=== PATIENT | male | born 1960 | race Caucasian/White ===

== ENCOUNTER 2022-08-31 06:42 | Day surgery (SDC) | payer BC, SELFPAY ==
[2022-08-31] VITALS (12 sets, daily range): BP systolic 123–163; BP diastolic 77–105; PULSE 75–108; RESP 16–18; TEMP 36.6–37.2; O2SAT 95–99; BMI 22.8
--- NOTE | ~2022-08-31 | CT_ITS ---
EXAMINATION: CT ABDOMEN AND PELVIS WITHOUT CONTRAST CLINICAL INFORMATION: Flank pain. COMPARISON: CT Stone 30 09/24/2019 TECHNIQUE: Multidetector volumetric imaging was performed from the superior aspect of the liver through the pubic symphysis. Sagittal and coronal reformatted images were obtained on the technologist's workstation. This CT examination was performed using dose optimization techniques as appropriate, variously including the following: *Automated exposure control *Adjustment of mA and/or kV according to patient size (this includes techniques or standardized protocols for targeted exams where dose is matched to indication/reason for exam; i.e. extremities or head) *Use of iterative reconstruction technique DLP: 432 mGy-cm FINDINGS: LUNG BASES: There is bibasilar dependent atelectasis. Minimal atelectasis or scarring is seen in the lingula. The heart size is normal. LIVER, GALLBLADDER, AND BILIARY TREE: The liver is normal in size, shape, and attenuation. No focal hepatic lesion or biliary ductal dilatation is present. The gallbladder is unremarkable with no evidence of radiopaque gallstones, gallbladder wall thickening, or obvious pericholecystic inflammatory changes. PANCREAS: Unremarkable. SPLEEN: Unremarkable. ADRENAL GLANDS: Unremarkable. KIDNEYS AND URETERS: The right kidney is small measuring 6.2 cm with extrarenal right kidney pelvis. The left kidney is slightly enlarged measuring 13 cm with moderate to significant left hydroureteronephrosis secondary to a large obstructive mid ureteral stone measuring 1.8 cm on coronal image 36/7 the distal left ureter is prominent but no stones seen. BLADDER: Unremarkable. GASTROINTESTINAL TRACT: There is scattered stool and gas seen throughout the colon without any significant distention. The small bowel loops are normal caliber. Appendix is normal caliber. ABDOMINAL WALL: There is a small umbilical hernia containing fat. LYMPH NODES: Normal. VASCULAR: Unremarkable. PELVIC VISCERA: There is moderate prostate enlargement. The periprostatic fat planes are preserved. OSSEOUS STRUCTURES: Degenerative disc changes with vacuum disc phenomena and spondylosis at L5-S1 disc level is noted. There is no aggressive lytic or sclerotic process seen. CT/CT abdomen pelvis wo IV con IMPRESSION: Large 1.8 cm obstructive radiopaque calculi left mid the ureter with moderate to significant hydroureteronephrosis and moderate perinephric stranding. Small right kidney likely chronic atrophy with extrarenal kidney pelvis. No radiopaque calculi seen in either kidneys. Mild constipation. Fleischner guidelines were followed.
--- NOTE | ~2022-08-31 | FL_ITS ---
EXAMINATION: XR FLUOROSCOPY WITH IMAGES CLINICAL INFORMATION: Cystoscopy, ureteroscopy, retro. COMPARISON: CT of the abdomen and pelvis from earlier the same day TECHNIQUE: Fluoroscopy Supervised By: Dr. Sung Ludwig. Fluoroscopy Time: 39.5 seconds. Cumulative Dose: 7.98 mGy. DAP: None available Images: 4. FINDINGS: Initial image demonstrates contrast opacification of the left distal ureter. Middle image demonstrate severe left hydronephrosis and proximal ureteral dilatation. Final images demonstrate a left internal ureteral stent. FL/FL guidance in OR IMPRESSION: Fluoroscopy guidance for urologic procedure.
--- NOTE | 2022-08-31 07:07 | ED.GENADULT ---
HPI - General Adult General Chief complaint: Abdominal Pain Stated complaint: Kidney Stones Time Seen by Provider: 08/31/22 07:04 Source: patient Mode of arrival: ambulatory Limitations: no limitations History of Present Illness HPI narrative: 62 year old male patient with long history of cystine kidney stones presents today with complaints of left flank pain since Tuesday. Per patient this pain presented first on Tuesday 08/29 and dissipated through Tuesday but early this morning around 2am the pain woke him up out of his sleep and was severe for 4 hours. He states he still has this left flank pain which radiates into his groin. Patient elicits some nausea during these episodes. He denies dysuria, difficulties with elimination, abdominal pain, chest pain, SOB, and fever. Patient states that he has had to have lithotripsy multiple times for kidney stones in [facility]. Onset (ago): day(s) Location: back and left Radiation: other (radiates to the groin) Severity: moderate Severity scale (1-10): 4 Quality: stabbing and aching Pain Consistency: constant Relieving factors: none Exacerbating factors: none Associated symptoms: denies other symptoms Treatments prior to arrival: none Related Data Allergies Allergy/AdvReac Type Severity Reaction Status Date / Time No Known Allergies Allergy Verified 08/31/22 07:07 Review of Systems Constitutional: Constitutional: Reports no additional constitutional complaints, Denies chills, Denies fever(s) and Denies night sweats Eyes: Eyes: Reports no additional eye complaints, Denies blurry vision, Denies change in vision, Denies diplopia, Denies eye discharge, Denies loss of vision and Denies eye pain ENT: Denies dizziness Cardiovascular: Cardiovascular: Reports no additional cardiovascular complaints, Denies chest pain, Denies lightheadedness, Denies Loss of Consciousness and Denies dyspnea Respiratory: Respiratory: Reports no additional respiratory complaints and Denies dyspnea Gastrointestinal: Gastrointestinal: Reports no additional gastrointestinal complaints, Denies abdominal pain, Denies melena, Denies hematochezia, Denies change in bowel habits and Denies change in stool character Genitourinary: Genitourinary: Reports no additional male genitourinary complaints, Denies hematuria, Denies oliguria, Denies difficulty urinating, Denies dysuria, Reports flank pain (left), Denies urinary frequency, Denies urinary hesitancy, Denies urinary incontinence and Denies urinary urgency Musculoskeletal: Musculoskeletal: Reports no additional musculoskeletal complaints, Denies numbness and Denies tingling Neurologic: Denies dizziness, Denies loss of vision, Denies numbness and Denies tingling Psychiatric: Psychiatric: Reports no additional psychiatric complaints Endocrine: Endocrine: Reports no additional endocrine complaints Hematologic/Lymphatic: Hematologic/Lymphatic: Reports no additional hematologic/lymphatic complaints Allergic/Immunologic: Allergic/Immunologic: Reports no additional allergic/immunologic complaints PMFSH Past Medical History Attestation statement: The following information was validated with the patient. Source: old records reviewed and nursing notes reviewed Social History Social History Alcohol intake: current Alcohol intake frequency: 0-2 drinks per day Smoked in Last 30 Days: No Use of substances other than those prescribed or required for medical reasons: Yes Substance Use Type: Marijuana Substance Use Frequency: Occasionally Advance Directives: No Physical Exam ED Vital Signs: Vital Signs - 24 hr 08/31/22 06:46 08/31/22 07:23 08/31/22 07:29 Temperature 97.8 F 98.0 F Pulse Rate 88 83 108 H Respiratory Rate 18 16 18 Blood Pressure 163/105 H 148/93 H 148/93 H Pulse Oximetry 97 95 97 Oxygen Delivery Method Room Air Room Air Room Air 08/31/22 09:33 08/31/22 10:45 Temperature Pulse Rate 76 75 Respiratory Rate 16 16 Blood Pressure 148/92 H 133/78 Pulse Oximetry 96 98 Oxygen Delivery Method Room Air Room Air BMI result Body Mass Index 22.8 Const General: cooperative, no acute distress, alert and awake Nutritional Appearance: well nourished Orientation/consciousness: patient oriented x3 Limitations: no limitations [facility] Head: Yes normal to inspection and Yes atraumatic Ears: hearing grossly normal bilaterally and external ears normal General nose exam: Normal external nose present, no nasal discharge noted and no epistaxis Face and sinus: Yes normal facial exam, No abrasion and No laceration Mouth: Normal oral and palatal mucosa present, no drooling and no muffled voice Eyes General: appearance normal, both eyes and all related structures Periorbital: periorbital findings normal Eyelids: Yes eyelids normal Conjunctivae: conjunctivae normal Pupils: Equal, round and reactive pupils present EOM: EOMs intact bilaterally Neck Neck: Yes normal visual inspection, Yes full ROM and Yes no lymphadenopathy Chest Chest palpation & inspection: normal inspection of the chest Resp Effort & Inspection: normal respiratory effort and able to speak in complete sentences GI Inspection: Yes normal to inspection Palpation (GI): Soft to palpation, not firm, nontender, no guarding and not rigid General: Yes CVA tenderness on the left Back/Spine/Pelvis Back: CVA tenderness Neuro General: patient oriented x3 and moves all extremities Cranial nerves: Yes Equal, round and reactive pupils present Cognition (Neuro): normal cognition Motor exam (neuro): 5/5 motor strength present throughout Sensory Exam: Normal double simultaneous stimulation for sensation Coordination: [id number] test normal Extrem General: Yes normal to inspection, Yes full ROM and Yes capillary refill normal Psych Appearance: grossly normal Mental Status: mental status grossly normal Affect: normal affect Attitude: cooperative Thought process: Normal thought process present Thought content: Normal thought content present Insight: Good insight present (Psych) Medications Administered Discontinued Medications Generic Name Dose Route Start Last Admin Trade Name Freq PRN Reason Stop Dose Admin Sodium Chloride 1,000 mls @ 999 mls/hr 08/31/22 07:15 08/31/22 10:44 Ns IV 08/31/22 08:15 Infused .Q1H1M FRANCISCA Infusion Ketorolac Tromethamine 15 mg 08/31/22 07:14 08/31/22 07:46 Ketorolac Tromethamine 15 Mg/Ml Vial IVPUSH 08/31/22 07:15 15 mg ONCE ONE Administration Ondansetron HCl 4 mg 08/31/22 07:14 08/31/22 07:46 Ondansetron Hcl 4 Mg/2 Ml Vial IVPUSH 08/31/22 07:15 4 mg ONCE ONE Administration Medical Decision Making Medical Decision Making [facility] Narrative: Patient is a 62 year old assigned male at with a history of cystine type kidney stones presenting to the emergency department today with left flank pain. Patient's physical exam showed left CVA tenderness. Patient's blood work showed an elevated CR of 1.61 and BUN of 25. The rest of the patient's labs were grossly normal. Patient's urine showed no acute process. Patient's abdominal/pelvis CT showed a large 1.8cm obstructive calculi in the left mid ureter with moderate to significant hydroureteronephrosis and moderate perinephric stranding. I spoke to the urologist gastroenterology nurse practitioner who recommended the patient stay NPO and he would place a stent. I explained my physical exam findings as well as all test results to the patient. I answered all questions asked by the patient. Patient received IV fluid and Toradol which he stated helped his symptoms significantly. Patient verbalized agreement and understanding with this treatment plan and transfer to the OR for stent placement. Differential Diagnosis Differential Diagnoses: The differential diagnosis associated with the presentation includes Kidney stone Renal obstruction Renail failure MARYA Admission/Observation Consideration of admission/observation: Escalation of care including admission/observation considered Consult Healthcare Provider Management of the patient was discussed with: [employer] (spoke with the urologist as noted in the MDM portion of this chart.) Lab Data [facility] Lab Attestation statement: I reviewed the patient's lab results. My interpretation of these results are in the MDM portion of this chart. 08/31/22 07:28 08/31/22 07:28 Labs: Lab Results 08/31/22 08/31/22 08/31/22 Range/Units 07:28 07:28 07:28 WBC 9.7 (4.8-10.8) X10*3/uL RBC 4.82 (4.60-5.80) X10*6/uL Hgb 14.1 (14.0-18.0) g/dl Hct 41.9 L (42.0-52.0) % MCV 86.9 (80.0-98.0) fL MCH 29.3 (27.0-33.0) pg MCHC 33.7 (31.0-36.0) g/dl RDW 14.6 (11.0-16.0) % Plt Count 233 (160-400) X10*3/uL MPV 12.1 (9.4-12.4) fL Immature Gran % (Auto) 0.3 (0.0-0.4) % Neut % (Auto) 75.5 H (45-73) % Lymph % (Auto) 10.3 L (20-40) % [place] % (Auto) 11.8 H (2-11) % Eos % (Auto) 1.3 (0-4) % Baso % (Auto) 0.8 (0-2) % Lymph # (Auto) 1.0 L (1.2-4.9) X10*3/uL [place] # (Auto) 1.1 (0.1-1.2) X10*3/uL Eos # (Auto) 0.1 (0.0-0.4) X10*3/uL Baso # (Auto) 0.1 (0.0-0.2) X10*3/uL Abs Immat Gran (auto) 0.03 (0.00-0.03) X10*3/uL Absolute Neuts (auto) 7.3 (2.0-8.3) x10*3/uL Absolute Nucleated RBC 0.000 (0.0-0.012) X10*3/uL Nucleated RBC % (auto) 0.0 (0.0-0.2) /100WBC Sodium 135 (135-145) mmol/L Potassium 4.2 (3.3-5.1) mmol/L Chloride 100 (96-108) mmol/L Carbon Dioxide 23 (22-29) mmol/L Anion Gap 16 (12-20) BUN 25 H (9-16) mg/dL Creatinine 1.61 H (0.5-1.4) mg/dL Estim Creat Clear Calc 44.6 Estimated GFR 43 Random Glucose 102 (60-115) mg/dL Calcium 10.4 H (8.4-10.2) mg/dL Magnesium 1.9 (1.6-2.6) mg/dL Total Bilirubin 1.1 H (0.0-1.0) mg/dL AST 23 (5-37) U/L ALT 20 (0-40) U/L Alkaline Phosphatase 48 (39-117) U/L Total Protein 6.2 L (6.5-8.0) g/dL Albumin 3.7 (3.5-5.0) g/dL Urine Color Yellow Urine Appearance Clear Urine pH 6.5 (5.0-9.0) Ur Specific [place] 1.010 (1.005-1.025) Urine Protein Negative (Neg-Trace) mg/dL Urine Glucose (UA) Negative (Negative) mg/dL Urine Ketones Trace (Negative) mg/dL Urine Blood Small (1+) H (Negative) Urine Nitrite Negative (Negative) Ur Leukocyte Esterase Negative (Negative) Urine RBC 0-2 (0-2) /HPF Urine WBC 0-5 (0-5) /HPF Ur Squamous Epith Cells 0-2 (0-2) /HPF Urine Bacteria None Seen (None Seen) Hyaline Casts 0-2 (0-2) /LPF Independent Interpretation I performed an independent interpretation of an: CT Scan Interpretation: My interpretation is in agreement with the radiologist's impression of this imaging study. EXAMINATION: CT ABDOMEN AND PELVIS WITHOUT CONTRAST? CLINICAL INFORMATION: Flank pain.? COMPARISON: CT Stone 30 09/24/2019 TECHNIQUE: Multidetector volumetric imaging was performed from the superior aspect of the liver through the pubic symphysis. Sagittal and coronal reformatted images were obtained on the technologist's workstation.? This CT examination was performed using dose optimization techniques as appropriate, variously including the following: *Automated exposure control *Adjustment of mA and/or kV according to patient size (this includes techniques or standardized protocols for targeted exams where dose is matched to indication/reason for exam; i.e. extremities or head) *Use of iterative reconstruction technique DLP: 432 mGy-cm FINDINGS: LUNG BASES: There is bibasilar dependent atelectasis. Minimal atelectasis or scarring is seen in the lingula. The heart size is normal.? LIVER, GALLBLADDER, AND BILIARY TREE: The liver is normal in size, shape, and attenuation. No focal hepatic lesion or biliary ductal dilatation is present. The gallbladder is unremarkable with no evidence of radiopaque gallstones, gallbladder wall thickening, or obvious pericholecystic inflammatory changes.? PANCREAS: Unremarkable.? SPLEEN: Unremarkable.? ADRENAL GLANDS: Unremarkable.? KIDNEYS AND URETERS: The right kidney is small measuring 6.2 cm with extrarenal right kidney pelvis. The left kidney is slightly enlarged measuring 13 cm with moderate to significant left hydroureteronephrosis secondary to a large obstructive mid ureteral stone measuring 1.8 cm on coronal image 36/7 the distal left ureter is prominent but no stones seen.? BLADDER: Unremarkable.? GASTROINTESTINAL TRACT: There is scattered stool and gas seen throughout the colon without any significant distention. The small bowel loops are normal caliber. Appendix is normal caliber.? ABDOMINAL WALL: There is a small umbilical hernia containing fat.? LYMPH NODES: Normal. VASCULAR: Unremarkable. PELVIC VISCERA: There is moderate prostate enlargement. The periprostatic fat planes are preserved.? OSSEOUS STRUCTURES: Degenerative disc changes with vacuum disc phenomena and spondylosis at L5-S1 disc level is noted. There is no aggressive lytic or sclerotic process seen.? CT/CT abdomen pelvis wo IV con IMPRESSION: Large 1.8 cm obstructive radiopaque calculi left mid the ureter with moderate to significant hydroureteronephrosis and moderate perinephric stranding. ? Small right kidney likely chronic atrophy with extrarenal kidney pelvis. No radiopaque calculi seen in either kidneys. ? Mild constipation. ? Fleischner guidelines were followed. Dictated By: Evangelist Alexis MD Signed By: Electronically signed by Evangelist Alexis MD 08/31/22 0909 Radiology Impression Discussion of test interpretation with radiology: I have reviewed the radiologist's reading. Critical Care Time Critical Care Time Critical Care Time: Yes Total Critical Care Time: 30 Attestation: I spent 30 minutes of Critical Care Time with this patient. This does not include time spent on separately reported billable procedures. Discharge Plan Discharge Clinical Impression: Kidney stone Hydronephrosis Qualifiers: Hydronephrosis type: with ureteral calculous obstruction Qualified Code(s): N13.2 - Hydronephrosis with renal and ureteral calculous obstruction Patient Disposition: Xfer Other Transfer Details: To OR for stent by Dr. Kruse
--- NOTE | 2022-08-31 07:32 | PC.NURSE ---
Alert and oriented. reports left sided kidney, flank, abdominal pain that started on tuesday but was worse when he woke up this morning. states history of kidney stones. no blood in urine, Denies constipation or diarrhea. States only his left kidney is functional.
--- NOTE | 2022-08-31 07:35 | PC.NURSE ---
patient stating he sees his urologist at [facility] Dr. Mccormack
--- NOTE | 2022-08-31 07:36 | PC.NURSE ---
Takes potassium citrate 1080mg BID, alpha lipoic acid 600mg BID, chanca sissy 1 drop TID. states last kidney stone was 1 year ago
[2022-08-31 07:39] LABS: MANUAL DIFF FLAG NO
[2022-08-31 07:41] LABS: Basophils Absolute Auto 0.1 X10*3/uL (0.0-0.2); Basophils Percent Auto 0.8 % (0-2); Eosinophils Absolute Auto 0.1 X10*3/uL (0.0-0.4); Eosinophils Percent Auto 1.3 % (0-4); Hematocrit 41.9 % (42.0-52.0); Hemoglobin 14.1 g/dl (14.0-18.0); Imm Gran Abs Auto 0.03 X10*3/uL (0.00-0.03); Imm Gran Pct Auto 0.3 % (0.0-0.4); Lymphocytes Percent Auto 10.3 % (20-40); Mean Corpuscular HGB Conc 33.7 g/dl (31.0-36.0); Mean Corpuscular Hemoglobin 29.3 pg (27.0-33.0); Mean Corpuscular Volume 86.9 fL (80.0-98.0); Mean Platelet Volume 12.1 fL (9.4-12.4); Monocytes Absolute Auto 1.1 X10*3/uL (0.1-1.2); Monocytes Percent Auto 11.8 % (2-11); Neutrophils Absolute Auto 7.3 x10*3/uL (2.0-8.3); Neutrophils Percent Auto 75.5 % (45-73); Platelet Count 233 X10*3/uL (160-400); Red Blood Count 4.82 X10*6/uL (4.60-5.80); Red Cell Distribution Width 14.6 % (11.0-16.0); White Blood Count 9.7 X10*3/uL (4.8-10.8)
[2022-08-31] MEDS: 0.9 % Sodium Chloride 1,000 ML 999 ML IV (07:42)
[2022-08-31 07:44] LABS: Appearance Urine Clear; Color Urine Yellow; Glucose Urine UA Negative (Negative); Leukocyte Esterase Urine Negative (Negative); Nitrite Urine Negative (Negative); PH 6.5 (5.0-9.0); UMIC TRIGGER UACC YES; Urine Blood Small (1+) (Negative); Urine Ketones Trace mg/dL (Negative); Urine Protein Negative (Neg-Trace)
[2022-08-31] MEDS: Ketorolac Tromethamine 15 MG/ML VIAL IVPUSH (07:46)
[2022-08-31] MEDS: ondansetron HCL 4 MG/2 ML VIAL IVPUSH (07:46)
[2022-08-31 08:01] LABS: Alanine Aminotransferase 20 U/L (0-40); Albumin Level 3.7 g/dL (3.5-5.0); Alkaline Phosphatase 48 U/L (39-117); Anion Gap 16 (12-20); Aspartate Amino Transferase 23 U/L (5-37); Bilirubin Total 1.1 mg/dL (0.0-1.0); Blood Urea Nitrogen 25 mg/dL (9-16); Calcium 10.4 mg/dL (8.4-10.2); Carbon Dioxide 23 mmol/L (22-29); Chloride 100 mmol/L (96-108); Creatinine Clr Calc Pharmacy 44.6; Estimated Glomerular Filt Rate 43; Glucose Random 102 mg/dL (60-115); Magnesium 1.9 mg/dL (1.6-2.6); Potassium 4.2 mmol/L (3.3-5.1); Sodium 135 mmol/L (135-145); Total Protein 6.2 g/dL (6.5-8.0)
[2022-08-31 08:07] LABS: Bacteria Urine None Seen (None Seen); Hyaline Casts Urine 0-2 /LPF (0-2); RBC Urine 0-2 /HPF (0-2); Squamous Epithelial Cell Urine 0-2 /HPF (0-2); WBC Urine 0-5 /HPF (0-5)
--- NOTE | 2022-08-31 09:35 | P.CNUR_ITS ---
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 Not on Thiola Progressive left flank pain Difficulty tolerating orals Creatinine shows elevation Imaging - ?The left kidney is slightly enlarged measuring 13 cm with moderate to significant left hydroureteronephrosis secondary to a large obstructive mid ureteral stone measuring 1.8 cm Recommend intervention with at minimum stent placement He is wondering if ureteroscopy would be out performed in same setting He was informed this will depend on findings at time of procedure Should remain NPO Review of Systems Constitutional: Constitutional: Reports as per HPI and Reports no additional constitutional complaints Cardiovascular: Cardiovascular: Reports as per HPI and Reports no additional cardiovascular complaints Respiratory: Respiratory: Reports as per HPI and Reports no additional respiratory complaints Gastrointestinal: Gastrointestinal: Reports as per HPI and Reports no additional gastrointestinal complaints Genitourinary: Genitourinary: Reports as per HPI Musculoskeletal: Musculoskeletal: Reports no additional musculoskeletal complaints and Reports as per HPI Neurologic: Reports system reviewed and no additional complaints, except as documented and Reports as per HPI PMF Social History Social History Alcohol intake: current Alcohol intake frequency: 0-2 drinks per day Smoked in Last 30 Days: No Use of substances other than those prescribed or required for medical reasons: Yes Substance Use Type: Marijuana Substance Use Frequency: Occasionally Advance Directives: No Meds Allergies Allergy/AdvReac Type Severity Reaction Status Date / Time No Known Allergies Allergy Verified 08/31/22 07:07 Active Medications: Current Medications Levofloxacin (Levaquin) 500 mg in 100 mls @ 100 mls/hr IV PREOP ONE Stop: 08/31/22 10:30 Physical Exam Vital Signs: Vital Signs: Last Vital Signs Temp 98.0 F 08/31/22 07:23 Pulse 76 08/31/22 09:33 Resp 16 08/31/22 09:33 BP 148/92 H 08/31/22 09:33 Pulse Ox 96 08/31/22 09:33 O2 Del Method Room Air 08/31/22 09:33 BMI result Body Mass Index 22.8 Const: General: cooperative, healthy appearing, comfortable and no acute distress Orientation/consciousness: patient oriented x3 HEENT: Face and sinus: Yes normal facial exam Mouth: moist mucous membranes Neck: Neck: Yes normal visual inspection, Yes full ROM and Yes trachea midline Chest: Chest palpation & inspection: normal inspection of the chest Resp: Effort & Inspection: normal respiratory effort, able to speak in complete sentences and no respiratory distress GI: Inspection: Yes normal to inspection Back/Spine/Pelvis: Cervical Spine: normal cervical lordosis Thoracic/Lumbar Spine: thoracic and lumbar spine normal to inspection Skin: General skin exam: no rashes or lesions noted Neuro: General: patient oriented x3, tone normal and moves all extremities Extrem: General: Yes normal to inspection and Yes capillary refill normal Results Labs 08/31/22 07:28 08/31/22 07:28 Labs: Abnormal lab results 08/31/22 08/31/22 08/31/22 Range/Units 07:28 07:28 07:28 Hct 41.9 L (42.0-52.0) % Neut % (Auto) 75.5 H (45-73) % Lymph % (Auto) 10.3 L (20-40) % [place] % (Auto) 11.8 H (2-11) % Lymph # (Auto) 1.0 L (1.2-4.9) X10*3/uL BUN 25 H (9-16) mg/dL Creatinine 1.61 H (0.5-1.4) mg/dL Calcium 10.4 H (8.4-10.2) mg/dL Total Bilirubin 1.1 H (0.0-1.0) mg/dL Total Protein 6.2 L (6.5-8.0) g/dL Urine Blood Small (1+) H (Negative) Short CBC 08/31/22 Range/Units 07:28 WBC 9.7 (4.8-10.8) X10*3/uL Hgb 14.1 (14.0-18.0) g/dl Hct 41.9 L (42.0-52.0) % Plt Count 233 (160-400) X10*3/uL BMP 08/31/22 07:28 Sodium 135 Potassium 4.2 Chloride 100 Carbon Dioxide 23 BUN 25 H Creatinine 1.61 H Calcium 10.4 H Liver Function 08/31/22 Range/Units 07:28 Total Bilirubin 1.1 H (0.0-1.0) mg/dL AST 23 (5-37) U/L ALT 20 (0-40) U/L Alkaline Phosphatase 48 (39-117) U/L Albumin 3.7 (3.5-5.0) g/dL Urine 08/31/22 Range/Units 07:28 Urine Color Yellow Urine Appearance Clear Urine pH 6.5 (5.0-9.0) Ur Specific [place] 1.010 (1.005-1.025) Urine Protein Negative (Neg-Trace) mg/dL Urine Glucose (UA) Negative (Negative) mg/dL All other labs normal. Assessment and Plan (1) Kidney stone: Status: Acute (2) Hydronephrosis: Qualifiers: Hydronephrosis type: with ureteral calculous obstruction Qualified Code(s): N13.2 - Hydronephrosis with renal and ureteral calculous obstruction Status: Acute (3) Elevated serum creatinine: Status: Acute Plan Ureteroscopy We discussed the nature of the decision and reasonable alternatives for performing ureteroscopy. Options such as medical therapy were discussed. Interventions include chemical dissolution, ESWL, ureteroscopy with laser lithotripsy and stent placement, PCNL. The relative uncertainties and benefits related to each alternate procedure were adequately discussed. General surgical risks including, but not limited to - pain, bleeding, infection, myocardial infarction, pulmonary embolus, deep vein thrombosis and cerebrovascular accident which may result in further hospitalization were discussed. Full disclosure of the procedure as well as all major risks, benefits and complications were discussed including but not limited to damage to the urethra, bladder and kidney infection, damage to the ureter, stent migration or malposition, scarring to the renal pelvis, remnant stone fragments, subsequent stone passage with need for secondary procedures. The overall secondary procedure rate is approximately 10-15%. The overall clearance rate is approximately 90-95%. Success of the procedure in the short-term does not necessarily guarantee that long-term success will be maintained. Suitable follow up will need to be maintained. The patient showed understanding of discussion and wishes to proceed with - cystoscopy, retrograde, ureteroscopy, possible lithotripsy/stone basketing and stent on the left side - at minimum procedure will be cystoscopy, left retrograde, left stent placement Time Spent With Patient Time: Total time managing care of this patient today ____ minutes. Procedures Date of Service Date of Service: 08/31/22
--- NOTE | 2022-08-31 09:42 | PC.NURSE ---
Patient going to OR for stent to be placed. NPO- patient aware.
--- NOTE | 2022-08-31 10:43 | PC.NURSE ---
Alert and oriented, remains npo, awaiting to go to OR
--- NOTE | 2022-08-31 11:04 | PC.NURSE ---
Report given to OR, patient did not eat breakfast , states only small sips of water this am
--- NOTE | 2022-08-31 12:54 | PC.NURSE ---
Transported to OR at this time
--- NOTE | 2022-08-31 13:47 | HO.ANESPROP2 ---
HPI - Anesthesia Eval Consult details Narrative: cysto,hydronephrosis PMFSH Active Problems Active Problems: All Active Problems (Updated 08/31/22 @ 13:03 by Amada Godfrey) Kidney stone (Acute) Hydronephrosis (Acute) Elevated serum creatinine (Acute) Past Medical History Medical History (Updated 08/31/22 @ 13:03 by Amada Godfrey) Cystinuria Small right kidney Family History Family history of problems with anesthesia: No Surgical History Surgical History (Updated 08/31/22 @ 13:03 by Amada Godfrey) H/O colonoscopy History of cystoscopy Hx of appendectomy Hx of tonsillectomy History of Problems with Anesthesia: No Social History Social History Alcohol intake: current Alcohol intake frequency: 0-2 drinks per day Patient Tobacco Use Status: Never used Tobacco Smoked in Last 30 Days: No Use of substances other than those prescribed or required for medical reasons: No Substance Use Type: Marijuana Substance Use Frequency: Occasionally Are you DNR?: No Advance Directives: No Meds Allergies Allergy/AdvReac Type Severity Reaction Status Date / Time No Known Allergies Allergy Verified 08/31/22 13:00 Home Medications Medication Instructions Recorded Confirmed Last Taken Type alpha lipoic acid 1 cap PO BID 08/31/22 08/31/22 Unknown History potassium citrate 1 tab PO BID 08/31/22 08/31/22 Unknown History Exam Exam Date and Time: August 31, 2022 1347 Height,Weight and Vital Signs: Height 5 ft 8 in Weight 68.039 kg Last Vital Signs Temp 99.0 F 08/31/22 13:10 Pulse 82 08/31/22 13:10 Resp 16 08/31/22 13:10 BP 138/85 08/31/22 13:10 Pulse Ox 97 08/31/22 13:10 O2 Del Method Room Air 08/31/22 13:10 Pertinent Lab Results Pertinent Lab Results: Laboratory Tests 08/31/22 08/31/22 08/31/22 07:28 07:28 07:28 WBC 9.7 RBC 4.82 Hgb 14.1 Hct 41.9 L MCV 86.9 MCH 29.3 MCHC 33.7 RDW 14.6 Plt Count 233 MPV 12.1 Immature Gran % (Auto) 0.3 Neut % (Auto) 75.5 H Lymph % (Auto) 10.3 L [place] % (Auto) 11.8 H Eos % (Auto) 1.3 Baso % (Auto) 0.8 Lymph # (Auto) 1.0 L [place] # (Auto) 1.1 Eos # (Auto) 0.1 Baso # (Auto) 0.1 Abs Immat Gran (auto) 0.03 Absolute Neuts (auto) 7.3 Absolute Nucleated RBC 0.000 Nucleated RBC % (auto) 0.0 Sodium 135 Potassium 4.2 Chloride 100 Carbon Dioxide 23 Anion Gap 16 BUN 25 H Creatinine 1.61 H Estim Creat Clear Calc 44.6 Estimated GFR 43 Random Glucose 102 Calcium 10.4 H Magnesium 1.9 Total Bilirubin 1.1 H AST 23 ALT 20 Alkaline Phosphatase 48 Total Protein 6.2 L Albumin 3.7 Urine Color Yellow Urine Appearance Clear Urine pH 6.5 Ur Specific [place] 1.010 Urine Protein Negative Urine Glucose (UA) Negative Urine Ketones Trace Urine Blood Small (1+) H Urine Nitrite Negative Ur Leukocyte Esterase Negative Urine RBC 0-2 Urine WBC 0-5 Ur Squamous Epith Cells 0-2 Urine Bacteria None Seen Hyaline Casts 0-2 Airway Mallampati Class: II TM Dist: >3cm Neck ROM: Limited Heart: rrr Lungs: cta Assessment and Plan Assessment Anesthesia Assessment: Anesthesia Plan Discussed and Chart Reviewed Final Anesthetic Review Family History of Problems with Anesthesia: No History of Problems with Anesthesia: No NPO: Yes ASA Class: II Final Preanesthetic Review: No Changes in Pt Med Stat, Meds/Allgs Chart Reviewed, Consent Obtained/Reviewed and Anes Risks/Benef Reviewed Patient Risk: Low Procedure Risk: Intermediate Anesthetic Plan Anesthetic Plan: GA and Agree w/ Assess. and Plan Disposition: Standard PACU
--- NOTE | 2022-08-31 13:58 | MHC.SHP ---
Pre-Procedural Eval Section A Date of Service: 08/31/22 The patient is an INPATIENT: No The History & Physical has been completed within 30 days and I have reviewed it.: Yes Section B Chief Complaint: Kidney Stones Allergies: Allergies Allergy/AdvReac Type Severity Reaction Status Date / Time No Known Allergies Allergy Verified 08/31/22 13:00 Plan Diagnosis/Plan: Unchanged I have reviewed the history and physical and performed a pertinent physical examination on my patient. No changes have occurred unless specified. Cystoscopy Left ureteral stent possible ureteroscopy, laser. Risks discussed included but not limited to, possible need to repeat procedure if stone is not completely fragmented, Irritative voiding symptoms, bladder spasms, urgency, blood in urine. Time Spent With Patient Time: Total time managing care of this patient today ____ minutes.
--- NOTE | 2022-08-31 14:56 | P.OP_ITS ---
Operative Note Operative Note Date of Service: 08/31/22 Narrative: PreOperative Diagnosis:?? left ureteral stone Post Operative Diagnosis:?? ?left ureteral stone Procedure: - cystoscopy, left retrograde - Left stent placement, 6 fr by multi-length Surgeon:?Dr Sabine Ruth Anesthesia:? General Indications for procedure: Procedure: After informed consent was verified the patient was brought to the operating placed on the OR table in supine position.? General Anesthesia was administered per protocol.? The patient was placed in lithotomy position, prepped and draped in the usual sterile fashion.? Safety pause time-out and side of surgery confirmed.? Antibiotics confirmed. A 22 Portuguese cystoscope was inserted transurethrally, the bulbous urethra was within normal limits. The prostatic urethra was nonobstructive. The bladder was visualized.? Both ureteric orifices were in normal position. The?left ureteric orifice was cannulated? and a retrograde examination was performed, A hydrophilic guidewire was placed up to the level of the renal pelvis under fluoroscopy. A? 6 Portuguese by multi- length stent was placed into the ureter and renal pelvis under a combination of fluoroscopy and direct visualization. The bladder was emptied.? The rigid cystoscope was removed. ? The patient tolerated the procedure well and was brought to the recovery room in stable condition. Complications: None Drains: Ureteral stent as dictated above
== END 2022-08-31 16:52 | disposition home or self-care (01) ==
LOC: HO.ED 09:26 → HO.SSS 09:29
PROVIDERS: Physician Assistant Medical; Emergency Provider Emergency Medicine Emergency Medical Services; Visit Provider Urology
PROC: (CPT 52332; principal; 2022-08-31 14:30)
DX: N13.2 Hydronephrosis with renal and ureteral calculous obstruction (principal)
CPT/HCPCS: 52332; 36415; 74176; 80053; 81001; 83735; 85025; 99284; C1769; C2617; J0131; J1100; J1885; J1956; J2405; Q9967

== ENCOUNTER → 2022-08-31 09:24 | Outpatient (BNV) | payer BC, SELFPAY | PROVIDERS: Emergency Provider Emergency Medicine Emergency Medical Services; Visit Provider Urology | DX: N13.2 Hydronephrosis with renal and ureteral calculous obstruction (principal); R79.89 Other specified abnormal findings of blood chemistry | CPT/HCPCS: 52282; 99284 ==

== ENCOUNTER 2022-09-03 08:29 | Outpatient (REF) | payer BC, SELFPAY ==
--- NOTE | ~2022-09-03 | XR_ITS ---
EXAMINATION: XR ABDOMEN KUB CLINICAL INDICATION: Left ureteral stent. COMPARISON: CT abdomen and pelvis 08/31/2022. TECHNIQUE: AP view of the abdomen. FINDINGS: Since the prior CT scan, a left internally dwelling ureteral stent has been placed. The large previously seen obstructing left proximal to mid ureteral calculus remains in place measuring 2.1 x 0.7 cm. No other calculi are seen. The bowel gas pattern is normal. XR/XR KUB IMPRESSION: Interval placement of left internally dwelling ureteral stent. The left proximal to mid ureteral calculus remains in place.
== END 2022-09-03 08:30 | disposition home or self-care (01) ==
LOC: HO.XRAY 08:29
PROVIDERS: Visit Provider Urology
DX: N20.0 Calculus of kidney (principal)
CPT/HCPCS: 74018

== ENCOUNTER 2022-09-10 08:28 | Outpatient (AMB) | payer BC, SELFPAY ==
--- NOTE | 2022-09-10 06:46 | A.OFFVIS_ITS ---
Intake Intake Visit Reasons: Follow up on stent placement Intake Note: Patient presents today for a follow-up concern with the Stent Placement: Meds- Pyridium, Oxybutynin & Tamsulosin Allergies to Antibiotic- No Known Allergies Blood Thinner- None Fuel Conversion Technician Required: No Accompanied by: Self / Same As Patient Allergies No Known Allergies Allergy (Verified 08/31/22 13:00) HPI HPI Comments History of Present Illness Details Mikey is a 62-year-old male who presents today to the office for a follow-up. 09/10/2022-- Mikey is a 62-year-old male who I initially evaluated as an inpatient consult for hydronephrosis and acute renal insufficiency secondary to an obstructing stone. He is status post left ureteral stent. He had a follow-up KUB done on 09/03/22 that I reviewed. He has a history of cystine kidney stones. He has been followed by Dr. Gardiner in [place] for many years and has had a multiple of surgical treatment options including ureteroscopy, shockwave lithitripsy to manage the cistine kidney stones. He has moved to [place] and is going to continue his follow-up care with [facility]. He is not on aspirin or any other blood thinners. He is on Pyridium and oxbutynin and they are helpful for him. He requests refill for the Pyridium. 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 Evaluation today-- UA 09/10/22-- Leukocytes: 1+. Blood:3+. Plan: His follow-up KUB films were reviewed with the patient today. Left ureteroscopy, laser lithotripsy and stent exchange discussed to be scheduled. Risks discussed included but not limited to, possible need to repeat procedure if stone is not completely fragmented, Irritative voiding symptoms, bladder spasms, urgency, blood in urine. Refilled Pyridium 200 mg every 8 hours per patient's request. [facility] Medical History Cystinuria Small right kidney Surgical History H/O colonoscopy History of cystoscopy Hx of appendectomy Hx of tonsillectomy Social History Alcohol intake: current Alcohol intake frequency: 0-2 drinks per day Patient Tobacco Use Status: Never used Tobacco Substance Use Type: Marijuana Review of Systems Const All systems reviewed & are unremarkable except as noted in HPI and below Reports no additional complaints Eyes Reports no additional complaints ENT Denies neck pain Card Denies leg edema Resp Denies cough GI Denies constipation Musc Reports no additional complaints and Denies neck pain Skin/Breast Denies rash and Denies unusual bruising Neuro Reports no additional complaints Psych Reports no additional complaints Endo Reports no additional complaints Uzair/Lymph Reports no additional complaints Aller/Immun Reports no additional complaints Physical Exam Const General: healthy appearing, no acute distress and well developed Orientation/consciousness: patient oriented x3 HEENT Head: Yes normocephalic and Yes atraumatic Eyes Conjunctivae: conjunctivae normal Neck Neck: Yes normal visual inspection Chest Chest palpation & inspection: normal inspection of the chest Resp Effort & Inspection: normal respiratory effort Cardio Rate: regular rate GI Inspection: Yes normal to inspection Skin General skin exam: no rashes or lesions noted Neuro General: patient oriented x3 Extrem General: No pedal edema Psych Appearance: grossly normal Affect: normal affect Results AMB Urinalysis, Automated UA Leukoctes 70 [place]obi/uL Last Edit by LICHA Bonilla on 09/10/22 08:55 1+ Jagdish Pritchard 09/10/22 08:55 UA Nitrite Negative Last Edit by LICHA Bonilla on 09/10/22 08:55 UA Urobilinogen 0.2 mg/dL Last Edit by LICHA Bonilla on 09/10/22 08:5 5 UA Protein 15 mg/dL Last Edit by LICHA Bonilla on 09/10/22 08:55 UA pH 7.0 Last Edit by LICHA Bonilla on 09/10/22 08:55 UA Blood 200 [place]/uL Last Edit by LICHA Bonilla on 09/10/22 08:55 3+ Jagdish Pritchard 09/10/22 08:55 UA Specific [place] 1.010 Last Edit by LICHA Bonilla on 09/10/22 08: 55 UA Ketone Negative Last Edit by LICHA Bonilla on 09/10/22 08:55 UA Bilirubin 0 mg/dL Last Edit by LICHA Bonilla on 09/10/22 08:55 UA Glucose 0 mg/dL Last Edit by LICHA Bonilla on 09/10/22 08:55 Results Reviewed Results Reviewed: Laboratory Last Values Urine pH (Auto) 7.0 09/10/22 08:51 Specific [place] (Auto) 1.010 09/10/22 08:51 Urine Protein (Auto) 15 mg/dL 09/10/22 08:51 Glucose (UA)(Auto) 0 mg/dL 09/10/22 08:51 Urine Ketones (Auto) Negative 09/10/22 08:51 Urine Blood (Auto) 200 [place]/uL 09/10/22 08:51 Urine Nitrite (Auto) Negative 09/10/22 08:51 Urine Bilirubin (Auto) 0 mg/dL 09/10/22 08:51 Urine Urobilinogen (Auto) 0.2 mg/dL 09/10/22 08:51 Leukocyte Esterase (Auto) 70 [place]/uL 09/10/22 08:51 Date of Service: 09/03/22 EXAMINATION: XR ABDOMEN KUB CLINICAL INDICATION: Left ureteral stent.? COMPARISON: CT abdomen and pelvis 08/31/2022.? TECHNIQUE: AP view of the abdomen. FINDINGS: Since the prior CT scan, a left internally dwelling ureteral stent has been placed. The large previously seen obstructing left proximal to mid ureteral calculus remains in place measuring 2.1 x 0.7 cm. No other calculi are seen. The bowel gas pattern is normal. IMPRESSION: Interval placement of left internally dwelling ureteral stent. The left proximal to mid ureteral calculus remains in place. Date of Service: 08/31/22 EXAMINATION: CT ABDOMEN AND PELVIS WITHOUT CONTRAST? CLINICAL INFORMATION: Flank pain.? COMPARISON: CT Stone 30 09/24/2019 FINDINGS: LUNG BASES: There is bibasilar dependent atelectasis. Minimal atelectasis or scarring is seen in the lingula. The heart size is normal.? LIVER, GALLBLADDER, AND BILIARY TREE: The liver is normal in size, shape, and attenuation. No focal hepatic lesion or biliary ductal dilatation is present. The gallbladder is unremarkable with no evidence of radiopaque gallstones, gallbladder wall thickening, or obvious pericholecystic inflammatory changes.? PANCREAS: Unremarkable.? SPLEEN: Unremarkable.? ADRENAL GLANDS: Unremarkable.? KIDNEYS AND URETERS: The right kidney is small measuring 6.2 cm with extrarenal right kidney pelvis. The left kidney is slightly enlarged measuring 13 cm with moderate to significant left hydroureteronephrosis secondary to a large obstructive mid ureteral stone measuring 1.8 cm on coronal image 36/7 the distal left ureter is prominent but no stones seen.? BLADDER: Unremarkable.? GASTROINTESTINAL TRACT: There is scattered stool and gas seen throughout the colon without any significant distention. The small bowel loops are normal caliber. Appendix is normal caliber.? ABDOMINAL WALL: There is a small umbilical hernia containing fat.? LYMPH NODES: Normal. VASCULAR: Unremarkable. PELVIC VISCERA: There is moderate prostate enlargement. The periprostatic fat planes are preserved.? OSSEOUS STRUCTURES: Degenerative disc changes with vacuum disc phenomena and spondylosis at L5-S1 disc level is noted. There is no aggressive lytic or sclerotic process seen.? IMPRESSION: Large 1.8 cm obstructive radiopaque calculi left mid the ureter with moderate to significant hydroureteronephrosis and moderate perinephric stranding. ? Small right kidney likely chronic atrophy with extrarenal kidney pelvis. No radiopaque calculi seen in either kidneys. ? Mild constipation.?? Assessment & Plan Assessment & Plan (1) Hydronephrosis with renal calculous obstruction: Code(s): N13.2 - Hydronephrosis with renal and ureteral calculous obstruction Plan His follow-up KUB films were reviewed with the patient today. Left ureteroscopy, laser lithotripsy and stent exchange discussed to be scheduled. Risks discussed included but not limited to, possible need to repeat procedure if stone is not completely fragmented, Irritative voiding symptoms, bladder spasms, urgency, blood in urine. Refilled Pyridium 200 mg every 8 hours per patient's request. Orders: Orders AMB Urinalysis Automated Today Z13.9 - Encounter for screening, unspecified Medications: Refilled phenazopyridine (Pyridium) 200 mg PO TID PRN 40 tabs 0RF pain Patient Instructions: The patient had an opportunity to ask questions regarding treatment plan. All questions were answered. Imaging, Laboratory studies and physical exam results were discussed and reviewed in detail. No major barriers to understanding were identified. The patient expressed understanding and agreement with the above treatment plan. The patient is aware they should contact our office by phone for worsening of their current condition or the appearance of new symptoms. Compliance is encouraged with any medications and followup testing that is ordered. It is a privilege to be allowed the opportunity to participate in the urologic care of your patient. If you have any questions or concerns regarding treatment for the above conditions please do not hesitate to contact me. The office telephone contact is [phone]. This note is constructed in part using voice recognition software. While every effort has been made to ensure accuracy labor law professor errors may have been included. Yours sincerely, Sabine Ruth MD Coding Level of Care Code Est Pt Level 4 (84659) Diagnoses Hydronephrosis with renal calculous obstruction N13.2
== END 2022-09-10 09:20 | disposition home or self-care (01) ==
PROVIDERS: Visit Provider Urology
DX: N13.2 Hydronephrosis with renal and ureteral calculous obstruction (principal)
CPT/HCPCS: 99214

== ENCOUNTER → 2022-09-10 08:28 | Outpatient (BNVA) | payer BC, SELFPAY | PROVIDERS: Visit Provider Urology ==

== ENCOUNTER 2022-09-14 10:02 | Day surgery (SDC) | payer BC, SELFPAY ==
[2022-09-14] VITALS (7 sets, daily range): BP systolic 120–159; BP diastolic 73–89; PULSE 73–99; RESP 16–18; TEMP 36.4–36.6; O2SAT 93–98; BMI 22.8
--- NOTE | ~2022-09-14 | FL_ITS ---
EXAMINATION: XR FLUOROSCOPY WITH IMAGES CLINICAL INFORMATION: Left-sided cystoscopy. COMPARISON: None available. TECHNIQUE: Fluoroscopy Supervised By: Dr. Sabine Ruth. Fluoroscopy Time: 39.6 seconds. Cumulative Dose: 6.81 mGy. DAP: None available. Images: 6. FINDINGS: There are 4 digital images obtained initially revealing an endoscope and the guidewire within the left renal pelvis. The subsequent images reveal a left ureteral stent in place with the proximal end in the kidney pelvis and the distal end in the bladder. FL/FL guidance in OR IMPRESSION: Fluoroscopy guidance was provided to referring physician during left ureteral stent placement.
[2022-09-14] MEDS: Lactated Ringers 1,000 ML 100 ML IVCONT (10:57)
--- NOTE | 2022-09-14 13:50 | P.CONAN_ITS ---
Documented by User: Rosa Guthrie NP 09/13/22 14:24 HPI - Anesthesia Eval Consult details Narrative: 62yo M for Left?Cystoscopy, Ureteroroscopy, Retro, Laser with stent exchange s/p cysto, etc 08/31/22 with GA-LMA 5 PMFSH Active Problems Active Problems: All Active Problems (Updated 09/10/22 @ 09:22 by Antonio Harmon) Hydronephrosis with renal calculous obstruction (Acute) Kidney stone (Acute) Hydronephrosis (Acute) Elevated serum creatinine (Acute) Past Medical History Medical History Cystinuria Small right kidney Family History Family history of problems with anesthesia: No Surgical History Surgical History H/O colonoscopy History of cystoscopy Hx of appendectomy Hx of tonsillectomy History of Problems with Anesthesia: No Social History Social History Alcohol intake: current Alcohol intake frequency: 0-2 drinks per day Patient Tobacco Use Status: Never used Tobacco Second Hand Smoke Exposure: No Use of substances other than those prescribed or required for medical reasons: Yes Substance Use Type: Marijuana Are you DNR?: No Advance Directives: No Advance Directives Information Provided: Yes Advance Directives on File: No Meds Allergies Allergy/AdvReac Type Severity Reaction Status Date / Time No Known Allergies Allergy Verified 08/31/22 13:00 Home Medications Medication Instructions Recorded Confirmed Last Taken Type alpha lipoic acid 1 cap PO BID 08/31/22 08/31/22 Unknown History potassium citrate 1 tab PO BID 08/31/22 08/31/22 Unknown History Exam Exam Date and Time: September 13, 2022 1423 Pertinent Lab Results Pertinent Lab Results: Laboratory Tests 08/31/22 08/31/22 07:28 07:28 WBC 9.7 Hgb 14.1 Hct 41.9 L Plt Count 233 Sodium 135 Potassium 4.2 Chloride 100 Carbon Dioxide 23 BUN 25 H Creatinine 1.61 H Assessment and Plan Assessment Anesthesia Assessment: Chart Reviewed Final Anesthetic Review Family History of Problems with Anesthesia: No History of Problems with Anesthesia: No Documented by User: Nataliia Steen DO 09/14/22 13:57 [facility] Past Medical History Medical History Cystinuria Small right kidney Family History Family history of problems with anesthesia: No Surgical History Surgical History H/O colonoscopy History of cystoscopy Hx of appendectomy Hx of tonsillectomy History of Problems with Anesthesia: No Social History Social History Alcohol intake: current Alcohol intake frequency: 0-2 drinks per day Patient Tobacco Use Status: Never used Tobacco Second Hand Smoke Exposure: No Use of substances other than those prescribed or required for medical reasons: Yes Substance Use Type: Marijuana Are you DNR?: No Advance Directives: No Advance Directives Information Provided: Yes Advance Directives on File: No Meds Allergies Allergy/AdvReac Type Severity Reaction Status Date / Time No Known Allergies Allergy Verified 08/31/22 13:00 Home Medications Medication Instructions Recorded Confirmed Last Taken Type alpha lipoic acid 1 cap PO BID 08/31/22 08/31/22 Unknown History potassium citrate 1 tab PO BID 08/31/22 08/31/22 Unknown History Exam Exam Date and Time: September 14, 2022 1350 Height,Weight and Vital Signs: Height 5 ft 8 in Weight 68.039 kg Vital Signs Temperature 97.6 F 09/14/22 10:56 Pulse Rate 74 09/14/22 10:56 Respiratory Rate 16 09/14/22 10:56 Blood Pressure 142/89 H 09/14/22 10:56 Pulse Oximetry 96 09/14/22 10:56 Oxygen Delivery Method Room Air 09/14/22 10:56 Temperature 97.6 F 09/14/22 10:56 Pulse Rate 74 09/14/22 10:56 Respiratory Rate 16 09/14/22 10:56 Blood Pressure 142/89 H 09/14/22 10:56 Pulse Oximetry 96 09/14/22 10:56 Oxygen Delivery Method Room Air 09/14/22 10:56 Airway Mallampati Class: II TM Dist: >3cm Neck ROM: Full Loose/Missing/Broken Teeth: No Heart: S1S2 Lungs: CTAB Assessment and Plan Assessment Anesthesia Assessment: Anesthesia Plan Discussed and Chart Reviewed Final Anesthetic Review Family History of Problems with Anesthesia: No History of Problems with Anesthesia: No NPO: Yes ASA Class: II Final Preanesthetic Review: No Changes in Pt Med Stat, Meds/Allgs Chart Reviewed, Consent Obtained/Reviewed and Anes Risks/Benef Reviewed Patient Risk: Low Procedure Risk: Low Anesthetic Plan Anesthetic Plan: GA and Agree w/ Assess. and Plan Disposition: Standard PACU
--- NOTE | 2022-09-14 14:21 | MHC.SHP ---
Pre-Procedural Eval Section A Date of Service: 09/14/22 The patient is an INPATIENT: No The History & Physical has been completed within 30 days and I have reviewed it.: Yes Section B Chief Complaint: Calculus of ureter Allergies: Allergies Allergy/AdvReac Type Severity Reaction Status Date / Time No Known Allergies Allergy Verified 08/31/22 13:00 Plan Diagnosis/Plan: Unchanged I have reviewed the history and physical and performed a pertinent physical examination on my patient. No changes have occurred unless specified. Plan for Cystoscopy, Left ureteroscopy, possible laser lithotripsy, possible ureteral stent. Risks discussed included but not limited to, possible need to repeat procedure if stone is not completely fragmented, Irritative voiding symptoms, bladder spasms, urgency, blood in urine. Time Spent With Patient Time: Total time managing care of this patient today ____ minutes.
--- NOTE | 2022-09-14 16:39 | P.OP_ITS ---
Operative Note Operative Note Date of Service: 09/14/22 Narrative: PreOperative Diagnosis:?? Left ureteral stone Post Operative Diagnosis:?? Left renal stone Procedure: Cystoscopy, Left ureteroscopy laser lithotripsy stent exchange, size 6 Welsh by Multi-length cm Surgeon:?Dr Sabine Ruth Anesthesia:? General Indications for procedure: Here for stone fragmentation. Procedure: After informed consent was verified the patient was brought to the operating placed on the OR table in supine position.? General Anesthesia was administered per protocol.? The patient was placed in lithotomy position, prepped and draped in the usual sterile fashion.? Safety pause time-out and side of surgery confirmed.? Antibiotics confirmed. A 22 Welsh cystoscope was inserted transurethrally, t he bulbous urethra was within normal limits. The prostatic urethra was nonobstructive. The bladder was visualized.? Both ureteric orifices were in normal position. The ureteral stent was curled in the bladder. The? distal end of the ureteral stent was grasped with the flexible grasping forceps. The stent was pulled retrograde through the urethra. A guidewire was passed through the stent. The cystoscope was removed, leaving the guidewire in place. The guidewire was used as the safety and was attached to the draping. The semi-rigid ureteroscope was passed transurethrally to the UPJ, the stone was note visualized and had migrated to the kidney. The rigid ureteroscope was removed the disposable flexible ureteroscope was passed over the guide wire into the kidney the stone was visualized in the mid to lower pole. Laser lithotripsy of the stone was done using the laser fiber with a combination of dusting settings 0.5 J by 20 hertz and 1.0 joules by 12 hertz There was partial fragmentation of the stone, due to some oozing of blood which limited adequate visualization, the procedure was terminated and the ureteroscope was removed. The cystoscope was passed over the safety guidewire. A? 6 Welsh by multilength cm stent was placed into the ureter and renal pelvis under a combination of fluoroscopy and direct visualization. The bladder was emptied.? The rigid cystoscope was removed. ? The patient tolerated the procedure well and was brought to the recovery room in stable condition. Complications: None Drains: Ureteral stent as dictated above
== END 2022-09-14 17:06 | disposition home or self-care (01) ==
PROVIDERS: Visit Provider Urology
PROC: (CPT 52356; principal; 2022-09-14 11:50)
DX: N13.2 Hydronephrosis with renal and ureteral calculous obstruction (principal); E72.01 Cystinuria; N27.0 Small kidney, unilateral; Z79.899 Other long term (current) drug therapy; F12.90 Cannabis use, unspecified, uncomplicated
CPT/HCPCS: 52356; C1769; C2617; J0131; J0690; J1100; J2250; J2405; Q9967

== ENCOUNTER → 2022-09-14 10:02 | Outpatient (BNV) | payer BC, SELFPAY | PROVIDERS: Visit Provider Urology | DX: N20.0 Calculus of kidney (principal) | CPT/HCPCS: 52356 ==

== ENCOUNTER 2022-09-29 07:42 | Outpatient (REF) | payer BC, SELFPAY ==
--- NOTE | ~2022-09-29 | XR_ITS ---
EXAMINATION: XR ABDOMEN KUB CLINICAL INDICATION: Calculus of kidney COMPARISON: None available. TECHNIQUE: AP view of the abdomen. FINDINGS: There is scattered stool and gas seen in colon without significant distention. The small bowel loops are normal caliber. There is a left ureteral stent in place. There are multiple radiopaque calculi along the left proximal ureter adjacent stent with the largest stone measuring [address] there is a 1 solitary radiopaque calculi in the left proximal ureter. No gross bony abnormality seen. XR/XR KUB IMPRESSION: 1. Mild constipation. 2. Left ureteral stent in place. There are multiple stone fragments in the left proximal ureter
== END 2022-09-29 07:43 | disposition home or self-care (01) ==
LOC: HO.XRAY 07:42
PROVIDERS: Visit Provider Urology
DX: N20.0 Calculus of kidney (principal); N20.2 Calculus of kidney with calculus of ureter; Z87.442 Personal history of urinary calculi
CPT/HCPCS: 74018

== ENCOUNTER 2022-09-30 09:26 | Outpatient (AMB) | payer BC, SELFPAY ==
--- NOTE | 2022-09-30 07:23 | A.OFFVIS_ITS ---
Intake Intake Visit Reasons: KUB/surgery consult Intake Note: Patient presents today for a KUB/ Surgery Consult: Meds- Oxybutin, Pyridium & Tamsulosin Allergies to Antibiotic- No Known Allergies Blood Thinner- None Transmission Supervisor Required: No Accompanied by: Self / Same As Patient Allergies No Known Allergies Allergy (Verified 09/30/22 10:14) HPI HPI Comments History of Present Illness Details Mikey is a 62-year-old male who presents today to the office for a follow-up. 09/30/2022--? 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 presents today via televisit for KUB/surgery consult. He was last seen by me on 09/14/2022. He is status post cystoscopy, left ureteroscopy, laser lithotripsy and stent exchange done on 09/14/22. He did have a KUB done on 09/29/2022. Radiologist has not transcribed the results. I have reviewed the films. There is a residual stone fragment noted on the proximal portion of the ureteral stent. Review of chart: 09/10/2022-- Mikey is a 62-year-old male who I initially evaluated as an inpatient consult for hydronephrosis and acute renal insufficiency secondary to an obstructing stone. He is status post left ureteral stent. He had a follow-up KUB done on 09/03/22 that I reviewed. He has a history of cystine kidney stones. He has been followed by Dr. Gardiner in [place] for many years and has had a multiple of surgical treatment options including ureteroscopy, shockwave lithitripsy to manage the cistine kidney stones. He has moved to [place] and is going to continue his follow-up care with [facility]. He is not on aspirin or any other blood thinners. He is on Pyridium and oxbutynin and they are helpful for him. He requests refill for the Pyridium. Evaluation today-- UA 09/10/22-- Leukocytes: 1+. Blood:3+. Plan: His follow-up KUB films were reviewed with the patient today. Left ureteroscopy, laser lithotripsy and stent exchange discussed to be scheduled. Risks discussed included but not limited to, possible need to repeat procedure if stone is not completely fragmented, Irritative voiding symptoms, bladder spasms, urgency, blood in urine. Refilled Pyridium 200 mg every 8 hours per patient's request.? 09/30/22 Plan: Sched repeat left ureteroscopy laser lithotripsy stent exchange. [facility] Medical History Cystinuria Small right kidney Surgical History H/O colonoscopy History of cystoscopy Hx of appendectomy Hx of tonsillectomy Family History Father No problems noted. Mother No problems noted. Social History Alcohol intake: current Alcohol intake frequency: 0-2 drinks per day Patient Tobacco Use Status: Never used Tobacco Second Hand Smoke Exposure: No Substance Use Type: Marijuana Review of Systems Const All systems reviewed & are unremarkable except as noted in HPI and below Reports no additional complaints Eyes Reports no additional complaints ENT Denies neck pain Card Denies leg edema Resp Denies cough GI Denies constipation Musc Reports no additional complaints and Denies neck pain Skin/Breast Denies rash and Denies unusual bruising Neuro Reports no additional complaints Psych Reports no additional complaints Endo Reports no additional complaints Uzair/Lymph Reports no additional complaints Aller/Immun Reports no additional complaints Assessment & Plan Assessment & Plan (1) Hydronephrosis with renal calculous obstruction: Code(s): N13.2 - Hydronephrosis with renal and ureteral calculous obstruction Plan Sched repeat left ureteroscopy laser lithotripsy stent exchange. Patient Instructions: The patient had an opportunity to ask questions regarding treatment plan. All questions were answered. Imaging, Laboratory studies and physical exam results were discussed and reviewed in detail. No major barriers to understanding were identified. The patient expressed understanding and agreement with the above treatment plan.? ? ? The patient is aware they should contact our office by phone for worsening of their current condition or the appearance of new symptoms. Compliance is encouraged with any medications and followup testing that is ordered.? ? ? It is a privilege to be allowed the opportunity to participate in the urologic care of your patient. If you have any questions or concerns regarding treatment for the above conditions please do not hesitate to contact me. The office telephone contact is [phone].? ? ? This note is constructed in part using voice recognition software. While every effort has been made to ensure accuracy risk professional errors may have been included.? ? ? Yours sincerely,? ? ? Sabine Ruth MD? ? Telehealth Telehealth Location of provider rendering services: practice address Location of patient: address on file Patient Identification confirmed using: Name, : Yes Telehealth method: video Patient verbally consented to treatment: Yes Patient verbally consented to billing insurance company: Yes Patient informed of any privacy concerns related to visit: Yes Minutes spent on Phone/Video with Pt.: 15 Coding Level of Care Code Tele New Pt Level 3 (59898) Diagnoses Hydronephrosis with renal calculous obstruction N13.2
== END 2022-09-30 11:19 | disposition home or self-care (01) ==
LOC: HO.HUSH 09:26
PROVIDERS: Visit Provider Urology
DX: N13.2 Hydronephrosis with renal and ureteral calculous obstruction (principal)
CPT/HCPCS: 99213

== ENCOUNTER → 2022-09-30 09:26 | Outpatient (BNVA) | payer BC, SELFPAY | PROVIDERS: Visit Provider Urology ==

== ENCOUNTER 2022-10-05 06:53 | Day surgery (SDC) | payer BC, SELFPAY ==
--- NOTE | 2022-10-04 09:02 | HO.ANESPROP2 ---
Documented by User: Rosa Guthrie NP 10/04/22 09:04 HPI - Anesthesia Eval Consult details Narrative: 62yo M for Left Cystoscopy, Ureteroroscopy, Retro, Laser, w/ stent exchange s/p latosha with GA-LMA 4 PMFSH Active Problems Active Problems: All Active Problems (Updated 09/10/22 @ 09:22 by Antonio Harmon) Hydronephrosis with renal calculous obstruction (Acute) Kidney stone (Acute) Hydronephrosis (Acute) Elevated serum creatinine (Acute) Past Medical History Medical History Cystinuria Small right kidney Family History Family History Father No problems noted. Mother No problems noted. Family history of problems with anesthesia: No Surgical History Surgical History H/O colonoscopy History of cystoscopy Hx of appendectomy Hx of tonsillectomy History of Problems with Anesthesia: No Social History Social History Alcohol intake: current Alcohol intake frequency: 0-2 drinks per day Patient Tobacco Use Status: Never used Tobacco Second Hand Smoke Exposure: No Use of substances other than those prescribed or required for medical reasons: No Substance Use Type: Marijuana Are you DNR?: No Advance Directives: No Advance Directives Information Provided: Yes Meds Allergies Allergy/AdvReac Type Severity Reaction Status Date / Time No Known Allergies Allergy Verified 09/30/22 10:14 Home Medications Medication Instructions Recorded Confirmed Last Taken Type alpha lipoic acid 1 cap PO BID 08/31/22 10/05/22 Unknown History potassium citrate 1 tab PO BID 08/31/22 10/05/22 Unknown History Exam Exam Date and Time: October 04, 2022 09 Pertinent Lab Results Pertinent Lab Results: Laboratory Tests 08/31/22 08/31/22 07:28 07:28 WBC 9.7 Hgb 14.1 Hct 41.9 L Plt Count 233 Sodium 135 Potassium 4.2 Chloride 100 Carbon Dioxide 23 BUN 25 H Creatinine 1.61 H Assessment and Plan Assessment Anesthesia Assessment: Chart Reviewed Final Anesthetic Review Family History of Problems with Anesthesia: No History of Problems with Anesthesia: No Documented by User: Ernesto Wilkinson MD 10/05/22 07:51 PMFSH Past Medical History Medical History Cystinuria Small right kidney Family History Family History Father No problems noted. Mother No problems noted. Surgical History Surgical History H/O colonoscopy History of cystoscopy Hx of appendectomy Hx of tonsillectomy Social History Social History Alcohol intake: current Alcohol intake frequency: 0-2 drinks per day Patient Tobacco Use Status: Never used Tobacco Second Hand Smoke Exposure: No Use of substances other than those prescribed or required for medical reasons: No Substance Use Type: Marijuana Are you DNR?: No Advance Directives: No Advance Directives Information Provided: Yes Meds Allergies Allergy/AdvReac Type Severity Reaction Status Date / Time No Known Allergies Allergy Verified 09/30/22 10:14 Home Medications Medication Instructions Recorded Confirmed Last Taken Type alpha lipoic acid 1 cap PO BID 08/31/22 10/05/22 Unknown History potassium citrate 1 tab PO BID 08/31/22 10/05/22 Unknown History Exam Airway Mallampati Class: II TM Dist: >3cm Neck ROM: Full Loose/Missing/Broken Teeth: No Heart: ok Lungs: ok Assessment and Plan Assessment Anesthesia Assessment: Anesthesia Plan Discussed Final Anesthetic Review NPO: Yes ASA Class: III Final Preanesthetic Review: No Changes in Pt Med Stat, Meds/Allgs Chart Reviewed, Consent Obtained/Reviewed and Anes Risks/Benef Reviewed Patient Risk: Intermediate Procedure Risk: Low Anesthetic Plan Anesthetic Plan: GA and Agree w/ Assess. and Plan Disposition: Standard PACU
[2022-10-05] VITALS (8 sets, daily range): BP systolic 133–153; BP diastolic 81–97; PULSE 81–98; RESP 12–16; TEMP 36.2–37.1; O2SAT 95–98; BMI 22.8
--- NOTE | ~2022-10-05 | FL_ITS ---
EXAMINATION: XR FLUOROSCOPY WITH IMAGES CLINICAL INFORMATION: Left cystoscopy. COMPARISON: Fluoroscopy dated 09/14/2022. TECHNIQUE: Fluoroscopy Supervised By: Dr. Ruth. Fluoroscopy Time: 68.9 seconds. Cumulative Dose: 14.34 mGy. DAP: 0 Gycm2. Images: 2. FINDINGS: Images demonstrate a left internal ureteral stent in satisfactory position. FL/FL guidance in OR IMPRESSION: Fluoroscopy guidance for urology procedure.
[2022-10-05] MEDS: Lactated Ringers 1,000 ML 100 ML IVCONT (07:34)
--- NOTE | 2022-10-05 08:24 | MHC.SHP ---
Pre-Procedural Eval Section A Date of Service: 10/05/22 The patient is an INPATIENT: No The History & Physical has been completed within 30 days and I have reviewed it.: Yes Section B Chief Complaint: Calculus of ureter, Left Allergies: Allergies Allergy/AdvReac Type Severity Reaction Status Date / Time No Known Allergies Allergy Verified 09/30/22 10:14 Plan I have reviewed the history and physical and performed a pertinent physical examination on my patient. No changes have occurred unless specified. Plan for Cystoscopy, Left ureteroscopy, laser lithotripsy,ureteral stent exchange. Risks discussed included but not limited to, possible need to repeat procedure if stone is not completely fragmented, Irritative voiding symptoms, bladder spasms, urgency, blood in urine. Time Spent With Patient Time: Total time managing care of this patient today ____ minutes.
--- NOTE | 2022-10-05 10:26 | W.PM.OPN ---
Operative Note Operative Note Date of Service: 10/05/22 Narrative: PreOperative Diagnosis:?? Left ureteral stone Post Operative Diagnosis:?? Left renal stone Procedure: ??Cystoscopy,? Left ureteroscopy Disposable flexible ureteroscope ? laser lithotripsy ? stent exchange, ? size 6 Bolivian by Multi-length cm Surgeon:?Natali Ruth Anesthesia:? General Indications for procedure:???Here for stone fragmentation. Procedure: After informed consent was verified the patient was brought to the operating placed on the OR table in supine position.? General Anesthesia was administered per protocol.? The patient was placed in? lithotomy position, prepped and draped in the usual sterile fashion.? Safety pause time-out and side of surgery confirmed.? Antibiotics confirmed.? A 22 Bolivian cystoscope was inserted transurethrally,? the bulbous urethra was within normal limits.? The prostatic urethra was? nonobstructive. ? The bladder was visualized.? Both ureteric orifices were in normal position. ? The left ureteral stent was curled in the bladder.? The? distal end of the ureteral stent ? was grasped with the flexible grasping forceps. ? The stent was pulled retrograde through the urethra. ? A guidewire was passed through the stent. The cystoscope was removed,? leaving the? guidewire in place. ? The guidewire was used as the safety and was attached to the draping.? The semi-rigid ureteroscope was passed transurethrally there were small stone fragments seen in the mid to proximal ureter, the ureteroscope was passed to the UPJ, the stone was visualized at the UPJ and with miminal fluid irrigation moved further into the kidney. The rigid ureteroscope was removed the disposable flexible ureteroscope was passed over the guide wire into the kidney the stone was visualized in the mid to lower pole.? Laser lithotripsy of the stone was done? using the laser fiber with a combination of dusting? settings 0.5 J by? 20 hertz and? 0.8 joules by 15 hertz. The stone was fragmented into several fragments, with time hematuria limited adequate visualization, the procedure was terminated and the ureteroscope was removed.? The cystoscope was passed over the safety guidewire.? A? 6 Bolivian by? multilength cm stent was placed into the ureter and renal pelvis? under a combination of fluoroscopy and direct visualization. The bladder was emptied.? The rigid cystoscope was removed. ? The patient tolerated the procedure well and was? brought to? the recovery room in stable condition. Complications:?None Drains:? Ureteral stent as dictated above
[2022-10-05] MEDS: Acetaminophen 325 MG TABLET 650 MG PO (10:52)
[2022-10-05] MEDS: Phenazopyridine HCL 100 MG TABLET 200 MG PO (10:52)
== END 2022-10-05 12:25 | disposition home or self-care (01) ==
PROVIDERS: Visit Provider Urology
PROC: (CPT 52356; principal; 2022-10-05 08:20)
DX: N20.1 Calculus of ureter (principal); E72.01 Cystinuria; N27.0 Small kidney, unilateral; Z79.899 Other long term (current) drug therapy; F12.90 Cannabis use, unspecified, uncomplicated
CPT/HCPCS: 52356; 88302; C1758; C1769; C2617; J0690; J1100; J2405; J3010; Q9967

== ENCOUNTER → 2022-10-05 06:53 | Outpatient (BNV) | payer BC, SELFPAY | PROVIDERS: Visit Provider Urology | DX: N20.0 Calculus of kidney (principal) | CPT/HCPCS: 52356; 74420 ==

== ENCOUNTER 2022-10-15 08:14 | Outpatient (REF) | payer BC, SELFPAY ==
--- NOTE | ~2022-10-15 | XR_ITS ---
EXAMINATION: XR ABDOMEN KUB CLINICAL INDICATION: Status post-post laser lithotripsy. COMPARISON: KUB dated 09/29/2022; CT abdomen and pelvis dated 08/31/2022. TECHNIQUE: AP view of the abdomen. FINDINGS: The bowel gas pattern is normal, with no evidence of ileus or obstruction. In a left renal lower pole calyx, there are 5 calculi noted, ranging in diameters between 4 mm and 6 mm. A double pigtail left ureteric stent is seen. There are multiple calculi seen along the course of the proximal left ureter (Steinstrasse appearance), the largest measuring approximately 7 mm. No right urinary calculus is seen. There is no bladder calculus appreciated, with imaging limited by overlapping rectal feces. There is a mild lumbar rotatory levoscoliosis. No acute osseous abnormality is seen. XR/XR KUB IMPRESSION: An intact double pigtail left ureteric stent is seen. There are multiple left renal lower pole and proximal ureteric calculi noted. Assessment for bladder calculi is limited due to overlapping rectal fecal matter.
== END 2022-10-15 08:15 | disposition home or self-care (01) ==
LOC: HO.XRAY 08:14
PROVIDERS: Visit Provider Urology
DX: N20.0 Calculus of kidney (principal)
CPT/HCPCS: 74018

== ENCOUNTER 2022-10-18 10:25 | Outpatient (AMB) | payer BC, SELFPAY ==
--- NOTE | 2022-10-18 04:53 | MHC.OFFVIS ---
Intake Intake Visit Reasons: possible Stent Removal Intake Note: Patient is present for Follow Up Stent Placement/Pre Op Surgery Urology Med: Oxybutynin, Tamsulosin Antibiotic Allergy:None Blood Thinner: None Pharmacy: [facility] Allergies No Known Allergies Allergy (Verified 10/18/22 10:39) HPI HPI Comments History of Present Illness Details Mikey is a 62-year-old male who presents today to the office for a follow-up. 10/18/2022? Mikey is followed today post op surgery. He was last seen in the office by me on 09/30/2022 for hydronephrosis with renal calculous obstruction.? He is status post cystoscopy, left ureteroscopy, laser lithotripsy and stent exchange done on 09/14/22. and repeat cystoscopy, left ureteroscopy, laser lithotripsy and stent exchange done on 10/05/22. I have reviewed the X- ray of the KUB results revealed 3 fragments in the lower pole of the left kidney, and a few fragments along the mid to proximal stent. Review of chart: 09/30/2022--? 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 presents today via televisit for KUB/surgery consult. He was last seen by me on 09/14/2022. He is status post cystoscopy, left ureteroscopy, laser lithotripsy and stent exchange done on 09/14/22.? He did have a KUB done on 09/29/2022. Radiologist has not transcribed the results. I have reviewed the films. There is a residual stone fragment noted on the proximal portion of the ureteral stent. Plan: Sched repeat left ureteroscopy laser lithotripsy stent exchange. 09/10/2022-- Mikey is a 62-year-old male who I initially evaluated as an inpatient consult for hydronephrosis and acute renal insufficiency secondary to an obstructing stone. He is status post left ureteral stent. He had a follow-up KUB done on 09/03/22 that I reviewed. He has a history of cystine kidney stones. He has been followed by Dr. Gardiner in [place] for many years and has had a multiple of surgical treatment options including ureteroscopy, shockwave lithitripsy to manage the cistine kidney stones. He has moved to [place] and is going to continue his follow-up care with [facility]. He is not on aspirin or any other blood thinners. He is on Pyridium and oxbutynin and they are helpful for him. He requests refill for the Pyridium. Evaluation today-- UA 09/10/22-- Leukocytes: 1+. Blood:3+. Plan:? His follow-up KUB films were reviewed with the patient today. Left ureteroscopy, laser lithotripsy and stent exchange discussed to be scheduled. 10/18/2022: Plan: Discussed left ureteroscopy, removing stone fragments in the ureter with stent removal. Consent was obtained for removing the stent. [facility] Medical History Cystinuria Small right kidney Surgical History H/O colonoscopy History of cystoscopy Hx of appendectomy Hx of tonsillectomy Family History Father No problems noted. Mother No problems noted. Social History Alcohol intake: current Alcohol intake frequency: 0-2 drinks per day Patient Tobacco Use Status: Never used Tobacco Second Hand Smoke Exposure: No Substance Use Type: Marijuana Review of Systems Const All systems reviewed & are unremarkable except as noted in HPI and below Reports no additional complaints Eyes Reports no additional complaints ENT Denies neck pain Card Denies leg edema Resp Denies cough GI Denies constipation Musc Reports no additional complaints and Denies neck pain Skin/Breast Denies rash and Denies unusual bruising Neuro Reports no additional complaints Psych Reports no additional complaints Endo Reports no additional complaints Uzair/Lymph Reports no additional complaints Aller/Immun Reports no additional complaints Physical Exam Const General: healthy appearing, no acute distress and well developed Orientation/consciousness: patient oriented x3 HEENT Head: Yes normocephalic and Yes atraumatic Eyes Conjunctivae: conjunctivae normal Neck Neck: Yes normal visual inspection Chest Chest palpation & inspection: normal inspection of the chest Resp Effort & Inspection: normal respiratory effort Cardio Rate: regular rate GI Inspection: Yes normal to inspection Skin General skin exam: no rashes or lesions noted Neuro General: patient oriented x3 Extrem General: No pedal edema Psych Appearance: grossly normal Affect: normal affect Results AMB Urinalysis, Automated UA Leukoctes 500 Tobi/uL Last Edit by Rahel Wilhelm A on 10/18/22 10:44 UA Nitrite Positive Last Edit by Rahel Wilhelm A on 10/18/22 10:44 UA Urobilinogen 4 mg/dL Last Edit by Rahel Wilhelm A on 10/18/22 10:44 UA Protein 15 mg/dL Last Edit by Rahel Wilhelm A on 10/18/22 10:44 UA pH 7.5 Last Edit by Rahel Wilhelm A on 10/18/22 10:44 UA Blood 200 Wesley/uL Last Edit by Rahel Wilhelm A on 10/18/22 10:44 UA Specific Felton 1.010 Last Edit by Rahel Wilhelm [facility] on 10/18/22 10:44 UA Ketone Negative Last Edit by Rahel Wilhelm A on 10/18/22 10:44 UA Bilirubin 2 mg/dL Last Edit by Rahel Wilhelm A on 10/18/22 10:44 UA Glucose 100 mg/dL Last Edit by Rahel Wilhelm [facility] on 10/18/22 10:44 Results Reviewed Results Reviewed: Laboratory Last Values Urine pH (Auto) 7.5 10/18/22 10:39 Specific Felton (Auto) 1.010 10/18/22 10:39 Urine Protein (Auto) 15 mg/dL 10/18/22 10:39 Glucose (UA)(Auto) 100 mg/dL 10/18/22 10:39 Urine Ketones (Auto) Negative 10/18/22 10:39 Urine Blood (Auto) 200 Wesley/uL 10/18/22 10:39 Urine Nitrite (Auto) Positive 10/18/22 10:39 Urine Bilirubin (Auto) 2 mg/dL 10/18/22 10:39 Urine Urobilinogen (Auto) 4 mg/dL 10/18/22 10:39 Leukocyte Esterase (Auto) 500 Tobi/uL 10/18/22 10:39 Assessment & Plan Assessment & Plan (1) Hydronephrosis with renal calculous obstruction: Code(s): N13.2 - Hydronephrosis with renal and ureteral calculous obstruction (2) Kidney stone: Code(s): N20.0 - Calculus of kidney Plan Discussed removing the stone tomorrow in OR with left ureteroscopy, and and removing stone fragments in the ureter. Consent was obtained for removing the stent. Orders: Orders AMB Urinalysis Automated Today Z13.9 - Encounter for screening, unspecified Patient Instructions: The patient had an opportunity to ask questions regarding treatment plan. All questions were answered. Imaging, Laboratory studies and physical exam results were discussed and reviewed in detail. No major barriers to understanding were identified. The patient expressed understanding and agreement with the above treatment plan.? ? ? The patient is aware they should contact our office by phone for worsening of their current condition or the appearance of new symptoms. Compliance is encouraged with any medications and followup testing that is ordered.? ? ? It is a privilege to be allowed the opportunity to participate in the urologic care of your patient. If you have any questions or concerns regarding treatment for the above conditions please do not hesitate to contact me. The office telephone contact is [phone].? ? ? This note is constructed in part using voice recognition software. While every effort has been made to ensure accuracy sole painter errors may have been included.? ? ? Yours sincerely,? ? ? Sabine Ruth MD? Coding Level of Care Code Est Pt Level 3 (65036) Diagnoses Hydronephrosis with renal calculous obstruction N13.2 Kidney stone N20.0
== END 2022-10-18 11:20 | disposition home or self-care (01) ==
PROVIDERS: Visit Provider Urology
DX: N13.2 Hydronephrosis with renal and ureteral calculous obstruction (principal)
CPT/HCPCS: 99213

== ENCOUNTER 2022-10-18 10:25 | Outpatient (REF) | payer BC, SELFPAY | END 2022-10-18 10:26 | disposition home or self-care (01) | LOC: HO.LAB 10:25 | PROVIDERS: Visit Provider Urology | DX: N39.0 Urinary tract infection, site not specified (principal); N13.2 Hydronephrosis with renal and ureteral calculous obstruction | CPT/HCPCS: 81003; 87086 ==

== ENCOUNTER 2022-10-19 08:02 | Day surgery (SDC) | payer BC, SELFPAY ==
--- NOTE | 2022-10-18 12:02 | P.CONAN_ITS ---
Documented by User: Rosa Guthrie NP 10/18/22 12:04 HPI - Anesthesia Eval Consult details Narrative: 62yo M for Left Cystoscopy, Ureteroroscopy, Retro, Laser, possible stent exchange s/p same 10/05/22 with GA-LMA 4 PMFSH Active Problems Active Problems: All Active Problems (Updated 09/10/22 @ 09:22 by Antonio Harmon) Hydronephrosis with renal calculous obstruction (Acute) Kidney stone (Acute) Hydronephrosis (Acute) Elevated serum creatinine (Acute) Past Medical History Medical History Cystinuria Small right kidney Family History Family History Father No problems noted. Mother No problems noted. Family history of problems with anesthesia: No Surgical History Surgical History H/O colonoscopy History of cystoscopy Hx of appendectomy Hx of tonsillectomy History of Problems with Anesthesia: No Social History Social History Alcohol intake: current Alcohol intake frequency: 0-2 drinks per day Patient Tobacco Use Status: Never used Tobacco Second Hand Smoke Exposure: No Substance Use Type: Marijuana Substance Use Frequency: Occasionally Are you DNR?: No Advance Directives: No Advance Directives Information Provided: Yes Nutrition Risks: No Nutritional Risk Meds Allergies Allergy/AdvReac Type Severity Reaction Status Date / Time No Known Allergies Allergy Verified 10/19/22 08:37 Home Medications Medication Instructions Recorded Confirmed Last Taken Type alpha lipoic acid 1 cap PO BID 08/31/22 10/05/22 Unknown History potassium citrate 1 tab PO BID 08/31/22 10/05/22 Unknown History potassium citrate 10 mEq (1,080 10 meq PO BID 10/18/22 Unknown History mg) tablet,extended release Exam Exam Date and Time: October 18, 2022 1202 Pertinent Lab Results Pertinent Lab Results: Laboratory Tests 08/31/22 08/31/22 07:28 07:28 WBC 9.7 Hgb 14.1 Hct 41.9 L Plt Count 233 Sodium 135 Potassium 4.2 Chloride 100 Carbon Dioxide 23 BUN 25 H Creatinine 1.61 H Assessment and Plan Assessment Anesthesia Assessment: Chart Reviewed Final Anesthetic Review Family History of Problems with Anesthesia: No History of Problems with Anesthesia: No Documented by User: Tiara Louis MD 10/19/22 09:08 [facility] Active Problems Active Problems: All Active Problems (Updated 10/19/22 @ 08:18 by Tiara Louis MD) Hydronephrosis with renal calculous obstruction (Acute) Kidney stone (Acute) Hydronephrosis (Acute) Elevated serum creatinine (Acute) GFR 43 08/2022 Past Medical History Medical History Cystinuria Small right kidney Family History Family History Father No problems noted. Mother No problems noted. Surgical History Surgical History H/O colonoscopy History of cystoscopy Hx of appendectomy Hx of tonsillectomy Social History Social History Alcohol intake: current Alcohol intake frequency: 0-2 drinks per day Patient Tobacco Use Status: Never used Tobacco Second Hand Smoke Exposure: No Substance Use Type: Marijuana Substance Use Frequency: Occasionally Are you DNR?: No Advance Directives: No Advance Directives Information Provided: Yes Nutrition Risks: No Nutritional Risk Meds Allergies Allergy/AdvReac Type Severity Reaction Status Date / Time No Known Allergies Allergy Verified 10/19/22 08:37 Home Medications Medication Instructions Recorded Confirmed Last Taken Type alpha lipoic acid 1 cap PO BID 08/31/22 10/05/22 Unknown History potassium citrate 1 tab PO BID 08/31/22 10/05/22 Unknown History potassium citrate 10 mEq (1,080 10 meq PO BID 10/18/22 Unknown History mg) tablet,extended release Exam Height,Weight and Vital Signs: Height 5 ft 8 in Weight 68.039 kg Vital Signs Temp Pulse Resp BP Pulse Ox O2 Del Method 10/19/22 08:31 98.1 F 81 18 141/89 H 96 Room Air Airway Mallampati Class: II TM Dist: >3cm Neck ROM: Full Loose/Missing/Broken Teeth: No (Denies broken, loose, missing teeth) Heart: RRR Lungs: CTAB Assessment and Plan Assessment Anesthesia Assessment: Anesthesia Plan Discussed Final Anesthetic Review NPO: Yes ASA Class: III Final Preanesthetic Review: No Changes in Pt Med Stat, Meds/Allgs Chart Reviewed, Consent Obtained/Reviewed and Anes Risks/Benef Reviewed Patient Risk: Intermediate Procedure Risk: Low Assessment/Block/Sedation in SS: Assess/Block/Sedation-SS Anesthetic Plan Anesthetic Plan: GA Disposition: Standard PACU
--- NOTE | ~2022-10-19 | FL_ITS ---
EXAMINATION: XR FLUOROSCOPY WITH IMAGES CLINICAL INFORMATION: Cystoscopy special. COMPARISON: None available. TECHNIQUE: Fluoroscopy Supervised By: Dr. Ruth. Fluoroscopy Time: 28.3 seconds. Cumulative Dose: 5.63 mGy. DAP: None available. Images: 3. FINDINGS: Images demonstrate a left internal ureteral stent in satisfactory position. Stones along the left proximal ureteral stent seen on recent KUB not appreciated. FL/FL guidance in OR IMPRESSION: Fluoroscopy guidance for urology procedure.
[2022-10-19] MEDS: Lactated Ringers 1,000 ML 100 ML IVCONT (08:22)
[2022-10-19 08:23] VITALS: BMI 22.8
[2022-10-19 08:31] VITALS: BP 141/89; PULSE 81; RESP 18; TEMP 36.7; O2SAT 96
[2022-10-19 11:00] VITALS: BP 134/84; PULSE 76; RESP 18; TEMP 36.1; O2SAT 97
[2022-10-19 11:15] VITALS: BP 140/85; PULSE 82; RESP 18; O2SAT 95
--- NOTE | 2022-10-19 11:22 | W.PM.OPN ---
Operative Note Operative Note Date of Service: 10/19/22 Narrative: PreOperative Diagnosis:?? Left renal and ureteral stones Post Operative Diagnosis:?? Left renal and ureteral stones Procedure: Cystoscopy, Left ureteroscopy laser lithotripsy stone extraction stent exchange, size 6 [place]ander by multi-length cm Surgeon:?Dr Sabine Ruth Anesthesia:? General Indications for procedure: Here for stone managment, the patient has a h/o cysteine stones and has had prior lithotripsy, fu KUB notes stones fragments along the proximal ureter and lower pole of the left kidney, the plan is to remove the stone fragments along the stent in the left ureter. Procedure: After informed consent was verified the patient was brought to the operating placed on the OR table in supine position.? General Anesthesia was administered per protocol.? The patient was placed in lithotomy position, prepped and draped in the usual sterile fashion.? Safety pause time-out and side of surgery confirmed.? Antibiotics confirmed. A 22 New Zealander cystoscope was inserted transurethrally, the bulbous urethra was within normal limits. The prostatic urethra was nonobstructive. The bladder was visualized.? Both ureteric orifices were in normal position. The left ureteral stent was curled in the bladder. The? distal end of the ureteral stent was grasped with the flexible grasping forceps. The stent was pulled retrograde through the urethra. A guidewire was passed through the stent. A second guidewire was placed. The cystoscope was removed, leaving the guidewires in place. One guidewire was used as the safety and was attached to the draping. The semi rigid ureteroscope was passed transurethrally over the second guidewire, there were several stones fragments seen in the proximal ureter. The 0 degree basket was used to remove the smaller stone fragments, which were sent for analysis. The Laser lithotripsy using the 365 fiber with a combination of dusting settings 0.5 J by 20 hertz and 0.8 joules by 6 hertz was used to laser the larger stone fragments and the basket was again used to remove all visible stone fragments from the ureter. The ureteroscope was removed. The cystoscope was passed over the safety guidewire. A? 6 [place] by multi-length cm stent was placed into the ureter and renal pelvis under a combination of fluoroscopy and direct visualization. The bladder was emptied.? The rigid cystoscope was removed. ?2 % lidocaine jelly was passed transurethrally. The patient tolerated the procedure well and was brought to the recovery room in stable condition. Complications: None Drains: Ureteral stent as dictated above
[2022-10-19 11:30] VITALS: BP 141/97; PULSE 76; RESP 18; O2SAT 98
--- NOTE | 2022-10-19 11:38 | MHC.SHP ---
Pre-Procedural Eval Section A Date of Service: 10/19/22 The patient is an INPATIENT: No The History & Physical has been completed within 30 days and I have reviewed it.: Yes Section B Chief Complaint: Calculus of kidney Allergies: Allergies Allergy/AdvReac Type Severity Reaction Status Date / Time No Known Allergies Allergy Verified 10/19/22 08:37 Plan Diagnosis/Plan: Unchanged I have reviewed the history and physical and performed a pertinent physical examination on my patient. No changes have occurred unless specified. Plan for Cystoscopy, ureteroscopy, stent removal possible laser lithotripsy, possible ureteral stent exchange. Risks discussed included but not limited to, possible need to repeat procedure if stone is not completely fragmented, Irritative voiding symptoms, bladder spasms, urgency, blood in urine. Time Spent With Patient Time: Total time managing care of this patient today ____ minutes.
[2022-10-19 11:45] VITALS: BP 140/97; PULSE 75; RESP 18; O2SAT 98
[2022-10-19 12:00] VITALS: BP 134/87; PULSE 68; RESP 18; TEMP 36.4; O2SAT 98
[2022-10-25 17:09] LABS: Stone Source KIDNEY STONE
== END 2022-10-19 13:04 | disposition home or self-care (01) ==
PROVIDERS: Visit Provider Urology
PROC: (CPT 52356; principal; 2022-10-19 09:30)
DX: N20.0 Calculus of kidney (principal); N20.1 Calculus of ureter; Z87.442 Personal history of urinary calculi; E72.01 Cystinuria; N27.0 Small kidney, unilateral; F12.90 Cannabis use, unspecified, uncomplicated
CPT/HCPCS: 52356; 82365; 88300; C1769; C2617; J0690; J1580; J1885; J2405; J3010; Q9967

== ENCOUNTER → 2022-10-19 08:02 | Outpatient (BNV) | payer BC, SELFPAY | PROVIDERS: Visit Provider Urology | DX: N20.0 Calculus of kidney (principal) | CPT/HCPCS: 52356 ==

== ENCOUNTER 2022-10-28 10:34 | Outpatient (AMB) | payer BC, SELFPAY ==
--- NOTE | 2022-10-28 10:40 | MHC.OFFVIS ---
Intake Intake Visit Reasons: Cysto stent removal Intake Note: Patient presents today for a CYSTOSCOPY/STENT REMOVAL Procedure: Meds: None Allergies to Antibiotic: No Known Allergies Blood Thinner: None Disposable Uro-G Cystoscope Cannula: Lot: [id number] Exp: 07/04/2024 Cad Designer Drafter Required: No Bull Driver: Bull Driver Present (Student) Accompanied by: Self / Same As Patient Allergies No Known Allergies Allergy (Verified 10/19/22 08:37) Medication List - Last Reconciled 10/28/22 by Sabine Ruth MD [alpha lipoic acid 1 cap PO BID] hydromorphone (Dilaudid) 2 mg PO Q6H PRN oxybutynin chloride 5 mg PO BID PRN phenazopyridine (Pyridium) 200 mg PO TID PRN [potassium citrate 1 tab PO BID] potassium citrate ER 10 mEq PO BID tamsulosin 0.4 mg PO DAILY HPI HPI Comments History of Present Illness Details Mikey is a 62-year-old male who presents today to the office for a follow-up. 10/28/2022? He is followed today for cysto stent removal. He was last seen by me on 10/18/2022 for hydronephrosis with renal calculous obstruction. Discussed left ureteroscopy, removing stone fragments in the ureter with stent removal. He is s/p left ureteroscopy laser lithotripsy of larger stone fragments with stent exchange on 10/19/22 He presents for stent removal today. I reviewed the urine culture results from 10/18/2022 which came back negative for bacterial growth. Stone analysis from 10/19/2022 revealed 100 % cystine. Review of charts:? Last visit: 10/18/2022? 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 presents today via televisit for KUB/surgery consult. He was last seen by me on 09/14/2022. He is status post cystoscopy, left ureteroscopy, laser lithotripsy and stent exchange done on 09/14/22.? He did have a KUB done on 09/29/2022. Radiologist has not transcribed the results. I have reviewed the films. There is a residual stone fragment noted on the proximal portion of the ureteral stent. Plan: Sched repeat left ureteroscopy laser lithotripsy stent exchange. OV-09/10/2022-- Mikey is a 62-year-old male who I initially evaluated as an inpatient consult for hydronephrosis and acute renal insufficiency secondary to an obstructing stone. He is status post left ureteral stent. He had a follow-up KUB done on 09/03/22 that I reviewed. He has a history of cystine kidney stones. He has been followed by Dr. Gardiner in [place] for many years and has had a multiple of surgical treatment options including ureteroscopy, shockwave lithitripsy to manage the cistine kidney stones. He has moved to [place] and is going to continue his follow-up care with [facility]. He is not on aspirin or any other blood thinners. He is on Pyridium and oxbutynin and they are helpful for him. He requests refill for the Pyridium. Evaluation today-- UA 09/10/22-- Leukocytes: 1+. Blood:3+. Plan:? His follow-up KUB films were reviewed with the patient today. Left ureteroscopy, laser lithotripsy and stent exchange discussed to be scheduled. 10/28/2022: Plan: Stent was removed today in the office. Ordered 24-hour urine collection. Ordered PSA screening. Follow up in 6 months, renal US prior. [facility] Medical History Small right kidney Cystinuria Surgical History Hx of appendectomy Hx of tonsillectomy H/O colonoscopy History of cystoscopy Family History Father No problems noted. Mother No problems noted. Social History Alcohol intake: current Alcohol intake frequency: 0-2 drinks per day Patient Tobacco Use Status: Never used Tobacco Second Hand Smoke Exposure: No Substance Use Type: Marijuana Review of Systems Const All systems reviewed & are unremarkable except as noted in HPI and below Reports no additional complaints Eyes Reports no additional complaints ENT Denies neck pain Card Denies leg edema Resp Denies cough GI Denies constipation Musc Reports no additional complaints and Denies neck pain Skin/Breast Denies rash and Denies unusual bruising Neuro Reports no additional complaints Psych Reports no additional complaints Endo Reports no additional complaints Uzair/Lymph Reports no additional complaints Aller/Immun Reports no additional complaints Office Procedures Cystoscopy Consent Discussed risk and benefit or proposed procedure with the patient. Information consent for procedure given to the patient. Discussed technical aspects, risks, benefits and alternatives in full. Addressed all of the patient's questions and concerns regarding the procedure. The patient demonstrated knowledge and understanding. They wish to proceed with this procedure. Preparation The patient was prepped in the usual manner. A school bus aide was present and in the room. Genitalia was prepped with betadine solution in a sterile manner. Lidocaine Jelly 2% was placed into the urethra and 16Fr flexible Olympus cystoscope was inserted into the meatus after adequate lubrication. Procedure Time out per protocol performed. Bladder Inspection Cystoscopy findings: mild edema right ureteral orifice which is expected, distal end of ureteral stent visualized. The grasping forceps were used and the stent was removed without difficulty. [id number] with stent removal DISPOSABLE SCOPE URO-G FLEXIBLE SCOPE Procedure code (CPT) selection complete Office Meds lidocaine HCl 2 % mucosal jelly in applicator Performing Provider: Sabine Ruth MD Performing Location: [facility] Administered by: Kathryn Self RN on 10/28/22 10:44 Dose Route Admin Location Dispensed Lot Number Expiration Date [facility] Fur Floor Worker 10 mL intra-urethral 20 mL naproxen 500 mg tablet Performing Provider: Sabine Ruth MD Performing Location: [facility] Administered by: Kathryn Self RN on 10/28/22 10:44 Dose Route Admin Location Dispensed Lot Number Expiration Date [facility] [place] Fur Floor Worker 500 mg PO 1 tab ciprofloxacin HCl 500 mg tablet Performing Provider: Sabine Ruth MD Performing Location: [facility] Administered by: Kathryn Self RN on 10/28/22 10:44 Dose Route Admin Location Dispensed Lot Number Expiration Date [facility] Fur Floor Worker 500 mg PO 1 tab Results AMB Urinalysis, Automated UA Leukoctes 125 Tobi/uL Last Edit by LICHA Bonilla on 10/28/22 10:47 2+ Jagdish Pritchard 10/28/22 10:47 UA Nitrite Positive Last Edit by LICHA Bonilla on 10/28/22 10:47 UA Urobilinogen 1 mg/dL Last Edit by LICHA Bonilla on 10/28/22 10:47 UA Protein 15 mg/dL Last Edit by Jagdish Pritchard [facility] on 10/28/22 10:47 UA pH 7.5 Last Edit by Jagdish Pritchard [place] on 10/28/22 10:47 UA Blood 80 Wesley/uL Last Edit by Jagdish Pritchard [place] on 10/28/22 10:47 2+ Jagdish Pritchard 10/28/22 10:47 UA Specific [place] 1.010 Last Edit by LICHA Bonilla on 10/28/22 10:47 UA Ketone Negative Last Edit by Jagdish Pritchard [facility] on 10/28/22 10:47 UA Bilirubin 0 mg/dL Last Edit by LICHA Bonilla on 10/28/22 10:47 UA Glucose 0 mg/dL Last Edit by Jagdish Pritchard [facility] on 10/28/22 10:47 Results Reviewed Results Reviewed: Laboratory Last Values Urine pH (Auto) 7.5 10/28/22 10:39 Specific [place] (Auto) 1.010 10/28/22 10:39 Urine Protein (Auto) 15 mg/dL 10/28/22 10:39 Glucose (UA)(Auto) 0 mg/dL 10/28/22 10:39 Urine Ketones (Auto) Negative 10/28/22 10:39 Urine Blood (Auto) 80 Wesley/uL 10/28/22 10:39 Urine Nitrite (Auto) Positive 10/28/22 10:39 Urine Bilirubin (Auto) 0 mg/dL 10/28/22 10:39 Urine Urobilinogen (Auto) 1 mg/dL 10/28/22 10:39 Leukocyte Esterase (Auto) 125 Tobi/uL 10/28/22 10:39 Ordered:? Urine Culture? Procedure?Result?Verified?Site ? Urine Culture? Final?10/20/22-0900 ? No growth. Assessment & Plan Assessment & Plan (1) Hydronephrosis with renal calculous obstruction: Code(s): N13.2 - Hydronephrosis with renal and ureteral calculous obstruction (2) Kidney stone on left side: Code(s): N20.0 - Calculus of kidney Plan Stent was removed today in the office. Ordered 24-hour urine collection. Ordered PSA screening. Follow up in 6 months, renal US prior. Orders: Orders AMB Urinalysis Automated Today Z13.9 - Encounter for screening, unspecified AMB Cystoscopy Today N13.2 - Hydronephrosis with renal and ureteral calculous obstruction XR KUB 4 Months N20.0 - Calculus of kidney PSA,Total (Free>4and<10) 4 Months Z12.5 - Encounter for screening for malignant neoplasm of prostate US renal BI 4 Months N13.2 - Hydronephrosis with renal and ureteral calculous obstruction Medications: Refilled tamsulosin 0.4 mg PO DAILY 30 caps 1RF Discontinued hydromorphone (Dilaudid) Partial Fill upon patient request. Discontinued Reason: Patient Completed Course 2 mg PO Q6H PRN 8 tabs 0RF pain phenazopyridine (Pyridium) Discontinued Reason: Doctor's Order 200 mg PO TID PRN 40 tabs 1RF pain oxybutynin chloride Discontinued Reason: Doctor's Order 5 mg PO BID PRN 60 tabs 0RF bladder spasms Patient Instructions: The patient had an opportunity to ask questions regarding treatment plan. All questions were answered. Imaging, Laboratory studies and physical exam results were discussed and reviewed in detail. No major barriers to understanding were identified. The patient expressed understanding and agreement with the above treatment plan.? ? ? The patient is aware they should contact our office by phone for worsening of their current condition or the appearance of new symptoms. Compliance is encouraged with any medications and followup testing that is ordered.? ? ? It is a privilege to be allowed the opportunity to participate in the urologic care of your patient. If you have any questions or concerns regarding treatment for the above conditions please do not hesitate to contact me. The office telephone contact is [phone].? ? ? This note is constructed in part using voice recognition software. While every effort has been made to ensure accuracy painter and decorator apprentice errors may have been included.? ? ? Yours sincerely,? ? ? Sabine Ruth MD? ? Coding Level of Care Code Procedure Only Diagnoses Hydronephrosis with renal calculous obstruction N13.2 Kidney stone on left side N20.0 CPT Codes Cystoscopy - CPT: 22123-[id number] with stent removal ([id number])
== END 2022-10-28 11:23 | disposition home or self-care (01) ==
PROVIDERS: Visit Provider Urology
DX: N13.2 Hydronephrosis with renal and ureteral calculous obstruction (principal); Z96.0 Presence of urogenital implants
CPT/HCPCS: 52310

== ENCOUNTER → 2022-10-28 10:34 | Outpatient (BNVA) | payer BC, SELFPAY | PROVIDERS: Visit Provider Urology | DX: Z48.816 Encounter for surgical aftercare following surgery on the genitourinary system (principal) | CPT/HCPCS: 52310; 81003 ==

== ENCOUNTER 2022-11-09 15:01 | Outpatient (REF) | payer BC, SELFPAY ==
--- NOTE | ~2022-11-09 | XR_ITS ---
EXAMINATION: XR ABDOMEN KUB CLINICAL INDICATION: Calculus of kidney COMPARISON: 10/15/2022 TECHNIQUE: AP view of the abdomen. FINDINGS: Left ureteral stent has been removed. 2 closely adjacent 7 mm calculi are identified in the right ureteral course just above the left L3 transverse process level Solid visceral outlines within normal limits. Nonobstructive bowel pattern. Mild left base atelectasis. XR/XR KUB IMPRESSION: Status post left ureteral stent removal. Left ureteral calculi as described.
== END 2022-11-09 15:02 | disposition home or self-care (01) ==
LOC: HO.XRAY 15:01
PROVIDERS: Visit Provider Urology
DX: N20.0 Calculus of kidney (principal)
CPT/HCPCS: 74018

== ENCOUNTER 2022-11-09 22:41 | Day surgery (SDC) | payer BC, SELFPAY ==
--- NOTE | ~2022-11-09 | FL_ITS ---
EXAMINATION: XR FLUOROSCOPY WITH IMAGES CLINICAL INFORMATION: Bilateral retro. COMPARISON: Previous exam most recent September 2022 TECHNIQUE: Fluoroscopy Supervised By: Dr. Delta Kruse. Fluoroscopy Time: 35.3 seconds. Cumulative Dose: 8.27 mGy. DAP: Gycm2. Images: 6. FINDINGS: Fluoroscopy guidance for bilateral retrograde exam. Contrast opacification of the right renal pelvis and ureter and left distal ureter. FL/FL guidance in OR IMPRESSION: Fluoroscopy guidance for bilateral retrograde exam
--- NOTE | ~2022-11-09 | CT_ITS ---
EXAMINATION: CT ABDOMEN AND PELVIS WITHOUT CONTRAST CLINICAL INFORMATION: Flank pain COMPARISON: 08/31/2022 TECHNIQUE: Multidetector volumetric imaging was performed from the superior aspect of the liver through the pubic symphysis. Sagittal and coronal reformatted images were obtained on the technologist's workstation. This CT examination was performed using dose optimization techniques as appropriate, variously including the following: *Automated exposure control *Adjustment of mA and/or kV according to patient size (this includes techniques or standardized protocols for targeted exams where dose is matched to indication/reason for exam; i.e. extremities or head) *Use of iterative reconstruction technique DLP: 383 mGy-cm FINDINGS: LUNG BASES: Mild bibasilar atelectasis. LIVER, GALLBLADDER, AND BILIARY TREE: The liver is normal in size, shape, and attenuation. No focal hepatic lesion or biliary ductal dilatation is identified on this noncontrast exam. The gallbladder is unremarkable. PANCREAS: Unremarkable. SPLEEN: Unremarkable. ADRENAL GLANDS: Unremarkable. KIDNEYS AND URETERS: Prominent right extrarenal pelvis without obstructing calculus, similar to prior. Right kidney appears atrophic. There is severe left hydronephrosis with associated perinephric stranding extending along the left retroperitoneum. There are 2 adjacent calculi in the proximal to mid right ureter measuring up to approximately 7 mm. There is an additional 7 mm calculus in the distal left ureter. BLADDER: Unremarkable. GASTROINTESTINAL TRACT: No evidence of bowel obstruction or significant wall thickening. No free air is seen. ABDOMINAL WALL: No significant hernia is appreciated. LYMPH NODES: Normal. VASCULAR: Scattered atherosclerotic calcification. PELVIC VISCERA: The prostate gland is enlarged, measuring 5.4 cm in transverse diameter. OSSEOUS STRUCTURES: Degenerative changes in the spine at L5-S1. CT/CT abdomen pelvis wo IV con IMPRESSION: Severe left hydronephrosis with 2 adjacent calculi in the proximal to mid ureter measuring up to 7 mm. Additional 7 mm calculus in the distal left ureter.
[2022-11-09 22:59] VITALS: BP 158/92; PULSE 82; RESP 18; TEMP 37.1; O2SAT 98; BMI 22.8
[2022-11-10] VITALS (11 sets, daily range): BP systolic 87–170; BP diastolic 54–89; PULSE 61–88; RESP 12–18; TEMP 36.1–37.1; O2SAT 93–100
[2022-11-10 02:27] LABS: MANUAL DIFF FLAG NO
[2022-11-10 02:29] LABS: Basophils Absolute Auto 0.1 X10*3/uL (0.0-0.2); Basophils Percent Auto 0.7 % (0-2); Eosinophils Absolute Auto 0.3 X10*3/uL (0.0-0.4); Eosinophils Percent Auto 3.3 % (0-4); Hematocrit 39.7 % (42.0-52.0); Hemoglobin 13.3 g/dl (14.0-18.0); Imm Gran Abs Auto 0.04 X10*3/uL (0.00-0.03); Imm Gran Pct Auto 0.4 % (0.0-0.4); Lymphocytes Absolute Auto 1.8 X10*3/uL (1.2-4.9); Lymphocytes Percent Auto 17.7 % (20-40); Mean Corpuscular HGB Conc 33.5 g/dl (31.0-36.0); Mean Corpuscular Hemoglobin 31.1 pg (27.0-33.0); Mean Platelet Volume 11.3 fL (9.4-12.4); Monocytes Absolute Auto 1.1 X10*3/uL (0.1-1.2); Neutrophils Absolute Auto 6.9 x10*3/uL (2.0-8.3); Neutrophils Percent Auto 66.9 % (45-73); Platelet Count 294 X10*3/uL (160-400); Red Blood Count 4.27 X10*6/uL (4.60-5.80); Red Cell Distribution Width 13.9 % (11.0-16.0); White Blood Count 10.3 X10*3/uL (4.8-10.8)
[2022-11-10 02:30] LABS: Appearance Urine Clear; Color Urine Yellow; Glucose Urine UA Negative (Negative); Leukocyte Esterase Urine Negative (Negative); Nitrite Urine Negative (Negative); PH 6.5 (5.0-9.0); Specific Gravity - Urine <= 1.005 (1.005-1.025); Urine Blood Negative (Negative); Urine Ketones Negative (Negative); Urine Protein Negative (Neg-Trace)
[2022-11-10 02:45] LABS: Alanine Aminotransferase 17 U/L (0-40); Albumin Level 4.1 g/dL (3.5-5.0); Alkaline Phosphatase 47 U/L (39-117); Anion Gap 15 (12-20); Aspartate Amino Transferase 23 U/L (5-37); Bilirubin Total 0.9 mg/dL (0.0-1.0); Blood Urea Nitrogen 37 mg/dL (9-16); Calcium 10.2 mg/dL (8.4-10.2); Carbon Dioxide 23 mmol/L (22-29); Chloride 103 mmol/L (96-108); Creatinine Clr Calc Pharmacy 20.1; Estimated Glomerular Filt Rate 17; Glucose Random 93 mg/dL (60-115); Potassium 4.6 mmol/L (3.3-5.1); Sodium 136 mmol/L (135-145); Total Protein 6.8 g/dL (6.5-8.0)
--- NOTE | 2022-11-10 03:01 | ED_ITS ---
HPI - Abdominal Pain General Chief Complaint: Abdominal Pain Stated Complaint: Abdominal pain, kidney stones Time Seen by Provider: 11/10/22 02:48 Source: patient Mode of arrival: ambulatory History of Present Illness HPI narrative: 62-year-old male has a longstanding history of renal colic with multiple interventions presents with recurrent pain that started yesterday, was not improving so obtained a referral for x-ray which demonstrated a 7 mm stone at the approximate L3 location. Patient states that his nausea and vomiting has been off and on and currently he is having some nausea and mild pain. Related Data Home Medications Medication Instructions Recorded Confirmed alpha lipoic acid 1 cap PO BID 08/31/22 10/28/22 potassium citrate 1 tab PO BID 08/31/22 10/28/22 potassium citrate 10 mEq (1,080 10 meq PO BID 10/18/22 10/28/22 mg) tablet,extended release Previous Rx's Medication Instructions Recorded tamsulosin 0.4 mg capsule 0.4 mg PO DAILY #30 caps 10/28/22 Allergies Allergy/AdvReac Type Severity Reaction Status Date / Time No Known Allergies Allergy Verified 10/19/22 08:37 Review of Systems Review of Systems Pertinent positives and negatives as stated in HPI PMFSH Past Medical History Source: nursing notes reviewed Medical History Small right kidney Cystinuria Surgical History Hx of appendectomy Hx of tonsillectomy H/O colonoscopy History of cystoscopy Family History Family History Father No problems noted. Mother No problems noted. Social History Social History Alcohol intake: current Alcohol intake frequency: 0-2 drinks per day Patient Tobacco Use Status: Never used Tobacco Second Hand Smoke Exposure: No Substance Use Type: Marijuana Advance Directives: No Advance Directives Information Provided: No Physical Exam ED Vital Signs: Vital Signs - 24 hr 11/09/22 22:59 11/09/22 22:59 11/10/22 02:15 Temperature 98.8 F 98.8 F 97.7 F Pulse Rate 82 82 87 Respiratory Rate 18 18 16 Blood Pressure 158/92 H 158/92 H 170/89 H Pulse Oximetry 98 98 97 Oxygen Delivery Method Room Air Room Air Room Air BMI result Body Mass Index 22.8 VITAL SIGNS: Reviewed. GENERAL: Well developed, well nourished, in no acute distress. HEAD: Normocephalic/atraumatic EYES: PERRLA, EOMI EARS: Ext canals without abnormality NOSE: Nares patent bilateral OROPHARYNX: no oral lesions noted, posterior pharynx clear NECK: Supple, no adenopathy LUNGS: Normal breath sounds. No adventitious sounds or accessory muscle use. SpO2<97> CARDIOVASCULAR: Regular rate and rhythm without noted murmurs ABDOMEN: Soft, mild left flank pain without rebound, non-distended with bowel sounds. MUSCULOSKELETAL: No tenderness, deformities, or effusions noted on gross inspection. EXTREMITIES: No cyanosis, clubbing or edema. SKIN: Inspection of the skin reveals no rashes NEUROLOGIC: Alert and oriented x 4. Strength and sensation to light touch were grossly intact x 4. Medical Decision Making Medical Decision Making [facility] Narrative: 62-year-old male with history and clinical presentation most consistent with obstructive uropathy, and on review of all investigations there is a normocytic anemia without leukocytosis or left shift, no thrombocytopenia. Chemistry indices demonstrate a significant worsening in renal function without electrolyte or liver enzyme abnormalities. Urinalysis negative for UTI or hematuria. 0255: I discussed case with Dr. Ruth IV was placed, IV fluids started as well as Zofran and Toradol. CT scan was reviewed and demonstrates severe left hydronephrosis with 2 adjacent calculi in the proximal to mid ureter measuring 7 mm and an additional 7 mm calculus in the distal left ureter. I contacted Dr. Ruth who accepts admission under her in agrees with NPO. Differential Diagnosis Differential Diagnoses: The differential diagnosis associated with the presentation includes Please see the discussion above Admission/Observation Consideration of admission/observation: Escalation of care including admission/observation considered Please see the discussion above Consult Healthcare Provider Management of the patient was discussed with: Cycle Director Please see the discussion above Lab Data [facility] Lab Attestation statement: I reviewed the patient's lab results. Please see the discussion above 11/10/22 02:23 11/10/22 02:23 Labs: Lab Results 11/10/22 Range/Units 02:23 WBC 10.3 (4.8-10.8) X10*3/uL RBC 4.27 L (4.60-5.80) X10*6/uL Hgb 13.3 L (14.0-18.0) g/dl Hct 39.7 L (42.0-52.0) % MCV 93.0 (80.0-98.0) fL MCH 31.1 (27.0-33.0) pg MCHC 33.5 (31.0-36.0) g/dl RDW 13.9 (11.0-16.0) % Plt Count 294 D (160-400) X10*3/uL MPV 11.3 (9.4-12.4) fL Immature Gran % (Auto) 0.4 (0.0-0.4) % Neut % (Auto) 66.9 (45-73) % Lymph % (Auto) 17.7 L (20-40) % [place] % (Auto) 11.0 (2-11) % Eos % (Auto) 3.3 (0-4) % Baso % (Auto) 0.7 (0-2) % Lymph # (Auto) 1.8 (1.2-4.9) X10*3/uL [place] # (Auto) 1.1 (0.1-1.2) X10*3/uL Eos # (Auto) 0.3 (0.0-0.4) X10*3/uL Baso # (Auto) 0.1 (0.0-0.2) X10*3/uL Abs Immat Gran (auto) 0.04 H (0.00-0.03) X10*3/uL Absolute Neuts (auto) 6.9 (2.0-8.3) x10*3/uL Absolute Nucleated RBC 0.000 (0.0-0.012) X10*3/uL Nucleated RBC % (auto) 0.0 (0.0-0.2) /100WBC Sodium 136 (135-145) mmol/L Potassium 4.6 (3.3-5.1) mmol/L Chloride 103 (96-108) mmol/L Carbon Dioxide 23 (22-29) mmol/L Anion Gap 15 (12-20) BUN 37 H (9-16) mg/dL Creatinine 3.57 H (0.5-1.4) mg/dL Estim Creat Clear Calc 20.1 Estimated GFR 17 Random Glucose 93 (60-115) mg/dL Calcium 10.2 (8.4-10.2) mg/dL Total Bilirubin 0.9 (0.0-1.0) mg/dL AST 23 (5-37) U/L ALT 17 (0-40) U/L Alkaline Phosphatase 47 (39-117) U/L Total Protein 6.8 (6.5-8.0) g/dL Albumin 4.1 (3.5-5.0) g/dL Urine Color Yellow Urine Appearance Clear Urine pH 6.5 (5.0-9.0) Ur Specific [place] <= 1.005 (1.005-1.025) Urine Protein Negative (Neg-Trace) mg/dL Urine Glucose (UA) Negative (Negative) mg/dL Urine Ketones Negative (Negative) mg/dL Urine Blood Negative (Negative) Urine Nitrite Negative (Negative) Ur Leukocyte Esterase Negative (Negative) Radiology Impression Discussion of test interpretation with radiology: I have reviewed the radiologist's reading. Radiologist Impression: Please see the discussion above Medications Administered Generic Name Dose Route Start Last Admin Trade Name Freq PRN Reason Stop Dose Admin Sodium Chloride 1,000 mls @ 999 mls/hr 11/10/22 03:15 11/10/22 03:13 Ns IV 11/10/22 04:15 999 mls/hr .Q1H1M FRANCISCA Administration Discontinued Medications Generic Name Dose Route Start Last Admin Trade Name Freq PRN Reason Stop Dose Admin Ketorolac Tromethamine 15 mg 11/10/22 03:09 11/10/22 03:14 Ketorolac Tromethamine 30 Mg/Ml Vial IVPUSH 11/10/22 03:10 15 mg ONCE ONE Administration Ondansetron HCl 4 mg 11/10/22 03:09 11/10/22 03:14 Ondansetron Hcl 4 Mg/2 Ml Vial IVPUSH 11/10/22 03:10 4 mg ONCE ONE Administration Critical Care Time Critical Care Time Critical Care Time: Yes Total Critical Care Time: 30 Attestation: I personally attest to this time spent taking care of the patient. Discharge Plan Discharge Clinical Impression: Obstruction, uropathy, MARYA (acute kidney injury), Hydronephrosis Patient Disposition: Admitted As Inpatient
[2022-11-10] MEDS: 0.9 % Sodium Chloride 1,000 ML 999 ML IV (03:13)
[2022-11-10] MEDS: Ketorolac Tromethamine 30 MG/ML VIAL 15 MG IVPUSH (03:14)
[2022-11-10] MEDS: ondansetron HCL 4 MG/2 ML VIAL IVPUSH (03:14)
[2022-11-10] MEDS: 0.9 % Sodium Chloride 1,000 ML 125 ML IVCONT (06:10)
--- NOTE | 2022-11-10 08:55 | PHA.MEDREC ---
Pharmacy Consult ? Medication Reconciliation Pharmacy has completed the medication reconciliation. Spoke to patient at bedside, able to name medications. Stated that he no longer takes the oxybutynin 5mg tablets, however he did take one tablet yesterday 11/09/22 hoping that it would help with his stones.
--- NOTE | 2022-11-10 09:17 | PC.NURSE ---
rn mary lou gave report as was pt rn- this rn took vs and assisted procedure area staff w get pt out of room - aox4. vss. no distress noted. pt PIV c/d/i.
--- NOTE | 2022-11-10 09:21 | P.HPGS_ITS ---
History of Present Illness History of Present Illness Date of Service: 11/10/22 Chief complaint: Abdominal pain, kidney stones Narrative: Mikey Goldstein is a 62 year old male with history of cysteine kidney stones, He is s/p left ureteroscopy laser lithotripsy of larger stone fragments with stent exchange on 10/19/22 He was seen one week ago for stent removal. I reviewed the urine culture results from 10/18/2022 which came back negative for bacterial growth. Stone analysis from 10/19/2022 revealed 100 % cystine. Review of Systems Review of Systems: 10 point ROS negative other than stated in HPI [facility] Past Medical History Medical History Small right kidney Cystinuria Family History Family History Father No problems noted. Mother No problems noted. Surgical History Surgical History Hx of appendectomy Hx of tonsillectomy H/O colonoscopy History of cystoscopy Social History Social History Alcohol intake: current Alcohol intake frequency: 0-2 drinks per day Patient Tobacco Use Status: Never used Tobacco Second Hand Smoke Exposure: No Substance Use Type: Marijuana Advance Directives: No Advance Directives Information Provided: No Meds Allergies Allergy/AdvReac Type Severity Reaction Status Date / Time No Known Allergies Allergy Verified 10/19/22 08:37 Active Medications: Current Medications Sodium Chloride (Ns) 1,000 mls @ 125 mls/hr IVCONT .Q8H FRANCISCA Last Admin: 11/10/22 06:10 Dose: 125 mls/hr Home Medications Medication Instructions Recorded Confirmed Last Taken Type alpha lipoic acid 200 mg tablet 400 mg PO BID 11/10/22 11/10/22 11/10/22 History potassium citrate 10 mEq (1,080 10 meq PO BID 11/10/22 11/10/22 11/10/22 History mg) tablet,extended release tamsulosin 0.4 mg capsule 0.4 mg PO DAILY 11/10/22 11/10/22 11/10/22 History Physical Exam 2 Vital Signs: Vital Signs: Last Vital Signs Temp 97.9 F 11/10/22 06:06 Pulse 88 11/10/22 09:19 Resp 18 11/10/22 09:19 BP 134/81 11/10/22 09:19 Pulse Ox 100 11/10/22 09:19 O2 Del Method Room Air 11/10/22 09:19 BMI result Body Mass Index 22.8 Const: General: healthy appearing, no acute distress and well developed Orientation/consciousness: patient oriented x3 HEENT: Head: Yes normocephalic and Yes atraumatic Eyes: Conjunctivae: conjunctivae normal Neck: Neck: Yes normal visual inspection Chest: Chest palpation & inspection: normal inspection of the chest Resp: Effort & Inspection: normal respiratory effort Cardio: Rate: regular rate GI: Inspection: Yes normal to inspection Skin: General skin exam: no rashes or lesions noted Neuro: General: patient oriented x3 Extrem: General: No pedal edema Psych: Appearance: grossly normal Affect: normal affect Results Results Labs: Short CBC 11/10/22 Range/Units 02:23 WBC 10.3 (4.8-10.8) X10*3/uL Hgb 13.3 L (14.0-18.0) g/dl Hct 39.7 L (42.0-52.0) % Plt Count 294 D (160-400) X10*3/uL BMP 11/10/22 02:23 Sodium 136 Potassium 4.6 Chloride 103 Carbon Dioxide 23 BUN 37 H Creatinine 3.57 H Calcium 10.2 Liver Function 11/10/22 Range/Units 02:23 Total Bilirubin 0.9 (0.0-1.0) mg/dL AST 23 (5-37) U/L ALT 17 (0-40) U/L Alkaline Phosphatase 47 (39-117) U/L Albumin 4.1 (3.5-5.0) g/dL Urine 11/10/22 Range/Units 02:23 Urine Color Yellow Urine Appearance Clear Urine pH 6.5 (5.0-9.0) Ur Specific [place] <= 1.005 (1.005-1.025) Urine Protein Negative (Neg-Trace) mg/dL Urine Glucose (UA) Negative (Negative) mg/dL Assessment and Plan (1) Kidney stone: Status: Acute (2) Hydronephrosis: Qualifiers: Hydronephrosis type: with ureteral calculous obstruction Qualified Code(s): N13.2 - Hydronephrosis with renal and ureteral calculous obstruction Status: Acute Plan Cystoscopy Left ureteral stent, retrograde Time Spent With Patient Time: Total time managing care of this patient today ____ minutes. Quality Stroke Does the patient have a stroke diagnosis?: No VTE Prior VTE?: No VTE Risk Level:: Surgical - low VTE Device Contraindication: N/A - Device Ordered VTE Drug Contraindication: N/A - Med Ordered Procedures Date of Service Date of Service: 11/10/22
--- NOTE | 2022-11-10 09:53 | MHC.SHP ---
Pre-Procedural Eval Section A Date of Service: 11/10/22 The patient is an INPATIENT: No Changes since office visit: No Cold of Flu in the past 2 weeks, No New Medical Problems, No Changes in Medication and No Patient answered all questions The History & Physical has been completed within 30 days and I have reviewed it.: No Section B Chief Complaint: Abdominal pain, kidney stones Details of Present Illness: left distal ureteric stones Relevant Family History (Specify if Yes): No Relevant Social History: None Present Medications: see Short Stay Collaborative assessment Medical History: Significant History History of Previous Operations: Relevant previous surgery/procedure and date(s) Allergies: Allergies Allergy/AdvReac Type Severity Reaction Status Date / Time No Known Allergies Allergy Verified 10/19/22 08:37 Review of Systems Sugical H&P ROS: Negative: Constitution, Cardiovascular, Respiratory, Neurological, Psychiatric, Hem-Onc, Allergic/Immunologic, Gastrointestinal, Genitourinary, Musculoskeletal, Integumentary, Endocrine and Eyes/Ears/Nose/Throat Exam Surgical H&P Exam: Normal: HEENT, Normal: Heart, Normal: Lungs, Normal: Extremities, Normal: Abdomen, Normal: Skin and Normal: Neurological Plan Diagnosis/Plan: Unchanged (cysto, bilateral retrogrades, left ureteroscopy, laser, basket, stent) I have reviewed the history and physical and performed a pertinent physical examination on my patient. No changes have occurred unless specified. Time Spent With Patient Time: Total time managing care of this patient today ____ minutes.
--- NOTE | 2022-11-10 10:12 | P.CONAN_ITS ---
HPI - Anesthesia Eval Consult details Narrative: for cysto, laser PMFSH Active Problems Active Problems: All Active Problems (Updated 11/10/22 @ 04:02 by Hannah Floyd MD) Hydronephrosis (Acute) MARYA (acute kidney injury) (Acute) Obstruction, uropathy (Acute) Kidney stone on left side (Acute) Screening PSA (prostate specific antigen) (Acute) Hydronephrosis with renal calculous obstruction (Acute) Kidney stone (Acute) Hydronephrosis (Acute) Elevated serum creatinine (Acute) Past Medical History Medical History Small right kidney Cystinuria Family History Family History Father No problems noted. Mother No problems noted. Family history of problems with anesthesia: No Surgical History Surgical History Hx of appendectomy Hx of tonsillectomy H/O colonoscopy History of cystoscopy History of Problems with Anesthesia: No Social History Social History Alcohol intake: current Alcohol intake frequency: 0-2 drinks per day Patient Tobacco Use Status: Never used Tobacco Second Hand Smoke Exposure: No Substance Use Type: Marijuana Meds Allergies Allergy/AdvReac Type Severity Reaction Status Date / Time No Known Allergies Allergy Verified 10/19/22 08:37 Active Medications: Current Medications Sodium Chloride (Ns) 1,000 mls @ 125 mls/hr IVCONT .Q8H FRANCISCA Last Admin: 11/10/22 06:10 Dose: 125 mls/hr Levofloxacin (Levaquin) 500 mg in 100 mls @ 100 mls/hr IV PREOP ONE Stop: 11/10/22 10:22 Home Medications Medication Instructions Recorded Confirmed Last Taken Type alpha lipoic acid 200 mg tablet 400 mg PO BID 11/10/22 11/10/22 11/10/22 History potassium citrate 10 mEq (1,080 10 meq PO BID 11/10/22 11/10/22 11/10/22 History mg) tablet,extended release tamsulosin 0.4 mg capsule 0.4 mg PO DAILY 09/11/10/22 11/10/22 History Exam Exam Date and Time: November 10, 2022 1012 Height,Weight and Vital Signs: Height 5 ft 8 in Weight 68.039 kg Last Vital Signs Temp 97.0 F 11/10/22 09:32 Pulse 82 11/10/22 09:32 Resp 16 11/10/22 09:32 BP 142/79 H 11/10/22 09:32 Pulse Ox 95 11/10/22 09:32 O2 Del Method Room Air 11/10/22 09:32 Pertinent Lab Results Pertinent Lab Results: Laboratory Tests 11/10/22 02:23 WBC 10.3 RBC 4.27 L Hgb 13.3 L Hct 39.7 L MCV 93.0 MCH 31.1 MCHC 33.5 RDW 13.9 Plt Count 294 D MPV 11.3 Immature Gran % (Auto) 0.4 Neut % (Auto) 66.9 Lymph % (Auto) 17.7 L [place] % (Auto) 11.0 Eos % (Auto) 3.3 Baso % (Auto) 0.7 Lymph # (Auto) 1.8 [place] # (Auto) 1.1 Eos # (Auto) 0.3 Baso # (Auto) 0.1 Abs Immat Gran (auto) 0.04 H Absolute Neuts (auto) 6.9 Absolute Nucleated RBC 0.000 Nucleated RBC % (auto) 0.0 Sodium 136 Potassium 4.6 Chloride 103 Carbon Dioxide 23 Anion Gap 15 BUN 37 H Creatinine 3.57 H Estim Creat Clear Calc 20.1 Estimated GFR 17 Random Glucose 93 Calcium 10.2 Total Bilirubin 0.9 AST 23 ALT 17 Alkaline Phosphatase 47 Total Protein 6.8 Albumin 4.1 Urine Color Yellow Urine Appearance Clear Urine pH 6.5 Ur Specific [place] <= 1.005 Urine Protein Negative Urine Glucose (UA) Negative Urine Ketones Negative Urine Blood Negative Urine Nitrite Negative Ur Leukocyte Esterase Negative Airway Mallampati Class: II TM Dist: >3cm Neck ROM: Full Heart: ok Lungs: ok Assessment and Plan Assessment Anesthesia Assessment: Anesthesia Plan Discussed and Chart Reviewed Final Anesthetic Review Family History of Problems with Anesthesia: No History of Problems with Anesthesia: No NPO: Yes ASA Class: III and Emergency Final Preanesthetic Review: No Changes in Pt Med Stat, Meds/Allgs Chart Reviewed, Consent Obtained/Reviewed and Anes Risks/Benef Reviewed Patient Risk: Intermediate Procedure Risk: Low Anesthetic Plan Anesthetic Plan: GA and Agree w/ Assess. and Plan Disposition: Standard PACU
--- NOTE | 2022-11-10 11:29 | P.OP_ITS ---
Operative Note Operative Note Date of Service: 11/10/22 Narrative: PreOperative Diagnosis: Left distal ureter stone, left proximal ureteric stone, hydronephrosis, acute renal insult Post Operative Diagnosis: above Procedure: - cystoscopy, bilateral retrograde retrograde - left ureteroscopy, laser lithotripsy, stone basketing - left ureteric sheath placement - Left renal ureteroscopy with laser lithotripsy and stone basketing - modify 22 100% longer than typical Surgeon: Dr Delta Kruse Anesthesia: General Indications for procedure: 2 stones with blockage at distal left ureter at and proximal left ureter with hydronephrosis, creatinine 3.6, solitary left kidney Procedure: After informed consent was verified the patient was brought to the operating room and placed in a supine position. Anesthesia was administered per protocol. The patient was placed in a modified dorsal lithotomy position and prepped and draped in a sterile fashion. Safety pause time-out and side of surgery were confirmed. Images were available for review. Antibiotic administration confirmed. A 22 [place]ic cystoscope was inserted per urethra. The urethra was without abnormality. The bladder was normal in its entirety. Both ureteric orifices were seen in normal position right ureteric orifice was cannulated retrograde examination performed. No filling defects seen. Left ureteric orifice was cannulated and retrograde performed. Distal filling defects seen. Proximal hydronephrosis.. A Sensor guidewire was placed up to the level of the renal pelvis under fluoroscopy on the left side. The rigid cystoscope was removed. The semi rigid ureteral scope was placed alongside the Sensor guidewire. The stone was encountered in the distal portion of the ureter.. Using a 365 micro holmium laser fiber the stone was broken into small pieces using a combination of hammer and dusting techiques - cystine stone so prolonged technique taking 50% longer than typical. Stone fragments were removed from the ureter using a 2.4 [place]ic basket. a switch was made to use the flexible ureteral scope. This was placed over the Sensor wire to level the renal pelvis. Two stones were encountered. Each approximately 8 mm in size. These likely had been pushed back into the renal pelvis by the Sensor guidewire. Lasering was performed on the stones. As this was prolonged secondary to cystine stone decision was made to place a ureteral access sheath. The sheath was placed to allow assistance with flow and visualization. The stones continued to be broken into small pieces. Using the basket fragments were removed. procedure approximately 100% longer than typical - 30 minutes of lasering with basket Patient asked not to have a stent due to prior difficulty. The ureter was relatively atraumatic. Decision made not to leave a stent. The bladder was emptied. The patient tolerated the procedure well and was extubated in the operating room. They were transferred in stable condition to the recovery area. Pathology: Cystine stones Drains: No stent
== END 2022-11-10 13:33 | disposition home or self-care (01) ==
LOC: HO.ED 11-10 08:49 → HO.SSS 11-10 09:27
PROVIDERS: Urology; Emergency Provider Student in an Organized Health Care Education/Training Program; Visit Provider Urology
PROC: (CPT 52353; principal; 2022-11-10 09:00)
DX: N13.2 Hydronephrosis with renal and ureteral calculous obstruction (principal); N17.9 Acute kidney failure, unspecified; E72.01 Cystinuria; R94.4 Abnormal results of kidney function studies; Q60.0 Renal agenesis, unilateral; F12.90 Cannabis use, unspecified, uncomplicated
CPT/HCPCS: 52353; 36415; 74176; 80053; 81003; 82365; 85025; 88300; 96361; 96374; 96375; 99285; C1758; C1769; J1885; J1956; J2405; J3010; Q9967

== ENCOUNTER → 2022-11-10 09:26 | Outpatient (BNV) | payer BC, SELFPAY | PROVIDERS: Emergency Provider Student in an Organized Health Care Education/Training Program; Visit Provider Urology | DX: N20.0 Calculus of kidney (principal); N13.1 Hydronephrosis with ureteral stricture, not elsewhere classified | CPT/HCPCS: 52353; 74420; 99284 ==

== ENCOUNTER 2023-02-23 | Outpatient (REF) | payer OTHER, SELFPAY | END 2023-02-23 00:01 | LOC: HO.US | PROVIDERS: PCP Internal Medicine Geriatric Medicine; Visit Provider Urology | DX: N13.2 Hydronephrosis with renal and ureteral calculous obstruction (principal) | CPT/HCPCS: 74018; 76775 ==

== ENCOUNTER 2023-06-10 13:17 | Outpatient (AMB) | payer OTHER, SELFPAY ==
--- NOTE | 2023-06-10 13:27 | A.OFFVIS_ITS ---
Intake Visit Reasons: 6m/US/PSA/litholink Intake Note: Patient is present for Follow Up US/ PSA & LITHOLINK: Urology Med: Tamsulosin Antibiotic Allergy:None Blood Thinner: None Pharmacy: [facility] [employer] Required: No Accompanied by: Self / Same As Patient Allergies No Known Allergies Allergy (Verified 10/19/22 08:37) HPI Comments Details: 06/10/2023-- Mikey is a 62-year-old male who presents today to the office for a follow-up. He has history of cystine stones. I reviewed 24 hour urine that was done in February. He states he had a PSA done but I do not have those results available for me to review. He was also evaluated by urologist in [place] regarding these results. He is currently asymptomatic. Discussed plan to continue to monitor kidneys. Follow-up in [address] imaging and PSA. Review of charts:? 10/28/2022? He is followed today for cysto stent removal. He was last seen by me on 10/18/2022 for hydronephrosis with renal calculous obstruction. Discussed left ureteroscopy, removing stone fragments in the ureter with stent removal. He is s/p left ureteroscopy laser lithotripsy of larger stone fragments with stent exchange on 10/19/22. He presents for stent removal today. I reviewed the urine culture results from 10/18/2022 which came back negative for bacterial growth. Stone analysis from 10/19/2022 revealed 100 % cystine. 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 presents today via televisit for KUB/surgery consult. He was last seen by me on 09/14/2022. He is status post cystoscopy, left ureteroscopy, laser lithotripsy and stent exchange done on 09/14/22.? He did have a KUB done on 09/29/2022. Radiologist has not transcribed the re sults. I have reviewed the films. There is a residual stone fragment noted on the proximal portion of the ureteral stent. Plan: Sched repeat left ureteroscopy laser lithotripsy stent exchange. OV-09/10/2022-- Mikey is a 62-year-old male who I initially evaluated as an inpatient consult for hydronephrosis and acute renal insufficiency secondary to an obstructing stone. He is status post left ureteral stent. He had a follow-up KUB done on 09/03/22 that I reviewed. He has a history of cystine kidney stones. He has been followed by Dr. Gardiner in [place] for many years and has had a multiple of surgical treatment options including ureteroscopy, shockwave lithitripsy to manage the cistine kidney stones. He has moved to [place] and is going to continue his follow-up care with [facility]. He is not on aspirin or any other blood thinners. He is on Pyridium and oxbutynin and they are helpful for him. He requests refill for the Pyridium. Evaluation today-- UA 09/10/22-- Leukocytes: 1+. Blood:3+. Plan:? His follow-up KUB films were reviewed with the patient today. Left ureteroscopy, laser lithotripsy and stent exchange discussed to be scheduled. [facility] Medical History Small right kidney Cystinuria Surgical History Hx of appendectomy Hx of tonsillectomy H/O colonoscopy History of cystoscopy Family History Father No problems noted. Mother No problems noted. Social History Alcohol intake: current Alcohol intake frequency: 0-2 drinks per day Patient Tobacco Use Status: Never used Tobacco Second Hand Smoke Exposure: No Substance Use Type: Marijuana Results AMB Urinalysis, Automated UA Leukoctes 0 Tobi/uL Last Edit by Jagdish Pritchard George on 06/10/23 13:37 UA Nitrite Negative Last Edit by Jagdish Pritchard ON LICENSE OF [facility] on 06/10/23 13:37 UA Urobilinogen 0.2 mg/dL Last Edit by Jagdish Pritchard A on 06/10/23 13:3 7 UA Protein 0 mg/dL Last Edit by Jagdish Pritchard ON LICENSE OF [facility] on 06/10/23 13:37 UA pH 7.5 Last Edit by Jagdish Pritchard A on 06/10/23 13:37 UA Blood 0 [place]/uL Last Edit by Jagdish Pritchard ON LICENSE OF [facility] on 06/10/23 13:37 UA Specific [place] 1.010 Last Edit by Jagdish Pritchard ON LICENSE OF [facility] on 06/10/23 13: 37 UA Ketone Negative Last Edit by Jagdish Pritchard ON LICENSE OF [facility] on 06/10/23 13:37 UA Bilirubin 0 mg/dL Last Edit by Jagdish Pritchard ON LICENSE OF [facility] on 06/10/23 13:37 UA Glucose 0 mg/dL Last Edit by Jagdish Pritchard ON LICENSE OF [facility] on 06/10/23 13:37 Results Reviewed Results Reviewed: Laboratory Last Values Urine pH (Auto) 7.5 06/10/23 13:28 Specific [place] (Auto) 1.010 06/10/23 13:28 Urine Protein (Auto) 0 mg/dL 06/10/23 13:28 Glucose (UA)(Auto) 0 mg/dL 06/10/23 13:28 Urine Ketones (Auto) Negative 06/10/23 13:28 Urine Blood (Auto) 0 [place]/uL 06/10/23 13:28 Urine Nitrite (Auto) Negative 06/10/23 13:28 Urine Bilirubin (Auto) 0 mg/dL 06/10/23 13:28 Urine Urobilinogen (Auto) 0.2 mg/dL 06/10/23 13:28 Leukocyte Esterase (Auto) 0 [place]/uL 06/10/23 13:28 Assessment & Plan Assessment & Plan (1) Cystine calculus of kidney: Code(s): N20.0 - Calculus of kidney Category: Medical (2) Screening PSA (prostate specific antigen): Code(s): Z12.5 - Encounter for screening for malignant neoplasm of prostate Category: Medical Plan Follow-up in [address] stone protocol and PSA prior Orders: Orders PSA,Total (Free>4and<10) 11 Months Z12.5 - Encounter for screening for malignant neoplasm of prostate AMB Urinalysis Automated 06/10/23 Z13.9 - Encounter for screening, unspecified AMB Post Void Residual by ultrasound 06/10/23 N39.8 - Other specified disorders of urinary system CT abdomen pelvis wo IV con 11 Months N20.0 - Calculus of kidney Coding Level of Care Code Est Pt Level 3 (74704) Diagnoses Cystine calculus of kidney N20.0 Screening PSA (prostate specific antigen) Z12.5
== END 2023-06-10 14:07 | disposition home or self-care (01) ==
PROVIDERS: Visit Provider Urology
DX: N20.0 Calculus of kidney (principal); Z12.5 Encounter for screening for malignant neoplasm of prostate
CPT/HCPCS: 99213

== ENCOUNTER → 2023-06-10 13:17 | Outpatient (BNVA) | payer OTHER, SELFPAY | PROVIDERS: Visit Provider Urology | DX: N20.0 Calculus of kidney (principal) | CPT/HCPCS: 81003 ==

== ENCOUNTER 2024-06-01 07:55 | Outpatient (REF) | payer OTHER, SELFPAY ==
--- NOTE | ~2024-06-01 | US_ITS ---
EXAMINATION: US KIDNEY BILATERAL HISTORY: N20.0 - Calculus of kidney TECHNIQUE: Real-time grayscale ultrasound imaging of the kidneys was performed and images were reviewed. COMPARISON: Comparison is made with the prior examination dated 02/23/2023. FINDINGS: Right kidney: The right kidney measures 7.1 x 2.9 x 3.4 cm. Renal parenchymal echotexture and thickness are normal. There are no masses. There is a 4 mm nonobstructing calculus at the lower pole. There is no hydronephrosis. Left Kidney: The left kidney measures 10.6 x 6.3 x 5.3 cm. Renal parenchymal echotexture and thickness are normal. There are no masses. There are upper pole nonobstructing calculi measuring 4 x 3 x 4 mm and 6 x 4 x 5 mm. There is a staghorn calculus in the mid to lower pole region, portions of which measure up to 1.5 x 1.0 x 1.4 cm. There is mild caliectasis. US/US renal BI IMPRESSION: 1. 4 mm nonobstructing calculus at the lower pole of the right kidney. 2. Multiple left renal calculi including a staghorn calculus in the mid to lower pole region. Mild left caliectasis. This could be further evaluated with CT if desired. Electronically signed by: Ken North MD 06/01/2024 08:50 AM EDT
--- OUTSIDE RECORDS SUMMARY | 2024-06-01 07:58 | XMS_ITS | Encounter Summary ---
Author Organization [facility] Address [address] [place] [phone] Care Team Providers Care Capsule Filler Name Role Phone Angelica Beasley MD Primary Care Provider [phone] Encounter Details Date Type Department Care Team (Latest Contact Info) Description 11/23/2012 Transcribed Orders [facility] [address] [place] [address] Darrius Steinberg MD [address] [place] [address] Unspecified essential hypertension (Primary Dx); Irritable bowel syndrome; Depressive disorder, not elsewhere classified Social History Tobacco Use Types Packs/Day Years Used Date Smoking Tobacco: Never Alcohol Use Standard Drinks/Week Comments Not Asked 0 (1 standard drink = 0.6 oz pur e alcohol) Sex and Gender Information Value Date Recorded Sex Assigned at Not on file Legal Sex Male 9:34 AM EST Gender Identity Not on file Sexual Orientation Not on file documented as of this encounter Plan of Treatment Not on file documented as of this encounter Results * ASHWINI (BH GH L YH) (11/23/2012 4:24 PM EDT) ASHWINI <1:40 <1:40 [facility] Blood specimen (specimen) 11/23/2012 4:24 PM EDT us Darrius Steinberg MD LAB BLOOD ORDERABLES Final R esult [facility] [address] [place] [phone] * Protein electrophoresis, serum ( GH L Y) (11/23/2012 4:24 PM EDT) Total Protein 6.6 6.0 - 8.3 g/dL [facility] Albumin 4.3 3.5 - 5.0 g/dL [facility] Albumin Electrophoresis 3.62 3.50 - 4.70 g/dL [facility] Ouguz-8-Gbnmuvgy 0.21 0.10 - 0.30 g/dL [facility] Comment: Effective May 11, 2012, the reference range for this protein fraction has changed due to implementation of a new electrophoresis system. Mljah-6-Snuudypk 0.84 0.60 - 1.00 g/dL [facility] Comment: Effective May 11, 2012, the reference range for this protein fraction has changed due to implementation of a new electrophoresis system. Beta Globulin 1.00 0.70 - 1.20 g/dL [facility] Comment: Effective May 11, 2012, the reference range for this protein fraction has changed due to implementation of a new electrophoresis system. Gamma Globulin 0.92 0.70 - 1.50 g/dL [facility] SPEP Interpretation See below See Interp. [facility] Comment: INTERPRETATION: No discrete abnormal bands. If monoclonal gammopathy remains a clinical consideration, recommend serum immunofixation electrophoresis (RUFUS). SIGNED BY:NIKITA RUDOLPH ON 11/27/2012 15:30:32 INTERPRETATION REVIEW : I have reviewed these results and agree with this interpretation. Blood specimen (specimen) 11/23/2012 4:24 PM EDT us Darrius Steinberg MD LAB BLOOD ORDERABLES Final R esult Performing Organization Address [facility]/ZIP Co de Phone Number [facility] [address] [place] [phone] * Lyme Abs C6 WESLEY w/ reflex to WB (Y) (11/23/2012 4:24 PM EDT) Pathologist [facility] B. burgdorferi Abs w/ Confirmation by WB 0.15 <=0.9 LI [facility] Comment: This sample tested negative for IgM and IgG antibodies to Borrelia burgdorferi, the causative agent of Lyme disease. Since an immune response to Lyme may not appear for several weeks following initial infection, a second sample collected 2-4 weeks after the first sample should be tested if clinically indicated. ??Serological confirmation of typical erythema chronicum migrans lesions is not necessary. An immune response may not be detected in some patients treated with antibiotics very early in infection. Note: ??A C6 peptide B. burgdorferi EIA was used, which is more specific than EIA tests that utilize whole organism lysates. Reference Range for Borrelia burgdorferi Antibodies: <= 0.9 LI - Negative 0.91-1.09 LI - Equivocal => 1.1 LI - Positive 11/23/2012 4:24 PM EDT Darrius Steinberg MD LAB BLOOD ORDERABLES Final R esult Performing Organization Address [facility] Co de Phone Number [facility] [address] [place] [phone] * Rheumatoid factor (BH L Q YH) (11/23/2012 4:24 PM EDT) [facility] Rheumatoid Factor <15.9 IU/mL [facility] Blood specimen (specimen) 11/23/2012 4:24 PM EDT Darrius Steinberg MD LAB BLOOD ORDERABLES Final R esult Performing Organization Address [facility] Co de Phone Number [facility] [address] [place] [phone] * VDRL, w/ reflex titer & TP-PA confirm. (Y) (11/23/2012 4:22 PM EDT) Pathologist [facility] VDRL Non-reacti ve Non-reacti ve [facility] Blood specimen (specimen) 11/23/2012 4:22 PM EDT Darrius Steinberg MD LAB BLOOD ORDERABLES Final R esult Performing Organization Address [facility] Co de Phone Number [facility] [address] [place] [phone] * Sedimentation rate (ESR) ( GH YH) (11/23/2012 4:22 PM EDT) Sed Rate 10 0 - 20 mm/hr [facility] Blood specimen (specimen) 11/23/2012 4:22 PM EDT Darrius Steinberg MD LAB BLOOD ORDERABLES Final R esult Performing Organization Address [facility] de Phone Number [facility] [address] [place] [phone] * Vitamin D, 1,25-dihydroxy (mineral metabolism) (YH) (11/23/2012 4:22 PM EDT) Vit D, 1,25-Dihydroxy 62 25 - 66 pg/mL [facility] Comment: 1,25 Dihydroxy vitamin D increases active calcium transport in the duodenum. Parathyroid hormone stimulates renal production of 1,25 Dihydroxy vitamin D and levels are often elevated in patients with primary hyperparathyroidism. 1,25 Dihydroxy vitamin D can be made ectopically by inflammatory or infectious granulomas. Levels of 1,25 Dihydroxy vitamin D are low in renal failure. Blood specimen (specimen) 11/23/2012 4:22 PM EDT Darrius Steinberg MD LAB BLOOD ORDERABLES Final R esult Performing Organization Address [facility] Co de Phone Number [facility] [address] [place] [phone] * Vitamin D 25 hydroxy (BH L YH) (11/23/2012 4:22 PM EDT) Vit D, 25-Hydroxy 42 20 - 50 ng/mL [facility] Comment: A serum 25(OH) vitamin D concentration of at least 20 ng/mL is necessary to prevent secondary hyperparathyroidism. For reducing fracture risk or optimizing skeletal muscle function, higher serum 25(OH) vitamin D values, in the range of 30 ng/mL, are thought to be optimal. Blood specimen (specimen) 11/23/2012 4:22 PM EDT us Darrius Steinberg MD LAB BLOOD ORDERABLES Final R esult Performing Organization Address [facility] Co de Phone Number [facility] [address] [place] [phone] * (ABNORMAL) Pyridoxine (YH) (11/23/2012 4:22 PM EDT) Pyridoxine 35.1(H) 2.1 - 21.7 ng/mL [facility] Comment: Conversion Factor: ??Nanograms/mL x 4.046 = nanomoles/L Blood specimen (specimen) 11/23/2012 4:22 PM EDT Darrius Steinberg MD LAB BLOOD ORDERABLES Final R esult Performing Organization Address [facility] de Phone Number [facility] [address] [place] [phone] documented in this encounter Visit Diagnoses Diagnosis Unspecified essential hypertension- Primary Irritable bowel syndrome Depressive disorder, not elsewhere classified documented in this encounter Care Teams Capsule Filler Relationship Specialty Start Date End Date Angelica Beasley MD [address] [place] [phone] PCP - General Internal Medicine 05/12/12 documented as of this encounter
--- OUTSIDE RECORDS SUMMARY | 2024-06-01 07:58 | XMS_ITS | Clinical Summary ---
Author Organization [facility] Address [address] [place] [address] Care Team Providers Care Hvac Engineering Technician Name Role Phone Betzaida Ramos MD Primary Care Provider [phone] Allergies No known active allergies Medications Medication Sig Dispensed Refills Start Date End Date Status Alpha-Lipoic Acid 600 MG Cap Take 2 tablets by mouth 2 (two) times a day. 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 Swallow tablet whole with full glass of water 360 tablet 3 12/05/2023 Active bisacodyl 5 MG EC tablet 4 TABLETS ORALLY PATIENT HAS INSTRUCTIONS 1 DAYS 04/24/2024 Active lactulose (ENULOSE) 10 gm/15 mL solution 15 ML NEEDED ORALLY ONCE A DAY 04/30/2024 Active GaviLyte-G 236 g solution 4000ML ORALLY PATIENT HAS INSTRUCTIONS 2 DAYS 04/24/2024 Active captopril (CAPOTEN) 25 MG tabletIndicatio ns:Cystinuria Take 1 tablet (25 mg total) by mouth 2 (two) times a day before meals. 180 tablet 3 05/22/2024 Active captopril (CAPOTEN) 12.5 MG tabletIndicatio ns:Cystinuria TAKE 1 TABLET BY MOUTH TWICE DAILY BEFORE MEALS 180 tablet 3 03/20/2024 5 Discontinued Active Problems Problem Noted Date Diagnosed Date Ureterolithiasis 03/09/2020 Depression 12/24/2019 HTN (hypertension) 12/24/2019 IBS (irritable bowel syndrome) 12/24/2019 Generalized body aches 12/11/2019 Overview (12/24/2019): Last Assessment & Plan: There are no red flags in Mr. Goldstein's presentation today. There is no evidence of acute inflammation or significant lymphadenopathy on exam. Of note, we did review his visit from 12/19/2018 and the HPI was almost identical. At that time, we did tickborne illness panel that was all negative and basic blood work which was also baseline. Last year, the symptoms resolved spontaneously. There are not many things that would occur on the same month other than seasonal allergies. It is unlikely this is related to the recent flu vaccine but not impossible. Today we agreed to have him continue conservative treatment with Tylenol as needed. He can also try antihistamine again to see if this helps. He will call right away if his symptoms worsen and will call in 1 week with an update. COVID test is not indicated at this point. COVID-19 virus infection 05/25/2019 Overview (12/24/2019): Last Assessment & Plan: Results discussed with the patient. He was not surprised to hear that he tested positive since he recognize that he had all the classic symptoms. Fortunately, his symptoms were mild and he is recovering well. I do not think any further intervention is necessary at this point and he knows to call if his symptoms worsen. We discussed immunity and how soon he can leave the house and I emphasized the importance of following all current precautions and that masks are likely to be recommended in the next several days. We discussed that despite having had COVID, he should continue to follow all guidelines of washing hands thoroughly at least 5 times a day, staying 6 feet away from other people and staying home other than for essential activities. He expressed understanding of these guidelines. Hydronephrosis of left kidney 04/08/2018 Kidney stone on left side 04/08/2018 Hydronephrosis of left kidney 04/08/2018 Overview (12/24/2019): Last Assessment & Plan: Stable by report. Followed by Dr. Abdifatah Mccormack. He may be passing small stones. Advised him to discuss recent symptoms with Dr. Mccormack promptly. Borderline high blood pressure 03/24/2018 Overview (12/24/2019): Monitored at home with most readings 110s-120s/70s Last Assessment & Plan: Home BP is lower than office at prior visits. 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 Simon Butler. Healthcare maintenance 03/24/2018 Overview (12/24/2019): Last Assessment & Plan: Visible through Care Everywhere, he has numerous chemistry measurements with elevated blood glucose. I ordered a hbxys-bd-ibsi hemoglobin A1c that was 5.7%. 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 Orders Only [facility] [address] [address] Simon Butler MD 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 Refill [facility] [address] [address] Simon Butler MD Cystinuria from Last 3 Months Immunizations Name Administration Dates Next Due Covid-19 MRNA Vaccine - Pfiz er 12+ (Purple Cap) 05/24/2020,05/03/2020 H1N1 Inj 02/11/2009 Influenza Inactivated/Split Preservative Free IM 02/20/2013,01/31/2012,01/28/2011,2009,02/11/2009,12/25/2007 PPD Test 08/12/2007 Tdap 11/30/2007 Family History Medical History Relation Name Comments Hypertension Father Kidney Stones Father Nephrolithiasis Father Kidney Stones Mother Nephrolithiasis Mother Relation Name Status Comments Father Alive Mother Alive Social History Tobacco Use Types Packs/Day Years Used Date Smoking Tobacco: Never Smokeless Tobacco: Never Tobacco Cessation:Counseling Given: Not Answered Alcohol Use Standard Drinks/Week Comments Not Currently 0 (1 standard drink = 0.6 oz pur e alcohol) minimal use Sex and Gender Information Value Date Recorded Sex Assigned at Male 04/15/2022 8:23 AM EST Gender Identity Male 03/20/2020 9:47 AM EST Sexual Orientation Heterosexual (straight) 04/16 9:42 AM EST Last Filed Vital Signs Vital Sign Reading Time Taken Comments Blood Pressure 136/70 04/19/2023 10:18 AM EST Pulse 94 04/14/2023 8:31 AM EST Temperature 36.7 ??C (98.1 ??F) 04/30/2022 8:48 AM ES T Respiratory Rate 16 03/18/2020 4:45 PM EST Oxygen Saturation 98% 10/05/2020 9:51 AM EDT Inhaled Oxygen Concentration - - Weight 71.7 kg (158 lb) 05/22/2024 10:17 AM EDT Height 170.2 cm (5' 7 ) 04/14/2023 8:31 AM EST Body Mass Index 24.75 04/14/2023 8:31 AM EST Plan of Treatment Upcoming Encounters Date Type Department Care Team (Late st Contact Info) Description 05/28/2025 11:20 AM EDT Office Visit [facility] of Internal Medicine & Nephrology [place] [address] [place] [address] Simon Butler MD [address] [facility] [address] [place] [address] Health Maintenance Due Date Last Done Comments Hepatitis C Virus Screening 1960 Colonoscopy 2003 Pneumococcal Vaccines 50+ (1 of 1 - PCV) 01/11/2008 Zoster (Shingles) Vaccine (1 of 2) 01/11/2008 DTaP/Tdap/Td Vaccines (2 - Td or Tdap) 11/29/2017 11/30/2007 Influenza Vaccine 09/22/2023 01/22/2022, , 12/29/2020, Additional history exists COVID-19 Vaccine ( season) 2023 02/03/2021, 05/24/2020, 05/03/2020 RSV Vaccine 60 years and older and Patients (1 - 1-dose 75+ series) 2033 Hepatitis B Vaccines Aged Out No long er eligible based on patient's age to complete this topic Medical Devices Explanted Type Area Electrical Plumbing Supervisor Device Identifier Shelf Expiration Date Model / Serial / Lot Stent Ureteral 6fr 26cm Pgtl Crv Taper Tip Bldr Des Lopro - [id number] Implanted:Qty: 1 on 08/08/2017 by Abdifatah Mccormack MD at [facility] Stent [employer] 04/04/2020 [id number] 0 / / [id number] Stent Ureteral 6fr 26cm Pgtl Crv Taper Tip Bldr Des Lopro - [id number] Implanted:Qty: 1 on 08/29/2017 by Abdifatah Mccormack MD at [facility] Stent Left: Ureter [employer] 03/21/2020 [id number] 0 / / [id number] Stent Ureteral 6fr 26cm Pgtl Crv Taper Tip Bldr Des Lopro - [id number] Implanted:Qty: 1 on 04/08/2018 by Sabine Ruth MD at [facility] Stent [employer] 12/07/2020 [id number] 0 / / [id number] Stent Ureteral 6fr 28cm Pgtl Crv Taper Tip Bldr Des Lopro - [id number] Implanted:Qty: 1 on 04/25/2018 by Abdifatah Mccormack MD at [facility] Stent [employer] [id number] 0 / / [id number] Stent Ureteral 6fr 26cm Pgtl Crv Taper Tip Bldr Des Lopro - [id number] Implanted:Qty: 1 on 10/19/2019 by Abdifatah Mccormack MD at [facility] Explanted:Qty: 1 on 10/31/2019 at [facility] Stent Left: Ureter [employer] 07/18/2022 [id number] 0 / / [id number] Stent Ureteral 6fr 26cm Taper Tip Bldr Des Lopro Cntr Hdr+ - [id number] Implanted:Qty: 1 on 03/09/2020 by Roman García MD at [facility] Stent Left: Ureter [employer] 11/05/2022 [id number] 0 / / [id number] Stent Ureteral 6fr 26cm Pgtl Crv Taper Tip Bldr Des Lopro - [id number] Implanted:Qty: 1 on 10/31/2019 at [facility] Explanted:Qty: 1 on 03/18/2020 by Abdifatah Mccormack MD at [facility] Stent Left: Ureter [employer] 05/20/2022 [id number] 0 / / [id number] Description:1 6x26 LEFT uret eral stent removed intact with string on by Dr. Abdifatah Mccormack [id number] Stent Ureteral 6fr 26cm Taper Tip Bldr Des Lopro Cntr Hdr+ - [id number] Implanted:Qty: 1 on 03/18/2020 by Abdifatah Mccormack MD at [facility] Explanted:03/28 by Abdifatah Mccormack MD (Quantity not on file) Stent Left: Ureter [employer] 11/27/2022 [id number] 0 / / [id number] Left Ureteral Stent Explanted:Qty: 1 on 08/29/2017 by Abdifatah Mccormack MD at [facility] Left: Ureter [employer] [id number] / / Advance Directives * Full Code (Latest Code Status on File) Date Activated Date Inactivated Comments 03/09/2020 11:09 PM 03/18/2020 1:00 PM * Full Code Date Activated Date Inactivated Comments 03/09/2020 11:09 PM 03/09/2020 11:09 PM * Full Code Date Activated Date Inactivated Comments 08/08/2017 11:06 PM 08/29/2017 5:57 AM * Full Code Date Activated Date Inactivated Comments 07/31/2017 12:54 AM 08/08/2017 12:58 PM Care Teams Hvac Engineering Technician Relationship Specialty Start Date End Date Betzaida Ramos MD PCP - General 03/18/20
--- OUTSIDE RECORDS SUMMARY | 2024-06-01 07:58 | XMS_ITS | Encounter Summary ---
Author Organization [facility] Address [address] [place] [address] Care Team Providers Care Actuarial Trainee Name Role Phone Betzaida Ramos MD Primary Care Provider Encounter Details Date Type Department Care Team (Late st Contact Info) Description 03/25/2020 Lab Requisition [place] COVID-19 Testing [address] [place] [address] Triston Salazar MD [address] [place] [address] Encounter for laboratory testing for COVID-19 virus Social History Tobacco Use Types Packs/Day Years Used Date Smoking Tobacco: Never Smokeless Tobacco: Never Alcohol Use Standard Drinks/Week Comments Not Currently 0 (1 standard drink = 0.6 oz pur e alcohol) minimal use Sex and Gender Information Value Date Recorded Sex Assigned at Male 04/15/2022 8:23 AM EST Gender Identity Male 03/20/2020 9:47 AM EST Sexual Orientation Heterosexual (straight) 04/16 9:42 AM EST COVID-19 Exposure Response Date Recorded In the last month, have you been in contact with someone who was confirmed or suspected to have Coronavirus / COVID-19? No / Unsure 03/28/2020 11:02 AM EST documented as of this encounter Plan of Treatment Upcoming Encounters Date Type Department Care Team (Late st Contact Info) Description 05/28/2025 11:20 AM EDT Office Visit [facility] Department of Internal Medicine & Nephrology [place] [address] [place] [phone] Simon Butler MD [address] [facility] [address] [place] [address] documented as of this encounter Procedures Procedure Name Priority Date/Time Associated Diagnosis Comments COVID-19 (SARS-COV-2) - [facility] Routine 03/25/2020 11:05 AM EST Encounter for laboratory testing for COVID-19 virus [ICD-10-CM] documented in this encounter Results * COVID-19 (SARS-COV-2) ([facility]) (03/25/2020 11:05 AM EST) COVID-19 RT-PCR NOT-DETEC CHACHO Not-Detec chacho 03/26/2020 8:53 AM EST [facility] Comment:Interpretation: The viral RNA was not detected, making the COVID-19 diagnosis less likely. Clinical correlation is highly recommended.Final report signed by Rubio Neves, Ph.D., Laboratory DirectorTests performed at [facility] Nasopharyngeal swab / Unknown 03/25/2020 11:05 AM EST 03/25/2020 11:05 AM EST Narrative [facility] - 03/26/2020 8:53 AM EST Performed by [facility] [address] [place] [address], CLIA# [id number] and [place] License# [id number] Triston Salazar MD MICROBIOLOGY - GENER AL ORDERABLES SABRINA GIDEON [facility]to [facility] documented in this encounter Visit Diagnoses Diagnosis Encounter for laboratory testing for COVID-19 virus documented in this encounter Care Teams Actuarial Trainee Relationship Specialty Start Date End Date Betzaida Ramos MD PCP - General 03/18/20 documented as of this encounter
--- OUTSIDE RECORDS SUMMARY | 2024-06-01 07:58 | XMS_ITS | Encounter Summary ---
Author Organization [facility] Address [address] [place] [address] Care Team Providers Care Billing Collections Specialist Name Role Phone Betzaida Ramos MD Primary Care Provider [phone] Encounter Details Date Type Department Care Team (Late st Contact Info) Description 04/11/2020 Scanned Document [facility] Urologic Surgery [place] [address] [facility] [address] [place] [phone] Simon Butler MD [address] [place] [address] [address] [place] [address] Social History Tobacco Use Types Packs/Day Years [...] or suspected to have Coronavirus / COVID-19? Unable to assess 04/02/2020 3:34 PM EST documented as of this encounter Plan of Treatment Upcoming Encounters Date Type Department Care Team (Late st Contact Info) Description 05/28/2025 11:20 AM EDT Office Visit [facility] Department of Internal Medicine & Nephrology [place] [address] [place] [address] Simon Butler MD [address] [facility] [address] [place] [address] documented as of this encounter Visit Diagnoses Not on filedocumented in this encounter Care Teams Billing Collections Specialist Relationship Specialty Start Date End Date Betzaida Ramos MD PCP - General 03/18/20 documented as of this encounter
--- OUTSIDE RECORDS SUMMARY | 2024-06-01 07:58 | XMS_ITS | Encounter Summary ---
Author Organization [facility] Address [address] [place] [address] Care Team Providers Care Construction Administrator Name Role Phone Betzaida Ramos MD Primary Care Provider Encounter Details Date Type Department Care Team (Late st Contact Info) Description 08/07/2017 [facility] Urologic Surgery [address] [place] [address] Abdifatah Mccormack MD [address] [place] [address] Social History Tobacco Use Types Packs/Day Years Used Date Smoking Tobacco: Never Smokeless Tobacco: Never Alcohol Use Standard Drinks/Week Comments No 0 (1 standard drink = 0.6 oz pur e alcohol) Sex and Gender Information Value Date Recorded Sex Assigned at Male 04/15/2022 8:23 AM EST Gender Identity Male 03/20/2020 9:47 AM EST Sexual Orientation Heterosexual (straight) 04/16 9:42 AM EST documented as of this encounter Plan of Treatment Upcoming Encounters Date Type Department Care Team (Late st Contact Info) Description 05/28/2025 11:20 AM EDT Office Visit [facility] Department of Internal Medicine & Nephrology [place] [address] [place] [address] Simon Butler MD [address] [facility] [address] [place] [address] documented as of this encounter Visit Diagnoses Not on filedocumented in this encounter Care Teams Construction Administrator Relationship Specialty Start Date End Date Betzaida Ramos MD PCP - General 03/18/20 documented as of this encounter
--- OUTSIDE RECORDS SUMMARY | 2024-06-01 07:58 | XMS_ITS | Clinical Summary ---
Author Organization [facility] Address [address] [place] [address] Care Team Providers Care Burlapper Name Role Phone Betzaida Ramos MD Primary Care Provider [phone] Simon Butler MD Unavailable Abdifatah Mccormack MD Unavailable Unavailable Allergies No known active allergies Medications * This document contains information received from the source organization and may not represent a complete record from that organization. alpha lipoic acid 600 mg capsule Take 600 mg by mouth 2 (two) times a day. Active potassium citrate (UROCIT-K) 10 mEq (1,080 mg) CR tablet 0 Active hydrocortisone (WESTCORT) 0.2 % cream Apply topically 2 (two) times a day. Apply small amount as needed to affected areas. 45 g 4 08/31/19 25 Active Active Problems Problem Noted Date Diagnosed Date Panic attack as reaction to stress 07/16/2022 Assessment & Plan (07/16/2022 6:16 PM EDT): His symptoms are most consistent with panic. He has a history of mood disorder and several times during today's visit he mentioned how stressful his work is and that he has a difficult time relaxing. We discussed a stress reduction plan including taking on fewer accounts at work and not letting work creep into leisure time. We also talked about being deliberate about his leisure time and not doing things that increase his stress level. Suggested to focus on spending time with people that help him relax. He appreciates the benefits of taking a walk in the [place] and has a good awareness. Discussed mindfulness and continuing these cognitive behavioral techniques. I do not think he needs pharmacologic treatment at this point but he will contact me if the problem persists. Vasovagal syncope 02/09/2021 Assessment & Plan (02/09/2021 4:40 PM EST): Has had multiple episodes of vasovagal syncope in the past. Likely vasovagal episode in light of him being anxious about his work. -counseled regarding being aware of episodes coming on to avoid falls. Also asked to watch out for any chest pain, dizziness, palpitations that would warrant a full cardiac work-up Hydronephrosis of left kidney 04/08/2018 Assessment & Plan (12/21/2018 9:02 AM EDT): Stable by report. Followed by Dr. Abdifatah Mccormack. He may be passing small stones. Advised him to discuss recent symptoms with Dr. Mccormack promptly. 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 Simon Butler. Assessment & Plan (03/24/2018 9:39 AM EST): He will continue his meds,continue hydrating and not eat as a much meat. Fund Accounting Manager is encouraging him to become a vegetarian which he doesn't feel that he can do right now. White coat syndrome with hig h blood pressure but without hypertension 03/24/2018 Overview (12/19/2018): Monitored at home with most readings 110s-120s/70s Assessment & Plan (02/09/2021 4:44 PM EST): Would like to down titrate his medication. Has adopted new diet and exercise regimen and would like to see how he does off anti-hypertensives Advised cutting down Captopril to 50 and 25 in a day and maintaining blood pressure logs Assessment & Plan (12/21/2018 8:56 AM EDT): Home BP is lower than office at prior visits. 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 Assessment & Plan (03/24/2018 9:57 AM EST): Discussed salt intake and it does not sound excessive. He will check his BP TIW and fax me results in 3 weeks. Will FU in 6 mos to discuss. Healthcare maintenance 03/24/2018 Assessment & Plan (12/11/2019 5:21 PM EDT): Visible through Care Everywhere, he has numerous chemistry measurements with elevated blood glucose. I ordered a [id number] hemoglobin A1c that was 5.7%. Assessment & Plan (03/24/2018 9:58 AM EST): He will schedule colonoscopy. Discussed zoster vaccine and there is no khalil especially since there is a shortage at this point. Resolved Problems Problem Noted Date Diagnosed Date Resolved Date Generalized body aches 12/11/201902/15 Assessment & Plan (12/11/2019 5:19 PM EDT): There are no red flags in Mr. [...] at this point. COVID-19 virus infection 05/25/2019 Assessment & Plan (05/25/2019 9:56 AM EDT): Results discussed with the patient. He was [...] activities. He expressed understanding of these guidelines. Aches 12/19/2018 05/25/2019 Other fatigue 12/19/2018 05/25/2019 Assessment & Plan (12/21/2018 8:55 AM EDT): Nothing to suggest household stress as a cause of this constellation of Sx. Arthralgia of multiple sites 12/19/2018 05/25/2019 Assessment & Plan (12/21/2018 9:03 AM EDT): No focal signs on exam. Question of fullness of right neck but no distinct node. I asked him to monitor this area by feel and in the mirror. Could be viral syndrome but has been consistent for 3 weeks which is somewhat atypical for viral infection. Will start with basic labs and check for tick borne illnesses. Supportive care for now. Advised he switch to Tylenol for symptomatic relief. Kidney stone on left side 04/08/2018 Depressive disorder 11/13/2013 03/24/19 19 Immunizations Immunization Administration Dates Next Due COVID-19 MRNA (MODERNA) 02/03/2021 COVID-19 mRNA (PFIZER) 05/24/2020,05/03/2020 H1N1 Inj 02/11/2009 Influenza (IM) Preservative Free 02/01/2014 Influenza TIV (IM) 02/03/2015, 3,01/31/2012,01/28/2011 ,12/19/2009,02/11/2009,12/25/2007 Influenza, Quadrivalent 01/22/2022,12/29/2020,,02/03/2017 Influenza, Unspecified 11/26/2019 PPD Test 08/12/2007 TD Preservative Free 02/01/2014 Tdap 11/30/2007 Social History Tobacco Use Types Packs/Day Years Used Date Smoking Tobacco: Never Smokeless Tobacco: Never Alcohol Use Standard Drinks/Week Comments Yes 0 (1 standard drink = 0.6 oz pur e alcohol) AUDIT-C Answer Date Recorded Frequency of Alcohol Consumption Not on file 09/28/2019 Q2: How many drinks containi ng alcohol do you have on a typical day when you are drinking? 1 or 2 09/28/2019 Frequency of Binge Drinking Not on file 08/2019 PHQ-2 Answer Date Recorded PHQ-2 Score 2 09/28/2019 Hunger Vital Sign Answer Date Recorded Within the past 12 months, y ou worried that your food would run out before you got the money to buy more. Never true 02/10/20 21 Ran Out of Food in the Last Year Not on file 02/09/2021 PRAPARE - Transportation Answer Date Re corded In the past 12 months, has l ack of transportation kept you from medical appointments or from getting medications? No 02/09/2021 Lack of Transportation (Non-Medical) Not on file 02/09/2021 Sex and Gender Information Value Date Recorded Sex Assigned at Male 02/09/2021 11:12 AM EST Legal Sex Male 12:27 AM EST Gender Identity Male 02/09/2021 11:12 AM EST Sexual Orientation Straight 02/09/2021 11 :12 AM EST Last Filed Vital Signs Vital Sign Reading Time Taken Comments Blood Pressure 160/90 07/16/2022 11:59 AM EDT Pulse 95 07/16/2022 11:13 AM EDT Temperature 36.4 ??C (97.5 ??F) 09/28/2019 11:14 AM E DT Respiratory Rate - - Oxygen Saturation 100% 07/16/2022 11:13 AM EDT Inhaled Oxygen Concentration - - Weight 66.7 kg (147 lb) 07/16/2022 11:13 AM EDT Height 172.7 cm (5' 8 ) 09/28/2019 11:14 AM EDT Body Mass Index 22.35 09/28/2019 11:14 AM EDT Plan of Treatment Health Maintenance Due Date Last Done Comments CT Colonography 1958 Colonoscopy 1958 Colorectal Cancer Screening 1960 FIT-DNA (Cologuard) 1958 FIT 1958 FOBT 1958 Flex Sigmoidoscopy - 5y 1958 HIV Screening 1960 Hepatitis C Screening 01/11/1976 Pneumococcal Vaccine, 50+ Years (1 of 1 - PCV) 01/11/2008 Zoster Vaccines (1 of 2) 01/11/2008 COVID-19 Vaccine (4 - season) 2023 02/03/2021, 05/24/2020, 05/03/2020 DTaP,Tdap,and Td Vaccines (3 - Td or Tdap) 02/02/2024 02/01/2014, 11/30/2007 Influenza Vaccine (Season Ended) 2024 01/22/2022, 12/29/2020, 11/26/2019, Additional history exists HPV Vaccines Aged Out No longer eligi ble based on patient's age to complete this topic Hepatitis A Vaccines Aged Out No long er eligible based on patient's age to complete this topic MMR Vaccines Aged Out No longer eligi ble based on patient's age to complete this topic Meningococcal Vaccine Aged Out No augustine cassie eligible based on patient's age to complete this topic Insurance [facility] hopTo RISA Care Teams Burlapper Relationship Specialty Start Date End Date Betzaida Ramos MD [address] [place], [place] [id number] PCP - General 04/20/17 Simon Butler MD [address] [place] [phone] Internal Medicine 03/24/18 Abdifatah Mccormack MD [address] [place] [phone] Urology 03/24/18
--- OUTSIDE RECORDS SUMMARY | 2024-06-01 07:58 | XMS_ITS | Encounter Summary ---
Author Organization [facility] Address [address] [place] [address] Care Team Providers Care Cyber Security Name Role Phone Betzaida aRmos MD Primary Care Provider [phone] Encounter Details Date Type Department Care Team (Late st Contact Info) Description 10/27/2019 Lab Requisition [place] COVID-19 Testing [place] [address] [place] [address] Boy Langford PA-C [address] [place] [address] Encounter for laboratory testing for COVID-19 virus [...] have Coronavirus / COVID-19? No / Unsure 10/19/2019 2:36 PM EDT documented as of this encounter Plan of Treatment Upcoming Encounters Date Type Department Care Team (Late st Contact Info) Description 05/28/2025 11:20 AM EDT Office Visit [facility] Department of Internal Medicine & Nephrology [place] [address] [place] [address] Simon Butler MD [address] [facility] [address] [place] [address] documented as of this encounter Procedures Procedure Name Priority Date/Time Associated Diagnosis Comments COVID-19 RT-PCR ([facility]) Routine 10/27/2019 10:17 AM EDT Encounter for laboratory testing for COVID-19 virus [ICD-10-CM] documented in this encounter Results * COVID-19 RT-PCR ([facility]) (10/27/2019 10:17 AM EDT) COVID-19 RT-PCR SARS-COV-2 NOT DETECTED Not Detected 10/29/2019 8:[address] [facility] Comment: ADDITIONAL INFORMATION The [facility] COVID-19 RT-PCR Assay is Real-Time Reverse Granite Setter Polymerase Chain Reaction (ground water pump installer-PCR) for the in vitro qualitative detection of three SARS-Cov-2 target sequences unique to the coronavirus disease 2019 (COVID-19). This is an Emergency Use Authorization (EUA) in vitro diagnostic (IVD) test that has been modified to include the Pango automated liquid handler. Its analytical performance characteristics have been determined by the primary products inspectors and verified by [facility] in a manner consistent with CLIA requirements. This test may be used for clinical purposes and should not be regarded as purely investigational or for research use only. This laboratory is certified under the Clinical Laboratory Improvement Amendments of 1988 (CLIA) as qualified to perform high complexity clinical testing. Reference interval for this testing is SARS-CoV-2 Not Detected. Fact sheets for this Emergency Use Authorization assay can be found at the following links: For Healthcare Providers: https://www.fda.gov/media/578591/download For Patients: https://www.fda.gov/media/796095/download TEST LIMITATIONS Positive results are indicative of the presence of SARS-CoV-2 RNA; clinical correlation with patient history and other diagnostic information is necessary to determine patient infection status. Positive results do not rule out bacterial infection or co-infection with other viruses. The agent detected may not be the definite cause of disease. Negative results do not exclude SARS-CoV-2 infection and should not be used as the sole basis for patient management decisions. Negative results must be combined with clinical observations, patient history, and epidemiological information. Improper sample collection, transport or storage may impede the ability of the assay to detect target sequences. Inconclusive specimens are not repeated, and recollection and submission of a new sample is recommended. The performance of the TaqPath COVID-19 Combo Kit was established using nasopharyngeal swab, nasopharyngeal aspirate, and bronchoalveolar lavage (BAL) specimens. The limit of detection for the assay was determined to be 0.75copies/uL in the specimens of nasopharyngeal swab. Other specimen types may be need for further validation before testing on this system. For further details refer to the [employer] TaqPath COVID-19 Combo Kit EUA submission (https://www.fda.gov/media/662026/download). Microbiology Nasopharyngeal swab / Unknown 10/27/2019 10:17 AM EDT 10/27/2019 10:17 AM EDT Sangeeta TOLBERT - 10/29/2019 8:04 PM EDT Performed at [facility], [address] [place] [address], [place] [id number] Boy Langford PA-C MICROBIOLOGY - NERAL ORDERABLES DURAN TOLBERT [address] [facility] [place] [address] documented in this encounter Visit Diagnoses Diagnosis Encounter for laboratory testing for COVID-19 virus documented in this encounter Care Teams Cyber Security Relationship Specialty Start Date End Date Betzaida Ramos MD PCP - General 03/18/20 documented as of this encounter
--- OUTSIDE RECORDS SUMMARY | 2024-06-01 07:58 | XMS_ITS | Encounter Summary ---
Author Organization [facility] Address [address] [place] [address] Care Team Providers Care Belt Fixer Name Role Phone Betzaida Ramos MD Primary Care Provider [phone] Encounter Details Date Type Department Care Team (Late st Contact Info) Description 01/26/2021 Scanned Document [facility] Urologic Surgery [place] [address] [facility] [address] [place] [phone] Simon Butler MD [address] [place] [address] [address] [place] [address] Social History Tobacco Use Types Packs/Day Years [...] Physicians Department of Internal Medicine & Nephrology [place] [address] [place] [phone] Simon Butler MD [address] [facility] [address] [place] [address] documented as of this encounter Visit Diagnoses Not on filedocumented in this encounter Care Teams Belt Fixer Relationship Specialty Start Date End Date Betzaida Ramos MD PCP - General 03/18/20 documented as of this encounter
--- OUTSIDE RECORDS SUMMARY | 2024-06-01 07:58 | XMS_ITS ---
Author Name [facility] Organization Unknown History of Medication Use Medication Directions Dispensed Refills Start Date End Date Stat us ciprofloxacin (CIPRO) 500 MG tablet Take 1 tablet (500 mg total) by mouth 2 (two) times a day. 04/30/2022 04/14/2023 active alpha lipoic acid 600 mg capsule Take 600 mg by mouth 2 (two) times a day. active captopril (CAPOTEN) 12.5 MG tablet Take 1 tablet (12.5 mg total) by mouth 2 (two) times a day before meals. 04/19/2023 active captopril (tablet) 100 mg compl eted PreserVision AREDS-2 (capsule) 250-90-40-1 mg completed Problems Problem Status Onset Date Problem Type Date of Resolution Source Allergic rhinitis active 2013-08-03 ProblemAct [facility] Cystinuria active 2018-03-24 ProblemAct [facility] Unspecified persistent mental disorders due to conditions classified elsewhere active 2013-08-03 ProblemAct [facility] Depression active 2019-12-24 ProblemAct [facility] COVID-19 virus infection active 2019-05-25 ProblemAct [facility] Kidney stone on left side active 2018-04-08 ProblemAct [facility] Pure hypercholesterolemia active 2013-08-03 ProblemAct [facility] Ureterolithiasis active 2020-03-09 ProblemAct [facility] Generalized body aches active 2019-12-11 ProblemAct [facility] Hydronephrosis of left kidney active 2018-04-08 ProblemAct [facility] Memory loss active 2013-08-03 ProblemAct [facility] Acute left flank pain active 2017-07-31 ProblemAct [facility] HTN (hypertension) active 2019-12-24 ProblemAct [facility] Borderline high blood pressure active 2018-03-24 ProblemAct [facility] Loose stools active EncounterDiagnosisAct [facility] Panic attack as reaction to stress active 2022-07-16 ProblemAct [facility] IBS (irritable bowel syndrome) active 2019-12-24 ProblemAct [facility] Vasovagal syncope active 2021-02-09 ProblemAct [facility] Immunizations Vaccine Date Source Lot Number Status Influenza Inactivated/Split Preservative Free IM 02/11/2009 [facility] completed Influenza Inactivated/Split Preservative Free IM 01/28/2011 [facility] [id number] completed Influenza Inactivated/Split Preservative Free IM 12/19/2009 [facility] [id number] completed Influenza Inactivated/Split Preservative Free IM 12/25/2007 [facility] [id number] completed Influenza Inactivated/Split Preservative Free IM 12/25/2007 [facility] [id number] completed Influenza Inactivated/Split Preservative Free IM 01/31/2012 [facility] [id number] completed Covid-19 MRNA Vaccine - Pfiz er 12+ (Purple Cap) 05/24/2020 [facility] [id number] completed Influenza, Quadrivalent 11/24/2019 [facility] [id number] c ompleted Influenza Inactivated/Split Preservative Free IM 01/28/2011 [facility] [id number] completed Influenza Inactivated/Split Preservative Free IM 02/20/2013 [facility] [id number] completed Influenza Inactivated/Split Preservative Free IM 12/19/2009 [facility] [id number] completed Covid-19 MRNA Vaccine - Pfiz er 12+ (Purple Cap) 05/03/2020 [facility] [id number] completed H1N1 Inj 02/11/2009 [facility] [id number] completed Tdap 11/30/2007 [facility] [id number] completed PPD Test 08/12/2007 [facility] completed Influenza TIV (IM) 12/25/2007 [facility] [id number] comple adilia Influenza TIV (IM) 02/11/2009 [facility] comple adilia TD Preservative Free 02/01/2014 [facility] [id number] comp leted Influenza, Quadrivalent 02/03/2017 [facility] [id number] c ompleted Influenza TIV (IM) 02/03/2015 [facility] [id number] comple adilia COVID-19 MRNA (MODERNA) 02/03/2021 [facility] [id number] c ompleted Influenza, Unspecified 11/26/2019 [facility] co mpleted Influenza, Quadrivalent 01/22/2022 [facility] [id number] c ompleted Influenza (IM) Preservative Free 02/01/2014 [facility] [id number] completed Influenza TIV (IM) 01/31/2012 [facility] [id number] comple adilia Influenza TIV (IM) 01/28/2011 [facility] [id number] comple adilia Influenza TIV (IM) 12/19/2009 [facility] [id number] comple adilia Influenza, Quadrivalent 12/29/2020 [facility] [id number] c ompleted Influenza TIV (IM) 02/20/2013 [facility] [id number] comple adilia Influenza Inactivated/Split Preservative Free IM 02/20/2013 [facility] [id number] completed Encounters Encounter Type Encounter Reason Primary Diagnosis Location Date Ambulatory [facility] 08[facility]2024 Ambulatory [facility] 05/22/2024 Ambulatory [facility] 11/21 Ambulatory [facility] 10/2023 Ambulatory Cystinuria Cystinuria [facility] 04/19/2023 Ambulatory Calculus of kidney Calculus of kidney [facility] 04/14/2023 Ambulatory [facility] 03/29/2023 Ambulatory [facility] 03/29/2023 Ambulatory Calculus of kidney Calculus of kidney [facility] 03/21/2023 Ambulatory Follow-up [facility] 07/16/2022 Ambulatory Acute prostatitis [facility] 04/30/2022 Ambulatory Elevated prostate specific antigen (PSA) Elevated prostate specific antigen (PSA) [facility] 04/15/2022 Ambulatory Calculus of kidney [facility] 04/15/2022 Ambulatory [facility] 05/27/2021 Ambulatory [facility] 05/27/2021 Ambulatory Calculus of kidney [facility] 04/16/2021 Ambulatory Calculus of kidney [facility] 04/14/2021 Ambulatory [facility] 04/14/2021 Ambulatory Needs Same Day Appt [facility] Care Team Organization Name Specialty Phone Email Start Date End Da [facility] 05/22/2024 [facility] 10/18/2023 [facility] 10/18/2023 [facility] Pedro Rubi [facility] 07/16/2022 [facility] PEDRO RUBI Primary [facility] 10/14/2021 [facility]RO RUBI Primary [facility] 02/09/2021 [facility]09[facility]20[facility]20[facility] LYNNE SMITH Primary Care 11/13/2020 10/10/2023 [facility] Primary Care 03/09/2020 04/16/2021
--- OUTSIDE RECORDS SUMMARY | 2024-06-01 07:58 | XMS_ITS | Encounter Summary ---
Author Organization [facility] Address [address] [place] [address] Care Team Providers Care Acting Professor Name Role Phone Betzaida Ramos MD Primary Care Provider [phone] Reason for Visit * Reason Comments Appointment Encounter Details Date Type Department Care Team ([facility] st Contact Info) Description 03/19/2020 Telephone [facility] Urologic Surgery [address] [place] [phone] [place] [address] [place] [address] Appointment Social History Tobacco Use Types Packs/Day Years [...] have Coronavirus / COVID-19? No / Unsure 03/18/2020 1:25 PM EST documented as of this encounter Plan of Treatment Upcoming Encounters Date Type Department Care Team (Late st Contact Info) Description 05/28/2025 11:20 AM EDT Office Visit [facility] Department of Internal Medicine & Nephrology [place] [address] [place] [address] Simon Butler MD [address] [facility] [address] [place] [address] documented as of this encounter Visit Diagnoses Not on filedocumented in this encounter Care Teams Acting Professor Relationship Specialty Start Date End Date Betzaida Ramos MD PCP - General 03/18/20 documented as of this encounter
--- OUTSIDE RECORDS SUMMARY | 2024-06-01 07:58 | XMS_ITS | Encounter Summary ---
Author Organization Pending sale to [facility] Address [address] [place] [address] Care Team Providers Care Railway Signalling Engineer Name Role Phone Betzaida Ramos MD Primary Care Provider [phone] Simon Butler MD Unavailable Abdifatah Mccormack MD Unavailable Unavailable Encounter Details Date Type Department Care Team (Late st Contact Info) Description 05/22/2019 E-Visit Pending sale to [facility] Department of Geriatrics [address] [place], [place] [id number] Betzaida Ramos MD [address] [place], [place] [address] E-Visit Submission: Symptoms consistent with coronavirus Social History Tobacco Use Types Packs/Day Years [...] Orientation Straight 02/09/2021 11 :12 AM EST documented as of this encounter Plan of Treatment Scheduled Orders Name Type Priority Associated Diagnoses Orde r Schedule SARS-CoV-2 RNA, PCR (External Print Only) Lab Routine Fever, unspecified fever cause Cough 1 Occurrences starting 05/22/2019 until 05/21/2020 documented as of this encounter Visit Diagnoses Diagnosis Fever, unspecified fever cause- Primary Cough documented in this encounter Additional Health Concerns Infection Onset Date Last Indicated Resolved Time COVID-19 (confirmed) 05/23/2019 05/23/2019 020 10:08 PM EDT (Rule out) COVID-19 05/23/2019 05/23/2019 05/25/19 20 1:10 AM EDT documented as of this encounter Care Teams Railway Signalling Engineer Relationship Specialty Start Date End Date Betzaida Ramos MD [address] [place] [address] PCP - General 04/20/17 Simon Butler MD [address] [phone] Internal Medicine 03/24/18 Abdifatah Mccormack MD [address] [place] [phone] Urology 03/24/18 documented as of this encounter
--- OUTSIDE RECORDS SUMMARY | 2024-06-01 07:58 | XMS_ITS | Encounter Summary ---
Author Organization [facility] Address [address] [place] [address] Care Team Providers Care Coating Mixer Tender Name Role Phone Betzaida Ramos MD Primary Care Provider [phone] Encounter Details Date Type Department Care Team (Late st Contact Info) Description 08/28/[address] [facility] Urologic Surgery [place] [address] [facility] [address] [place] [address] Brent Peres, WANDA [address] [facility] [address] [place] [address] Ureteral obstruction (Primary Dx) Social History Tobacco Use Types Packs/Day Years [...] Physicians Department of Internal Medicine & Nephrology [place] [address] [place] [phone] Simon Butler MD [address] [facility] [address] [place] [address] documented as of this encounter Visit Diagnoses Diagnosis Ureteral obstruction- Primary Other ureteric obstruction documented in this encounter Care Teams Coating Mixer Tender Relationship Specialty Start Date End Date Betzaida Ramos MD PCP - General 03/18/20 documented as of this encounter
--- OUTSIDE RECORDS SUMMARY | 2024-06-01 07:58 | XMS_ITS | Encounter Summary ---
Author Organization [facility] Address [address] [place] [address] Care Team Providers Care Flight Test Shop Mechanic Name Role Phone Betzaida Ramos MD Primary Care Provider [phone] Reason for Visit * Reason Comments Appointment Covid-19 Pre-screening Encounter Details Date Type Department Care Team (Late st Contact Info) Description 03/27/2020 Telephone [facility] Urologic Surgery [address] [place] [phone] Abdifatah Mccormack MD [address] [place] [address] Appointment; Covid-19 Pre-screening Social History Tobacco Use Types Packs/Day Years [...] AM EST documented as of this encounter Miscellaneous Notes * Telephone Encounter - Sarakatalina RomanMacho - 03/27/2020 11:48 AM EST 1. Do you currently have a fever that is greater than 100 ? =NO 2. Do you currently have either of the following symptoms: =NO - New Cough - Shortness of breath 3. Do you currently have two or more of the following symptoms: =NO - Chills - Repeated shaking with chills - Muscle pain -Sore throat -New loss of taste or smell -Generalized abdominal pain, nausea or diarrhea 4. Have you been diagnosed with COVID-19 within the last 7 days? =NO 5. Have you been tested for COVID-19 within the last 14 days? =YES 6. Are you currently in quarantine yourself because of COVID-19 illness or exposure? =NO 7. Have you traveled outside of [place] in the past 14 days? =NO If yes: Where did you travel? [place] based practices: Travel to one of the [facility] below offer virtual visit or conversation with clinical staff member. [facility] based practices Please refer to the [place] travel advisory list. Travel to one of the [facility] listed offer virtual visit or conversation with clinical staff member. [email or web address]/spreadsheets/d/[email or web address]/pubhtml?[email or web address]&single=true documented in this encounter Plan of Treatment Upcoming Encounters Date Type Department Care Team (Late st Contact Info) Description 05/28/2025 11:20 AM EDT Office Visit [facility] Department of Internal Medicine & Nephrology [place] [address] [place] [phone] Simon Butler MD [address] [facility] [address] [place] [address] documented as of this encounter Visit Diagnoses Not on filedocumented in this encounter Care Teams Flight Test Shop Mechanic Relationship Specialty Start Date End Date Betzaida Ramos MD PCP - General 03/18/20 documented as of this encounter
--- OUTSIDE RECORDS SUMMARY | 2024-06-01 07:58 | XMS_ITS | Encounter Summary ---
Author Organization [facility] Address [address] [place] [address] Care Team Providers Care Ornamental Ironworker Helper Name Role Phone Betzaida Ramos MD Primary Care Provider [phone] Encounter Details Date Type Department Care Team (Late st Contact Info) Description 04/14/2022 Scanned Document [facility] Urologic Surgery [place] [address] [facility] [address] [place] [phone] Simon Butler MD [address] [place] [address] [address] [place] [address] Social History Tobacco Use Types Packs/Day Years [...] Exposure Response Date Recorded In the last 10 days, have yo u been in contact with someone who was confirmed or suspected to have Coronavirus/COVID-19? No / Unsure 04/15/2022 8:19 AM EST documented as of this encounter Plan of Treatment Upcoming Encounters Date Type Department Care Team (Late st Contact Info) Description 05/28/2025 11:20 AM EDT Office Visit [facility] Department of Internal Medicine & Nephrology [place] [address] [place] [address] Simon Butler MD [address] [facility] [address] [place] [address] documented as of this encounter Visit Diagnoses Not on filedocumented in this encounter Care Teams Ornamental Ironworker Helper Relationship Specialty Start Date End Date Betzaida Ramos MD PCP - General 03/18/20 documented as of this encounter
--- OUTSIDE RECORDS SUMMARY | 2024-06-01 07:58 | XMS_ITS | Encounter Summary ---
Author Organization [facility] Address [address] [place] [address] Care Team Providers Care Entry Level Marketing Representative Name Role Phone Betzaida Ramos MD Primary Care Provider [phone] Encounter Details Date Type Department Care Team (Late st Contact Info) Description 04/10/2019 Scanned Document [facility] Urologic Surgery [place] [address] [facility] [address] [place] [phone] Simon Butler MD [address] [place] [address] [address] [place] [address] Social History Tobacco Use Types Packs/Day Years [...] Physicians Department of Internal Medicine & Nephrology [place] [address] [place] [phone] Simon Butler MD [address] [facility] [address] [place] [address] documented as of this encounter Visit Diagnoses Not on filedocumented in this encounter Care Teams Entry Level Marketing Representative Relationship Specialty Start Date End Date Betzaida Ramos MD PCP - General 03/18/20 documented as of this encounter
--- OUTSIDE RECORDS SUMMARY | 2024-06-01 07:58 | XMS_ITS | Clinical Summary ---
Author Organization [address] Address [address] [place] [phone] Phone Care Team Providers Care Solution Manager Name Role Phone Angelica Beasley MD Primary Care Provider [phone] Allergies No known active allergies Medications sertraline (ZOLOFT) 100 MG tablet Take 150 mg by mouth daily. Active captopril (CAPOTEN) 50 MG tablet Take 50 mg by mouth 3 (three) times daily. Active citric acid-potassium citrate (POLYCITRA) 1,100-334 mg/5 mL solution Take 15 mLs by mouth 2 (two) times daily. Active ARIPiprazole (ABILIFY) 5 MG tablet Take 5 mg by mouth daily. Active buPROPion (WELLBUTRIN XL) 300 MG 24 hr tablet Take 300 mg by mouth Every morning @0700. Active Active Problems Problem Noted Date Diagnosed Date HTN (hypertension) IBS (irritable bowel syndrome) Depression Social History Tobacco Use Types Packs/Day Years Used Date Smoking Tobacco: Never Alcohol Use Standard Drinks/Week Comments Not Asked 0 (1 standard drink = 0.6 oz pur e alcohol) Sex and Gender Information Value Date Recorded Sex Assigned at Not on file Legal Sex Male 9:34 AM EST Gender Identity Not on file Sexual Orientation Not on file Last Filed Vital Signs Vital Sign Reading Time Taken Comments Blood Pressure 137/89 11/23/2012 3:07 PM EDT Pulse 99 11/23/2012 3:07 PM EDT Temperature 36.5 ??C (97.7 ??F) 11/23/2012 3:07 PM ED T Respiratory Rate - - Oxygen Saturation 97% 11/23/2012 3:07 PM EDT Inhaled Oxygen Concentration - - Weight 78 kg (172 lb) 11/23/2012 3:07 PM EDT Height 175.3 cm (5' 9 ) 11/23/2012 3:07 PM EDT Body Mass Index 25.4 11/23/2012 3:07 PM EDT Plan of Treatment Health Maintenance Due Date Last Done Comments HIV screening 1971 Hepatitis C screening 01/11/1976 Tetanus adult (Td q 10,TDAP once) 1978 Lipid disorder screening 1998 Colon cancer screening, Colonoscopy 2003 Pneumococcal Vaccine (50+ ye ars) (1 of 1 - PCV) 01/11/2008 Shingles vaccine (Shingrix) (1 of 2 - Shingrix (RZV) 2 Dose Standard Series) 01/11/2008 Diabetes screening 11/22/2014 11/23/2011 Covid-19 vaccine series ( - 2023-25 season) 2023 Influenza vaccine 10/22/2024 RSV Immunization (1 - 1-dose 75+ series) 2033 Meningococcal Vaccine Aged Out No augustine cassie eligible based on patient's age to complete this topic Procedures Procedure Name Priority Date/Time Associated Diagnosis Comments BASIC METABOLIC PANEL Routine 11/23/2011 4:56 PM EDT Memory difficulty from Last 3 Months or Most Recently Relevant to Health Maintenance Results * (ABNORMAL) Basic metabolic panel (11/23/2011 4:56 PM EDT) Glucose 99 70 - 100 mg/dL [facility] BUN 25(H) 7 - 20 mg/dL [facility] Creatinine 1.4(H) 0.5 - 1.2 mg/dL [facility] BUN/Creatinine Ratio 17.9 10.0 - 20.0 [facility] Anion Gap 12 7 - 16 [facility] CO2 27.0 22.0 - 30.0 mmol/L [facility] Chloride 103 96 - 106 mmol/L [facility] Sodium 142 135 - 145 mmol/L [facility] Potassium 4.1 3.5 - 5.0 mmol/L [facility] Calcium 9.9 8.8 - 10.2 mg/dL [facility] Blood specimen (specimen) 11/23/2011 4:56 PM EDT Darrius Steinberg MD LAB BLOOD ORDERABLES Final R esult [facility] [address] [place] [address] from Last 3 Months or Most Recently Relevant to Health Maintenance Insurance AET AET AETNA AETNA Care Teams Solution Manager Relationship Specialty Start Date End Date Angelica Beasley MD [address] [place] [phone] PCP - General Internal Medicine 05/12/12
--- OUTSIDE RECORDS SUMMARY | 2024-06-01 07:58 | XMS_ITS | Encounter Summary ---
Author Organization [facility] Address [address] [place] [address] Care Team Providers Care Robotype Operator Name Role Phone Betzaida Ramos MD Primary Care Provider [phone] Encounter Details Date Type Department Care Team (Late st Contact Info) Description 03/21/2020 Telephone [facility] Urologic Surgery [place] [address] [facility] [address] [place] [phone] Abdifatah Mccormack MD [address] [place] [address] Social History Tobacco Use Types Packs/Day Years [...] Physicians Department of Internal Medicine & Nephrology [place] [address] [place] [address] Simon Butler MD [address] [facility] [address] [place] [address] documented as of this encounter Visit Diagnoses Not on filedocumented in this encounter Care Teams Robotype Operator Relationship Specialty Start Date End Date Betzaida Ramos MD PCP - General 03/18/20 documented as of this encounter
--- OUTSIDE RECORDS SUMMARY | 2024-06-01 07:58 | XMS_ITS | Encounter Summary ---
Author Organization [facility] Address [address] [place] [phone] Care Team Providers Care Car Wash Attendant Name Role Phone Angelica Beasley MD Primary Care Provider [phone] Encounter Details Date Type Department Care Team ([facility] st Contact Info) Description 01/19/2011 Scanned Document Neurology at [address] [address] External, Provider Social History Tobacco Use Types Packs/Day Years Used Date Smoking Tobacco: Never Assessed Sex and Gender Information Value Date Recorded Sex Assigned at Not on file Legal Sex Male 9:34 AM EST Gender Identity Not on file Sexual Orientation Not on file documented as of this encounter Plan of Treatment Not on file documented as of this encounter Visit Diagnoses Not on filedocumented in this encounter Care Teams Car Wash Attendant Relationship Specialty Start Date End Date Angelica Beasley MD [address] [place] [phone] PCP - General Internal Medicine 05/12/12 documented as of this encounter
== END 2024-06-01 07:56 | disposition home or self-care (01) ==
LOC: HO.US 07:55
PROVIDERS: PCP Internal Medicine Geriatric Medicine; Visit Provider Urology
DX: N20.0 Calculus of kidney (principal)
CPT/HCPCS: 76775

== ENCOUNTER → 2024-06-01 08:00 | Outpatient (BNV) | payer OTHER, SELFPAY | PROVIDERS: PCP Internal Medicine Geriatric Medicine; Visit Provider Radiology Diagnostic Radiology | DX: N20.0 Calculus of kidney (principal) | CPT/HCPCS: 76775 ==

== ENCOUNTER 2024-06-08 14:03 | Outpatient (AMB) | payer OTHER, SELFPAY ==
--- NOTE | 2024-06-08 14:19 | A.OFFVIS_ITS ---
Intake Visit Reasons: 1y/CT/PSA Intake Note: Patient is present for a follow up/US/PSA (PSA still not done, pt is aware) Renal US: 06/01 Urology Med: Potassium Antibiotic Allergy:None Blood Thinner: None Cheese Packer Required: No Accompanied by: Self / Same As Patient Allergies No Known Allergies Allergy (Verified 06/08/24 14:25) HPI Comments Details: 06/08/24 History of Present Illness The patient is a 64-year-old male presenting with management needs for kidney stones. He has a notable history of recurrent cystine renal stones, which have necessitated previous interventions such as lithotripsy and ureteroscopy. A recent renal ultrasound on June 01, 2024, revealed a 4 mm right kidney stone in the lower pole and multiple left renal stones, including a significant staghorn calculus. The diagnostic imaging was conducted following a colonoscopy performed 48 hours prior, raising queries about potential interference from contrast materials used in the colonoscopy procedure. Despite his known history of renal stones and recent ultrasound findings, there were challenges in obtaining insurance approval for a CT scan, to further assess the stone burden. There is a significant concern about the potential progression of renal stones and the risk of obstruction, especially due to the patient's dependence on one functional kidney and the history of large stone formations. Urinary Symptoms Review - Presence of cystine kidney stones - History of undergoing lithotripsy and ureteroscopy for renal stone management Results - Renal Ultrasound (06/01/2024): Notable for a 4 mm stone in the right kidney lower pole and multiple stones in the left kidney, including a staghorn calculus mid to lower kidney. Discussion Notes During the visit, we discussed the patient's ongoing management of cystine kidney stones, including the ultrasound results showing multiple stones and a significant staghorn calculus. We reviewed the method of shockwave lithotripsy as a potential intervention, discussing its aim to fragment the large stones to passable sizes. I noted the potential for obstruction due to the stone burden, particularly given the patient's reliance on one kidney. We discussed the risks associated with shockwave lithotripsy, primarily focusing the treatment on the most sizable calculi given the energy delivery constraints. The patient was informed about these details and appeared to understand the necessity of managing this condition to prevent complications like obstruction. He was advised of the strategy if the ultrasound indicates progression or obstruction risks with continuous evaluation through CT scanning upon insurance approval. Plan The management plan for the patient's cystine kidney stones includes proceeding with shockwave lithotripsy to address the significant stone burden, focusing on the largest stones first due to delivery limitations of shockwave energy. Discussions included the risks associated with renal obstruction and limited intervention areas due to energy constraints. Evaluation through a CT scan remains under consideration pending insurance approval. Adjustments in potassium citrate intake were advised to manage this renal condition effectively. The patient agreed and is informed about the risks and structured plan moving forward. Patient Instructions Patient was informed and verbally consented to the use of an ambient scribe for clinic note documentation during this visit. 06/10/2023-- Mikey is a 62-year-old male who presents today to the office for a follow-up. He has history of cystine stones. I reviewed 24 hour urine that was done in February. He states he had a PSA done but I do not have those results available for me to review. He was also evaluated by urologist in [place] regarding these results. He is currently asymptomatic. Discussed plan to continue to monitor kidneys. Follow-up in [address] imaging and PSA. 10/28/2022? He is followed today for cysto stent removal. He was last seen by me on 10/18/2022 for hydronephrosis with renal calculous obstruction. Discussed left ureteroscopy, removing stone fragments in the ureter with stent removal. He is s/p left ureteroscopy laser lithotripsy of larger stone fragments with stent exchange on 10/19/22. He presents for stent removal today. I reviewed the urine culture results from 10/18/2022 which came back negative for bacterial growth. Stone analysis from 10/19/2022 revealed 100 % cystine. 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 presents today via televisit for KUB/surgery consult. He was last seen by me on 09/14/2022. He is status post cystoscopy, left ureteroscopy, laser lithotripsy and stent exchange done on 09/14/22.? He did have a KUB done on 09/29/2022. Radiologist has not transcribed the results. I have reviewed the films. There is a residual stone fragment noted on the proximal portion of the ureteral stent. Plan: Sched repeat left ureteroscopy laser lithotripsy stent exchange. OV-09/10/2022-- Mikey is a 62-year-old male who I initially evaluated as an inpatient consult for hydronephrosis and acute renal insufficiency secondary to an obstructing stone. He is status post left ureteral stent. He had a follow-up KUB done on 09/03/22 that I reviewed. He has a history of cystine kidney stones. He has been followed by Dr. Gardiner in [place] for many years and has had a multiple of surgical treatment options including ureteroscopy, shockwave lithitripsy to manage the cistine kidney stones. He has moved to [place] and is going to continue his follow-up care with [facility]. He is not on aspirin or any other blood thinners. He is on Pyridium and oxbutynin and they are helpful for him. He requests refill for the Pyridium. Evaluation today-- UA 09/10/22-- Leukocytes: 1+. Blood:3+. Plan:? His follow-up KUB films were reviewed with the patient today. Left ureteroscopy, laser lithotripsy and stent exchange discussed to be scheduled. [facility] Medical History Small right kidney Cystinuria Surgical History Hx of appendectomy Hx of tonsillectomy H/O colonoscopy History of cystoscopy Family History Father No problems noted. Mother No problems noted. Social History Alcohol intake: current Alcohol intake frequency: 0-2 drinks per day Patient Tobacco Use Status: Never used Tobacco Second Hand Smoke Exposure: No Substance Use Type: Marijuana Results AMB Urinalysis, Automated UA Leukoctes 0 Tobi/uL Last Edit by Paige Granda on 06/08/24 16:41 UA Nitrite Negative Last Edit by Paige Granda on 06/08/24 16:41 UA Urobilinogen 0.2 mg/dL Last Edit by Paige Granda on 06/08/24 16:41 UA Protein 15 mg/dL Last Edit by Paige Sheatiz on 06/08/24 16:41 UA pH 7.0 Last Edit by Paige Sheatiz on 06/08/24 16:41 UA Blood 25 Wesley/uL Last Edit by Paige Sheatiz on 06/08/24 16:41 UA Specific [place] 1.010 Last Edit by Paige Sheatiz on 06/08/24 16:41 UA Ketone Negative Last Edit by Paige Sheatiz on 06/08/24 16:41 UA Bilirubin 0 mg/dL Last Edit by Paige Sheatiz on 06/08/24 16:41 UA Glucose 0 mg/dL Last Edit by Paige Sheatiz on 06/08/24 16:41 Results Reviewed Results Reviewed: Date of Service: 06/01/24 Procedure(s): US renal BI Accession Number(s): [id number] cc: Sabine Ruth MD; Betzaida Ramos MD~ EXAMINATION: US KIDNEY BILATERAL HISTORY: N20.0 - Calculus of kidney TECHNIQUE: Real-time grayscale ultrasound imaging of the kidneys was performed and images were reviewed. COMPARISON: Comparison is made with the prior examination dated 02/23/2023. FINDINGS: Right kidney: The right kidney measures 7.1 x 2.9 x 3.4 cm. Renal parenchymal echotexture and thickness are normal. There are no masses. There is a 4 mm nonobstructing calculus at the lower pole. There is no hydronephrosis. Left Kidney: The left kidney measures 10.6 x 6.3 x 5.3 cm. Renal parenchymal echotexture and thickness are normal. There are no masses. There are upper pole nonobstructing calculi measuring 4 x 3 x 4 mm and 6 x 4 x 5 mm. There is a staghorn calculus in the mid to lower pole region, portions of which measure up to 1.5 x 1.0 x 1.4 cm. There is mild caliectasis. IMPRESSION: 1. 4 mm nonobstructing calculus at the lower pole of the right kidney. 2. Multiple left renal calculi including a staghorn calculus in the mid to lower pole region. Mild left caliectasis. This could be further evaluated with CT if desired. Date of Service: 09/03/22 EXAMINATION: XR ABDOMEN KUB CLINICAL INDICATION: Left ureteral stent.? COMPARISON: CT abdomen and pelvis 08/31/2022.? TECHNIQUE: AP view of the abdomen. FINDINGS: Since the prior CT scan, a left internally dwelling ureteral stent has been placed. The large previously seen obstructing left proximal to mid ureteral calculus remains in place measuring 2.1 x 0.7 cm. No other calculi are seen. The bowel gas pattern is normal. IMPRESSION: Interval placement of left internally dwelling ureteral stent. The left proximal to mid ureteral calculus remains in place. Date of Service: 08/31/22 EXAMINATION: CT ABDOMEN AND PELVIS WITHOUT CONTRAST? CLINICAL INFORMATION: Flank pain.? COMPARISON: CT Stone 30 09/24/2019 FINDINGS: LUNG BASES: There is bibasilar dependent atelectasis. Minimal atelectasis or scarring is seen in the lingula. The heart size is normal.? LIVER, GALLBLADDER, AND BILIARY TREE: The liver is normal in size, shape, and attenuation. No focal hepatic lesion or biliary ductal dilatation is present. The gallbladder is unremarkable with no evidence of radiopaque gallstones, gallbladder wall thickening, or obvious pericholecystic inflammatory changes.? PANCREAS: Unremarkable.? SPLEEN: Unremarkable.? ADRENAL GLANDS: Unremarkable.? KIDNEYS AND URETERS: The right kidney is small measuring 6.2 cm with extrarenal right kidney pelvis. The left kidney is slightly enlarged measuring 13 cm with moderate to significant left hydroureteronephrosis secondary to a large obstructive mid ureteral stone measuring 1.8 cm on coronal image 36/7 the distal left ureter is prominent but no stones seen.? BLADDER: Unremarkable.? GASTROINTESTINAL TRACT: There is scattered stool and gas seen throughout the colon without any significant distention. The small bowel loops are normal caliber. Appendix is normal caliber.? ABDOMINAL WALL: There is a small umbilical hernia containing fat.? LYMPH NODES: Normal. VASCULAR: Unremarkable. PELVIC VISCERA: There is moderate prostate enlargement. The periprostatic fat planes are preserved.? OSSEOUS STRUCTURES: Degenerative disc changes with vacuum disc phenomena and spondylosis at L5-S1 disc level is noted. There is no aggressive lytic or sclerotic process seen.? IMPRESSION: Large 1.8 cm obstructive radiopaque calculi left mid the ureter with moderate to significant hydroureteronephrosis and moderate perinephric stranding. ? Small right kidney likely chronic atrophy with extrarenal kidney pelvis. No radiopaque calculi seen in either kidneys. ? Mild constipation.?? Assessment & Plan Assessment & Plan (1) CKD (chronic kidney disease): Code(s): N18.9 - Chronic kidney disease, unspecified Category: Medical (2) Staghorn calculus: Code(s): N20.0 - Calculus of kidney Category: Medical Orders: Orders CT kidney stone Today N18.9 - Chronic kidney disease, unspecified, N20.0 - Calculus of kidney AMB Urinalysis Automated Today Z13.9 - Encounter for screening, unspecified Coding Diagnoses CKD (chronic kidney disease) N18.9 Staghorn calculus N20.0
--- OUTSIDE RECORDS SUMMARY | 2024-06-08 14:27 | XMS_ITS | Encounter Summary ---
Author Organization [facility] Address [address] [place] [address] Care Team Providers Care Underwriting Support Specialist Name Role Phone Betzaida Ramos MD Primary Care Provider [phone] Reason for Visit * Reason Comments Appointment Encounter Details Date Type Department Care Team ([facility] st Contact Info) Description 03/19/2020 Telephone [facility] [address] [place] [phone] Abdifatah Mccormack MD [address] [place] [phone] Appointment Social History Tobacco Use Types Packs/Day Years Used Date Smoking Tobacco: Never Smokeless Tobacco: Never Alcohol Use Standard Drinks/Week Comments Not Currently 0 (1 standard drink = 0.6 oz pur e alcohol) minimal use Sex and Gender Information Value Date Recorded Sex Assigned at Male 04/15/2022 8:23 AM EST Legal Sex Male 4:43 PM EDT Gender Identity Male 03/20/2020 9:47 AM EST Sexual Orientation Heterosexual (straight) 04/16 9:42 AM EST Occupation Industry Job Start Date Job End Date Not on file Not on file Not on file Not on file COVID-19 Exposure Response Date Recorded In the [...] Physicians Department of Internal Medicine & Nephrology [place] [address] [place] [address] Simon Butler MD [address] [facility] [address] [place] [address] documented as of this encounter Visit Diagnoses Not on filedocumented in this encounter Care Teams Underwriting Support Specialist Relationship Specialty Start Date End Date Betzaida Ramos MD PCP - General 03/18/20 documented as of this encounter
--- OUTSIDE RECORDS SUMMARY | 2024-06-08 14:27 | XMS_ITS | Clinical Summary ---
Author Organization [facility] Address [address] [place] [address] Care Team Providers Care Alkylation Operator Name Role Phone Betzaida Ramos MD Primary Care Provider [phone] Simon Butler MD Unavailable Abdifatah Mccormack MD Unavailable Allergies No known active allergies Medications [...] and not eat as a much meat. Molasses Feed Mixer is encouraging him to become a vegetarian [...] with elevated blood glucose. I ordered a dxpna-gc-dnbe hemoglobin A1c that was 5.7%. Assessment & [...] patient's age to complete this topic Insurance [facility] [employer] RISA Care Teams Alkylation Operator Relationship Specialty Start Date End Date Betzaida Ramos MD [address] [place] [id number] PCP - General 04/20/17 Simon Butler MD [address] [place] [phone] Internal Medicine 03/24/18 Abdifatah Mccormack MD [address] [place] [phone] Urology 03/24/18
--- OUTSIDE RECORDS SUMMARY | 2024-06-08 14:27 | XMS_ITS | Clinical Summary ---
Author Organization [address] Address [address] [place] [phone] Phone Care Team Providers Care Rn Hemo Dialysis Name Role Phone Angelica Beasley MD Primary Care Provider [phone] Allergies No known active allergies Medications sertraline [...] EDT) Glucose 99 70 - 100 mg/dL [facility] BUN 25(H) 7 - 20 mg/dL [facility] Creatinine 1.4(H) 0.5 - 1.2 mg/dL [facility] BUN/Creatinine Ratio 17.9 10.0 - 20.0 [facility] Anion Gap 12 7 - 16 [facility] CO2 27.0 22.0 - 30.0 mmol/L [facility] Chloride 103 96 - 106 mmol/L [facility] Sodium 142 135 - 145 mmol/L [facility] Potassium 4.1 3.5 - 5.0 mmol/L [facility] Calcium 9.9 8.8 - 10.2 mg/dL [facility] Blood specimen (specimen) 11/23/2011 4:56 PM EDT Darrius Steinberg MD LAB BLOOD ORDERABLES Final R esult [facility] [address] [place] [address] from Last 3 Months or Most Recently Relevant to Health Maintenance Insurance AET AET AETNA AETNA Care Teams Rn Hemo Dialysis Relationship Specialty Start Date End Date Angelica Beasley MD [address] [place] [phone] PCP - General Internal Medicine 05/12/12
--- OUTSIDE RECORDS SUMMARY | 2024-06-08 14:27 | XMS_ITS | Encounter Summary ---
Author Organization [facility] Address [address] [place] [address] Care Team Providers Care Operating Room Scheduler Name Role Phone Betzaida Ramos MD Primary Care Provider [phone] Simon Butler MD Unavailable Abdifatah Mccormack MD Unavailable Encounter Details Date Type Department Care Team (Late st Contact Info) Description 05/22/2019 E-Visit [facility] Department of Geriatrics [address] [place], [place] [address] Betzaida Ramos MD [address] [place] [address] E-Visit Submission: Symptoms consistent with coronavirus Social [...] documented as of this encounter Care Teams Operating Room Scheduler Relationship Specialty Start Date End Date Betzaida Ramos MD [address] [place] [id number] PCP - General 04/20/17 Simon Butler MD [address] [phone] Internal Medicine 03/24/18 Abdifatah Mccormack MD [address] [place] [phone] Urology 03/24/18 documented as of this encounter
--- OUTSIDE RECORDS SUMMARY | 2024-06-08 14:27 | XMS_ITS | Encounter Summary ---
Author Organization [facility] Address [address] [place] [address] Care Team Providers Care Community Cultural Development Officer Name Role Phone Betzaida Ramos MD Primary Care Provider [phone] Encounter Details Date Type Department Care Team (Late st Contact Info) Description 04/10/2019 Scanned Document [facility] Urologic Surgery [place] [address] [facility] [address] [place] [phone] Simon Butler MD [address] [place] [address] [address] [place] [address] Social History Tobacco Use Types Packs/Day Years [...] file Not on file Not on file documented as of this encounter Plan of Treatment Upcoming Encounters Date Type Department Care Team (Late st Contact Info) Description 05/28/2025 11:20 AM EDT Office Visit [facility] Department of Internal Medicine & Nephrology [place] [address] [place] [address] Simon Butler MD [address] [facility] [address] [place] [address] documented as of this encounter Visit Diagnoses Not on filedocumented in this encounter Care Teams Community Cultural Development Officer Relationship Specialty Start Date End Date Betzaida Ramos MD PCP - General 03/18/20 documented as of this encounter
--- OUTSIDE RECORDS SUMMARY | 2024-06-08 14:27 | XMS_ITS | Encounter Summary ---
Author Organization [facility] Address [address] [place] [address] Care Team Providers Care Hand Washer Name Role Phone Betzaida Ramos MD Primary Care Provider Encounter Details Date Type Department Care Team (Late st Contact Info) Description 03/21/2020 Telephone [facility] Urologic Surgery [place] [address] [facility] [address] [place] [phone] Abdifatah Mccormack MD [address] [place] [phone] Social History Tobacco Use Types Packs/Day Years [...] Physicians Department of Internal Medicine & Nephrology [place] [address] [place] [address] Simon Butler MD [address] [facility] [address] [place] [address] documented as of this encounter Visit Diagnoses Not on filedocumented in this encounter Care Teams Hand Washer Relationship Specialty Start Date End Date Betzaida Ramos MD PCP - General 03/18/20 documented as of this encounter
--- OUTSIDE RECORDS SUMMARY | 2024-06-08 14:27 | XMS_ITS | Encounter Summary ---
Author Organization [facility] and [facility] Address [address] [place] [address] Care Team Providers Care Resource Economist Name Role Phone Angelica Beasley MD Primary Care Provider [phone] Encounter Details Date Type Department Care Team (Latest Contact Info) Description 11/23/2012 Transcribed Orders [facility] [address] [place] [address] Darrius Steinberg MD [address] [place] [address] Unspecified essential hypertension (Primary Dx); [...] (11/23/2012 4:24 PM EDT) ASHWINI <1:40 <1:40 [facility] Blood specimen (specimen) 11/23/2012 4:24 PM EDT us Darrius Steinberg MD LAB BLOOD ORDERABLES Final R esult [facility] [address] [place] [address] * Protein electrophoresis, serum ( GH L Y) (11/23/2012 4:24 PM EDT) Total Protein 6.6 6.0 - 8.3 g/dL [facility] Albumin 4.3 3.5 - 5.0 g/dL [facility] Albumin Electrophoresis 3.62 3.50 - 4.70 g/dL [facility] Wuznb-0-Ujgbhhuo 0.21 0.10 - 0.30 g/dL [facility] Comment: Effective May 11, 2012, the reference range for this protein fraction has changed due to implementation of a new electrophoresis system. Ngcrg-2-Igzkghdq 0.84 0.60 - 1.00 g/dL [facility] Comment: Effective May 11, 2012, the reference range for this protein fraction has changed due to implementation of a new electrophoresis system. Beta Globulin 1.00 0.70 - 1.20 g/dL [facility] Comment: Effective May 11, 2012, the reference range for this protein fraction has changed due to implementation of a new electrophoresis system. Gamma Globulin 0.92 0.70 - 1.50 g/dL [facility] SPEP Interpretation See below See Interp. [facility] Comment: INTERPRETATION: No discrete abnormal bands. If monoclonal gammopathy remains a clinical consideration, recommend serum immunofixation electrophoresis (RUFUS). SIGNED BY:NIKITA RUDOLPH ON 11/27/2012 15:30:32 INTERPRETATION REVIEW : I have reviewed these results and agree with this interpretation. Blood specimen (specimen) 11/23/2012 4:24 PM EDT us Darrius Steinberg MD LAB BLOOD ORDERABLES Final R esult Performing Organization Address [facility]/ZIP Co de Phone Number [facility] [address] [place] [address] * Lyme Abs C6 WESLEY w/ reflex to WB (Y) (11/23/2012 4:24 PM EDT) Pathologist [facility] B. burgdorferi Abs w/ Confirmation by WB 0.15 <=0.9 LI [facility] Comment: This sample tested negative [...] ORDERABLES Final R esult Performing Organization Address [facility] Co de Phone Number [facility] [address] [place] [address] * Rheumatoid factor (BH L Q YH) (11/23/2012 4:24 PM EDT) [facility] Rheumatoid Factor <15.9 IU/mL [facility] Blood specimen (specimen) 11/23/2012 4:24 PM EDT Darrius Steinberg MD LAB BLOOD ORDERABLES Final R esult Performing Organization Address [facility] Co de Phone Number [facility] [address] [place] [address] * VDRL, w/ reflex titer & TP-PA confirm. (Y) (11/23/2012 4:22 PM EDT) Pathologist [facility] VDRL Non-reacti ve Non-reacti ve [facility] Blood specimen (specimen) 11/23/2012 4:22 PM EDT Darrius Steinberg MD LAB BLOOD ORDERABLES Final R esult Performing Organization Address [facility] Co de Phone Number [facility] [address] [place] [address] * Sedimentation rate (ESR) ( GH YH) (11/23/2012 4:22 PM EDT) Sed Rate 10 0 - 20 mm/hr [facility] Blood specimen (specimen) 11/23/2012 4:22 PM EDT Darrius Steinberg MD LAB BLOOD ORDERABLES Final R esult Performing Organization Address [facility] de Phone Number [facility] [address] [place] [address] * Vitamin D, 1,25-dihydroxy (mineral metabolism) (YH) (11/23/2012 4:22 PM EDT) Vit D, 1,25-Dihydroxy 62 25 - 66 pg/mL [facility] Comment: 1,25 Dihydroxy vitamin D [...] ORDERABLES Final R esult Performing Organization Address [facility] Co de Phone Number [facility] [address] [place] [address] * Vitamin D 25 hydroxy (BH L YH) (11/23/2012 4:22 PM EDT) Vit D, 25-Hydroxy 42 20 - 50 ng/mL [facility] Comment: A serum 25(OH) vitamin [...] ORDERABLES Final R esult Performing Organization Address [facility] Co de Phone Number [facility] [address] [place] [address] * (ABNORMAL) Pyridoxine (YH) (11/23/2012 4:22 PM EDT) Pyridoxine 35.1(H) 2.1 - 21.7 ng/mL [facility] Comment: Conversion Factor: ??Nanograms/mL x 4.046 = nanomoles/L Blood specimen (specimen) 11/23/2012 4:22 PM EDT Darrius Steinberg MD LAB BLOOD ORDERABLES Final R esult Performing Organization Address [facility] de Phone Number [facility] [address] [place] [address] documented in this encounter Visit Diagnoses Diagnosis Unspecified essential hypertension- Primary Irritable bowel syndrome Depressive disorder, not elsewhere classified documented in this encounter Care Teams Resource Economist Relationship Specialty Start Date End Date Angelica Beasley MD [address] [place] [phone] PCP - General Internal Medicine 05/12/12 documented as of this encounter
--- OUTSIDE RECORDS SUMMARY | 2024-06-08 14:27 | XMS_ITS | Encounter Summary ---
Author Organization [facility] Address [address] [place] [address] Care Team Providers Care Laminating Machine Tender Name Role Phone Betzaida Ramos MD Primary Care Provider [phone] Encounter Details Date Type Department Care Team (Late st Contact Info) Description 08/28/2017 Prep for Surgery [facility] Urologic Surgery [place] [address] [facility] [address] [place] [address] Brent Peres, WANDA [address] [facility] [address] [place] [address] Ureteral obstruction (Primary Dx) Social History Tobacco [...] Physicians Department of Internal Medicine & Nephrology [place] [address] [place] [address] Simon Butler MD [address] [facility] [address] [place] [address] documented as of this encounter Visit Diagnoses Diagnosis Ureteral obstruction- Primary Other ureteric obstruction documented in this encounter Care Teams Laminating Machine Tender Relationship Specialty Start Date End Date Betzaida Ramos MD PCP - General 03/18/20 documented as of this encounter
--- OUTSIDE RECORDS SUMMARY | 2024-06-08 14:27 | XMS_ITS | Encounter Summary ---
Author Organization [facility] Address [address] [place] [address] Care Team Providers Care Loading Machine Operator Name Role Phone Betzaida Ramos MD Primary Care Provider [phone] Encounter Details Date Type Department Care Team (Late st Contact Info) Description 04/11/2020 Scanned Document [facility] Urologic Surgery [place] [address] [facility] [address] [place] [phone] Simon Butler MD [address] [place] [address] [address] [place] [address] Social History Tobacco Use Types Packs/Day Years [...] Physicians Department of Internal Medicine & Nephrology [place] [address] [place] [address] Simon Butler MD [address] [facility] [address] [place] [address] documented as of this encounter Visit Diagnoses Not on filedocumented in this encounter Care Teams Loading Machine Operator Relationship Specialty Start Date End Date Betzaida Ramos MD PCP - General 03/18/20 documented as of this encounter
--- OUTSIDE RECORDS SUMMARY | 2024-06-08 14:27 | XMS_ITS | Encounter Summary ---
Author Organization [facility] Address [address] [place] [address] Care Team Providers Care Golf Course Ranger Name Role Phone Betzaida Ramos MD Primary Care Provider [phone] Encounter Details Date Type Department Care Team (Late st Contact Info) Description 08/07/2017 [facility] Urologic Surgery [address] [place] [address] Abdifatah cMcormack MD [address] [place] [address] Social History Tobacco Use Types Packs/Day Years [...] Physicians Department of Internal Medicine & Nephrology [place] [address] [place] [address] Simon Butler MD [address] [facility] [address] [place] [address] documented as of this encounter Visit Diagnoses Not on filedocumented in this encounter Care Teams Golf Course Ranger Relationship Specialty Start Date End Date Betzaida Ramos MD PCP - General 03/18/20 documented as of this encounter
--- OUTSIDE RECORDS SUMMARY | 2024-06-08 14:27 | XMS_ITS | Encounter Summary ---
Author Organization [facility] Address [address] [place] [address] Care Team Providers Care Audit Associate Name Role Phone Betzaida Ramos MD Primary Care Provider [phone] Reason for Visit * Reason Comments Appointment Covid-19 Pre-screening Encounter Details Date Type Department Care Team (Late st Contact Info) Description 03/27/2020 Telephone [facility] Urologic Surgery [address] [place] [phone] Abdifatah Mccormack MD [address] [place] [address] Appointment; Covid-19 Pre-screening Social History Tobacco Use [...] encounter Miscellaneous Notes * Telephone Encounter - Jennifer Pritchard - 03/27/2020 11:48 AM EST 1. Do [...] =NO 7. Have you traveled outside of [place] in the past 14 days? =NO If yes: Where did you travel? [place] based practices: Travel to one of the [facility] below offer virtual visit or conversation with clinical staff member. [facility] based practices Please refer to the [place] travel advisory list. Travel to one of the [facility] listed offer virtual visit or conversation with clinical staff member. [email or web address]?[email or web address]&single=true documented in this encounter Plan of Treatment Upcoming Encounters Date Type Department Care Team (Late st Contact Info) Description 05/28/2025 11:20 AM EDT Office Visit [facility] Department of Internal Medicine & Nephrology [place] [address] [place] [address] Simon Butler MD [address] [facility] [address] [place] [address] documented as of this encounter Visit Diagnoses Not on filedocumented in this encounter Care Teams Audit Associate Relationship Specialty Start Date End Date Betzaida Ramos MD PCP - General 03/18/20 documented as of this encounter
--- OUTSIDE RECORDS SUMMARY | 2024-06-08 14:27 | XMS_ITS | Encounter Summary ---
Author Organization [facility] Address [address] [place] [address] Care Team Providers Care Senior Net Developer Name Role Phone Betzaida Ramos MD Primary Care Provider [phone] Encounter Details Date Type Department Care Team (Late st Contact Info) Description 06/01/2024 Orders Only [facility] Department of Internal Medicine & Nephrology [place] [address] [facility] [address] [place] [phone] Simon Butler MD [address] [place] [address] [address] [place] [address] Social History Tobacco Use Types Packs/Day Years [...] Physicians Department of Internal Medicine & Nephrology [place] [address] [place] [address] Simon Butler MD [address] [facility] [address] [place] [address] documented as of this encounter Procedures Procedure Name Priority Date/Time Associated Diagnosis Comments LAB RESULT Routine 05/04/2024 12:20 PM EDT documented in this encounter Results * LAB RESULT (05/04/2024 12:20 PM EDT) us Simon Butler MD HX AMB PROCEDURES Final Result documented in this encounter Visit Diagnoses Not on filedocumented in this encounter Care Teams Senior Net Developer Relationship Specialty Start Date End Date Betzaida Ramos MD PCP - General 03/18/20 documented as of this encounter
--- OUTSIDE RECORDS SUMMARY | 2024-06-08 14:27 | XMS_ITS | Clinical Summary ---
Author Organization [facility] Address [address] [place] [address] Care Team Providers Care Commercial Light Fixture Assembler Name Role Phone Betzaida Ramos MD Primary Care Provider [phone] Allergies No known active allergies Medications Alpha-Lipoic Acid 600 MG Cap Take 2 tablets by mouth 2 (two) times a day. Active potassium citrate (UROCIT-K) 10 MEQ (1080 MG) ER tabletIndicati ons:Cystinuria ,Kidney stone on left side Take 2 tablets (20 mEq total) by mouth 2 (two) times a day. Swallow tablet whole with full glass of water 360 tablet 3 12/05/19 24 Active bisacodyl 5 MG EC tablet 4 TABLETS ORALLY PATIENT HAS INSTRUCTIONS 1 DAYS 04/25/19 25 Active lactulose (ENULOSE) 10 gm/15 mL solution 15 ML NEEDED ORALLY ONCE A DAY 05/01/19 25 Active GaviLyte-G 236 g solution 4000ML ORALLY PATIENT HAS INSTRUCTIONS 2 DAYS 04/25/19 25 Active captopril (CAPOTEN) 25 MG tabletIndicati ons:Cystinuria Take 1 tablet (25 mg total) by mouth 2 (two) times a day before meals. 180 tablet 3 05/23/19 25 Active captopril (CAPOTEN) 12.5 MG tabletIndicati ons:Cystinuria TAKE 1 TABLET BY MOUTH TWICE DAILY BEFORE MEALS 180 tablet 3 03/20/19 25 025 Discontinued Active Problems Problem Noted Date Diagnosed [...] with elevated blood glucose. I ordered a hcakv-kb-ynoc hemoglobin A1c that was 5.7%. 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 08/03/2013 Calculus of kidney 08/03/2013 Encounters Date Type Department Care Team Description 06/01/2024 Orders Only [facility] Department of Internal Medicine & Nephrology [place] [address] [facility] [address] [place] [address] Simon Butler MD 05/22/2024 10:20 AM EDT Office Visit [facility] Department of Internal Medicine & Nephrology [address] [address] Simon Butler MD Hypertension, unspecified type (Primary Dx); 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 Orders Only [facility] Department of Internal Medicine & Nephrology [address] [address] Simon Butler MD 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 Refill [facility] Physicians Department of Internal Medicine & Nephrology [address] [address] Simon Butler MD Cystinuria from Last 3 Months Immunizations Immunization Administration Dates Next Due Covid-19 MRNA Vaccine [...] file Not on file Not on file Last Filed Vital Signs [...] Physicians Department of Internal Medicine & Nephrology [place] [address] [place] [address] Simon Butler MD [address] [facility] [address] [place] [address] Health Maintenance Due Date Last Done Comments [...] this topic Medical Devices Explanted Type Area Purler Device Identifier Shelf Expiration Date Model / Serial / Lot Stent Ureteral 6fr 26cm Pgtl Crv Taper Tip Bldr Des Lopro - [id number] Implanted:Qty: 1 on 08/08/2017 by Abdifatah Mccormack MD at [facility] Stent [employer] 04/04/2020 [id number] 0 / / [id number] Stent Ureteral 6fr 26cm Pgtl Crv Taper Tip Bldr Des Lopro - [id number] Implanted:Qty: 1 on 08/29/2017 by Abdifatah Mccormack MD at [facility] Stent Left: Ureter [employer] 03/21/2020 [id number] 0 / / [id number] Stent Ureteral 6fr 26cm Pgtl Crv Taper Tip Bldr Des Lopro - [id number] Implanted:Qty: 1 on 04/08/2018 by Sabine Ruth MD at [facility] Stent [employer] 12/07/2020 [id number] 0 / / [id number] Stent Ureteral 6fr 28cm Pgtl Crv Taper Tip Bldr Des Lopro - [id number] Implanted:Qty: 1 on 04/25/2018 by Abdifatah Mccormack MD at [facility] Stent [employer] [id number] 0 / / [id number] Stent Ureteral 6fr 26cm Pgtl Crv Taper Tip Bldr Des Lopro - [id number] Implanted:Qty: 1 on 10/19/2019 by Abdifatah Mccormack MD at [facility] Explanted:Qty: 1 on 10/31/2019 at [facility] Stent Left: Ureter [employer] 07/18/2022 [id number] 0 / / [id number] Stent Ureteral 6fr 26cm Taper Tip Bldr Des Lopro Cntr Hdr+ - [id number] Implanted:Qty: 1 on 03/09/2020 by Roman García MD at [facility] Stent Left: Ureter [employer] 11/05/2022 [id number] 0 / / [id number] Stent Ureteral 6fr 26cm Pgtl Crv Taper Tip Bldr Des Lopro - [id number] Implanted:Qty: 1 on 10/31/2019 at [facility] Explanted:Qty: 1 on 03/18/2020 by Abdiftaah Mccormack MD at [facility] Stent Left: Ureter [employer] 05/20/2022 [id number] 0 / / [id number] Description:1 6x26 LEFT uret eral stent removed intact with string on by Dr. Abdifatah Mccormack [id number] Stent Ureteral 6fr 26cm Taper Tip Bldr Des Lopro Cntr Hdr+ - [id number] Implanted:Qty: 1 on 03/18/2020 by Abdifatah Mccormack MD at [facility] Explanted:03/28 by Abdifatah Mccormack MD (Quantity not on file) Stent Left: Ureter [employer] 11/27/2022 [id number] 0 / / [id number] Left Ureteral Stent Explanted:Qty: 1 on 08/29/2017 by Abdifatah Mccormack MD at [facility] Left: Ureter [employer] [id number] / / Procedures Procedure Name Priority Date/Time Associated Diagnosis Comments LAB RESULT Routine 05/04/2024 12:20 PM EDT from Last 3 Months Results * LAB RESULT (05/04/2024 12:20 PM EDT) Simon Butler MD HX AMB PROCEDURES Final Result from Last 3 Months Insurance [employer] INDIVIDUAL EXCHANGE PPO [facility] [place] [address] [employer] P[employer] Advance Directives * Full Code (Latest Code [...] 12:54 AM 08/08/2017 12:58 PM Care Teams Commercial Light Fixture Assembler Relationship Specialty Start Date End Date Betzaida Ramos MD PCP - General 03/18/20
--- OUTSIDE RECORDS SUMMARY | 2024-06-08 14:27 | XMS_ITS | Encounter Summary ---
Author Organization [facility] Address [address] [place] [address] Care Team Providers Care Dock Manager Name Role Phone Betzaida Ramos MD Primary Care Provider [phone] Encounter Details Date Type Department Care Team (Late st Contact Info) Description 01/26/2021 Scanned Document [facility] [place] Urologic Surgery [place] [address] [facility] [address] [place] [phone] Simon Butler MD [address] [place] [address] [address] [place] [address] Social History Tobacco Use Types Packs/Day Years [...] Physicians Department of Internal Medicine & Nephrology [place] [address] [place] [address] Simon Butler MD [address] [facility] [address] [place] [address] documented as of this encounter Visit Diagnoses Not on filedocumented in this encounter Care Teams Dock Manager Relationship Specialty Start Date End Date Betzaida Ramos MD PCP - General 03/18/20 documented as of this encounter
--- OUTSIDE RECORDS SUMMARY | 2024-06-08 14:27 | XMS_ITS | Encounter Summary ---
Author Organization [facility] Address [address] [place] [address] Care Team Providers Care Glass Cleaner Name Role Phone Angelica Beasley MD Primary Care Provider [phone] Encounter Details Date Type Department Care Team ([facility] st Contact Info) Description 01/19/2011 Scanned Document Neurology at [address] [address] External, Provider Social History Tobacco Use Types [...] on filedocumented in this encounter Care Teams Glass Cleaner Relationship Specialty Start Date End Date Angelica Beasley MD [address] [place] [phone] PCP - General Internal Medicine 05/12/12 documented as of this encounter
--- OUTSIDE RECORDS SUMMARY | 2024-06-08 14:27 | XMS_ITS | Encounter Summary ---
Author Organization [facility] Address [address] [place] [address] Care Team Providers Care Mica Patcher Name Role Phone Betzaida Ramos MD Primary Care Provider [phone] Encounter Details Date Type Department Care Team (Late st Contact Info) Description 10/27/2019 Lab Requisition [place] COVID-19 Testing [address] [address] [place] [address] Boy Langford PA-C [address] [place] [address] Encounter for laboratory testing for COVID-19 virus [...] Physicians Department of Internal Medicine & Nephrology [place] [address] [place] [address] Simon Butler MD [address] [facility] [address] [place] [address] documented as of this encounter Procedures Procedure Name Priority Date/Time Associated Diagnosis Comments COVID-19 RT-PCR ([facility]) Routine 10/27/2019 10:17 AM EDT Encounter for laboratory testing for COVID-19 virus [ICD-10-CM] documented in this encounter Results * COVID-19 RT-PCR ([facility]) (10/27/2019 10:17 AM EDT) COVID-19 RT-PCR SARS-COV-2 NOT DETECTED Not Detected 10/29/2019 8:04 PM EDT [facility] Comment: ADDITIONAL INFORMATION [facility] COVID-19 RT-PCR Assay is Real-Time Reverse Cyanide Pot Tender Polymerase Chain Reaction (tail dogger-PCR) for the in vitro qualitative detection of three SARS-Cov-2 target sequences unique to the coronavirus disease 2019 (COVID-19). This is an Emergency Use Authorization (EUA) in vitro diagnostic (IVD) test that has been modified to include the [employer] automated liquid handler. Its analytical performance characteristics have been determined by the sys dir and verified by [facility] in a manner consistent with CLIA [...] at the following links: For Healthcare Providers: https://www.fda.gov/media/417414/download For Patients: https://www.fda.gov/media/422668/download TEST LIMITATIONS Positive results are indicative of [...] system. For further details refer to the [employer] TaqPath COVID-19 Combo Kit EUA submission (https://www.[employer].gov/media/979467/download). Microbiology Nasopharyngeal swab / Unknown 10/27/2019 10:17 AM EDT 10/27/2019 10:17 AM EDT Narrative [facility] - 10/29/2019 8:04 PM EDT Performed at [facility], [address] [place] [address], [facility] 0[facility], CLIA [id number] Boy Langford PA-C MICROBIOLOGY - GENERAL OR DERABLES Final Result [facility] TOMAS[facility] [address] [place] [address] documented in this encounter Visit Diagnoses Diagnosis Encounter for laboratory testing for COVID-19 virus documented in this encounter Care Teams Mica Patcher Relationship Specialty Start Date End Date Betzaida Ramos MD PCP - General 03/18/20 documented as of this encounter
--- OUTSIDE RECORDS SUMMARY | 2024-06-08 14:27 | XMS_ITS | Encounter Summary ---
Author Organization [facility] Address [address] [place] [address] Care Team Providers Care Product Handler Name Role Phone Betzaida Ramos MD Primary Care Provider Encounter Details Date Type Department Care Team (Late st Contact Info) Description 04/14/[address] [facility] Urologic Surgery [place] [address] [facility] [address] [place] [address] Simon Butler MD [address] [place] [address] [address] [place] [address] Social History Tobacco Use Types Packs/Day Years [...] Physicians Department of Internal Medicine & Nephrology [place] [address] [place] [address] Simon Butler MD 533 [facility] [address] [place] [address] documented as of this encounter Visit Diagnoses Not on filedocumented in this encounter Care Teams Product Handler Relationship Specialty Start Date End Date Betzaida Ramos MD PCP - General 03/18/20 documented as of this encounter
--- OUTSIDE RECORDS SUMMARY | 2024-06-08 14:27 | XMS_ITS | Encounter Summary ---
Author Organization [facility] Address [address] [place] [address] Care Team Providers Care Proposal Rep Name Role Phone Betzaida Ramos MD Primary Care Provider [phone] Encounter Details Date Type Department Care Team (Late st Contact Info) Description 03/25/2020 Lab Requisition [place] COVID-19 Testing [place] [address] [place] [address] Triston Salazar MD [address] [place] [address] Encounter for laboratory testing for COVID-19 virus [...] Physicians Department of Internal Medicine & Nephrology [place] [address] [place] [address] Simon Butler MD 533 [facility] [address] [place] [address] documented as of this encounter Procedures Procedure Name Priority Date/Time Associated Diagnosis Comments COVID-19 (SARS-COV-2) - [facility] Routine 03/25/2020 11:05 AM EST Encounter for laboratory testing for COVID-19 virus [ICD-10-CM] documented in this encounter Results * COVID-19 (SARS-COV-2) ([facility]) (03/25/2020 11:05 AM EST) COVID-19 RT-PCR NOT-DETEC CHACHO Not-Detec chacho 03/26/2020 8:53 AM EST [facility] [place] Layne MADDISONSAVANNAH Comment:Interpretation: The viral RNA was not detected, making the COVID-19 diagnosis less likely. Clinical correlation is highly recommended.Final report signed by Rubio Neves, Ph.D., Laboratory DirectorTests performed at [facility] Nasopharyngeal swab / Unknown 03/25/2020 11:05 AM EST 03/25/2020 11:05 AM EST Narrative [facility] - [place] - 03/26/2020 8:53 AM EST Performed by [facility] [address] [place] [address], CLIA# [id number] and [place] License# [id number] us Triston Salazar MD MICROBIOLOGY - GENERAL ORDER ORALIA Final Result SEMA4 [facility] THOMAS documented in this encounter Visit Diagnoses Diagnosis Encounter for laboratory testing for COVID-19 virus documented in this encounter Care Teams Proposal Rep Relationship Specialty Start Date End Date Betzaida Ramos MD PCP - General 03/18/20 documented as of this encounter
== END 2024-06-08 15:08 | disposition home or self-care (01) ==
LOC: HO.HUSH 14:04
PROVIDERS: Visit Provider Urology
DX: Z13.9 Encounter for screening, unspecified (principal)

== ENCOUNTER 2024-06-08 14:03 | Outpatient (REF) | payer OTHER, SELFPAY ==
--- OUTSIDE RECORDS SUMMARY | 2024-06-08 15:12 | XMS_ITS | Encounter Summary ---
Author Organization [facility] Address [address] [place] [address] Care Team Providers Care Publications Production Supervisor Name Role Phone Betzaida Ramos MD Primary Care Provider [phone] Encounter Details Date Type Department Care Team (Late st Contact Info) Description 03/21/2020 Telephone [facility] Urologic Surgery [place] 85 [facility] [address] [place] [phone] Abdifatah Mccormack MD [address] [place] [address] Social History Tobacco Use Types Packs/Day Years [...] Physicians Department of Internal Medicine & Nephrology [place] [address] [place] [address] Simon Butler MD 533 [facility] [address] [place] [address] documented as of this encounter Visit Diagnoses Not on filedocumented in this encounter Care Teams Publications Production Supervisor Relationship Specialty Start Date End Date Betzaida Ramos MD PCP - General 03/18/20 documented as of this encounter
--- OUTSIDE RECORDS SUMMARY | 2024-06-08 15:12 | XMS_ITS | Encounter Summary ---
Author Organization [facility] Address [address] [place] [address] Care Team Providers Care Filling Separator Name Role Phone Betzaida Ramos MD Primary Care Provider [phone] Encounter Details Date Type Department Care Team (Late st Contact Info) Description 03/25/2020 Lab Requisition [place] COVID-19 Testing [place]iler [address] [place] [address] Triston Salazar MD [address] [place] [address] Encounter for laboratory testing for COVID-19 virus [...] Physicians Department of Internal Medicine & Nephrology [place] [address] [place] [address] Simon Butler MD 533 [facility] [address] [place] [address] documented as of this encounter Procedures Procedure Name Priority Date/Time Associated Diagnosis Comments COVID-19 (SARS-COV-2) - [facility] Routine 03/25/2020 11:05 AM EST Encounter for laboratory testing for COVID-19 virus [ICD-10-CM] documented in this encounter Results * COVID-19 (SARS-COV-2) ([facility]) (03/25/2020 11:05 AM EST) COVID-19 RT-PCR NOT-DETEC CHACHO Not-Detec chacho 03/26/2020 8:53 AM EST [facility] [place] Layne MADDISONSAVANNAH Comment:Interpretation: The viral RNA was not detected, making the COVID-19 diagnosis less likely. Clinical correlation is highly recommended.Final report signed by Rubio Neves, Ph.D., Laboratory DirectorTests performed at [facility] Nasopharyngeal swab / Unknown 03/25/2020 11:05 AM EST 03/25/2020 11:05 AM EST Narrative [facility] [place] - 03/26/2020 8:53 AM EST Performed by [facility] [address] [place] [address], CLIA# [id number] and [place] License# [id number] us Triston Salazar MD MICROBIOLOGY - GENERAL ORDER ORALIA Final Result SEMA4 [place] THOMAS documented in this encounter Visit Diagnoses Diagnosis Encounter for laboratory testing for COVID-19 virus documented in this encounter Care Teams Filling Separator Relationship Specialty Start Date End Date Betzaida Ramos MD PCP - General 03/18/20 documented as of this encounter
--- OUTSIDE RECORDS SUMMARY | 2024-06-08 15:12 | XMS_ITS | Clinical Summary ---
Author Organization [facility] Address [address] [place] [address] Care Team Providers Care Enlisted Advisor Name Role Phone Betzaida Ramos MD Primary Care Provider [phone] Simon Butler MD Unavailable Abdifatah Mccormack MD [...] and not eat as a much meat. Gas Reverser is encouraging him to become a vegetarian [...] with elevated blood glucose. I ordered a zzook-jw-clwt hemoglobin A1c that was 5.7%. Assessment & [...] patient's age to complete this topic Insurance [facility] Errund RISA Care Teams Enlisted Advisor Relationship Specialty Start Date End Date Betzaida Ramos MD [address] [place] [address] PCP - General 04/20/17 Simon Butler MD [address] [place] [address] Internal Medicine 03/24/18 Abdifatah Mccormack MD [address] [place] [address] Urology 03/24/18
--- OUTSIDE RECORDS SUMMARY | 2024-06-08 15:12 | XMS_ITS | Encounter Summary ---
Author Organization [facility] Address [address] [place] [address] Care Team Providers Care Blend Technician Name Role Phone Betzaida Ramos MD Primary Care Provider [phone] Encounter Details Date Type Department Care Team (Late st Contact Info) Description 08/07/2017 [facility] Urologic Surgery [address] [place] [address] Abdifatah Mccormack MD [address] [place] [address] Social History Tobacco Use Types Packs/Day Years [...] Physicians Department of Internal Medicine & Nephrology [place] [address] [place] [address] Simon Butler MD 533 [facility] [address] [place] [address] documented as of this encounter Visit Diagnoses Not on filedocumented in this encounter Care Teams Blend Technician Relationship Specialty Start Date End Date Betzaida Ramos MD PCP - General 03/18/20 documented as of this encounter
--- OUTSIDE RECORDS SUMMARY | 2024-06-08 15:12 | XMS_ITS | Encounter Summary ---
Author Organization [facility] Address [address] [place] [address] Care Team Providers Care Bottle Packing Machine Cleaner Name Role Phone Betzaida Ramos MD Primary Care Provider [phone] Encounter Details Date Type Department Care Team (Late st Contact Info) Description 10/27/2019 Lab Requisition [place] COVID-19 Testing [address]iler [address] [place] [address] Boy Langford PA-C [address] [place] [address] Encounter for laboratory testing for COVID-19 virus [...] Physicians Department of Internal Medicine & Nephrology [place] [address] [place] [address] Simon Butler MD [address] [facility] [address] [place] [address] documented as of this encounter Procedures Procedure Name Priority Date/Time Associated Diagnosis Comments COVID-19 RT-PCR ([facility]) Routine 10/27/2019 10:17 AM EDT Encounter for laboratory testing for COVID-19 virus [ICD-10-CM] documented in this encounter Results * COVID-19 RT-PCR ([facility]) (10/27/2019 10:17 AM EDT) COVID-19 RT-PCR SARS-COV-2 NOT DETECTED Not Detected 10/29/2019 8:04 PM EDT [facility] Comment: ADDITIONAL INFORMATION The [facility] COVID-19 RT-PCR Assay is Real-Time Reverse Business Instructor Polymerase Chain Reaction (conveyor monitor-PCR) for the in vitro qualitative detection of three SARS-Cov-2 target sequences unique to the coronavirus disease 2019 (COVID-19). This is an Emergency Use Authorization (EUA) in vitro diagnostic (IVD) test that has been modified to include the TAPP automated liquid handler. Its analytical performance characteristics have been determined by the outreach coordinator and verified by [facility] in a manner consistent with CLIA [...] at the following links: For Healthcare Providers: https://www.fda.gov/media/018158/download For Patients: https://www.fda.gov/media/082147/download TEST LIMITATIONS Positive results are indicative of [...] system. For further details refer to the [employer] TaqPath COVID-19 Combo Kit EUA submission (https://www.Humacyte.gov/media/797599/download). Microbiology Nasopharyngeal swab / Unknown 10/27/2019 10:17 AM EDT 10/27/2019 10:17 AM EDT Narrative [facility] - 10/29/2019 8:04 PM EDT Performed at [facility], [address] [place] [address], [facility] [address], CLIA [id number] Boy Langford PA-C MICROBIOLOGY - GENERAL OR DERABLES Final Result DURAN TOMASZ [address] [place] [address] documented in this encounter Visit Diagnoses Diagnosis Encounter for laboratory testing for COVID-19 virus documented in this encounter Care Teams Bottle Packing Machine Cleaner Relationship Specialty Start Date End Date Betzaida Ramos MD PCP - General 03/18/20 documented as of this encounter
--- OUTSIDE RECORDS SUMMARY | 2024-06-08 15:12 | XMS_ITS | Clinical Summary ---
Author Organization [address] Address [address] [place] [phone] Phone Care Team Providers Care Pyrometer Temperature Regulator Name Role Phone Angelica Beasley MD Primary Care Provider [phone] Allergies No known active allergies Medications sertraline [...] LABORATORY Anion Gap 12 7 - 16 [facility] CO2 27.0 22.0 - 30.0 [...] ORDERABLES Final R esult [facility] [address] [place] [address] from Last 3 Months or Most Recently Relevant to Health Maintenance Insurance AET AET AETNA AETNA Care Teams Pyrometer Temperature Regulator Relationship Specialty Start Date End Date Angelica Beasley MD [address] [place] [place] [phone] PCP - General Internal Medicine 05/12/12
--- OUTSIDE RECORDS SUMMARY | 2024-06-08 15:12 | XMS_ITS | Encounter Summary ---
Author Organization [facility] Address [address] [place] [address] Care Team Providers Care Brake Assembler Name Role Phone Betzaida Ramos MD Primary Care Provider [phone] Reason for Visit * Reason Comments Appointment Covid-19 Pre-screening Encounter Details Date Type Department Care Team (Late st Contact Info) Description 03/27/2020 Telephone [facility] Urologic Surgery [address] [place] [phone] Abdifatah Mccormack MD [address] [place] [address] Appointment; Covid-19 Pre-screening Social History Tobacco Use [...] =NO 7. Have you traveled outside of [place] in the past 14 days? =NO If yes: Where did you travel? [place] based practices: Travel to one of the [place] below offer virtual visit or conversation with clinical staff member. [facility] based practices Please refer to the [place] travel advisory list. Travel to one of the [place] [facility] [place] listed offer virtual visit or conversation with clinical staff member. https://docs.[employer]yChic.com/spreadsheets/d/e/[email or web address]/pubhtml?gid=0&single=true documented in this encounter Plan of Treatment Upcoming Encounters Date Type Department Care Team (Late st Contact Info) Description 05/28/2025 11:20 AM EDT Office Visit [facility] Department of Internal Medicine & Nephrology [place] [address] [place] [address] Simon Butler MD [address] [facility] [address] [place] [address] documented as of this encounter Visit Diagnoses Not on filedocumented in this encounter Care Teams Brake Assembler Relationship Specialty Start Date End Date Betzaida Ramos MD PCP - General 03/18/20 documented as of this encounter
--- OUTSIDE RECORDS SUMMARY | 2024-06-08 15:12 | XMS_ITS | Encounter Summary ---
Author Organization [facility] Address [address] [place] [address] Care Team Providers Care Home Health Manager Name Role Phone Betzaida Ramos MD Primary Care Provider [phone] Encounter Details Date Type Department Care Team (Late st Contact Info) Description 04/10/2019 Scanned Document [facility] Urologic Surgery [place] 85 [facility] [address] [place] [address] Simon Butler MD [address] [place] [address] [address] [place] [address] Social History Tobacco Use Types Packs/Day Years [...] Physicians Department of Internal Medicine & Nephrology [place] [address] [place] [address] Simon Butler MD 533 [facility] [address] [place] [address] documented as of this encounter Visit Diagnoses Not on filedocumented in this encounter Care Teams Home Health Manager Relationship Specialty Start Date End Date Betzaida Ramos MD PCP - General 03/18/20 documented as of this encounter
--- OUTSIDE RECORDS SUMMARY | 2024-06-08 15:12 | XMS_ITS | Clinical Summary ---
Author Organization [facility] Address [address] [place] [address] Care Team Providers Care Mandrel Press Hand Name Role Phone Betzaida Ramos MD Primary Care Provider [phone] Allergies No known active allergies Medications Alpha-Lipoic [...] with elevated blood glucose. I ordered a mfjdi-bt-niuq hemoglobin A1c that was 5.7%. 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 08/03/2013 Calculus of kidney 08/03/2013 Encounters Date Type Department Care Team Description 06/01/2024 Orders Only [facility] Department of Internal Medicine & Nephrology [place] 85 [facility] [address] [place] [address] Simon Butler MD 05/22/2024 10:20 AM EDT Office Visit [facility] Department of Internal Medicine & Nephrology [address] [address] Simon Butler MD Hypertension, unspecified type (Primary Dx); 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 Orders Only [facility] Department of Internal Medicine & Nephrology [address] [address] Simon Butler MD 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 Refill [facility] Physicians Department of Internal Medicine & Nephrology [address] [address] Simon Butler MD Cystinuria from [...] Physicians Department of Internal Medicine & Nephrology [place] [address] [place] [address] Simon Butler MD [address] [facility] [address] [place] [address] Health Maintenance Due Date Last Done Comments [...] this topic Medical Devices Explanted Type Area Hydraulic Modeling Engineer Device Identifier Shelf Expiration Date Model / Serial / Lot Stent Ureteral 6fr 26cm Pgtl Crv Taper Tip Bldr Des Lopro - [id number] Implanted:Qty: 1 on 08/08/2017 by Abdifatah Mccormack MD at [facility] Stent [employer] 04/04/2020 [id number] 0 / / [id number] Stent Ureteral 6fr 26cm Pgtl Crv Taper Tip Bldr Des Lopro - [id number] Implanted:Qty: 1 on 08/29/2017 by Abdifatah Mccormack MD at [facility] Stent Left: Ureter [employer] 03/21/2020 [id number] 0 / / [id number] Stent Ureteral 6fr 26cm Pgtl Crv Taper Tip Bldr Des Lopro - [id number] Implanted:Qty: 1 on 04/08/2018 by Sabine Ruth MD at [facility] Stent [employer] 12/07/2020 [id number] 0 / / [id number] Stent Ureteral 6fr 28cm Pgtl Crv Taper Tip Bldr Des Lopro - [id number] Implanted:Qty: 1 on 04/25/2018 by Abdifatah Mccormack MD at [facility] Stent [employer] [id number] 0 / / [id number] Stent Ureteral 6fr 26cm Pgtl Crv Taper Tip Bldr Des Lopro - [id number] Implanted:Qty: 1 on 10/19/2019 by Abdifatah Mccormack MD at [facility] Explanted:Qty: 1 on 10/31/2019 at [facility] Stent Left: Ureter [employer] 07/18/2022 [id number] 0 / / [id number] Stent Ureteral 6fr 26cm Taper Tip Bldr Des Lopro Cntr Hdr+ - [id number] Implanted:Qty: 1 on 03/09/2020 by Roman García MD at [facility] Stent Left: Ureter [employer] 11/05/2022 [id number] 0 / / [id number] Stent Ureteral 6fr 26cm Pgtl Crv Taper Tip Bldr Des Lopro - [id number] Implanted:Qty: 1 on 10/31/2019 at [facility] Explanted:Qty: 1 on 03/18/2020 by Abdifatah Mccormack MD at [facility] Stent Left: Ureter [employer] 05/20/2022 [id number] 0 / / [id number] Description:1 6x26 LEFT uret eral stent removed intact with string on by Dr. Abdifatah Mccormack [id number] Stent Ureteral 6fr 26cm Taper Tip Bldr Des Lopro Cntr Hdr+ - [id number] Implanted:Qty: 1 on 03/18/2020 by Abdifatah Mccormack MD at [facility] Explanted:03/28 by Abdifatah Mccormack MD (Quantity not on file) Stent Left: Ureter [employer] 11/27/2022 [id number] 0 / / [id number] Left Ureteral Stent Explanted:Qty: 1 on 08/29/2017 by Abdifatah Mccormack MD at [facility] Left: Ureter [employer] XXXX / / Procedures Procedure Name Priority Date/Time Associated Diagnosis Comments LAB RESULT Routine 05/04/2024 12:20 PM EDT from Last 3 Months Results * LAB RESULT (05/04/2024 12:20 PM EDT) Simon Butler MD HX AMB PROCEDURES Final Result from Last 3 Months Insurance [employer] INDIVIDUAL EXCHANGE PPO [facility] P[facility]GR Advance Directives * Full Code (Latest [...] 12:54 AM 08/08/2017 12:58 PM Care Teams Mandrel Press Hand Relationship Specialty Start Date End Date Betzaida Ramos MD PCP - General 03/18/20
--- OUTSIDE RECORDS SUMMARY | 2024-06-08 15:12 | XMS_ITS | Encounter Summary ---
Author Organization [facility] Address [address] [place] [address] Care Team Providers Care Supervisor Photocomposition Name Role Phone Angelica Beasley MD Primary Care Provider [phone] Encounter Details Date Type Department Care Team ([facility] st Contact Info) Description 01/19/2011 Scanned Document Neurology at [address] [address] External, Provider Social History Tobacco Use Types [...] on filedocumented in this encounter Care Teams Supervisor Photocomposition Relationship Specialty Start Date End Date Angelica Beasley MD [address] [place] [address] PCP - General Internal Medicine 05/12/12 documented as of this encounter
--- OUTSIDE RECORDS SUMMARY | 2024-06-08 15:12 | XMS_ITS | Encounter Summary ---
Author Organization [facility] Address [address] [place] [address] Care Team Providers Care [place] Department Supervisor Name Role Phone Betzaida Ramos MD Primary Care Provider [phone] Encounter Details Date Type Department Care Team (Late st Contact Info) Description 01/26/2021 Scanned Document [facility] Urologic Surgery [place] 85 [facility] [address] [place] [address] Simon Butler MD [address] [place] [address] [address] [place] [address] Social History Tobacco Use Types Packs/Day Years [...] Physicians Department of Internal Medicine & Nephrology [place] [address] [place] [address] Simon Butler MD 533 [facility] [address] [place] [address] documented as of this encounter Visit Diagnoses Not on filedocumented in this encounter Care Teams [place] Department Supervisor Relationship Specialty Start Date End Date Betzaida Ramos MD PCP - General 03/18/20 documented as of this encounter
--- OUTSIDE RECORDS SUMMARY | 2024-06-08 15:12 | XMS_ITS | Encounter Summary ---
Author Organization [facility] Address [address] [place] [address] Care Team Providers Care Materials Planner/Production Planner Name Role Phone Betzaida Ramos MD Primary Care Provider [phone] Encounter Details Date Type Department Care Team (Late st Contact Info) Description 06/01/2024 Orders Only [facility] Department of Internal Medicine & Nephrology [place] 85 [facility] [address] [place] [phone] Simon Butler MD [address] [place] [address] [address] [place] [address] Social History Tobacco Use Types Packs/Day Years [...] Physicians Department of Internal Medicine & Nephrology [place] [address] [place] [address] Simon Butler MD 533 [facility] [address] [place] [address] documented as of this encounter Procedures Procedure Name Priority Date/Time Associated Diagnosis Comments LAB RESULT Routine 05/04/2024 12:20 PM EDT documented in this encounter Results * LAB RESULT (05/04/2024 12:20 PM EDT) us Simon Butler MD HX AMB PROCEDURES Final Result documented in this encounter Visit Diagnoses Not on filedocumented in this encounter Care Teams Materials Planner/Production Planner Relationship Specialty Start Date End Date Betzaida Ramos MD PCP - General 03/18/20 documented as of this encounter
--- OUTSIDE RECORDS SUMMARY | 2024-06-08 15:12 | XMS_ITS | Encounter Summary ---
[facility] Organization [facility] Address [address] [place] [address] Care Team Providers Care Planer Tailer Name Role Phone Betzaida Ramos MD Primary Care Provider [phone] Simon Butler MD Unavailable Abdifatah Mccormack MD Unavailable Encounter Details Date Type Department Care Team (Late st Contact Info) Description 05/22/2019 [facility]Visit [facility] Department of Geriatrics [address] [place], [place] [address] Betzaida Ramos MD [address] [place] [address] E-Visit Submission: Symptoms consistent with coronavirus Social [...] documented as of this encounter Care Teams Planer Tailer Relationship Specialty Start Date End Date Betzaida Ramos MD [address] [place] [address] PCP - General 04/20/17 Simon Butler MD [address] [phone] Internal Medicine 03/24/18 Abdifatah Mccormack MD [address] [place] [phone] Urology 03/24/18 documented as of this encounter
--- OUTSIDE RECORDS SUMMARY | 2024-06-08 15:12 | XMS_ITS | Encounter Summary ---
Author Organization [facility] Address [address] [place] [address] Care Team Providers Care Thickener Operator Name Role Phone Betzaida Ramos MD Primary Care Provider [phone] Encounter Details Date Type Department Care Team (Late st Contact Info) Description 04/11/2020 Scanned Document [facility] Urologic Surgery [place] [address] [facility] [address] [place] [phone] Simon Butler MD [address] [place] [address] [address] [place] [address] Social History Tobacco Use Types Packs/Day Years [...] Department of Internal Medicine & Nephrology [place] [address] [place] [address] Simon Butler MD [address] [facility] [address] [place] [address] documented as of this encounter Visit Diagnoses Not on filedocumented in this encounter Care Teams Thickener Operator Relationship Specialty Start Date End Date Betzaida Ramos MD PCP - General 03/18/20 documented as of this encounter
--- OUTSIDE RECORDS SUMMARY | 2024-06-08 15:12 | XMS_ITS | Encounter Summary ---
Author Organization [facility] Address [address] [place] [address] Care Team Providers Care Chestnut Tanner Name Role Phone Betzaida Ramos MD Primary Care Provider [phone] Encounter Details Date Type Department Care Team (Late st Contact Info) Description 08/28/2017 Prep for Surgery [facility] Urologic Surgery [place] [address] [facility] [address] [place] [address] Brent Peres, WANDA [address] [facility] [address] [place] [address] Ureteral obstruction (Primary Dx) Social History Tobacco [...] Physicians Department of Internal Medicine & Nephrology [place] [address] [place] [address] Simon Butler MD [address] [facility] [address] [place] [address] documented as of this encounter Visit Diagnoses Diagnosis Ureteral obstruction- Primary Other ureteric obstruction documented in this encounter Care Teams Chestnut Tanner Relationship Specialty Start Date End Date Betzaida Ramos MD PCP - General 03/18/20 documented as of this encounter
--- OUTSIDE RECORDS SUMMARY | 2024-06-08 15:12 | XMS_ITS | Encounter Summary ---
Author Organization [facility] Address [address] [place] [phone] Care Team Providers Care Condominium Association Manager Name Role Phone Angelica Beasley MD Primary Care Provider [phone] Encounter Details Date Type Department Care Team (Latest Contact Info) Description 11/23/2012 Transcribed Orders [place] [facility] [address] [place] [address] Darrius Steinberg MD [address] [place] [address] Unspecified essential hypertension (Primary Dx); [...] (11/23/2012 4:24 PM EDT) ASHWINI <1:40 <1:40 [facility] Blood specimen (specimen) 11/23/2012 4:24 PM EDT us Darrius Steinberg MD LAB BLOOD ORDERABLES Final R esult [facility] [address] [place] [phone] * Protein electrophoresis, serum ( GH L Y) (11/23/2012 4:24 PM EDT) Total Protein 6.6 6.0 - 8.3 g/dL [facility] Albumin 4.3 3.5 - 5.0 g/dL [facility] Albumin Electrophoresis 3.62 3.50 - 4.70 g/dL [facility] Idquv-8-Yssnqlnq 0.21 0.10 - 0.30 g/dL [facility] Comment: Effective May 11, 2012, the reference range for this protein fraction has changed due to implementation of a new electrophoresis system. Kqvjw-0-Fnxzypki 0.84 0.60 - 1.00 g/dL [facility] Comment: Effective May 11, 2012, the reference range for this protein fraction has changed due to implementation of a new electrophoresis system. Beta Globulin 1.00 0.70 - 1.20 g/dL [facility] Comment: Effective May 11, 2012, the reference range for this protein fraction has changed due to implementation of a new electrophoresis system. Gamma Globulin 0.92 0.70 - 1.50 g/dL [facility] SPEP Interpretation See below See Interp. [facility] Comment: INTERPRETATION: No discrete abnormal bands. If monoclonal gammopathy remains a clinical consideration, recommend serum immunofixation electrophoresis (RUFUS). SIGNED BY:NIKITA RUDOLPH ON 11/27/2012 15:30:32 INTERPRETATION REVIEW : I have reviewed these results and agree with this interpretation. Blood specimen (specimen) 11/23/2012 4:24 PM EDT us Darrius Steinberg MD LAB BLOOD ORDERABLES Final R esult Performing Organization Address [facility]/ZIP Co de Phone Number [facility] [address] [place] [phone] * Lyme Abs C6 WESLEY w/ reflex to WB (Y) (11/23/2012 4:24 PM EDT) Pathologist [facility] B. burgdorferi Abs w/ Confirmation by WB 0.15 <=0.9 LI [facility] Comment: This sample tested negative [...] ORDERABLES Final R esult Performing Organization Address [facility] Co de Phone Number [facility] [address] [place] [phone] * Rheumatoid factor (BH L Q YH) (11/23/2012 4:24 PM EDT) [facility] [address] Rheumatoid Factor <15.9 IU/mL [facility] Blood specimen (specimen) 11/23/2012 4:24 PM EDT Darrius Steinberg MD LAB BLOOD ORDERABLES Final R esult Performing Organization Address [facility] Co de Phone Number [facility] [address] [place] [phone] * VDRL, w/ reflex titer & TP-PA confirm. (Y) (11/23/2012 4:22 PM EDT) Pathologist [facility] VDRL Non-reacti ve Non-reacti ve [facility] Blood specimen (specimen) 11/23/2012 4:22 PM EDT Darrius Steinberg MD LAB BLOOD ORDERABLES Final R esult Performing Organization Address [facility] Co de Phone Number [facility] [address] [place] [phone] * Sedimentation rate (ESR) ( GH YH) (11/23/2012 4:22 PM EDT) Sed Rate 10 0 - 20 mm/hr [facility] Blood specimen (specimen) 11/23/2012 4:22 PM EDT Darrius Steinberg MD LAB BLOOD ORDERABLES Final R esult Performing Organization Address [facility] de Phone Number [facility] [address] [place] [phone] * Vitamin D, 1,25-dihydroxy (mineral metabolism) (YH) (11/23/2012 4:22 PM EDT) Vit D, 1,25-Dihydroxy 62 25 - 66 pg/mL [facility] Comment: 1,25 Dihydroxy vitamin D [...] ORDERABLES Final R esult Performing Organization Address [facility] Co de Phone Number [facility] [address] [place] [phone] * Vitamin D 25 hydroxy (BH L YH) (11/23/2012 4:22 PM EDT) Vit D, 25-Hydroxy 42 20 - 50 ng/mL [facility] Comment: A serum 25(OH) vitamin [...] ORDERABLES Final R esult Performing Organization Address [facility] Co de Phone Number [facility] [address] [place] [phone] * (ABNORMAL) Pyridoxine (YH) (11/23/2012 4:22 PM EDT) Pyridoxine 35.1(H) 2.1 - 21.7 ng/mL [facility] Comment: Conversion Factor: ??Nanograms/mL x 4.046 = nanomoles/L Blood specimen (specimen) 11/23/2012 4:22 PM EDT Darrius Steinberg MD LAB BLOOD ORDERABLES Final R esult Performing Organization Address [facility] de Phone Number [facility] [address] [place] [phone] documented in this encounter Visit Diagnoses Diagnosis Unspecified essential hypertension- Primary Irritable bowel syndrome Depressive disorder, not elsewhere classified documented in this encounter Care Teams Condominium Association Manager Relationship Specialty Start Date End Date Angelica Beasley MD [address] [place] [phone] PCP - General Internal Medicine 05/12/12 documented as of this encounter
--- OUTSIDE RECORDS SUMMARY | 2024-06-08 15:12 | XMS_ITS | Encounter Summary ---
Author Organization [facility] Address [address] [place] [address] Care Team Providers Care Clinical Rehab Specialist Name Role Phone Betzaida Ramos MD Primary Care Provider [phone] Reason for Visit * Reason Comments Appointment Encounter Details Date Type Department Care Team ([facility] st Contact Info) Description 03/19/2020 Telephone [facility] Urologic Surgery [address] [place] [phone] [place] [address] [place] [address] Appointment Social History Tobacco Use Types Packs/Day [...] Physicians Department of Internal Medicine & Nephrology [place] [address] [place] [address] Simon Butler MD [address] [facility] [address] [place] [address] documented as of this encounter Visit Diagnoses Not on filedocumented in this encounter Care Teams Clinical Rehab Specialist Relationship Specialty Start Date End Date Betzaida Ramos MD PCP - General 03/18/20 documented as of this encounter
--- OUTSIDE RECORDS SUMMARY | 2024-06-08 15:12 | XMS_ITS | Encounter Summary ---
Author Organization [facility] Address [address] [place] [address] Care Team Providers Care Leather Parts Matcher Name Role Phone Betzaida Ramos MD Primary Care Provider [phone] Encounter Details Date Type Department Care Team (Late st Contact Info) Description 04/14/2022 Scanned Document [facility] Urologic Surgery [place] [address] [facility] [address] [place] [phone] Simon Butler MD [address] [place] [address] [address] [place] [address] Social History Tobacco Use Types Packs/Day Years [...] Physicians Department of Internal Medicine & Nephrology [place] [address] [place] [address] Simon Butler MD [address] [facility] [address] [place] [address] documented as of this encounter Visit Diagnoses Not on filedocumented in this encounter Care Teams Leather Parts Matcher Relationship Specialty Start Date End Date Betzaida Ramos MD PCP - General 03/18/20 documented as of this encounter
[2024-06-08 17:54] LABS: PSA,Total (Free>4and<10) 3.17 ng/mL (0.00-4.00)
== END 2024-06-08 14:04 | disposition home or self-care (01) ==
LOC: HO.LAB 14:03
PROVIDERS: Visit Provider Urology
DX: Z12.5 Encounter for screening for malignant neoplasm of prostate (principal)
CPT/HCPCS: 36415; 81003; 84153

== ENCOUNTER 2024-07-20 13:10 | Outpatient (REF) | payer OTHER, SELFPAY ==
--- NOTE | ~2024-07-20 | CT_ITS ---
EXAMINATION: CT ABDOMEN PELVIS WITHOUT IV CONTRAST HISTORY: N18.9 - Chronic kidney disease, unspecified COMPARISON: Comparison is made with the prior examination dated 11/10/2022. Correlation is also made with a renal ultrasound dated 06/01/2024. TECHNIQUE: CT scan of the abdomen and pelvis was performed without contrast using standard departmental protocol. Coronal and sagittal reformatted images were generated and reviewed. Oral contrast material was not administered per department protocol. This CT exam was performed with one or more of the following dose reduction techniques: automated exposure control, adjustment of the mA and/or kV according to patient size, use of iterative reconstruction technique. DLP: 362 mGy-cm FINDINGS: LOWER CHEST: The visualized lung bases are clear. There is no pleural effusion. CARDIOVASCULATURE: The heart is normal in size. There is no pericardial effusion. LIVER: The liver is normal in size and contour. The liver has an unremarkable unenhanced appearance. GALLBLADDER / BILE DUCTS: The gallbladder is unremarkable. There is no intra or extrahepatic biliary ductal dilatation. SPLEEN: The spleen is normal in size and has an unremarkable unenhanced appearance. PANCREAS: The pancreas has an unremarkable unenhanced appearance. ADRENAL GLANDS: Unremarkable. KIDNEYS/RETROPERITONEUM: The right kidney is atrophic, measuring 6.0 cm in length. There is a 2.2 x 0.9 cm calculus in a mid to lower pole calyx as noted on ultrasound. An adjacent smaller 3 mm calculus is also noted. There is mild dilatation of the renal pelvis. No ureteral calculi are identified. LYMPH NODES: No retroperitoneal lymphadenopathy is identified in the abdomen or pelvis. VASCULATURE: The abdominal aorta is normal in caliber. MESENTERY/PERITONEUM: No free fluid. No masses. There is no free intraperitoneal gas. STOMACH: The stomach is partially collapsed, limiting evaluation. SMALL BOWEL: The small bowel is normal in caliber. COLON: There is a moderate amount of stool throughout the colon. APPENDIX: The appendix is not seen, however no inflammatory changes are seen adjacent to the cecum. URINARY BLADDER/PELVIC ORGANS: The urinary bladder is unremarkable. The prostate is enlarged. BONES / SOFT TISSUES: There is degenerative disc disease at the L5-S1 level. CT/CT kidney stone IMPRESSION: Atrophic right kidney. Left nephrolithiasis as described. No ureteral calculi are identified. Electronically signed by: Ken North MD 07/20/2024 02:09 PM EDT RP
--- OUTSIDE RECORDS SUMMARY | 2024-07-20 13:20 | XMS_ITS | Encounter Summary ---
Author Organization [facility] Address [address] [place] [address] Care Team Providers Care Manager Fleet Name Role Phone Betzaida Ramos MD Primary Care Provider [phone] Encounter Details Date Type Department Care Team (Late st Contact Info) Description 04/11/2020 Scanned Document [facility] Urologic Surgery [place] [address] [facility] [address] [place] [phone] Simon Butler MD [address] [place] [address] [address] [place] [address] Social History Tobacco Use Types Packs/Day Years [...] Physicians Department of Internal Medicine & Nephrology [place] [address] [place] [address] Simon Butler MD [address] [facility] [address] [place] [address] documented as of this encounter Visit Diagnoses Not on filedocumented in this encounter Care Teams Manager Fleet Relationship Specialty Start Date End Date Betzaida Ramos MD PCP - General 03/18/20 documented as of this encounter
== END 2024-07-20 13:11 | disposition home or self-care (01) ==
LOC: HO.CT 13:10
PROVIDERS: Visit Provider Urology
DX: N18.9 Chronic kidney disease, unspecified (principal); N20.0 Calculus of kidney
CPT/HCPCS: 74176

== ENCOUNTER → 2024-07-20 13:12 | Outpatient (BNV) | payer OTHER, SELFPAY | PROVIDERS: Visit Provider Radiology Diagnostic Radiology | DX: N20.0 Calculus of kidney (principal) | CPT/HCPCS: 74176 ==

== ENCOUNTER 2024-08-02 07:43 | Outpatient (AMB) | payer OTHER, SELFPAY ==
--- NOTE | 2024-08-02 07:43 | A.OFFVIS_ITS ---
Intake Visit Reasons: follow up/CT Intake Note: Patient presents today for follow up on: CT Scan results Imaging Completed: 07/20/24 Urology Med: Potassium Antibiotic Allergy:None Blood Thinner: None Slag Wheeler Required: No Accompanied by: Self / Same As Patient Allergies No Known Allergies Allergy (Verified 08/02/24 07:49) HPI Comments Details: 08/02/24-- - The patient is a 64-year-old male presenting for management of nephrolithiasis. - The patient has a history of nephrolithiasis with a recent CT scan showing a 2.2 x 0.9 cm staghorn calculus in the left kidney lower pole calyx. An adjacent smaller 3 mm calculus is also noted. - The right kidney is atrophic, measuring 6 cm, with no stones present. - The patient has undergone shockwave lithotripsy and percutaneous nephrolithotomy procedures in the past. - The patient reports no significant urinary symptoms or pain associated with the current stone. Results - CT scan on 07/20/24: Right kidney atrophic, measuring 6 cm; left kidney with 2.2 x 0.9 cm staghorn calculus in lower pole calyx. An adjacent 3 mm calculus is also noted. - No stones in the ureter or pelvis causing obstruction. Discussion Notes I discussed with the patient the findings from the CT scan, which showed a staghorn calculus in the left kidney and an atrophic right kidney. We reviewed treatment options, including starting with shockwave lithotripsy to fragment the stone. If the lithotripsy is not effective, we may consider a more invasive percutaneous nephrolithotomy vs ureteroscopy laser lithotripsy. 06/08/24- 64-year-old male presenting with management needs for kidney stones. LV -06/10/23. He has a notable history of recurrent cystine renal stones, which have necessitated previous interventions such as lithotripsy and ureteroscopy. A recent renal ultrasound on June 01, 2024, revealed a 4 mm right kidney stone in the lower pole and multiple left renal stones, including a staghorn calculus. There is a significant concern about the potential progression of renal stones and the risk of obstruction, and the history of large stone formations. Pt complains of intermittent left flank pain. Urinary Symptoms Review - Presence of cystine kidney stones - History of undergoing lithotripsy and ureteroscopy for renal stone management Results - Renal Ultrasound (06/01/2024): Notable for a 4 mm stone in the right kidney lower pole and multiple stones in the left kidney, including a staghorn calculus mid to lower kidney. 10/28/2022?presents for stent removal today. I reviewed the urine culture results from 10/18/2022 which came back negative for bacterial growth. Stone analysis from 10/19/2022 revealed 100 % cystine. 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 presents today via televisit for KUB/surgery consult. He was last seen by me on 09/14/2022. He is status post cystoscopy, left ureteroscopy, laser lithotripsy and stent exchange done on 09/14/22.? He did have a KUB done on 09/29/2022. Radiologist has not transcribed the results. I have reviewed the films. There is a residual stone fragment noted on the proximal portion of the ureteral stent. Plan: Sched repeat left ureteroscopy laser lithotripsy stent exchange. OV-09/10/2022--Mikey is a 62-year-old male who I initially evaluated as an inpatient consult for hydronephrosis and acute renal insufficiency secondary to an obstructing stone. He is status post left ureteral stent. He had a follow-up KUB done on 09/03/22 that I reviewed. He has a history of cystine kidney stones. He has been followed by Dr. Gardiner in [place] for many years and has had a multiple of surgical treatment options including ureteroscopy, shockwave lithitripsy to manage the cistine kidney stones. He has moved to [place] and is going to continue his follow-up care with [facility]. He is not on aspirin or any other blood thinners. He is on Pyridium and oxbutynin and they are helpful for him. He requests refill for the Pyridium. Evaluation today-- UA 09/10/22-- Leukocytes: 1+. Blood:3+. Plan:? His follow-up KUB films were reviewed with the patient today. Left ureteroscopy, laser lithotripsy and stent exchange discussed to be scheduled. [facility] Medical History Small right kidney Cystinuria Surgical History Hx of appendectomy Hx of tonsillectomy H/O colonoscopy History of cystoscopy Family History Father No problems noted. Mother No problems noted. Social History Alcohol intake: current Alcohol intake frequency: 0-2 drinks per day Patient Tobacco Use Status: Never used Tobacco Second Hand Smoke Exposure: No Substance Use Type: Marijuana Review of Systems Const All systems reviewed & are unremarkable except as noted in HPI and below Reports no additional complaints Eyes Reports no additional complaints ENT Reports no additional complaints Card Reports no additional complaints Resp Reports no additional complaints GI Reports no additional complaints Reports as per HPI Musc Reports no additional complaints Skin/Breast Reports system reviewed and no additional complaints, except as documented Neuro Reports no additional complaints Psych Reports no additional complaints Endo Reports no additional complaints Uzair/Lymph Reports no additional complaints Aller/Immun Reports no additional complaints Telehealth Telehealth Telehealth Platform: [facility] Location of provider rendering services: practice address Location of patient: address on file Patient Identification confirmed using: Name, : Yes Telehealth method: voice only Patient verbally consented to treatment: Yes Patient verbally consented to billing insurance company: Yes Patient informed of any privacy concerns related to visit: Yes Minutes spent on Phone/Video with Pt.: 15 Results Reviewed Results Reviewed: Date of Service: 07/20/24 EXAMINATION: CT ABDOMEN PELVIS WITHOUT IV CONTRAST HISTORY: N18.9 - Chronic kidney disease, unspecified COMPARISON: Comparison is made with the prior examination dated 11/10/2022. Correlation is also made with a renal ultrasound dated 06/01/2024. TECHNIQUE: CT scan of the abdomen and pelvis was performed without contrast using standard departmental protocol. Coronal and sagittal reformatted images were generated and reviewed. Oral contrast material was not administered per department protocol. This CT exam was performed with one or more of the following dose reduction techniques: automated exposure control, adjustment of the mA and/or kV according to patient size, use of iterative reconstruction technique. DLP: 362 mGy-cm FINDINGS: LOWER CHEST: The visualized lung bases are clear. There is no pleural effusion. CARDIOVASCULATURE: The heart is normal in size. There is no pericardial effusion. LIVER: The liver is normal in size and contour. The liver has an unremarkable unenhanced appearance. GALLBLADDER / BILE DUCTS: The gallbladder is unremarkable. There is no intra or extrahepatic biliary ductal dilatation. SPLEEN: The spleen is normal in size and has an unremarkable unenhanced appearance. PANCREAS: The pancreas has an unremarkable unenhanced appearance. ADRENAL GLANDS: Unremarkable. KIDNEYS/RETROPERITONEUM: The right kidney is atrophic, measuring 6.0 cm in length. There is a 2.2 x 0.9 cm calculus in a mid to lower pole calyx as noted on ultrasound. An adjacent smaller 3 mm calculus is also noted. There is mild dilatation of the renal pelvis. No ureteral calculi are identified. LYMPH NODES: No retroperitoneal lymphadenopathy is identified in the abdomen or pelvis. VASCULATURE: The abdominal aorta is normal in caliber. MESENTERY/PERITONEUM: No free fluid. No masses. There is no free intraperitoneal gas. STOMACH: The stomach is partially collapsed, limiting evaluation. SMALL BOWEL: The small bowel is normal in caliber. COLON: There is a moderate amount of stool throughout the colon. APPENDIX: The appendix is not seen, however no inflammatory changes are seen adjacent to the cecum. URINARY BLADDER/PELVIC ORGANS: The urinary bladder is unremarkable. The prostate is enlarged. BONES / SOFT TISSUES: There is degenerative disc disease at the L5-S1 level. IMPRESSION: Atrophic right kidney. Left nephrolithiasis as described. No ureteral calculi are identified. Date of Service: 06/01/24 EXAMINATION: US KIDNEY BILATERAL HISTORY: N20.0 - Calculus of kidney TECHNIQUE: Real-time grayscale ultrasound imaging of the kidneys was performed and images were reviewed. COMPARISON: Comparison is made with the prior examination dated 02/23/2023. FINDINGS: Right kidney: The right kidney measures 7.1 x 2.9 x 3.4 cm. Renal parenchymal echotexture and thickness are normal. There are no masses. There is a 4 mm nonobstructing calculus at the lower pole. There is no hydronephrosis. Left Kidney: The left kidney measures 10.6 x 6.3 x 5.3 cm. Renal parenchymal echotexture and thickness are normal. There are no masses. There are upper pole nonobstructing calculi measuring 4 x 3 x 4 mm and 6 x 4 x 5 mm. There is a staghorn calculus in the mid to lower pole region, portions of which measure up to 1.5 x 1.0 x 1.4 cm. There is mild caliectasis. IMPRESSION: 1. 4 mm nonobstructing calculus at the lower pole of the right kidney. 2. Multiple left renal calculi including a staghorn calculus in the mid to lower pole region. Mild left caliectasis. This could be further evaluated with CT if desired. TAB: 10/19/22 STATUS: COMP REQ : [id number] RECD: 10/19/22-[address]: Sabine Ruth MD COMP: 10/25/22-1709 ENTERED: 10/19/22-[address] [facility] [address]: ORDERED: Kidney Stone QUERIES: Kidney Stone Source: lt kid Test Result Flag Reference Component 1 SEE NOTE Cystine 100% See Note 1 Stone Weight 0.213 g Note 1 This test was developed and its analytical performance characteristics have been determined by [employer]. It has not been cleared or approved by the FDA. This assay has been validated pursuant to the CLIA regulations and is used for clinical purposes. THIS TEST WAS PERFORMED AT: [facility] [address] [place] [address] MACEY BELCHER MD Stone Source KIDNEY STONE Date of Service: 09/03/22 EXAMINATION: XR ABDOMEN KUB CLINICAL INDICATION: Left ureteral stent.? COMPARISON: CT abdomen and pelvis 08/31/2022.? TECHNIQUE: AP view of the abdomen. FINDINGS: Since the prior CT scan, a left internally dwelling ureteral stent has been placed. The large previously seen obstructing left proximal to mid ureteral calculus remains in place measuring 2.1 x 0.7 cm. No other calculi are seen. The bowel gas pattern is normal. IMPRESSION: Interval placement of left internally dwelling ureteral stent. The left proximal to mid ureteral calculus remains in place. Date of Service: 08/31/22 EXAMINATION: CT ABDOMEN AND PELVIS WITHOUT CONTRAST? CLINICAL INFORMATION: Flank pain.? COMPARISON: CT Stone 30 09/24/2019 FINDINGS: LUNG BASES: There is bibasilar dependent atelectasis. Minimal atelectasis or scarring is seen in the lingula. The heart size is normal.? LIVER, GALLBLADDER, AND BILIARY TREE: The liver is normal in size, shape, and attenuation. No focal hepatic lesion or biliary ductal dilatation is present. The gallbladder is unremarkable with no evidence of radiopaque gallstones, gallbladder wall thickening, or obvious pericholecystic inflammatory changes.? PANCREAS: Unremarkable.? SPLEEN: Unremarkable.? ADRENAL GLANDS: Unremarkable.? KIDNEYS AND URETERS: The right kidney is small measuring 6.2 cm with extrarenal right kidney pelvis. The left kidney is slightly enlarged measuring 13 cm with moderate to significant left hydroureteronephrosis secondary to a large obstructive mid ureteral stone measuring 1.8 cm on coronal image 36/7 the distal left ureter is prominent but no stones seen.? BLADDER: Unremarkable.? GASTROINTESTINAL TRACT: There is scattered stool and gas seen throughout the colon without any significant distention. The small bowel loops are normal caliber. Appendix is normal caliber.? ABDOMINAL WALL: There is a small umbilical hernia containing fat.? LYMPH NODES: Normal. VASCULAR: Unremarkable. PELVIC VISCERA: There is moderate prostate enlargement. The periprostatic fat planes are preserved.? OSSEOUS STRUCTURES: Degenerative disc changes with vacuum disc phenomena and spondylosis at L5-S1 disc level is noted. There is no aggressive lytic or sclerotic process seen.? IMPRESSION: Large 1.8 cm obstructive radiopaque calculi left mid the ureter with moderate to significant hydroureteronephrosis and moderate perinephric stranding. ? Small right kidney likely chronic atrophy with extrarenal kidney pelvis. No radiopaque calculi seen in either kidneys. ? Mild constipation.?? Assessment & Plan Assessment & Plan (1) CKD (chronic kidney disease): Code(s): N18.9 - Chronic kidney disease, unspecified Category: Medical (2) Staghorn calculus: Code(s): N20.0 - Calculus of kidney Category: Medical (3) Left flank pain: Code(s): R10.9 - Unspecified abdominal pain Category: Medical Plan Plan - Initiate shockwave lithotripsy for the left kidney staghorn calculus and evaluate the effectiveness of stone fragmentation. - Consider PCPNL vs Ureteroscopy/laser if ESWL does not achieve desired results. - Continue finasteride for prostate management. Scribe Plan - Not visible on output: Patient was informed and verbally consented to the use of an ambient scribe for clinic note documentation during this visit. Coding Level of Care Code Tele Est Pt Level 4 (67875) Complex EM visit Add On G2211 Diagnoses CKD (chronic kidney disease) N18.9 Staghorn calculus N20.0 Left flank pain R10.9
--- OUTSIDE RECORDS SUMMARY | 2024-08-02 07:46 | XMS_ITS | Encounter Summary ---
Author Organization [facility] Address [address] [place] [address] Care Team Providers Care Piece Goods Packer Name Role Phone Betzaida Ramos MD Primary Care Provider [phone] Encounter Details Date Type Department Care Team (Late st Contact Info) Description 04/11/2020 Scanned Document [facility] Urologic Surgery [place] [address] [place] [id number] Simon Butler MD [address] [place] [address] [address] [place] [address] Social History Tobacco Use Types Packs/Day Years [...] Physicians Department of Internal Medicine & Nephrology [address] [place] [address] Simon Butler MD [address] [facility] [address] [place] [address] documented as of this encounter Visit Diagnoses Not on filedocumented in this encounter Care Teams Piece Goods Packer Relationship Specialty Start Date End Date Betzaida Ramos MD PCP - General 03/18/20 documented as of this encounter
== END 2024-08-02 08:07 | disposition home or self-care (01) ==
LOC: HO.HUSH 07:43
PROVIDERS: PCP Internal Medicine Geriatric Medicine; Visit Provider Urology
DX: N18.9 Chronic kidney disease, unspecified (principal); N20.0 Calculus of kidney; R10.9 Unspecified abdominal pain
CPT/HCPCS: 98014

== ENCOUNTER → 2024-08-02 07:43 | Outpatient (BNVA) | payer OTHER, SELFPAY | PROVIDERS: PCP Internal Medicine Geriatric Medicine; Visit Provider Urology ==

== ENCOUNTER 2024-08-16 01:23 | Inpatient (IN) | payer OTHER, SELFPAY ==
[2024-08-16] VITALS (16 sets, daily range): BP systolic 109–153; BP diastolic 66–87; PULSE 73–97; RESP 12–18; TEMP 36.1–37; O2SAT 89–100; BMI 24.0
--- NOTE | ~2024-08-16 | FL_ITS ---
EXAMINATION: FL GUIDANCE ONLY HISTORY: Left ureteral stone COMPARISON: Correlation is made with an unenhanced CT of the abdomen and pelvis dated 08/16/2024. TECHNIQUE: Fluoroscopy time: 69.2 seconds. Cumulative Dose: 17.49 mGy. Images: 2. FINDINGS: The initial fluoroscopic spot film of the left upper quadrant demonstrates opacification of a normal caliber distal ureter with a filling defect noted compatible with the calculus seen on CT. The final image demonstrates the proximal portion of a nephroureteral stent in place. FL/FL guidance in OR IMPRESSION: Fluoroscopy during procedure. Please see procedure report for additional information. Electronically signed by: Ken North MD 08/16/2024 02:52 PM EDT
--- NOTE | ~2024-08-16 | CT_ITS ---
CLINICAL HISTORY: L flank pain, reocurrent stones CT abdomen and pelvis without contrast Comparison: CT/SR - CT ABDOMEN PELVIS WO IV CON - 11/10/22 02:50 EDT Findings: Mild linear atelectasis is seen in bilateral lower lobes. 1.2 cm left proximal ureteral stone is present with severe left hydronephrosis and asymmetric left perinephric edema. The right kidney is small in size, measuring 6.7 cm in length. The noncontrast appearance of the liver, gallbladder, pancreas, spleen, and bilateral adrenal glands is within normal limits. There is no evidence of bowel obstruction. The appendix is not well-visualized. There is no pneumoperitoneum. Small fat containing umbilical hernia is present. The urinary bladder is partially distended. The prostate gland is mildly enlarged in size with a transverse diameter of 5.1 cm. There is no adenopathy. Multilevel degenerative changes are seen in the spine, severe at L5/S1. No acute osseous abnormality is identified. IMPRESSION: 1. 1.2 cm left proximal ureteral stone with severe left hydronephrosis and asymmetric left perinephric edema. 2. Small-sized right kidney. 3. Mildly enlarged prostate gland. This document has been electronically signed by: Lavonne Love on 08/16/2024 06:33:55
--- NOTE | ~2024-08-16 | XR_ITS ---
EXAMINATION: XR ABDOMEN KUB CLINICAL INDICATION: s/p lithotripsy, stent COMPARISON: None available. Correlation made with CT abdomen and pelvis 08/16/2024, demonstrating severe left hydronephrosis due to a ureteral calculus. TECHNIQUE: AP view of the abdomen. FINDINGS: Left-sided ureteral stent noted in place. No definite calculi identified within along the course of the stent or overlying the renal shadows within the confines of overlying bowel causing mild obscuration. Bowel gas pattern is normal/nonspecific. There is no focally dilated loop. Lung bases are clear. There is no organomegaly. There is no large abdominal mass. No suspicious osseous abnormalities. Mild degenerative changes and levoconvex scoliosis of the spine. Minimal degenerative changes in the bilateral hip joints. XR/XR KUB IMPRESSION: 1. Left ureteral stent in place. 2. No definite radiopaque calculi identified. 3. Normal bowel gas pattern. Electronically signed by: Abdifatah Reeder MD 08/17/2024 09:01 AM EDT
[2024-08-16 02:08] LABS: Hematocrit 42.7 % (42.0-52.0); Hemoglobin 14.6 g/dl (14.0-18.0); Mean Corpuscular HGB Conc 34.2 g/dl (31.0-36.0); Mean Corpuscular Volume 87.7 fL (80.0-98.0); Mean Platelet Volume 11.8 fL (9.4-12.4); Platelet Count 253 X10*3/uL (160-400); Red Blood Count 4.87 X10*6/uL (4.60-5.80); Red Cell Distribution Width 14.7 % (11.0-16.0); White Blood Count 12.6 X10*3/uL (4.8-10.8)
[2024-08-16 02:09] LABS: Appearance Urine Clear; Color Urine Yellow; Glucose Urine UA Negative (Negative); Leukocyte Esterase Urine Trace (Negative); Nitrite Urine Negative (Negative); PH 8.5 (5.0-9.0); Specific Gravity - Urine 1.015 (1.005-1.025); UMIC TRIGGER UACC YES; Urine Blood Trace (Negative); Urine Ketones 15 mg/dL (Negative); Urine Protein 30 (1+) mg/dL (Neg-Trace)
[2024-08-16 02:12] LABS: Bacteria Urine None Seen (None Seen); Hyaline Casts Urine 0-2 /LPF (0-2); Squamous Epithelial Cell Urine 0-2 /HPF (0-2); WBC Urine 0-5 /HPF (0-5)
--- NOTE | 2024-08-16 02:15 | ED_ITS ---
HPI - General Adult General Chief complaint: Urogenital-Male Stated complaint: Kidney Stones Time Seen by Provider: 08/16/24 01:59 Source: patient Mode of arrival: ambulatory Limitations: no limitations History of Present Illness ED Provider: Dr. Stephanie Carreon HPI narrative: Comes to the emergency room complaining of left-sided flank pain. Patient states that he is aware that he has staghorn calculi. Patient has passed multiple kidney stones in the past. Patient has a lithotripsy scheduled in a week. Patient states that he was doing well until last night, 5 hours ago. Patient feeling very nauseous, patient feels that he is passing another kidney stone. Denies hematuria said the pain is very significant, took 1 dose of tamsulosin which he had left over from a previous prescription. Patient states that the pain is radiating towards the left groin area. Patient states that he is aware that his right kidney is atrophic Related Data Home Medications ?Medication ?Instructions ?Recorded ?Confirmed alpha lipoic acid 200 mg tablet 400 mg PO BID 11/10/22 11/10/22 potassium citrate 10 mEq (1,080 10 meq PO BID 11/10/22 11/10/22 mg) tablet,extended release vit A 300 mcg-C 200 mg-E 27 tab PO 06/10/23 qf-pwfsvtly-ezpwlj-lutein tablet vit C 226 mg-vit E 90 mg-copper cap PO 06/10/23 0.8 mg-zinc oxide-lutein 5 mg capsule (PreserVision Lutein) captopril 25 mg tablet 25 mg PO BID 08/02/24 Allergies Allergy/AdvReac Type Severity Reaction Status Date / Time No Known Allergies Allergy Verified 08/16/24 01:44 Review of Systems 2 Review of Systems: Constitutional : No Weight loss, No Fever, No Chills, No Night Sweats, No Fatigue, No Malaise ENT/Mouth : No Hearing loss, No Ear Pain, No Nasal Congestion, No Sinus Pain, No Hoarseness, No sore throat, No Rhinorrhea, No Swallowing Difficulty Eyes: No Eye Pain, No Swelling, No Redness, No Foreign Body, No Discharge, No Vision Changes Cardiovascular : No Chest Pain, No SOB, No Dyspnea on Exertion, No Orthopnea, No Edema, No Palpitations Respiratory : No Cough, No Sputum, No Wheezing, No Smoke Exposure, No Dyspnea Gastrointestinal : Complaining of Nausea, No Vomiting, No Diarrhea, No Constipation, No abdominal Pain, No Hematochezia, No Melena Genitourinary : Denies dysuria, No Urinary Frequency, No Hematuria, No Urinary Incontinence, No Urgency, complaining of left-sided Flank Pain, No Urinary Flow Changes, No Hesitancy Back: Complaining of left-sided flank pain radiating towards the right groin Musculoskeletal : No joint pain, No Myalgias, No Joint Swelling Skin : No Skin Lesions, No rash Neuro : No Weakness, No Numbness, No Paresthesias, No Loss of Consciousness, No Dizziness, No Headache Psych : No Anxiety/Panic, No Depression, No SI/HI/AH/VH, No Social Issues, Heme/Lymph: No Bruising, No Bleeding,No Lymphadenopathy Endocrine : No Polyuria, No Polydipsia, No Temperature Intolerance PMFSH Past Medical History Medical History Small right kidney Cystinuria Surgical History Hx of appendectomy Hx of tonsillectomy H/O colonoscopy History of cystoscopy Family History Family History Father No problems noted. Mother No problems noted. Social History Social History Alcohol intake: current Alcohol intake frequency: 0-2 drinks per day Patient Tobacco Use Status: Never used Tobacco Second Hand Smoke Exposure: No Substance Use Type: Marijuana Advance Directives: No Advance Directives Information Provided: Yes Physical Exam ED Vital Signs: Vital Signs - 24 hr 08/16/24 01:42 08/16/24 02:26 08/16/24 03:54 Temperature 97.7 F Pulse Rate 93 Respiratory Rate 18 16 16 Blood Pressure 130/87 Pulse Oximetry 100 Oxygen Delivery Method Room Air Oxygen Flow Rate 08/16/24 03:55 08/16/24 05:52 08/16/24 06:39 Temperature 98.3 F 98.1 F 98.1 F Pulse Rate 87 74 87 Respiratory Rate 16 16 18 Blood Pressure 126/77 114/70 109/69 Pulse Oximetry 94 89 L 90 L Oxygen Delivery Method Room Air Room Air Room Air Oxygen Flow Rate 08/16/24 07:20 Temperature Pulse Rate 73 Respiratory Rate 12 Blood Pressure 109/72 Pulse Oximetry 97 Oxygen Delivery Method Nasal Cannula Oxygen Flow Rate 3 BMI result Body Mass Index 24.0 Const Other: Appearance: Alert. Oriented X3. Patient looks very uncomfortable Eyes: Pupils equal, round and reactive to light. ENT: Pharynx normal. Neck: Normal inspection. Neck supple. No lymph nodes noted. No crepitus CVS: Normal heart rate and rhythm. Pulses normal. Normal S1 and S2 Respiratory: No respiratory distress. Breath sounds normal. No Wheezing. No rales Abdomen: Soft and nontender. No rigidity. No distention. Back: Patient has left-sided CVA tenderness. Skin: Skin warm and dry. Normal skin color. Normal skin turgor. Extremities: No lower extremity edema. No Lacerations. No Rash Neuro: Oriented X 3. No motor deficit. No sensory deficit. Moving all extremities. No slurred speech. CN 2 through 12 grossly intact Psych: calm, cooperative, normal affect Course Course Course Narrative: Patient with long history of kidney stones, sustained no area, comes in complaining of left-sided flank pain. Patient states that he has a lithotripsy plant in a week from today. However, the pain is much worse today, started 5 hours ago and intense nausea no vomiting. Patient receiving IV fluids, morphine, Zofran Patient states that he has been drinking plenty of fluids but he is not urinating much out. Patient states that he does not feel that he has enough fluid in his bladder. CT scan to rule out obstruction is pending. Medications Administered Discontinued Medications Generic Name Dose Route Start Last Admin Trade Name John PRN Reason Stop Dose Admin Hydromorphone HCl 1 mg 08/16/24 03:49 08/16/24 03:54 Hydromorphone Hcl 1 Mg/Ml Syringe IVPUSH 08/16/24 03:50 1 mg ONCE ONE Administration Protocol Hydromorphone HCl 1 mg 08/16/24 06:59 08/16/24 07:04 Hydromorphone Hcl 1 Mg/Ml Syringe IVPUSH 08/16/24 07:00 1 mg ONCE ONE Administration Protocol Sodium Chloride 1,000 mls @ 999 mls/hr 08/16/24 02:13 08/16/24 04:25 Ns IVCONT 08/16/24 03:13 Infused .Q1H1M ONE Infusion Morphine Sulfate 4 mg 08/16/24 02:13 08/16/24 02:26 Morphine Sulfate 4 Mg/Ml Cartridge IVPUSH 08/16/24 02:14 4 mg ONCE ONE Administration Protocol Ondansetron HCl 4 mg 08/16/24 02:13 08/16/24 02:26 Ondansetron Hcl 4 Mg/2 Ml Vial IVPUSH 08/16/24 02:14 4 mg ONCE ONE Administration Prochlorperazine Edisylate 10 mg 08/16/24 06:59 08/16/24 07:04 Prochlorperazine Edisylate 10 Mg/2 Ml Vial IVPUSH 08/16/24 07:00 10 mg ONCE ONE Administration Medical Decision Making Medical Decision Making [facility] [place] Narrative: My interpretation of labs: Patient's white blood cell count 12.6, chemistry shows baseline creatinine of 1.82, normal LFTs, urinalysis negative for UTI CT scan shows a 1.2 left proximal ureteral stone with severe left hydronephrosis and asymmetric left perinephric edema Patient has required 1 dose of morphine and 2 of Dilaudid. Patient is still very uncomfortable and nauseous. I discussed the above-mentioned with Dr. Sung chambers from Urology, patient to be admitted. Patient to remain NPO Differential Diagnosis Differential Diagnoses: The differential diagnosis associated with the presentation includes (Ureterolithiasis, hydronephrosis, pyelonephritis) Admission/Observation Consideration of admission/observation: Escalation of care including admission/observation considered Consult Healthcare Provider Management of the patient was discussed with: Manager Servicing Lab Data [facility] [place] Lab Attestation statement: I reviewed the patient's lab results. 08/16/24 01:55 08/16/24 01:55 Labs: Lab Results 08/16/24 Range/Units 01:55 WBC 12.6 H (4.8-10.8) X10*3/uL RBC 4.87 (4.60-5.80) X10*6/uL Hgb 14.6 (14.0-18.0) g/dl Hct 42.7 (42.0-52.0) % MCV 87.7 (80.0-98.0) fL MCH 30.0 (27.0-33.0) pg MCHC 34.2 (31.0-36.0) g/dl RDW 14.7 (11.0-16.0) % Plt Count 253 (160-400) X10*3/uL MPV 11.8 (9.4-12.4) fL Absolute Nucleated RBC 0.000 (0.0-0.012) X10*3/uL Nucleated RBC % (auto) 0.0 (0.0-0.2) /100WBC Sodium 137 (135-145) mmol/L Potassium 4.4 (3.3-5.1) mmol/L Chloride 100 (96-108) mmol/L Carbon Dioxide 23 (22-29) mmol/L Anion Gap 18 (12-20) BUN 29 H (9-16) mg/dL Creatinine 1.82 H (0.5-1.4) mg/dL Estim Creat Clear Calc 38.6 Estimated GFR 37 Random Glucose 121 H (60-115) mg/dL Calcium 9.6 (8.4-10.2) mg/dL Total Bilirubin 0.4 (0.0-1.0) mg/dL AST 34 (5-37) U/L ALT 24 (0-40) U/L Alkaline Phosphatase 42 (39-117) U/L Total Protein 6.8 (6.5-8.0) g/dL Albumin 4.0 (3.5-5.0) g/dL Urine Color Yellow Urine Appearance Clear Urine pH 8.5 (5.0-9.0) Ur Specific [place] 1.015 (1.005-1.025) Urine Protein 30 (1+) H (Neg-Trace) mg/dL Urine Glucose (UA) Negative (Negative) mg/dL Urine Ketones 15 (Negative) mg/dL Urine Blood Trace H (Negative) Urine Nitrite Negative (Negative) Ur Leukocyte Esterase Trace H (Negative) Urine RBC 11-20 H (0-2) /HPF Urine WBC 0-5 (0-5) /HPF Ur Squamous Epith Cells 0-2 (0-2) /HPF Urine Bacteria None Seen (None Seen) Hyaline Casts 0-2 (0-2) /LPF Independent Interpretation I performed an independent interpretation of an: CT Scan Radiology Impression Discussion of test interpretation with radiology: I have reviewed the radiologist's reading. Radiologist Impression: Mild linear atelectasis is seen in bilateral lower lobes. 1.2 cm left proximal ureteral stone is present with severe left hydronephrosis and asymmetric left perinephric edema. The right kidney is small in size, measuring 6.7 cm in length. The noncontrast appearance of the liver, gallbladder, pancreas, spleen, and bilateral adrenal glands is within normal limits. There is no evidence of bowel obstruction. The appendix is not well-visualized. There is no pneumoperitoneum. Small fat containing umbilical hernia is present. The urinary bladder is partially distended. The prostate gland is mildly enlarged in size with a transverse diameter of 5.1 cm. There is no adenopathy. Multilevel degenerative changes are seen in the spine, severe at L5/S1. No acute osseous abnormality is identified. IMPRESSION: 1. 1.2 cm left proximal ureteral stone with severe left hydronephrosis and asymmetric left perinephric edema. 2. Small-sized right kidney. 3. Mildly enlarged prostate gland. Critical Care Time Critical Care Time Critical Care Time: Yes Total Critical Care Time: 60 Attestation: I have personally provided critical care time. Time includes review of lab data, radiology results, discussion with consultants, and monitoring for potential decompensation. Intervention performed as documented. Discharge Plan Discharge Clinical Impression: Hydronephrosis with renal calculous obstruction Patient Disposition: Admitted As Inpatient Print Language: Albanian
[2024-08-16 02:16] LABS: Alanine Aminotransferase 24 U/L (0-40); Alkaline Phosphatase 42 U/L (39-117); Anion Gap 18 (12-20); Aspartate Amino Transferase 34 U/L (5-37); Bilirubin Total 0.4 mg/dL (0.0-1.0); Blood Urea Nitrogen 29 mg/dL (9-16); Calcium 9.6 mg/dL (8.4-10.2); Carbon Dioxide 23 mmol/L (22-29); Chloride 100 mmol/L (96-108); Creatinine Clr Calc Pharmacy 38.6; Estimated Glomerular Filt Rate 37; Glucose Random 121 mg/dL (60-115); Potassium 4.4 mmol/L (3.3-5.1); Sodium 137 mmol/L (135-145); Total Protein 6.8 g/dL (6.5-8.0)
[2024-08-16] MEDS: ondansetron HCL 4 MG/2 ML VIAL IVPUSH (02:26)
[2024-08-16] MEDS: Morphine Sulfate 4 MG/ML CARTRIDGE IVPUSH (02:26)
[2024-08-16] MEDS: 0.9 % Sodium Chloride 1,000 ML 999 ML IVCONT (02:26)
[2024-08-16] MEDS: HYDROmorphone HCl 1 MG/ML SYRINGE IVPUSH ×2 (03:54→07:04)
--- NOTE | 2024-08-16 04:27 | PC.NURSE ---
Patient is alert and oriented x4, VSS. Patient medicated per MAR, current level of pain 5/10 in left flank. Patient currently resting in stretcher bed, stating pain level is at tolerable level, call bennett in patient's reach, plan of care ongoing.
[2024-08-16] MEDS: Prochlorperazine Edisylate 10 MG/2 ML VIAL IVPUSH (07:04)
--- NOTE | 2024-08-16 07:18 | PC.NURSE ---
patient medicated per APR with 1mg Dilaudid IVP, patient noted to desat down to 76% on room air. patient repositioned to sitting up, educate to take deep breaths, patient recovered quickly to 96% on RA. ED provider notified, patient placed on 3l NC.
--- NOTE | 2024-08-16 07:39 | PM.HPGS ---
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 Presented to the ED due to left flank pain. CTAP notes the staghorn calculus has migrated into the proximal ureter. Severe left hydronephrosis. BUN and creatinine elevated 29 and 1.82. Review of Systems Review of Systems: Yes all other systems are reviewed and are negative Constitutional: Constitutional: Reports no additional constitutional complaints Eyes: Eyes: Reports no additional eye complaints ENT: Reports system reviewed and no additional complaints, except as documented Cardiovascular: Cardiovascular: Reports no additional cardiovascular complaints Respiratory: Respiratory: Reports no additional respiratory complaints Gastrointestinal: Gastrointestinal: Reports no additional gastrointestinal complaints Genitourinary: Genitourinary: Reports as per HPI Musculoskeletal: Musculoskeletal: Reports no additional musculoskeletal complaints Integumentary/Breasts: Skin/Breast: Reports system reviewed and no additional complaints, except as docu Neurologic: Reports system reviewed and no additional complaints, except as documented Psychiatric: Psychiatric: Reports no additional psychiatric complaints Endocrine: Endocrine: Reports no additional endocrine complaints Hematologic/Lymphatic: Hematologic/Lymphatic: Reports no additional hematologic/lymphatic complaints Allergic/Immunologic: Allergic/Immunologic: Reports no additional allergic/immunologic complaints PMFSH Past Medical History Medical History Small right kidney Cystinuria Family History Family History Father No problems noted. Mother No problems noted. Surgical History Surgical History Hx of appendectomy Hx of tonsillectomy H/O colonoscopy History of cystoscopy Social History Social History Alcohol intake: current Alcohol intake frequency: 0-2 drinks per day Patient Tobacco Use Status: Never used Tobacco Second Hand Smoke Exposure: No Substance Use Type: Marijuana Advance Directives: No Advance Directives Information Provided: Yes Meds Allergies Allergy/AdvReac Type Severity Reaction Status Date / Time No Known Allergies Allergy Verified 08/16/24 01:44 Home Medications ?Medication ?Instructions ?Recorded ?Confirmed ?Last Taken ?Type potassium citrate 10 mEq (1,080 20 meq PO BID 11/10/22 08/16/24 08/15/24 History mg) tablet,extended release captopril 25 mg tablet 25 mg PO BID 08/02/24 08/16/24 08/15/24 History selenium 100 mcg tablet 100 mcg PO BID 08/16/24 08/16/24 08/15/24 History vit C 250 mg-E 90 mg-zinc 40 1 tab PO BID 08/16/24 08/16/24 08/15/24 History mg-copper 1 go-oztxqc-nhhxnc chew tablet (PreserVision AREDS-2) Physical Exam Vital Signs: Vital Signs: Last Vital Signs Temp 98.1 F 08/16/24 06:39 Pulse 73 08/16/24 07:20 Resp 12 08/16/24 07:20 BP 109/72 08/16/24 07:20 Pulse Ox 97 08/16/24 07:20 O2 Del Method Nasal Cannula 08/16/24 07:20 O2 Flow Rate 3 08/16/24 07:20 BMI result Body Mass Index 24.0 Results Results Labs: Short CBC 08/16/24 Range/Units 01:55 WBC 12.6 H (4.8-10.8) X10*3/uL Hgb 14.6 (14.0-18.0) g/dl Hct 42.7 (42.0-52.0) % Plt Count 253 (160-400) X10*3/uL BMP 08/16/24 01:55 Sodium 137 Potassium 4.4 Chloride 100 Carbon Dioxide 23 BUN 29 H Creatinine 1.82 H Calcium 9.6 Liver Function 08/16/24 Range/Units 01:55 Total Bilirubin 0.4 (0.0-1.0) mg/dL AST 34 (5-37) U/L ALT 24 (0-40) U/L Alkaline Phosphatase 42 (39-117) U/L Albumin 4.0 (3.5-5.0) g/dL Urine 08/16/24 Range/Units 01:55 Urine Color Yellow Urine Appearance Clear Urine pH 8.5 (5.0-9.0) Ur Specific [place] 1.015 (1.005-1.025) Urine Protein 30 (1+) H (Neg-Trace) mg/dL Urine Glucose (UA) Negative (Negative) mg/dL Assessment and Plan (1) Elevated serum creatinine: Status: Acute (2) Hydronephrosis with renal calculous obstruction: Status: Acute (3) Kidney stone on left side: Status: Acute (4) MARYA (acute kidney injury): Status: Acute Plan Keep NPO, IVF hydration, Cysto Left ureteroscopy, ureteral stent, possible lithotripsy Quality Stroke Does the patient have a stroke diagnosis?: No VTE Prior VTE?: No VTE Risk Level:: Surgical - low VTE Device Contraindication: N/A - Device Ordered VTE Drug Contraindication: Treatment Not Indicated Procedures Date of Service Date of Service: 08/16/24
--- NOTE | 2024-08-16 09:24 | PHA.MEDREC ---
Pharmacy Consult ? Medication Reconciliation Pharmacy has completed the medication reconciliation. Spoke with pt to confirm meds.
[2024-08-16] MEDS: Lactated Ringers 1,000 ML 75 ML IVCONT (10:24)
--- NOTE | 2024-08-16 13:01 | MHC.SHP ---
Pre-Procedural Eval Section A - 24 Hr Update-Section A only Date of Service: 08/16/24 The patient is an INPATIENT: Yes Changes since office visit: No Cold of Flu in the past 2 weeks, No New Medical Problems, No Changes in Medication and No Patient answered all questions The patient has been examined within 24 hours of the surgical procedure. The History & Physical has been completed within 30 days and I have reviewed it.: Yes Section B - Complete if H&P > 30 days Chief Complaint: Obstructed Uropathy Allergies: Allergies Allergy/AdvReac Type Severity Reaction Status Date / Time No Known Allergies Allergy Verified 08/16/24 01:44 Plan Diagnosis/Plan: Unchanged (Cystoscopy, left retrograde, left ureteroscopy with laser lithotripsy stent placement) I have reviewed the history and physical and performed a pertinent physical examination on my patient. No changes have occurred unless specified. Time Spent With Patient Time: Total time managing care of this patient today ____ minutes.
--- NOTE | 2024-08-16 13:02 | HO.ANESPROP2 ---
HPI - Anesthesia Eval Consult details Narrative: cysto/stent PMFSH Active Problems Active Problems: All Active Problems Left flank pain (Acute) Staghorn calculus (Acute) CKD (chronic kidney disease) (Acute) Cystine calculus of kidney (Acute) Hydronephrosis (Acute) MARYA (acute kidney injury) (Acute) Kidney stone on left side (Acute) Screening PSA (prostate specific antigen) (Acute) Hydronephrosis with renal calculous obstruction (Acute) Elevated serum creatinine (Acute) Past Medical History Medical History Small right kidney Cystinuria Family History Family History Father No problems noted. Mother No problems noted. Family history of problems with anesthesia: No Surgical History Surgical History Hx of appendectomy Hx of tonsillectomy H/O colonoscopy History of cystoscopy History of Problems with Anesthesia: No Social History Social History Alcohol intake: current Alcohol intake frequency: 0-2 drinks per day Patient Tobacco Use Status: Never used Tobacco Second Hand Smoke Exposure: No Substance Use Type: Marijuana Meds Allergies Allergy/AdvReac Type Severity Reaction Status Date / Time No Known Allergies Allergy Verified 08/16/24 01:44 Active Medications: Current Medications Acetaminophen (Acetaminophen 325 Mg Tablet) 650 mg PO Q6H PRN PRN Reason: Pain, Mild 1-3,fever,headache Al Hydroxide/Mg Hydroxide (Magnesium Hydrox/Alum Hydrox 30 Ml Oral.Susp) 30 ml PO Q4H PRN PRN Reason: Heartburn Calcium Carbonate (Calcium Carbonate 750 Mg Tab.Chew) 750 mg PO Q4H PRN PRN Reason: Heartburn Hydromorphone HCl (Hydromorphone Hcl 1 Mg/Ml Syringe) 0.5 mg IVPUSH Q3H PRN; Protocol PRN Reason: Pain, Severe (Pain Scale 7-10) Lactated Ringer's (Lr) 1,000 mls @ 75 mls/hr IVCONT .[id number] FRANCISCA Last Admin: 08/16/24 10:24 Dose: 75 mls/hr Levofloxacin (Levaquin) 500 mg in 100 mls @ 100 mls/hr IV PREOP ONE Stop: 08/16/24 13:58 Acetaminophen (Ofirmev) 1,000 mg in 100 mls @ 400 mls/hr IV PREOP ONE Stop: 08/16/24 13:13 Magnesium Hydroxide (Milk Of Magnesia 30 Ml Oral.Susp) 30 ml PO DAILY PRN PRN Reason: Constipation Melatonin (Melatonin 3 Mg Tablet) 6 mg PO BEDTIME PRN PRN Reason: Insomnia Ondansetron HCl (Ondansetron Hcl 4 Mg/2 Ml Vial) 4 mg IVPUSH Q8H PRN PRN Reason: Nausea and Vomiting Oxycodone HCl (Oxycodone Hcl Immed Release 5 Mg Tablet) 5 mg PO Q3H PRN PRN Reason: Pain, Moderate(Pain Scale 4-6) Sodium Chloride (0.9 % Sodium Chloride Flush 3 Ml Syringe) 3 [facility] Home Medications ?Medication ?Instructions ?Recorded ?Confirmed ?Last Taken ?Type potassium citrate 10 mEq (1,080 20 meq PO BID 11/10/22 08/16/24 08/15/24 History mg) tablet,extended release captopril 25 mg tablet 25 mg PO BID 08/02/24 08/16/24 08/15/24 History selenium 100 mcg tablet 100 mcg PO BID 08/16/24 08/16/24 08/15/24 History vit C 250 mg-E 90 mg-zinc 40 1 tab PO BID 08/16/24 08/16/24 08/15/24 History mg-copper 1 vw-cwnagk-kywhtt chew tablet (PreserVision AREDS-2) Exam Height,Weight and Vital Signs: Height 5 ft 8 in Weight 71.7 kg Last Vital Signs Temp 98.2 F 08/16/24 09:51 Pulse 80 08/16/24 09:51 Resp 16 08/16/24 09:51 BP 134/76 08/16/24 09:51 Pulse Ox 95 08/16/24 09:51 O2 Del Method Nasal Cannula 08/16/24 09:51 O2 Flow Rate 3 08/16/24 09:51 Pertinent Lab Results Pertinent Lab Results: Laboratory Tests 08/16/24 01:55 WBC 12.6 H RBC 4.87 Hgb 14.6 Hct 42.7 MCV 87.7 MCH 30.0 MCHC 34.2 RDW 14.7 Plt Count 253 MPV 11.8 Absolute Nucleated RBC 0.000 Nucleated RBC % (auto) 0.0 Sodium 137 Potassium 4.4 Chloride 100 Carbon Dioxide 23 Anion Gap 18 BUN 29 H Creatinine 1.82 H Estim Creat Clear Calc 38.6 Estimated GFR 37 Random Glucose 121 H Calcium 9.6 Total Bilirubin 0.4 AST 34 ALT 24 Alkaline Phosphatase 42 Total Protein 6.8 Albumin 4.0 Urine Color Yellow Urine Appearance Clear Urine pH 8.5 Ur Specific [place] 1.015 Urine Protein 30 (1+) H Urine Glucose (UA) Negative Urine Ketones 15 Urine Blood Trace H Urine Nitrite Negative Ur Leukocyte Esterase Trace H Urine RBC 11-20 H Urine WBC 0-5 Ur Squamous Epith Cells 0-2 Urine Bacteria None Seen Hyaline Casts 0-2 Airway Mallampati Class: II TM Dist: >3cm Neck ROM: Full Heart: rrr Lungs: cta Assessment and Plan Assessment Anesthesia Assessment: Anesthesia Plan Discussed and Chart Reviewed Final Anesthetic Review Family History of Problems with Anesthesia: No History of Problems with Anesthesia: No NPO: Yes ASA Class: III Final Preanesthetic Review: No Changes in Pt Med Stat, Meds/Allgs Chart Reviewed, Consent Obtained/Reviewed and Anes Risks/Benef Reviewed Patient Risk: Intermediate Procedure Risk: Low Anesthetic Plan Anesthetic Plan: GA Disposition: Standard PACU
[2024-08-16] MEDS: Albuterol Sulfate (0.083%) 2.5 MG/3 ML VIAL.NEB INHALE (13:11)
[2024-08-16] MEDS: Lactated Ringers 1,000 ML 80 ML IVCONT (13:57)
--- NOTE | 2024-08-16 14:34 | W.PM.OPN ---
Operative Note Operative Note Date of Service: 08/16/24 Narrative: PreOperative Diagnosis: Left proximal ureteric stone Post Operative Diagnosis: Left renal stone Procedure: - cystoscopy, left retrograde - left dilatation of ureteric orifice under fluoroscopy - left ureteroscopy, laser lithotripsy, stone basketing - modifier 22 100% longer than typical - left stent placement Surgeon: Dr Delta Kruse Anesthesia: General Indications for procedure: Known cystine stone former. Left proximal ureteric 2.4 cm stone obstructing. Elevated creatinine. Procedure: After informed consent was verified patient was brought to the operating placed in supine position. Anesthesia was administered per protocol. Patient was placed in modified dorsal lithotomy position and prepped and draped in a sterile fashion. Safety pause time-out and side of surgery confirmed. Antibiotics confirmed. A 22 Wallisian cystoscope was inserted per urethra. The urethra and bladder were normal in their entirety. Both ureteric orifices were in normal position. The left ureteric orifice was cannulated and a retrograde examination was performed. Filling defects seen at proximal ureter. A Sensor guidewire was placed up to the level of the renal pelvis under fluoroscopy. The rigid cystoscope was removed and the inner cannula of ureteric access sheath was used under fluoroscopy to dilate the ureteric orifice. The ureteric access sheath was placed and the inner cannula with access wire removed. The digital flexible ureteral scope was placed. Stone was encountered within the renal pelvis. Had been pushed back up by the sensor wire. Using a 365 holmium laser fiber and settings between 1.4 joules and 8-20 hertz the stone was broken into small pieces. This took proximally 45 minutes which is 100% longer than typical. Using a 1.9 ZeroTip basket multiple fragments were removed with multiple passes of the ureteral scope. At the completion of the stone procedure a Sensor wire was placed back into the renal pelvis. The rigid cystoscope was backloaded over the wire and advanced into the bladder. A 6 Wallisian by 26 cm double-J stent was placed into the renal pelvis and bladder under a combination of fluoroscopy and direct visualization. Proximal positioning of the stent was confirmed using fluoroscopy. The bladder was emptied. The patient tolerated the procedure well and was extubated in the operating room, and transferred in stable condition to the recovery area. Pathology: stones Drains: 6F x 26cm
[2024-08-16] MEDS: Phenazopyridine HCL 100 MG TABLET PO (18:01)
[2024-08-17 03:13] VITALS: BP 106/63; PULSE 72; RESP 18; TEMP 36.8; O2SAT 96
[2024-08-17 07:21] VITALS: BP 123/73; PULSE 86; RESP 14; TEMP 36.8; O2SAT 92
[2024-08-17] MEDS: 0.9 % Sodium Chloride Flush 3 ML SYRINGE IVFLUSH (08:43)
--- NOTE | 2024-08-17 09:17 | HO.POSTANES ---
Post Anesthesia Evaluation Post Anesthesia Evaluation Date of Service: 08/17/24 Vital Signs: Vital Signs Temp Pulse Resp BP Pulse Ox O2 Del Method 08/17/24 07:21 98.2 F 86 14 123/73 92 Room Air 08/17/24 03:13 98.2 F 72 18 106/63 96 Room Air Anesthesia: General LMA Mental Status: Awake Pain Control: Satisfactory Nausea/Vomiting: None Hydration: Adequate Anesthesia-Related Issues: No Anes. Related Issues
--- NOTE | 2024-08-17 09:51 | MHC.CM.PN ---
Addendum entered by Kely Rubalcava 08/17/24 11:54: DP: PT IS MEDICALLY CLEARED FOR DC HOME, NO SERVICES. PT HAS OWN RIDE HOME Original Note: CM MET WITH PT AT BEDSIDE. PT LIVES WITH ROOMMATE AND IS FUNCTIONALLY INDEPENDENT, EMPLOYED F/T. NO SERVICESOR DME. + HCP NO PCP, PT PROVIDED WITH [facility]. DP: HOME, NO SERVICES. PT HAS OWN RIDE HOME. CM WILL CONTINUE TO FOLLOW FOR ANY CHANGE TO DC PLAN
[2024-08-27 01:48] LABS: Stone Source KIDNEY
--- NOTE | 2024-09-11 15:12 | PM.DS ---
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 Presented to the ED due to left flank pain. CTAP notes the staghorn calculus has migrated into the proximal ureter. Severe left hydronephrosis. BUN and creatinine elevated 29 and 1.82. Underwent left ureteroscopy laser lithotripsy, stent insertion Status at Discharge Cognitive/behavioral status at discharge: stable Functional status at discharge: independent ambulation Overall status at discharge: patient is back to baseline Time Attestation Total time managing care of this patient today: 36 mintues. Discharge Coordination Time (in mins): 36 minutes Quality: Safe Use of Opioids Does Pt have an Active Cancer Diagnosis on the Problem List?: No Quality: Stroke Does the patient have a stroke diagnosis?: No Physical Exam Vital Signs: Vital Signs: Last Vital Signs Temp 98.2 F 08/17/24 07:21 Pulse 86 08/17/24 07:21 Resp 14 08/17/24 07:21 BP 123/73 08/17/24 07:21 Pulse Ox 92 08/17/24 07:21 O2 Del Method Room Air 08/17/24 07:21 O2 Flow Rate 2 08/16/24 15:17 BMI result Body Mass Index 24.0 DS: Data Data Completed and Pending Completed studies during hospitalization [Text1]: Pending at discharge 08/16/24 14:30 Surgical [PTH] Routine Procedures Dilation of Left Ureter with Intraluminal Device, Via Natural or Artificial Opening Endoscopic (08/16/24) Extirpation of Matter from Left Ureter, Via Natural or Artificial Opening Endoscopic (08/16/24) Fluoroscopy of Left Kidney, Ureter and Bladder (08/16/24) Imaging CT scan - abdomen: Radiologist's impression: ITS Impressions Guidance Fluoroscopy 08/16/24 13:28 IMPRESSION: Fluoroscopy during procedure. Please see procedure report for additional information. Electronically signed by: Ken North MD 08/16/2024 02:52 PM EDT RP KUB X-Ray 08/17/24 07:50 IMPRESSION: 1. Left ureteral stent in place. 2. No definite radiopaque calculi identified. 3. Normal bowel gas pattern. Electronically signed by: Abdifatah Reeder MD 08/17/2024 09:01 AM EDT RP Discharge Plan Discharge Anticipated Discharge Date/Time: 08/17/24 11:14 Patient Disposition: Home, Self-Care Discharge Diagnosis: Obstructive uropathy, Nephrolithiasis Referrals: Physician,Unknown J [Primary Care Provider, Medical] - 1 Week Discharge Medications: New oxycodone 5 mg tablet 5 mg PO Q6H PRN (Reason: pain) Qty: 10 0RF Rx Instructions: Partial Fill upon patient request. Continued potassium citrate 10 mEq (1,080 mg) tablet extended release 20 meq PO BID selenium 100 mcg Tablet 100 mcg PO BID PreserVision AREDS-2 250-90-40-1 mg Tablet,Chewable 1 tab PO BID captopril 25 mg tablet 25 mg PO BID Discharge Orders: Discharge Order (Routine); Ordered 08/17/24 Ordered By: Sabine Ruth Diet: Advance to usual diet Activity on Discharge: As tolerated Stand Alone Forms: Patient Portal Discharge page Print Language: Georgian Care Plan Goals: Follow up with Urology Health Concerns: Adequate hydration Plan of Treatment: Follow up with Urology for stent removal Assessment: Stable Discharge Date/Time: 08/17/24 12:45
== END 2024-08-17 12:45 | disposition home or self-care (01) | DRG 661 ==
LOC: HO.ED 08:50 → HO.EDOVER 10:21 → HO.S3 12:05
PROVIDERS: Urology; Admitting Provider Urology; Emergency Provider Emergency Medicine; Visit Provider Urology
PROC: 0T778DZ Dilation of Left Ureter with Intraluminal Device, Via Natural or Artificial Opening Endoscopic (ICD-10-PCS; CPT 52356; principal; 2024-08-16 14:00)
DX: N13.2 Hydronephrosis with renal and ureteral calculous obstruction (principal); N17.9 Acute kidney failure, unspecified; Z79.899 Other long term (current) drug therapy
CPT/HCPCS: 52356; 36415; 74018; 74176; 80053; 81001; 81003; 82365; 85027; 88300; 99221; 99285; C1758; C1769; C2617; J0131; J0737; J1171; J1956; J2003; J2270; J2405; J2704; J3010; J7120; Q9967

== ENCOUNTER → 2024-08-16 02:13 | Outpatient (BNV) | payer OTHER, SELFPAY | PROVIDERS: Emergency Provider Emergency Medicine; Visit Provider Radiology Vascular & Interventional Radiology | DX: N13.2 Hydronephrosis with renal and ureteral calculous obstruction (principal) | CPT/HCPCS: 74176 ==

== ENCOUNTER 2024-08-16 10:05 | Outpatient (BNV) | payer OTHER, SELFPAY | END 2024-08-17 07:50 | PROVIDERS: Admitting Provider Urology; Emergency Provider Emergency Medicine; Visit Provider Radiology Diagnostic Radiology | DX: Z96.0 Presence of urogenital implants (principal) | CPT/HCPCS: 74018 ==

== ENCOUNTER → 2024-08-16 10:05 | Outpatient (BNV) | payer OTHER, SELFPAY | PROVIDERS: Admitting Provider Urology; Emergency Provider Emergency Medicine; Visit Provider Urology | DX: R79.89 Other specified abnormal findings of blood chemistry (principal); N13.2 Hydronephrosis with renal and ureteral calculous obstruction; N17.9 Acute kidney failure, unspecified; N20.1 Calculus of ureter | CPT/HCPCS: 52356; 74420; 99223 ==

== ENCOUNTER 2024-09-03 13:24 | Outpatient (AMB) | payer OTHER, SELFPAY ==
--- NOTE | 2024-09-03 13:58 | MHC.OFFVIS ---
Intake Visit Reasons: Stent removal Intake Note: Patient presents today for cystoscopy/stent removal Urology Med: Potassium Antibiotic Allergy:None Blood Thinner: None Lot #: [id number] Exp: 05/17/27 Sand Screener Required: No Accompanied by: Self / Same As Patient Allergies No Known Allergies Allergy (Verified 09/03/24 13:58) HPI Comments Details: 09/03/24--Here for stent removal. 08/02/24-- - The patient is a 64-year-old male presenting for management of nephrolithiasis. - The patient has a history of nephrolithiasis with a recent CT scan showing a 2.2 x 0.9 cm staghorn calculus in the left kidney lower pole calyx. An adjacent smaller 3 mm calculus is also noted. - The right kidney is atrophic, measuring 6 cm, with no stones present. - The patient has undergone shockwave lithotripsy and percutaneous nephrolithotomy procedures in the past. - The patient reports no significant urinary symptoms or pain associated with the current stone. Results - CT scan on 07/20/24: Right kidney atrophic, measuring 6 cm; left kidney with 2.2 x 0.9 cm staghorn calculus in lower pole calyx. An adjacent 3 mm calculus is also noted. - No stones in the ureter or pelvis causing obstruction. Discussion Notes I discussed with the patient the findings from the CT scan, which showed a staghorn calculus in the left kidney and an atrophic right kidney. We reviewed treatment options, including starting with shockwave lithotripsy to fragment the stone. If the lithotripsy is not effective, we may consider a more invasive percutaneous nephrolithotomy vs ureteroscopy laser lithotripsy. 06/08/24- 64-year-old male presenting with management needs for kidney stones. LV -06/10/23. He has a notable history of recurrent cystine renal stones, which have necessitated previous interventions such as lithotripsy and ureteroscopy. A recent renal ultrasound on June 01, 2024, revealed a 4 mm right kidney stone in the lower pole and multiple left renal stones, including a staghorn calculus. There is a significant concern about the potential progression of renal stones and the risk of obstruction, and the history of large stone formations. Pt complains of intermittent left flank pain. Urinary Symptoms Review - Presence of cystine kidney stones - History of undergoing lithotripsy and ureteroscopy for renal stone management Results - Renal Ultrasound (06/01/2024): Notable for a 4 mm stone in the right kidney lower pole and multiple stones in the left kidney, including a staghorn calculus mid to lower kidney. 10/28/2022?presents for stent removal today. I reviewed the urine culture results from 10/18/2022 which came back negative for bacterial growth. Stone analysis from 10/19/2022 revealed 100 % cystine. 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 presents today via televisit for KUB/surgery consult. He was last seen by me on 09/14/2022. He is status post cystoscopy, left ureteroscopy, laser lithotripsy and stent exchange done on 09/14/22.? He did have a KUB done on 09/29/2022. Radiologist has not transcribed the results. I have reviewed the films. There is a residual stone fragment noted on the proximal portion of the ureteral stent. Plan: Sched repeat left ureteroscopy laser lithotripsy stent exchange. OV-09/10/2022--Mikey is a 62-year-old male who I initially evaluated as an inpatient consult for hydronephrosis and acute renal insufficiency secondary to an obstructing stone. He is status post left ureteral stent. He had a follow-up KUB done on 09/03/22 that I reviewed. He has a history of cystine kidney stones. He has been followed by Dr. Gardiner in [place] for many years and has had a multiple of surgical treatment options including ureteroscopy, shockwave lithitripsy to manage the cistine kidney stones. He has moved to [place] and is going to continue his follow-up care with [facility]. He is not on aspirin or any other blood thinners. He is on Pyridium and oxbutynin and they are helpful for him. He requests refill for the Pyridium. Evaluation today-- UA 09/10/22-- Leukocytes: 1+. Blood:3+. Plan:? His follow-up KUB films were reviewed with the patient today. Left ureteroscopy, laser lithotripsy and stent exchange discussed to be scheduled. [facility] Medical History Kidney stone on left side Elevated serum creatinine Small right kidney Cystinuria Surgical History Hx of appendectomy Hx of tonsillectomy H/O colonoscopy History of cystoscopy Family History Father No problems noted. Mother No problems noted. Social History Household Members: Other Housing: House Are you a primary wound care rn to a significant other at home: No Do you presently have visiting nurse or other home services: No Alcohol intake: current Alcohol intake frequency: 0-2 drinks per day Patient Tobacco Use Status: Never used Tobacco Second Hand Smoke Exposure: No Substance Use Type: Marijuana service: No Office Procedures Cystoscopy Consent Discussed risk and benefit or proposed procedure with the patient. Information consent for procedure given to the patient. Discussed technical aspects, risks, benefits and alternatives in full. Addressed all of the patient's questions and concerns regarding the procedure. The patient demonstrated knowledge and understanding. They wish to proceed with this procedure. Preparation The patient was prepped in the usual manner. A rn clinical research was present and in the room. Genitalia was prepped with betadine solution in a sterile manner. Lidocaine Jelly 2% was placed into the urethra and 16Fr flexible Olympus cystoscope was inserted into the meatus after adequate lubrication. Procedure Time out per protocol performed. The flexible cystoscope is passed transurethrally: Cystoscopy findings: mild edema ureteral orifice which is expected, distal end of ureteral stent visualized. The grasping forceps were used and the stent was removed without difficulty. [id number] with stent removal DISPOSABLE SCOPE URO-G FLEXIBLE SCOPE Procedure code (CPT) selection complete Office Meds lidocaine HCl 2 % mucosal jelly in applicator Performing Provider: Sabine Ruth MD [facility] Administered by: Saima Vallejo RN on 09/03/24 14:24 Dose Route Admin Location Dispensed Lot Number Expiration Date [facility] Endorsement Clerk 10 mL intra-urethral 20 mL ciprofloxacin HCl 500 mg tablet Performing Provider: Sabine Ruth MD Performing Location: [facility] Administered by: Saima Vallejo RN on 09/03/24 14:24 Dose Route Admin Location Dispensed Lot Number Expiration Date NDC Endorsement Clerk 500 mg PO 1 tab naproxen 500 mg tablet Performing Provider: Sabine Ruth MD Performing Location: [facility] Administered by: Saima Vallejo RN on 09/03/24 14:24 Dose Route Admin Location Dispensed Lot Number Expiration Date NDC Endorsement Clerk 500 mg PO 1 tab phenazopyridine 200 mg tablet Performing Provider: Sabine Ruth MD Performing Location: [facility] Administered by: Saima Vallejo RN on 09/03/24 14:24 Dose Route Admin Location Dispensed Lot Number Expiration Date NDC Endorsement Clerk 200 mg PO 1 tab Results AMB Urinalysis, Automated UA Leukoctes 0 Tobi/uL Last Edit by Paige Granda on 09/03/24 16:27 UA Nitrite Negative Last Edit by Paige Granda on 09/03/24 16:27 UA Urobilinogen 3.5 mg/dL Last Edit by Paige Granda on 09/03/24 16:27 UA Protein 1 mg/dL Last Edit by Paige Granda on 09/03/24 16:27 UA pH 7.5 Last Edit by Paige Granda on 09/03/24 16:27 UA Blood 10 Wesley/uL Last Edit by Paige Granda on 09/03/24 16:27 UA Specific [place] 1.010 Last Edit by Paige Granda on 09/03/24 16:27 UA Ketone Negative Last Edit by Paige Granda on 09/03/24 16:27 UA Bilirubin 0 mg/dL Last Edit by Paige Granda on 09/03/24 16:27 UA Glucose 0 mg/dL Last Edit by Paige Granda on 09/03/24 16:27 Results Reviewed Results Reviewed: Laboratory Last Values Urine pH (Auto) 7.5 09/03/24 15:54 Specific [place] (Auto) 1.010 09/03/24 15:54 Urine Protein (Auto) 1 mg/dL 09/03/24 15:54 Glucose (UA)(Auto) 0 mg/dL 09/03/24 15:54 Urine Ketones (Auto) Negative 09/03/24 15:54 Urine Blood (Auto) 10 Wesley/uL 09/03/24 15:54 Urine Nitrite (Auto) Negative 09/03/24 15:54 Urine Bilirubin (Auto) 0 mg/dL 09/03/24 15:54 Urine Urobilinogen (Auto) 3.5 mg/dL 09/03/24 15:54 Leukocyte Esterase (Auto) 0 Tobi/uL 09/03/24 15:54 Assessment & Plan Assessment & Plan (1) CKD (chronic kidney disease): Code(s): N18.9 - Chronic kidney disease, unspecified Category: Medical (2) Staghorn calculus: Code(s): N20.0 - Calculus of kidney Category: Medical (3) Left flank pain: Code(s): R10.9 - Unspecified abdominal pain Category: Medical Plan renal US in 6 months Orders: Orders AMB Cystoscopy 09/03/24 N13.30 - Unspecified hydronephrosis, N20.0 - Calculus of kidney AMB Urinalysis Automated 09/03/24 Z13.9 - Encounter for screening, unspecified Patient Instructions: The patient had an opportunity to ask questions regarding treatment plan. The patient expressed understanding and agreement with the above treatment plan. The patient is aware they should contact our office by phone for worsening of their current condition or the appearance of new symptoms. Compliance is encouraged with any medications and followup testing that is ordered. It is a privilege to be allowed the opportunity to participate in the urologic care of your patient. If you have any questions or concerns regarding treatment for the above conditions please do not hesitate to contact me. The office telephone contact is [phone]. This note is constructed in part using voice recognition software. While every effort has been made to ensure accuracy straight slicing machine operator errors may have been included. Yours sincerely, Sabine Ruth MD Coding Level of Care Code Procedure Only Diagnoses CKD (chronic kidney disease) N18.9 Staghorn calculus N20.0 Left flank pain R10.9 CPT Codes Cystoscopy - CPT: 11484-[id number] with stent removal ([id number])
--- OUTSIDE RECORDS SUMMARY | 2024-09-03 14:31 | XMS_ITS | Encounter Summary ---
Author Organization [facility] Address [address] [place] [id number] Care Team Providers Care Flash Drier Operator Name Role Phone Angelica Beasley MD Primary Care Provider [phone] Encounter Details Date Type Department Care Team (Latest Contact Info) Description 11/23/2012 Transcribed Orders [facility] [address] [place] [address] Darrius Steinberg MD [address] [place] [address] Unspecified essential hypertension (Primary Dx); [...] (11/23/2012 4:24 PM EDT) ASHWINI <1:40 <1:40 [facility] Blood specimen (specimen) 11/23/2012 4:24 PM EDT us Darrius Steinberg MD LAB BLOOD ORDERABLES Final R esult [facility] [address] [place] [phone] * Protein electrophoresis, serum ( GH L Y) (11/23/2012 4:24 PM EDT) Total Protein 6.6 6.0 - 8.3 g/dL [facility] Albumin 4.3 3.5 - 5.0 g/dL [facility] Albumin Electrophoresis 3.62 3.50 - 4.70 g/dL [facility] Dxclg-3-Fhridibh 0.21 0.10 - 0.30 g/dL [facility] Comment: Effective May 11, 2012, the reference range for this protein fraction has changed due to implementation of a new electrophoresis system. Vfres-3-Okbwnnvz 0.84 0.60 - 1.00 g/dL [facility] Comment: Effective May 11, 2012, the reference range for this protein fraction has changed due to implementation of a new electrophoresis system. Beta Globulin 1.00 0.70 - 1.20 g/dL [facility] Comment: Effective May 11, 2012, the reference range for this protein fraction has changed due to implementation of a new electrophoresis system. Gamma Globulin 0.92 0.70 - 1.50 g/dL [facility] SPEP Interpretation See below See Interp. [facility] Comment: INTERPRETATION: No discrete abnormal bands. If monoclonal gammopathy remains a clinical consideration, recommend serum immunofixation electrophoresis (RUFUS). SIGNED BY:NIKITA RUDOLPH ON 11/27/2012 15:30:32 INTERPRETATION REVIEW : I have reviewed these results and agree with this interpretation. Blood specimen (specimen) 11/23/2012 4:24 PM EDT us Darrius Steinbreg MD LAB BLOOD ORDERABLES Final R esult Performing Organization Address [facility]/ZIP Co de Phone Number [facility] [address] [place] [phone] * Lyme Abs C6 WESLEY w/ reflex to WB (Y) (11/23/2012 4:24 PM EDT) B. burgdorferi Abs w/ Confirmation by WB 0.15 <=0.9 LI [facility] Comment: This sample tested negative for IgM and IgG antibodies to Borrelia burgdorferi, the causative agent of Lyme disease. Since an immune response to Lyme may not appear for several weeks following initial infection, a second sample collected 2-4 weeks after the first sample should be tested if clinically indicated. Serological confirmation of typical erythema chronicum migrans lesions is not necessary. An immune response may not be detected in some patients treated with antibiotics very early in infection. Note: A C6 peptide B. burgdorferi EIA was used, which is more specific than EIA tests that utilize whole organism lysates. Reference Range for Borrelia burgdorferi Antibodies: <= 0.9 LI - Negative 0.91-1.09 LI - Equivocal => 1.1 LI - Positive 11/23/2012 4:24 PM EDT Darrius Steinberg MD LAB BLOOD ORDERABLES Final R esult Performing Organization Address [facility] Co de Phone Number [facility] [address] [place] [phone] * Rheumatoid factor (BH L Q YH) (11/23/2012 4:24 PM EDT) Pathologist [facility] Rheumatoid Factor <15.9 IU/mL [facility] Blood specimen (specimen) 11/23/2012 4:24 PM EDT Darrius Steinberg MD LAB BLOOD ORDERABLES Final R esult Performing Organization Address [facility] Co de Phone Number [facility] [address] [place] [phone] * VDRL, w/ reflex titer & TP-PA confirm. (Y) (11/23/2012 4:22 PM EDT) Pathologist [facility] VDRL Non-reacti ve Non-reacti ve [facility] Blood specimen (specimen) 11/23/2012 4:22 PM EDT Darrius Steinberg MD LAB BLOOD ORDERABLES Final R esult Performing Organization Address [facility] Co de Phone Number [facility] [address] [place] [phone] * Sedimentation rate (ESR) ( GH YH) (11/23/2012 4:22 PM EDT) Sed Rate 10 0 - 20 mm/hr [facility] Blood specimen (specimen) 11/23/2012 4:22 PM EDT Darrius Steinberg MD LAB BLOOD ORDERABLES Final R esult Performing Organization Address [facility] de Phone Number [facility] [address] [place] [phone] * Vitamin D, 1,25-dihydroxy (mineral metabolism) (YH) (11/23/2012 4:22 PM EDT) Vit D, 1,25-Dihydroxy 62 25 - 66 pg/mL [facility] Comment: 1,25 Dihydroxy vitamin D [...] ORDERABLES Final R esult Performing Organization Address [facility] Co de Phone Number [facility] [address] [place] [address] [phone] * Vitamin D 25 hydroxy (BH L YH) (11/23/2012 4:22 PM EDT) Vit D, 25-Hydroxy 42 20 - 50 ng/mL [facility] Comment: A serum 25(OH) vitamin [...] ORDERABLES Final R esult Performing Organization Address [facility] Co de Phone Number [facility] [address] [place] [phone] * (ABNORMAL) Pyridoxine (YH) (11/23/2012 4:22 PM EDT) Pyridoxine 35.1(H) 2.1 - 21.7 ng/mL [facility] Comment: Conversion Factor: Nanograms/mL x 4.046 = nanomoles/L Blood specimen (specimen) 11/23/2012 4:22 PM EDT Darrius Steinberg MD LAB BLOOD ORDERABLES Final R esult Performing Organization Address [facility] de Phone Number [facility] [address] [place] [phone] documented in this encounter Visit Diagnoses Diagnosis Unspecified essential hypertension- Primary Irritable bowel syndrome Depressive disorder, not elsewhere classified documented in this encounter Care Teams Flash Drier Operator Relationship Specialty Start Date End Date Angelica Beasley MD [address] [place] [phone] PCP - General Internal Medicine 05/12/12 documented as of this encounter
--- OUTSIDE RECORDS SUMMARY | 2024-09-03 14:31 | XMS_ITS | Encounter Summary ---
Author Organization [facility] Address [address] [place] [address] Care Team Providers Care Layout Mechanic Name Role Phone Betzaida Ramos MD Primary Care Provider [phone] Encounter Details Date Type Department Care Team (Late st Contact Info) Description 04/11/2020 Scanned Document [facility] Urologic Surgery [place] [address] [facility] [address] [place] [phone] Simon Butler MD [address] [place] [address] [address] [place] [address] Social History Tobacco Use Types Packs/Day Years [...] Physicians Department of Internal Medicine & Nephrology [place] [address] [place] [address] Simon Butler MD [address] [facility] [address] [place] [address] documented as of this encounter Visit Diagnoses Not on filedocumented in this encounter Care Teams Layout Mechanic Relationship Specialty Start Date End Date Betzaida Ramos MD PCP - General 03/18/20 documented as of this encounter
--- OUTSIDE RECORDS SUMMARY | 2024-09-03 14:31 | XMS_ITS ---
Author Name [facility] Organization Unknown History of Medication Use Medication Directions Dispensed Refills Start Date End Date Stat us captopril (CAPOTEN) 12.5 MG tablet Take 1 tablet (12.5 mg total) by mouth 2 (two) times a day before meals. 04/19/2023 active ciprofloxacin (CIPRO) 500 MG tablet Take 1 tablet (500 mg total) by mouth 2 (two) times a day. 04/30/2022 04/14/2023 active alpha lipoic acid 600 mg capsule Take 600 mg by mouth 2 (two) times a day. 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 [facility] Ureterolithiasis active 2020-03-09 ProblemAct [facility] Unspecified persistent mental disorders due to conditions classified elsewhere active 2013-08-03 ProblemAct [facility] Depression active 2019-12-24 ProblemAct [facility] Hydronephrosis of left kidney active 2018-04-08 ProblemAct [facility] COVID-19 virus infection active 2019-05-25 ProblemAct [facility] Memory loss active 2013-08-03 ProblemAct [facility] IBS (irritable bowel syndrome) active 2019-12-24 ProblemAct [facility] Acute left flank pain active 2017-07-31 ProblemAct [facility] HTN (hypertension) active 2019-12-24 ProblemAct [facility] Borderline high blood pressure active 2018-03-24 ProblemAct [facility] Kidney stone on left side active 2018-04-08 ProblemAct [facility] Pure hypercholesterolemia active 2013-08-03 ProblemAct [facility] Allergic rhinitis active 2013-08-03 ProblemAct [facility] Generalized body aches active 2019-12-11 ProblemAct [facility] Loose stools active EncounterDiagnosisAct [facility] Vasovagal syncope active 2021-02-09 ProblemAct [facility] Panic attack as reaction to stress active 2022-07-16 ProblemAct [facility] Immunizations Vaccine Date Source Lot Number Status Influenza, Quadrivalent 01/22/2022 [facility] [id number] c ompleted COVID-19 MRNA (MODERNA) 02/03/2021 [facility] [id number] c ompleted Influenza, Quadrivalent 12/29/2020 [facility] [id number] c ompleted Covid-19 MRNA Vaccine - Pfiz er 12+ (Purple Cap) 05/24/2020 [facility] [id number] completed Covid-19 MRNA Vaccine - Pfiz er 12+ (Purple Cap) 05/03/[id number] completed Influenza, Unspecified 11/26/2019 [facility] co mpleted Influenza, Quadrivalent 11/24/2019 [facility] [id number] c ompleted Influenza, Quadrivalent 02/03/2017 [facility] [id number] c ompleted Influenza TIV (IM) 02/03/2015 [facility] [id number] comple adilia Influenza (IM) Preservative Free 02/01/2014 [facility] [id number] completed TD Preservative Free 02/01/2014 [facility] [id number] comp leted Influenza Inactivated/Split Preservative Free IM 02/20/2013 [facility] [id number] completed Influenza TIV (IM) 02/20/2013 [facility] [id number] comple adilia Influenza Inactivated/Split Preservative Free IM 01/31/2012 [facility] [id number] completed Influenza TIV (IM) 01/31/2012 [facility] [id number] comple adilia Influenza Inactivated/Split Preservative Free IM 01/28/2011 [facility] [id number] completed Influenza TIV (IM) 01/28/2011 [facility] [id number] comple adilia Influenza Inactivated/Split Preservative Free IM 12/19/2009 [facility] [id number] completed Influenza TIV (IM) 12/19/2009 [facility] [id number] comple adilia H1N1 Inj 02/11/2009 [facility] [id number] completed Influenza Inactivated/Split Preservative Free IM 02/11/2009 [facility] completed Influenza TIV (IM) 02/11/2009 [facility] comple adilia Influenza Inactivated/Split Preservative Free IM 12/25/2007 CCT [id number] completed Influenza TIV (IM) 12/25/2007 [facility] [id number] comple adilia Tdap 11/30/2007 CCT [id number] completed PPD Test 08/12/2007 CCT completed Encounters Encounter Type Encounter Reason Primary Diagnosis Location Date Ambulatory [facility] 08/2024 Ambulatory [facility] 05/22/2024 Ambulatory [facility] 11/21 Ambulatory [facility] 10/2023 Ambulatory Cystinuria Cystinuria [facility] 04/19/2023 Ambulatory Calculus of kidney Calculus [facility] 04/14/2023 Ambulatory [facility] 03/29/2023 Ambulatory [facility] 03/29/2023 Ambulatory Calculus of kidney Calculus of kidney [facility] 03/21/2023 Ambulatory Follow-up [email or web address] 07/16/2022 [facility] Elevated prostate specific antigen (PSA) Elevated prostate specific antigen (PSA) [facility] 04/15/2022 Ambulatory Calculus of kidney [facility] 04/15/2022 Ambulatory [facility] 05/27/2021 Ambulatory [facility] 05/27/2021 Ambulatory Calculus of kidney [facility] 04/16/2021 Ambulatory Calculus of kidney [facility] 04/14/2021 Ambulatory [facility] 04/14/2021 Ambulatory Needs Same Day Appt [facility] Care Team Organization Name Specialty Phone Email Start Date End Da te [facility] Pedro Rubi Primary [facility] 05/22/2024 06/21/2024 [facility] 10/18/2023 [facility] 10/18/2023 [facility] Pedro Rubi Primary Care 07/16/2022 [facility] PEDRO RUBI Primary Care 10/14/2021 06/21/2024 [facility] PEDRO RU[facility] Primary Care 02/09/2021 02/09/2021 [facility] PEDRO RUBI Primary Care 02/09/2021 [facility], [facility] LYNNE SMITH Primary Care 11/13/2020 10/10/2023 [facility] Pedro Rubi Primary Care 03/09/2020 04/16/2021
--- OUTSIDE RECORDS SUMMARY | 2024-09-03 14:31 | XMS_ITS | Encounter Summary ---
Author Organization [facility] Address [address] [place] [address] Care Team Providers Care Ordained Minister Name Role Phone Betzaida Ramos MD Primary Care Provider [phone] Simon Butler MD Unavailable Abdifatah Mccormack MD Unavailable Encounter Details Date Type Department Care Team (Late st Contact Info) Description 05/22/2019 E-Visit [facility] Department of Geriatrics [address] [place], [place] [id number] Betzaida Ramos MD [address] [place] [address] E-Visit Submission: Symptoms consistent with coronavirus Social [...] documented as of this encounter Care Teams Ordained Minister Relationship Specialty Start Date End Date Betzaida Ramos MD [address] [place] [address] PCP - General 04/20/17 Simon Butler MD [address] [phone] Internal Medicine 03/24/18 Abdifatah Mccormack MD [address] [place] [phone] Urology 03/24/18 documented as of this encounter
== END 2024-09-03 14:43 | disposition home or self-care (01) ==
LOC: HO.HUSH 13:25
PROVIDERS: Visit Provider Urology
DX: N13.30 Unspecified hydronephrosis (principal); N20.0 Calculus of kidney; Z13.9 Encounter for screening, unspecified
CPT/HCPCS: 52310

== ENCOUNTER → 2024-09-03 13:24 | Outpatient (BNVA) | payer OTHER, SELFPAY | PROVIDERS: Visit Provider Urology | DX: N13.30 Unspecified hydronephrosis (principal); N20.0 Calculus of kidney | CPT/HCPCS: 52310; 81003 ==

== ENCOUNTER 2024-12-27 09:15 | Outpatient (REF) | payer OTHER, SELFPAY ==
--- NOTE | ~2024-12-27 | US_ITS ---
EXAMINATION: US KIDNEY BILATERAL HISTORY: N13.30 - Unspecified hydronephrosis TECHNIQUE: Real-time grayscale ultrasound imaging of the kidneys was performed and images were reviewed. COMPARISON: Comparison is made with the prior examination dated 06/01/2024. FINDINGS: Right kidney: The right kidney measures 8.8 x 3.0 x 4.4 cm. Renal parenchymal echotexture and thickness are normal. There are no masses. There is no hydronephrosis or renal calculi. Left Kidney: The left kidney measures 9.9 x 5.5 x 5.8 cm. Renal parenchymal echotexture and thickness are normal. There are no masses. There is a nonobstructing calculus at the lower pole measuring 4 x 3 x 2 mm. No hydronephrosis. US/US renal BI IMPRESSION: 4 x 3 x 2 mm left lower pole renal calculus. Otherwise unremarkable renal ultrasound. Electronically signed by: Ken North MD 12/27/2024 09:52 AM EST
--- OUTSIDE RECORDS SUMMARY | 2024-12-27 10:10 | XMS_ITS | Clinical Summary ---
Author Organization [facility] Address [address] [facility] [address] [place] [address] Phone Care Team Providers Care Customer Sales Service Manager Name Role Phone Betzaida Ramos MD Primary Care Provider [phone] Allergies No known active allergies Medications sertraline (ZOLOFT) 100 MG tablet Take 50 mg by mouth daily. Active buPROPion (WELLBUTRIN) 75 MG immediate release tablet Take 150 mg by mouth 2 (two) times a day. Active captopril (CAPOTEN) 50 MG tablet Take 50 mg by mouth 3 (three) times a day. Active potassium citrate (UROCIT-K) 10 mEq SR tablet Take 10 mEq by mouth 2 (two) times a day with meals. Active captopril (CAPOTEN) 25 MG tablet Take 25 mg by mouth 2 (two) times a day. 05/22/2024 Active vitamins A,C,E-zinc-sonya er (PRESERVISION AREDS) 4,296 mcg-226 mg-90 mg Cap Take 1 capsule by mouth 2 (two) times a day with meals. Active SELENIUM ORAL Take by mouth. Active ALPHA LIPOIC ACID ORAL Take by mouth 2 (two) times a day. Active ar-wbs-GD-vit P-bsyxgo-tgeiap t (PRESERVISION AREDS 2 PLUS MV) 200 mcg-15 mcg- 5 mg-1 mg Cap Take by mouth. Active Social History Tobacco Use Types Packs/Day Years Used Date Smoking Tobacco: Never Alcohol Use Standard Drinks/Week Comments Yes 0 (1 standard drink = 0.6 oz pur e alcohol) 1-2 daily Education Answer Date Recorded Are you interested in more education? Not on constantino e 06/18/2022 Are you concerned about learning? Not on file 06/18/2022 No 06/18/2022 No 06/18/2022 Digital Access Answer Date Recorded No 07/19/2022 No 07/19/2022 Reliable internet access at home? Not on file 07/19/2022 Device with a working camera? Not on file Intimate Partner Violence Answer Date R ecorded Are you denied basic needs s uch as food, clothing, or medical care? No 05/30/2024 In the past 12 months have y ou been in a relationship with a person who hurts, threatens, or tries to control you? No 05/30/2024 Are you denied basic needs s uch as food, clothing, or medical care? No 05/30/2024 In the past 12 months have y ou been in a relationship with a person who hurts, threatens, or tries to control you? No 05/30/2024 Sex and Gender Information Value Date Recorded Sex Assigned at Not on file Legal Sex Male 11:41 AM EDT Gender Identity Not on file Sexual Orientation Not on file Last Filed Vital Signs Vital Sign Reading Time Taken Comments Blood Pressure 163/92 08/09/2024 12:09 PM EDT Pulse 124 08/09/2024 12:09 PM EDT Temperature 37 C (98.6 F) 08/09/2024 12:09 PM EDT Respiratory Rate 16 08/09/2024 12:09 PM EDT Oxygen Saturation 98% 08/09/2024 12:09 PM EDT Inhaled Oxygen Concentration - - Weight 72.6 kg (160 lb) 05/25/2024 1:40 PM EDT Height 172.7 cm (5' 8 ) 05/25/2024 1:40 PM EDT Body Mass Index 24.33 05/25/2024 1:40 PM EDT Plan of Treatment Health Maintenance Due Date Last Done Comments LIPID PANEL 1960 DEPRESSION SCREENING 1970 HEPATITIS C SCREENING 01/11/1976 COLOGUARD 2003 FIT TEST 2003 FOBT 2003 SIGMOIDOSCOPY 2003 VIRTUAL COLONOSCOPY 2003 PNEUMOCOCCAL VACCINES (50+ y ears) (1 of 1 - PCV) 01/11/2008 ZOSTER VACCINES (1 of 2) 01/11/2008 Adult Td,Tdap Booster 11/29/2017 11/30/2007 INFLUENZA VACCINE (#1) 2024 COVID-19 VACCINE (1 - 2024-2 6 season) 2024 CREATININE LEVEL 04/24/2025 04/24/2024 POTASSIUM LEVEL 04/24/2025 04/24/2024 RSV VACCINE (1 - 1-dose 75+ series) 2033 COLONOSCOPY 05/30/2034 05/30/2024 COLORECTAL CANCER SCREENING 05/30/2034 SMOKING STATUS SCREENING (On ce After 26 Yrs) Completed 05/30/2024 HEPATITIS A VACCINES Aged Out No long er eligible based on patient's age to complete this topic HIB VACCINES Aged Out No longer eligi ble based on patient's age to complete this topic MENINGOCOCCAL VACCINES (ACWY) Aged Out No longer eligible based on patient's age to complete this topic MENINGOCOCCAL VACCINES (B) Aged Out N o longer eligible based on patient's age to complete this topic Medical Devices Not on file Procedures Procedure Name Priority Date/Time Associated Diagnosis Comments ENDOSCOPY, COLON 05/30/2024 1:14 PM EDT COMPREHENSIVE METABOLIC PANEL (CMP) Routine 04/24/2024 9:24 AM EST Change in bowel habits Diarrhea, unspecified type Gas pain from Last 3 Months or Most Recently Relevant to Health Maintenance Results * ENDOSCOPY, COLON (05/30/2024 1:14 PM EDT) Narrative Transcriptions Leonardo Rod MD - 05/30/2024 1:14 PM EDT [facility] Patient Name: Mikey Goldstein Attending MD:: LEONARDO ROD MD, Procedure Date: 05/30/2024 1:14 PM Date of : 1960 Age: 64 Admit Type: Outpatient Gender: Male Room: [facility] 05 Referring MD: Betzaida Ramos Exam Type: Colonoscopy Indications: Screening for colorectal malignant neoplasm, Last colonoscopy: 2009 Medications: Monitored Anesthesia Care Procedure: Informed consent was obtained from the patientafter discussion of the indications, limitations, alternatives, benefits, and risks of the procedure. Risks specifically discussed include but are not limited to medication reactions, missed lesions, bleeding, perforation, or the need for emergent surgery. Throughout the procedure, the patient's blood pressure, pulse, end-tidal CO2, and oxygensaturations were monitored continuously. The Olympus adult variable colonoscope [id number] #3 was introduced through the anus and advanced to the terminal ileum, with identification of theappendiceal orifice and IC valve. The colonoscopy was performed without difficulty. The patient tolerated the procedure well. The quality of the bowelpreparation was excellent. The terminal ileum, ileocecal valve, appendiceal orifice, and rectum werephotographed. Complications: No immediate complications. Estimated blood loss:None. Findings: The terminal ileum appeared normal. Examination of the right colon was repeated in retroflexion and again in NBI. Retroflexion wasalso performed in the rectum. The entire examined colon appeared normal. Internal hemorrhoids were found duringretroflexion. The hemorrhoids were mild. Impression: - The examined portion of the ileum was normal. - The entire examined colon is normal. - Internal hemorrhoids. - No specimens collected. Recommendation: - Patient has a contact number available for emergencies. The signs and symptoms of potential delayed complications were discussed with thepatient. Return to normal activities tomorrow. Written discharge instructions were provided to thepatient. - Repeat colonoscopy in 10 years for screening purposes. Leonardo Rod LEONARDO ROD MD 05/30/2024 1:38:35 PM This report has been signed electronically. Number of Addenda: 0 Note Initiated On: 05/30/2024 1:14 PM Procedure Code(s): --- Professional --- 98151, Colonoscopy, flexible; diagnostic, including collection of specimen(s) by brushing or washing, when performed (separateprocedure) --- Technical --- 58221, Colonoscopy, flexible; diagnostic, including collection of specimen(s) by brushing or washing, when performed (separateprocedure) CPT copyright 2021 [employer]. All rights reserved. The codes documented in this report are preliminary and upon waste machine offbearer reviewmay be revised to meet current compliance requirements. Procedure Date: 05/30/2024 1:14:[address] [place] [id number] Betzaida Ramos MD GI PROCEDURE ORDERABLES F inal Result * (ABNORMAL) Comprehensive metabolic panel (04/24/2024 9:24 AM EST) SODIUM 143 133 - 146 mmol/L [facility] POTASSIUM 4.8 3.3 - 5.1 mmol/L [facility] CHLORIDE 107 96 - 108 mmol/L [facility] CO2 26 21 - 35 mmol/L [facility] BUN 18 6 - 19 mg/dL [facility] CREATININE 1.10 0.5 - 1.5 mg/dL [facility] GLUCOSE 108(H) 70 - 99 mg/dL [facility] ALBUMIN 3.9 3.9 - 4.8 g/dL [facility] TOTAL PROTEIN 7.0 6.5 - 8.0 g/dL [facility] CALCIUM 9.3 8.4 - 10.3 mg/dL [facility] ALKALINE PHOSPHATASE 54 39 - 117 U/L [facility] TOTAL BILIRUBIN 0.4 0.0 - 1.2 mg/dL [facility] AST 20 0 - 37 U/L [facility] ALT 18 0 - 40 U/L [facility] GLOBULIN 3.1 1 - 4.8 g/dL [facility] EGFR 74 >59 mL/min/1.7 3m2 [facility] Comment:Estimated glomerular filtration rate calculated using the CKD-EPI refit equation. ANION GAP 15 10 - 20 mmol/L [facility] Blood 04/24/2024 9:24 AM EST 04/24/2024 9:51 AM EST us Genet Ga NP LAB BLOOD BKR ORDERABLES Final Result [facility] [address] [place] [address] from Last 3 Months or Most Recently Relevant to Health Maintenance Insurance [facility] [employer] [facility] [employer] [address] [address] [employer] [facility] Care Teams Customer Sales Service Manager Relationship Specialty Start Date End Date Betzaida Ramos MD [address] [place] [address] PCP - General Internal Medicine 04/24/24 Additional Source Comments The information contained in this document represents components of the legal health record. It is not the complete legal health record.[facility]
--- OUTSIDE RECORDS SUMMARY | 2024-12-27 10:10 | XMS_ITS | Encounter Summary ---
Author Organization [facility] Address [address] [place] [address] Care Team Providers Care Matrix Worker Name Role Phone Betzaida Ramos MD Primary Care Provider [phone] Encounter Details Date Type Department Care Team (Late st Contact Info) Description 04/11/2020 Scanned Document [facility] Urologic Surgery [place] [address] [facility] [address] [place] [phone] Simon Butler MD [address] [place] [address] [address] [place] [address] Social History Tobacco Use Types Packs/Day Years [...] on filedocumented in this encounter Care Teams Matrix Worker Relationship Specialty Start Date End Date Betzaida Ramos MD PCP - General 03/18/20 documented as of this encounter
--- OUTSIDE RECORDS SUMMARY | 2024-12-27 10:10 | XMS_ITS | Clinical Summary ---
Author Organization [facility] Address [address] [place] [address] Care Team Providers Care Procurement Consultant Name Role Phone Betzaida Ramos MD Primary Care Provider [phone] Simon Butler MD Unavailable Abdifatah Mccormack MD Unavailable Allergies No known active allergies Medications * This document contains information received from the source organization and may not represent a complete record from that organization. alpha lipoic acid 600 mg capsule Take 600 mg by mouth 2 (two) times a day. Active potassium citrate (UROCIT-K) 10 mEq (1,080 mg) CR tablet 02/04/2020 Active Active Problems Problem Noted Date Diagnosed [...] and not eat as a much meat. Continuous Pickling Line Pickler is encouraging him to become a vegetarian [...] with elevated blood glucose. I ordered a zlcmz-lb-xann hemoglobin A1c that was 5.7%. Assessment & [...] 95 07/16/2022 11:13 AM EDT Temperature 36.4 C (97.5 F) 09/28/2019 11:14 AM EDT Respiratory Rate - - Oxygen Saturation 100% 07/16/2022 11:13 AM EDT Inhaled Oxygen Concentration - - Weight 66.7 kg (147 lb) 07/16/2022 11:13 AM EDT Height 172.7 cm (5' 8 ) 09/28/2019 11:14 AM EDT Body Mass Index 22.35 09/28/2019 11:14 AM EDT Plan of Treatment Health Maintenance Due Date Last Done Comments CT Colonography 1960 FIT-DNA (Cologuard) 1960 FIT 1960 FOBT 1960 Flex Sigmoidoscopy - 5y 1960 HIV Screening 1960 Hepatitis C Screening 01/11/1976 Pneumococcal Vaccine, 50+ Years (1 of 1 - PCV) 01/11/2008 Zoster Vaccines (1 of 2) 01/11/2008 DTaP,Tdap,and Td Vaccines (3 - Td or Tdap) 02/02/2024 02/01/2014, 11/30/2007 COVID-19 Vaccine ( - season) 2024 02/03/2021, 05/24/2020, 05/03/2020 Influenza Vaccine (#1) 2024 2, 12/29/2020, 11/26/2019, Additional history exists Colonoscopy 05/30/2034 05/30/2024, 10/2024, 05/30/2024, Additional history exists Colorectal Cancer Screening 05/30/2034 HPV Vaccines Aged Out No longer eligi [...] patient's age to complete this topic Insurance [facility] [employer] Care Teams Procurement Consultant Relationship Specialty Start Date End Date Betzaida Ramos MD [address] [place] [address] PCP - General 04/20/17 Simon Butler MD [address] [phone] Internal Medicine 03/24/18 Abdifatah Mccormack MD [address] [place] [phone] Urology 03/24/18
--- OUTSIDE RECORDS SUMMARY | 2024-12-27 10:10 | XMS_ITS | Encounter Summary ---
Author Organization [facility] Address [address] [place] [address] Care Team Providers Care Cell Tender Name Role Phone Angelica Beasley MD Primary Care Provider [phone] Encounter Details Date Type Department Care Team (Latest Contact Info) Description 11/23/2012 Transcribed Orders [facility] [address] [place] [address] Darrius Steinberg MD [address] [place] [address] Unspecified essential hypertension (Primary Dx); [...] 4:24 PM EDT) ASHWINI <1:40 <1:40 [facility] Blood specimen (specimen) 11/23/2012 4:24 PM EDT us Darrius Steinberg MD LAB BLOOD ORDERABLES Final R esult [facility] [address] [place] [address] * Protein electrophoresis, serum ( GH L Y) (11/23/2012 4:24 PM EDT) Total Protein 6.6 6.0 - 8.3 g/dL [facility] Albumin 4.3 3.5 - 5.0 g/dL [facility] Albumin Electrophoresis 3.62 3.50 - 4.70 g/dL [facility] Ixeuf-0-Jsohbwby 0.21 0.10 - 0.30 g/dL [facility] Comment: Effective May 11, 2012, the reference range for this protein fraction has changed due to implementation of a new electrophoresis system. Gptrb-7-Rdvrnpyn 0.84 0.60 - 1.00 g/dL [facility] Comment: Effective May 11, 2012, the reference range for this protein fraction has changed due to implementation of a new electrophoresis system. Beta Globulin 1.00 0.70 - 1.20 g/dL [facility] Comment: Effective May 11, 2012, the reference range for this protein fraction has changed due to implementation of a new electrophoresis system. Gamma Globulin 0.92 0.70 - 1.50 g/dL [facility] SPEP Interpretation See below See Interp. [facility] Comment: INTERPRETATION: No discrete abnormal bands. If monoclonal gammopathy remains a clinical consideration, recommend serum immunofixation electrophoresis (RUFUS). SIGNED BY:NIKITA RUDOLPH ON 11/27/2012 15:30:32 INTERPRETATION REVIEW : I have reviewed these results and agree with this interpretation. Blood specimen (specimen) 11/23/2012 4:24 PM EDT us Darrius Steinberg MD LAB BLOOD ORDERABLES Final R esult Performing Organization Address [facility]/ZIP Co de Phone Number [facility] [address] [place] [address] * Lyme Abs C6 WESLEY w/ reflex to WB (Y) (11/23/2012 4:24 PM EDT) B. burgdorferi Abs w/ Confirmation by WB 0.15 <=0.9 LI [facility] Comment: This sample tested negative for [...] Final R esult Performing Organization Address [facility] Co de Phone Number [facility] [address] [place] [address] * Rheumatoid factor (BH L Q YH) (11/23/2012 4:24 PM EDT) Pathologist [facility] Rheumatoid Factor <15.9 IU/mL [facility] Blood specimen (specimen) 11/23/2012 4:24 PM EDT Darrius Steinberg MD LAB BLOOD ORDERABLES Final R esult Performing Organization Address [facility] Co de Phone Number [facility] [address] [place] [address] * VDRL, w/ reflex titer & TP-PA confirm. (Y) (11/23/2012 4:22 PM EDT) Pathologist [facility] VDRL Non-reacti ve Non-reacti ve [facility] Blood specimen (specimen) 11/23/2012 4:22 PM EDT Darrius Steinberg MD LAB BLOOD ORDERABLES Final R esult Performing Organization Address [facility] Co de Phone Number [facility] [address] [place] [address] * Sedimentation rate (ESR) ( GH YH) (11/23/2012 4:22 PM EDT) Sed Rate 10 0 - 20 mm/hr [facility] Blood specimen (specimen) 11/23/2012 4:22 PM EDT Darrius Steinberg MD LAB BLOOD ORDERABLES Final R esult Performing Organization Address [facility] de Phone Number [facility] [address] [place] [address] * Vitamin D, 1,25-dihydroxy (mineral metabolism) (YH) (11/23/2012 4:22 PM EDT) Vit D, 1,25-Dihydroxy 62 25 - 66 pg/mL [facility] Comment: 1,25 Dihydroxy vitamin D increases [...] ORDERABLES Final R esult Performing Organization Address [facility] Co de Phone Number [facility] [address] [place] [phone] * Vitamin D 25 hydroxy (BH L YH) (11/23/2012 4:22 PM EDT) Vit D, 25-Hydroxy 42 20 - 50 ng/mL [facility] Comment: A serum 25(OH) vitamin D [...] Final R esult Performing Organization Address [facility] Co de Phone Number [facility] [address] [place] [address] * (ABNORMAL) Pyridoxine (YH) (11/23/2012 4:22 PM EDT) Pyridoxine 35.1(H) 2.1 - 21.7 ng/mL [facility] Comment: Conversion Factor: Nanograms/mL x 4.046 = nanomoles/L Blood specimen (specimen) 11/23/2012 4:22 PM EDT Darrius Steinberg MD LAB BLOOD ORDERABLES Final R esult Performing Organization Address [facility] de Phone Number [facility] [address] [place] [address] documented in this encounter Visit Diagnoses Diagnosis Unspecified essential hypertension- Primary Irritable bowel syndrome Depressive disorder, not elsewhere classified documented in this encounter Care Teams Cell Tender Relationship Specialty Start Date End Date Angelica Beasley MD [address] [place] [phone] PCP - General Internal Medicine 05/12/12 documented as of this encounter
--- OUTSIDE RECORDS SUMMARY | 2024-12-27 10:10 | XMS_ITS | Encounter Summary ---
Author Organization [facility] Address [address] [place] [address] Care Team Providers Care Housing Assistant Name Role Phone Betzaida Ramos MD Primary Care Provider [phone] Simon Butler MD Unavailable Abdifatah Mccormack MD Unavailable Encounter Details Date Type Department Care Team (Late st Contact Info) Description 05/22/2019 E-Visit [facility] Department of Geriatrics [address] [place], [place] [address] Betzaida Ramos MD [address] [place] [address] E-Visit Submission: Symptoms consistent with coronavirus Social [...] documented as of this encounter Care Teams Housing Assistant Relationship Specialty Start Date End Date Betzaida Ramos MD [address] [place] [address] PCP - General 04/20/17 Simon Butler MD [address] [phone] Internal Medicine 03/24/18 Abdifatah Mccormack MD [address] [place] [phone] Urology 03/24/18 documented as of this encounter
--- OUTSIDE RECORDS SUMMARY | 2024-12-27 10:10 | XMS_ITS | Clinical Summary ---
Author Organization [address] Address [address] [place] [phone] Phone Care Team Providers Care Cement Cutter Name Role Phone Angelica Beasley MD Primary Care Provider [phone] Allergies No known active allergies Medications sertraline [...] 99 11/23/2012 3:07 PM EDT Temperature 36.5 C (97.7 F) 11/23/2012 3:07 PM EDT Respiratory Rate - - Oxygen Saturation 97% [...] Standard Series) 01/11/2008 Diabetes screening 11/22/2014 11/23/2011 Influenza vaccine 09/21/2024 Covid-19 vaccine series (1 - 2024- season) 2024 RSV Immunization (1 - 1-dose 75+ series) 2033 Meningococcal B Vaccine Aged Out No l onger eligible based on patient's age to complete [...] EDT) Glucose 99 70 - 100 mg/dL [facility] BUN 25(H) 7 - 20 mg/dL [facility] Creatinine 1.4(H) 0.5 - 1.2 mg/dL [facility] BUN/Creatinine Ratio 17.9 10.0 - 20.0 [facility] Anion Gap 12 7 - 16 [facility] CO2 27.0 22.0 - 30.0 mmol/L [facility] Chloride 103 96 - 106 mmol/L [facility] Sodium 142 135 - 145 mmol/L [facility] Potassium 4.1 3.5 - 5.0 mmol/L [facility] Calcium 9.9 8.8 - 10.2 mg/dL [facility] Blood specimen (specimen) 11/23/2011 4:56 PM EDT us Darrius Steinberg MD LAB BLOOD ORDERABLES Final R esult Performing Organization Address City/State/[facility] Co de Phone Number [facility] [address] [place] [phone] from Last 3 Months or Most Recently Relevant to Health Maintenance Insurance T AET AETNA AETNA Care Teams Cement Cutter Relationship Specialty Start Date End Date Angelica Beasley MD [address] [place] [phone] PCP - General Internal Medicine 05/12/12
--- OUTSIDE RECORDS SUMMARY | 2024-12-27 10:10 | XMS_ITS | Encounter Summary ---
Author Organization [facility] Address [address] [place] [address] Care Team Providers Care Aviation Operations Specialist Name Role Phone Betzaida Ramos MD Primary Care Provider [phone] Encounter Details Date Type Department Care Team (Late st Contact Info) Description 08/28/2017 Prep for Surgery [facility] Urologic Surgery [place] [address] [facility] [address] [place] [address] Brent Peres, WANDA [address] [facility] [address] [place] [address] Ureteral obstruction (Primary Dx) Social History Tobacco [...] obstruction documented in this encounter Care Teams Aviation Operations Specialist Relationship Specialty Start Date End Date Betzaida Ramos MD PCP - General 03/18/20 documented as of this encounter
--- OUTSIDE RECORDS SUMMARY | 2024-12-27 10:10 | XMS_ITS | Clinical Summary ---
Author Organization [facility] Address [address] [place] [address] Care Team Providers Care Filenet Developer Name Role Phone Betzaida Ramos MD Primary Care Provider [phone] Allergies No known active allergies Medications Alpha-Lipoic Acid 600 MG Cap Take 2 tablets by mouth 2 (two) times a day. 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 180 tablet 3 5 Active Active Problems Problem Noted Date Diagnosed [...] with elevated blood glucose. I ordered a vpvng-ro-yiln hemoglobin A1c that was 5.7%. 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 08/03/2013 Calculus of kidney 08/03/2013 Immunizations Immunization Administration Dates Next Due Covid-19 [...] 94 04/14/2023 8:31 AM EST Temperature 36.7 C (98.1 F) 04/30/2022 8:48 AM EST Respiratory Rate 16 03/18/2020 4:45 PM EST Oxygen Saturation 98% 10/05/2020 9:51 AM EDT Inhaled Oxygen Concentration - - Weight 71.7 kg (158 lb) 05/22/2024 10:17 AM EDT Height 170.2 cm (5' 7 ) 04/14/2023 8:31 AM EST Body Mass Index 24.75 04/14/2023 8:31 AM EST Plan of Treatment Health Maintenance Due Date Last Done Comments Advance Care Planning 1960 Hepatitis C Virus Screening 1960 Colonoscopy 2003 Pneumococcal Vaccines 50+ (1 of 1 - PCV) 01/11/2008 RSV Vaccine 50 years and older and Patients (1 - Risk 50-74 years 1-dose series) 01/11/2008 Zoster (Shingles) Vaccine (1 of 2) 01/11/2008 DTaP/Tdap/Td Vaccines (2 - Td or Tdap) 11/29/2017 11/30/2007 Influenza Vaccine 09/21/2024 01/22/2022, , 12/29/2020, Additional history exists COVID-19 Vaccine ( season) 2024 02/03/2021, 05/24/2020, 05/03/2020 Hepatitis B Vaccines Aged Out No long er eligible based on patient's age to complete this topic Medical Devices Explanted Type Area Board Design Engineer Device Identifier Shelf Expiration Date Model / Serial / Lot Stent Ureteral 6fr 26cm Pgtl Crv Taper Tip Bldr Des Lopro - [id number] Implanted:Qty: 1 on 08/08/2017 by Abdifatah Mccormack MD at [facility] Stent Ruxter YUE 04/04/2020 [id number] 0 / / [id number] Stent Ureteral 6fr 26cm Pgtl Crv Taper Tip Bldr Des Lopro - [id number] Implanted:Qty: 1 on 08/29/2017 by Abdifatah Mccormack MD at [facility] Stent Left: Ureter [employer] YUE 03/21/2020 [id number] 0 / / [id number] Stent Ureteral 6fr 26cm Pgtl Crv Taper Tip Bldr Des Lopro - [id number] Implanted:Qty: 1 on 04/08/2018 by Sabine Ruth MD at [facility] Stent [employer] YUE 12/07/2020 [id number] 0 / / [id number] Stent Ureteral 6fr 28cm Pgtl Crv Taper Tip Bldr Des Lopro - [id number] Implanted:Qty: 1 on 04/25/2018 by Abdifatah Mccormack MD at [facility] Stent [employer] YUE [id number] 0 / / [id number] Stent Ureteral 6fr 26cm Pgtl Crv Taper Tip Bldr Des Lopro - [id number] Implanted:Qty: 1 on 10/19/2019 by Abdifatah Mccormack MD at [facility] Explanted:Qty: 1 on 10/31/2019 at [facility] Stent Left: Ureter [employer] YUE 07/18/2022 [id number] 0 / / [id number] Stent Ureteral 6fr 26cm Taper Tip Bldr Des Lopro Cntr Hdr+ - [id number] Implanted:Qty: 1 on 03/09/2020 by Roman García MD at [facility] Stent Left: Ureter [employer] YUE 11/05/2022 [id number] 0 / / [id number] Stent Ureteral 6fr 26cm Pgtl Crv Taper Tip Bldr Des Lopro - [id number] Implanted:Qty: 1 on 10/31/2019 at [facility] Explanted:Qty: 1 on 03/18/2020 by Abdifatah Mccormack MD at [facility] Stent Left: Ureter [employer] YUE 05/20/2022 [id number] 0 / / [id number] Description:1 6x26 LEFT uret eral stent removed intact with string on by Dr. Abdifatah Mccormack [id number] Stent Ureteral 6fr 26cm Taper Tip Bldr Des Lopro Cntr Hdr+ - [id number] Implanted:Qty: 1 on 03/18/2020 by Abdifatah Mccormack MD at [facility] Explanted:03/28 by Abdifatah Mccormack MD (Quantity not on file) Stent Left: Ureter [employer] 11/27/2022 [id number] 0 / / [id number] Left Ureteral Stent Explanted:Qty: 1 on 08/29/2017 by Abdifatah Mccormack MD at [facility] Left: Ureter [employer] YUE [id number] / / Insurance [employer] INDIVIDUAL EXCHANGE PPO [facility] Advance Directives * Full Code (Latest Code [...] 12:54 AM 08/08/2017 12:58 PM Care Teams Filenet Developer Relationship Specialty Start Date End Date Betzaida Ramos MD PCP - General 03/18/20
--- OUTSIDE RECORDS SUMMARY | 2024-12-27 10:11 | XMS_ITS | Encounter Summary ---
Author Organization [facility] Address [address] [place] [address] Care Team Providers Care Motor Scooter Mechanic Name Role Phone Betzaida Ramos MD Primary Care Provider [phone] Encounter Details Date Type Department Care Team (Late st Contact Info) Description 01/26/2021 Scanned Document [facility] Urologic Surgery [place] [address] [facility] [address] [place] [phone] Simon Butler MD [address] [place] [address] [address] [place] [address] Social History Tobacco Use Types Packs/Day Years [...] on filedocumented in this encounter Care Teams Motor Scooter Mechanic Relationship Specialty Start Date End Date Betzaida Ramos MD PCP - General 03/18/20 documented as of this encounter
--- OUTSIDE RECORDS SUMMARY | 2024-12-27 10:11 | XMS_ITS | Encounter Summary ---
Author Organization [facility] Address [address] [place] [phone] Care Team Providers Care Field Staff Name Role Phone Angelica Beasley MD Primary Care Provider [phone] Encounter Details Date Type Department Care Team ([facility] st Contact Info) Description 01/19/2011 Scanned Document Neurology at [address] [address] External, Provider Social History Tobacco Use Types [...] on filedocumented in this encounter Care Teams Field Staff Relationship Specialty Start Date End Date Angelica Beasley MD [address] [place] [phone] PCP - General Internal Medicine 05/12/12 documented as of this encounter
--- OUTSIDE RECORDS SUMMARY | 2024-12-27 10:11 | XMS_ITS | Encounter Summary ---
Author Organization [facility] Address [address] [place] [address] Care Team Providers Care Mobile Unit Assistant Name Role Phone Betzaida Ramos MD Primary Care Provider [phone] Encounter Details Date Type Department Care Team (Late st Contact Info) Description 08/07/2017 [facility] Urologic Surgery [address] [place] [address] Abdifatah Mccormack MD [address] [place] [address] Social History Tobacco Use Types Packs/Day Years [...] on filedocumented in this encounter Care Teams Mobile Unit Assistant Relationship Specialty Start Date End Date Betzaida Ramos MD PCP - General 03/18/20 documented as of this encounter
--- OUTSIDE RECORDS SUMMARY | 2024-12-27 10:11 | XMS_ITS | Encounter Summary ---
Author Organization [facility] Address [address] [place] [address] Care Team Providers Care Sanitation Laborer Name Role Phone Betzaida Ramos MD Primary Care Provider [phone] Encounter Details Date Type Department Care Team (Late st Contact Info) Description 04/14/2022 Scanned Document [facility] Urologic Surgery [place] [address] [facility] [address] [place] [phone] Simon Butler MD [address] [place] [address] [address] [place] [address] Social History Tobacco Use Types Packs/Day Years [...] on filedocumented in this encounter Care Teams Sanitation Laborer Relationship Specialty Start Date End Date Betzaida Ramos MD PCP - General 03/18/20 documented as of this encounter
--- OUTSIDE RECORDS SUMMARY | 2024-12-27 10:11 | XMS_ITS | Encounter Summary ---
Author Organization [facility] Address [address] [facility] [address] [place] [address] Phone Care Team Providers Care Hatchery Laborer Name Role Phone Betzaida Ramos MD Primary Care Provider [phone] Encounter Details Date Type Department Care Team (Late st Contact Info) Description 05/30/2024 Procedure Pass [facility] Endoscopy Admitting Dept Virtual Department [address] [place] [address] Social History Tobacco Use Types Packs/Day Years [...] on filedocumented in this encounter Care Teams Hatchery Laborer Relationship Specialty Start Date End Date Betzaida Ramos MD [address] [place] [address] PCP - General Internal Medicine 04/24/24 documented as of this encounter Additional Source Comments The information contained in this document represents components of the legal health record. It is not the complete legal health record.[facility]
--- OUTSIDE RECORDS SUMMARY | 2024-12-27 10:11 | XMS_ITS | Encounter Summary ---
Author Organization [facility] Address [address] [place] [address] Care Team Providers Care Brake Repairer Name Role Phone Betzaida Ramos MD Primary Care Provider [phone] Encounter Details Date Type Department Care Team (Late st Contact Info) Description 04/10/2019 Scanned Document [facility] Urologic Surgery [place] [address] [facility] [address] [place] [phone] Simon Butler MD [address] [place] [address] [address] [place] [address] Social History Tobacco Use Types Packs/Day Years [...] filedocumented in this encounter Care Teams Brake Repairer Relationship Specialty Start Date End Date Betzaida Ramos MD PCP - General 03/18/20 documented as of this encounter
== END 2024-12-27 09:16 | disposition home or self-care (01) ==
LOC: HO.HMGCX 09:15
PROVIDERS: Visit Provider Urology
DX: N13.30 Unspecified hydronephrosis (principal)
CPT/HCPCS: 76775

== ENCOUNTER → 2024-12-27 09:21 | Outpatient (BNV) | payer OTHER, SELFPAY | PROVIDERS: Visit Provider Radiology Diagnostic Radiology | DX: N13.2 Hydronephrosis with renal and ureteral calculous obstruction (principal) | CPT/HCPCS: 76775 ==

== ENCOUNTER 2025-02-08 08:19 | Outpatient (AMB) | payer OTHER, SELFPAY ==
--- NOTE | 2025-02-08 08:22 | A.OFFVIS_ITS ---
Intake Visit Reasons: US F/U (set)UA) Intake Note: Patient presents for ultrasound follow up Business Manager Required: No Allergies No Known Allergies Allergy (Verified 09/03/24 13:58) Medication List - Last Reconciled 02/08/25 by Sabine Ruth MD captopril 25 mg PO BID oxycodone 5 mg PO Q6H PRN potassium citrate ER 20 mEq PO BID selenium 100 mcg PO BID vit C,H-Fd-mszny-lutein-zeaxan 250-90-40-1 mg (PreserVision AREDS-2) 1 tab PO BID HPI Comments Details: 02/08/25--Mikey is 65-year-old male who is being followed for nephrolithiasis. History of Present Illness The patient is a 65-year-old male presenting for follow-up for nephrolithiasis. He has a history of multiple procedures for kidney stones. His most recent surgical procedure was a ureteroscopy with laser lithotripsy performed on 08/16/24 for a 2.4 cm proximal obstructing ureteral stone. Previous stone analysis has identified cysteine stones. The patient is followed by nephrology for chronic kidney disease and cysteine renal stones, and is prescribed captopril and potassium citrate. His last prostate-specific antigen (PSA) level, from 06/08/24, was 3.17. A recent renal ultrasound on 12/27/24 showed a 4 x 3 x 2 mm stone in the lower pole of the left kidney. He currently denies any obstructive urinary symptoms. Results - Renal ultrasound (12/27/24): A 4 x 3 x 2 mm stone was noted in the left kidney lower pole, and the right kidney was found to be atrophic with no stones. - Prostate-specific antigen (PSA) (06/08/24): 3.17. Plan 1. Nephrolithiasis - Continue monitoring - A follow-up renal ultrasound will be obtained in 10 months. 2. Prostate Cancer Screening - Labs for a prostate-specific antigen (PSA) level will be sent for screening. 3. Chronic Kidney Disease - The patient will continue his care with nephrology for management. 09/03/24--Here for stent removal. 08/02/24-- The patient is a 64-year-old male presenting for management of nephrolithiasis. - The patient has a history of nephrolithiasis with a recent CT scan showing a 2.2 x 0.9 cm staghorn calculus in the left kidney lower pole calyx. An adjacent smaller 3 mm calculus is also noted. - The right kidney is atrophic, measuring 6 cm, with no stones present. - The patient has undergone shockwave lithotripsy and percutaneous nephrolithotomy procedures in the past. - The patient reports no significant urinary symptoms or pain associated with th e current stone. Results - CT scan on 07/20/24: Right kidney atrophic, measuring 6 cm; left kidney with 2.2 x 0.9 cm staghorn calculus in lower pole calyx. An adjacent 3 mm calculus is also noted. - No stones in the ureter or pelvis causing obstruction. Discussion Notes I discussed with the patient the findings from the CT scan, which showed a staghorn calculus in the left kidney and an atrophic right kidney. We reviewed treatment options, including starting with shockwave lithotripsy to fragment the stone. If the lithotripsy is not effective, we may consider a more invasive percutaneous nephrolithotomy vs ureteroscopy laser lithotripsy. 06/08/24- 64-year-old male presenting with management needs for kidney stones. LV -06/10/23. He has a notable history of recurrent cystine renal stones, which have necessitated previous interventions such as lithotripsy and ureteroscopy. A recent renal ultrasound on June 01, 2024, revealed a 4 mm right kidney stone in the lower pole and multiple left renal stones, including a staghorn calculus. There is a significant concern about the potential progression of renal stones and the risk of obstruction, and the history of large stone formations. Pt complains of intermittent left flank pain. Urinary Symptoms Review - Presence of cystine kidney stones - History of undergoing lithotripsy and ureteroscopy for renal stone management Results - Renal Ultrasound (06/01/2024): Notable for a 4 mm stone in the right kidney lower pole and multiple stones in the left kidney, including a staghorn calculus mid to lower kidney. 10/28/2022?presents for stent removal today. I reviewed the urine culture results from 10/18/2022 which came back negative for bacterial growth. Stone analysis from 10/19/2022 revealed 100 % cystine. 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 presents today via televisit for KUB/surgery consult. He was last seen by me on 09/14/2022. He is status post cystoscopy, left ureteroscopy, laser lithotripsy and stent exchange done on 09/14/22.? He did have a KUB done on 09/29/2022. Radiologist has not transcribed the results. I have reviewed the films. There is a residual stone fragment noted on the proximal portion of the ureteral stent. Plan: Sched repeat left ureteroscopy laser lithotripsy stent exchange. OV-09/10/2022--Mikey is a 62-year-old male who I initially evaluated as an inpatient consult for hydronephrosis and acute renal insufficiency secondary to an obstructing stone. He is status post left ureteral stent. He had a follow-up KUB done on 09/03/22 that I reviewed. He has a history of cystine kidney stones. He has been followed by Dr. Gardiner in [place] for many years and has had a multiple of surgical treatment options including ureteroscopy, shockwave lithitripsy to manage the cistine kidney stones. He has moved to [place] and is going to continue his follow-up care with [facility]. He is not on aspirin or any other blood thinners. He is on Pyridium and oxbutynin and they are helpful for him. He requests refill for the Pyridium. Evaluation today-- UA 09/10/22-- Leukocytes: 1+. Blood:3+. Plan:? His follow-up KUB films were reviewed with the patient today. Left ureteroscopy, laser lithotripsy and stent exchange discussed to be scheduled. [facility] Medical History Kidney stone on left side Elevated serum creatinine Small right kidney Cystinuria Surgical History Hx of appendectomy Hx of tonsillectomy H/O colonoscopy History of cystoscopy Family History Father No problems noted. Mother No problems noted. Social History Household Members: Other Housing: House Are you a primary medical care manager to a significant other at home: No Do you presently have visiting nurse or other home services: No Alcohol intake: current Alcohol intake frequency: 0-2 drinks per day Patient Tobacco Use Status: Never used Tobacco Second Hand Smoke Exposure: No Substance Use Type: Marijuana service: No Review of Systems Const All systems reviewed & are unremarkable except as noted in HPI and below Reports no additional complaints Eyes Reports no additional complaints ENT Reports no additional complaints Card Reports no additional complaints Resp Reports no additional complaints GI Reports no additional complaints Reports as per HPI Musc Reports no additional complaints Skin/Breast Reports system reviewed and no additional complaints, except as documented Neuro Reports no additional complaints Psych Reports no additional complaints Endo Reports no additional complaints Uzair/Lymph Reports no additional complaints Aller/Immun Reports no additional complaints Results Reviewed Results Reviewed: Date of Service: 12/27/24 Procedure(s): US renal BI Accession Number(s): [id number] cc: Sabine Ruth MD~ Reason for Exam: N13.30 - Unspecified hydronephrosis EXAMINATION: US KIDNEY BILATERAL HISTORY: N13.30 - Unspecified hydronephrosis TECHNIQUE: Real-time grayscale ultrasound imaging of the kidneys was performed and images were reviewed. COMPARISON: Comparison is made with the prior examination dated 06/01/2024. FINDINGS: Right kidney: The right kidney measures 8.8 x 3.0 x 4.4 cm. Renal parenchymal echotexture and thickness are normal. There are no masses. There is no hydronephrosis or renal calculi. Left Kidney: The left kidney measures 9.9 x 5.5 x 5.8 cm. Renal parenchymal echotexture and thickness are normal. There are no masses. There is a nonobstructing calculus at the lower pole measuring 4 x 3 x 2 mm. No hydronephrosis. IMPRESSION: 4 x 3 x 2 mm left lower pole renal calculus. Otherwise unremarkable renal ultrasound. Date of Service: 07/20/24 EXAMINATION: CT ABDOMEN PELVIS WITHOUT IV CONTRAST HISTORY: N18.9 - Chronic kidney disease, unspecified COMPARISON: Comparison is made with the prior examination dated 11/10/2022. Correlation is also made with a renal ultrasound dated 06/01/2024. TECHNIQUE: CT scan of the abdomen and pelvis was performed without contrast using standard departmental protocol. Coronal and sagittal reformatted images were generated and reviewed. Oral contrast material was not administered per department protocol. This CT exam was performed with one or more of the following dose reduction techniques: automated exposure control, adjustment of the mA and/or kV according to patient size, use of iterative reconstruction technique. DLP: 362 mGy-cm FINDINGS: LOWER CHEST: The visualized lung bases are clear. There is no pleural effusion. CARDIOVASCULATURE: The heart is normal in size. There is no pericardial effusion. LIVER: The liver is normal in size and contour. The liver has an unremarkable unenhanced appearance. GALLBLADDER / BILE DUCTS: The gallbladder is unremarkable. There is no intra or extrahepatic biliary ductal dilatation. SPLEEN: The spleen is normal in size and has an unremarkable unenhanced appearance. PANCREAS: The pancreas has an unremarkable unenhanced appearance. ADRENAL GLANDS: Unremarkable. KIDNEYS/RETROPERITONEUM: The right kidney is atrophic, measuring 6.0 cm in length. There is a 2.2 x 0.9 cm calculus in a mid to lower pole calyx as noted on ultrasound. An adjacent smaller 3 mm calculus is also noted. There is mild dilatation of the renal pelvis. No ureteral calculi are identified. LYMPH NODES: No retroperitoneal lymphadenopathy is identified in the abdomen or pelvis. VASCULATURE: The abdominal aorta is normal in caliber. MESENTERY/PERITONEUM: No free fluid. No masses. There is no free intraperitoneal gas. STOMACH: The stomach is partially collapsed, limiting evaluation. SMALL BOWEL: The small bowel is normal in caliber. COLON: There is a moderate amount of stool throughout the colon. APPENDIX: The appendix is not seen, however no inflammatory changes are seen adjacent to the cecum. URINARY BLADDER/PELVIC ORGANS: The urinary bladder is unremarkable. The prostate is enlarged. BONES / SOFT TISSUES: There is degenerative disc disease at the L5-S1 level. IMPRESSION: Atrophic right kidney. Left nephrolithiasis as described. No ureteral calculi are identified. Date of Service: 06/01/24 EXAMINATION: US KIDNEY BILATERAL HISTORY: N20.0 - Calculus of kidney TECHNIQUE: Real-time grayscale ultrasound imaging of the kidneys was performed and images were reviewed. COMPARISON: Comparison is made with the prior examination dated 02/23/2023. FINDINGS: Right kidney: The right kidney measures 7.1 x 2.9 x 3.4 cm. Renal parenchymal echotexture and thickness are normal. There are no masses. There is a 4 mm nonobstructing calculus at the lower pole. There is no hydronephrosis. Left Kidney: The left kidney measures 10.6 x 6.3 x 5.3 cm. Renal parenchymal echotexture and thickness are normal. There are no masses. There are upper pole nonobstructing calculi measuring 4 x 3 x 4 mm and 6 x 4 x 5 mm. There is a staghorn calculus in the mid to lower pole region, portions of which measure up to 1.5 x 1.0 x 1.4 cm. There is mild caliectasis. IMPRESSION: 1. 4 mm nonobstructing calculus at the lower pole of the right kidney. 2. Multiple left renal calculi including a staghorn calculus in the mid to lower pole region. Mild left caliectasis. This could be further evaluated with CT if desired. TAB: 10/19/22 STATUS: COMP REQ : [id number] RECD: 10/19/22-[address] [facility] [address]: Sabine Ruth MD COMP: 10/25/229 ENTERED: 10/19/22-1352 [facility] DR: ORDERED: Kidney Stone QUERIES: Kidney Stone Source: lt kid Test Result Flag Reference Component 1 SEE NOTE Cystine 100% See Note 1 Stone Weight 0.213 g Note 1 This test was developed and its analytical performance characteristics have been determined by [facility]. It has not been cleared or approved by the FDA. This assay has been validated pursuant to the CLIA regulations and is used for clinical purposes. THIS TEST WAS PERFORMED AT: [facility] [id number] [place] [address] MACEY BELCHER MD Stone Source KIDNEY STONE Date of Service: 09/03/22 EXAMINATION: XR ABDOMEN KUB CLINICAL INDICATION: Left ureteral stent.? COMPARISON: CT abdomen and pelvis 08/31/2022.? TECHNIQUE: AP view of the abdomen. FINDINGS: Since the prior CT scan, a left internally dwelling ureteral stent has been placed. The large previously seen obstructing left proximal to mid ureteral calculus remains in place measuring 2.1 x 0.7 cm. No other calculi are seen. The bowel gas pattern is normal. IMPRESSION: Interval placement of left internally dwelling ureteral stent. The left proximal to mid ureteral calculus remains in place. Date of Service: 08/31/22 EXAMINATION: CT ABDOMEN AND PELVIS WITHOUT CONTRAST? CLINICAL INFORMATION: Flank pain.? COMPARISON: CT Stone 30 09/24/2019 FINDINGS: LUNG BASES: There is bibasilar dependent atelectasis. Minimal atelectasis or scarring is seen in the lingula. The heart size is normal.? LIVER, GALLBLADDER, AND BILIARY TREE: The liver is normal in size, shape, and attenuation. No focal hepatic lesion or biliary ductal dilatation is present. The gallbladder is unremarkable with no evidence of radiopaque gallstones, gallbladder wall thickening, or obvious pericholecystic inflammatory changes.? PANCREAS: Unremarkable.? SPLEEN: Unremarkable.? ADRENAL GLANDS: Unremarkable.? KIDNEYS AND URETERS: The right kidney is small measuring 6.2 cm with extrarenal right kidney pelvis. The left kidney is slightly enlarged measuring 13 cm with moderate to significant left hydroureteronephrosis secondary to a large obstructive mid ureteral stone measuring 1.8 cm on coronal image 36/7 the distal left ureter is prominent but no stones seen.? BLADDER: Unremarkable.? GASTROINTESTINAL TRACT: There is scattered stool and gas seen throughout the colon without any significant distention. The small bowel loops are normal caliber. Appendix is normal caliber.? ABDOMINAL WALL: There is a small umbilical hernia containing fat.? LYMPH NODES: Normal. VASCULAR: Unremarkable. PELVIC VISCERA: There is moderate prostate enlargement. The periprostatic fat planes are preserved.? OSSEOUS STRUCTURES: Degenerative disc changes with vacuum disc phenomena and spondylosis at L5-S1 disc level is noted. There is no aggressive lytic or sclerotic process seen.? IMPRESSION: Large 1.8 cm obstructive radiopaque calculi left mid the ureter with moderate to significant hydroureteronephrosis and moderate perinephric stranding. ? Small right kidney likely chronic atrophy with extrarenal kidney pelvis. No radiopaque calculi seen in either kidneys. ? Mild constipation.?? Assessment & Plan Assessment & Plan (1) Cystine calculus of kidney: Code(s): N20.0 - Calculus of kidney Category: Medical (2) CKD (chronic kidney disease): Code(s): N18.9 - Chronic kidney disease, unspecified Category: Medical (3) Screening PSA (prostate specific antigen): Code(s): Z12.5 - Encounter for screening for malignant neoplasm of prostate Category: Medical Plan Plan 1. Nephrolithiasis - Continue monitoring - A follow-up renal ultrasound will be obtained in 10 months. 2. Prostate Cancer Screening - Labs for a prostate-specific antigen (PSA) level will be sent for screening. 3. Chronic Kidney Disease - The patient will continue his care with nephrology for management. Orders: Orders AMB Urinalysis Automated Today N13.30 - Unspecified hydronephrosis, N20.0 - Calculus of kidney, R10.9 - Unspecified abdominal pain US renal BI 10 Months N18.9 - Chronic kidney disease, unspecified, N20.0 - Calculus of kidney PSA,Total (Free>4and<10) Today Z12.5 - Encounter for screening for malignant n eoplasm of prostate Patient Instructions: The patient had an opportunity to ask questions regarding treatment plan. The patient expressed understanding and agreement with the above treatment plan. The patient is aware they should contact our office by phone for worsening of their current condition or the appearance of new symptoms. Compliance is encouraged with any medications and followup testing that is ordered. It is a privilege to be allowed the opportunity to participate in the urologic care of your patient. If you have any questions or concerns regarding treatment for the above conditions please do not hesitate to contact me. The office telephone contact is [phone]. This note is constructed in part using voice recognition software. While every effort has been made to ensure accuracy veneer taping machine operator errors may have been included. Yours sincerely, Sabine Ruth MD Scribe Plan - Not visible on output: Patient was informed and verbally consented to the use of an ambient scribe for clinic note documentation during this visit. Coding Level of Care Code Est Pt Level 4 (94183) Add On Problem Visit Only Diagnoses Cystine calculus of kidney N20.0 CKD (chronic kidney disease) N18.9 Screening PSA (prostate specific antigen) Z12.5
--- OUTSIDE RECORDS SUMMARY | 2025-02-08 08:25 | XMS_ITS | Encounter Summary ---
Author Organization [facility] Address [address] [place] [address] Care Team Providers Care Ground Hand Name Role Phone Betzaida Ramos MD Primary Care Provider [phone] Encounter Details Date Type Department Care Team (Late st Contact Info) Description 04/11/2020 Scanned Document [facility] Urologic Surgery [address] [place] [id number] Simon Butler MD [address] [place] [address] [address] [place] [address] Social History Tobacco Use Types Packs/Day Years [...] Physicians Department of Internal Medicine & Nephrology [place] [address] [place] [address] Simon Butler MD [address] [facility] [address] [place] [address] documented as of this encounter Visit Diagnoses Not on filedocumented in this encounter Care Teams Ground Hand Relationship Specialty Start Date End Date Betzaida Ramos MD PCP - General 03/18/20 documented as of this encounter
--- OUTSIDE RECORDS SUMMARY | 2025-02-08 08:25 | XMS_ITS | Clinical Summary ---
Author Organization [facility] Address [address] [place] [address] Care Team Providers Care Ladle Repairer Name Role Phone Betzaida Ramos MD Primary Care Provider [phone] Simon Butler MD Unavailable Abdifatah Mccormack MD [...] and not eat as a much meat. Online Marketing Manager is encouraging him to become a [...] with elevated blood glucose. I ordered a ftayx-bf-fhtb hemoglobin A1c that was 5.7%. Assessment & [...] patient's age to complete this topic [facility] Care Teams Ladle Repairer Relationship Specialty Start Date End Date Betzaida Ramos MD [address] [place] [address] PCP - General 04/20/17 Simon Butler MD [address] [address] Internal Medicine 03/24/18 Abdifatah Mccormack MD [address] [place] [id number] Urology 03/24/18
--- OUTSIDE RECORDS SUMMARY | 2025-02-08 08:25 | XMS_ITS | Clinical Summary ---
Author Organization [facility] Address [address] [place] [address] Care Team Providers Care Housekeeper/Laundry Assistant Name Role Phone Betzaida Ramos MD Primary Care Provider [phone] Allergies No known active allergies Medications Alpha-Lipoic Acid 600 MG Cap Take 2 tablets by mouth 2 (two) times a day. Active bisacodyl 5 MG EC tablet 4 [...] before meals. 180 tablet 3 5 Active potassium citrate (UROCIT-K) 10 MEQ (1080 MG) ER tabletIndicatio ns:Cystinuria,K idney stone on left side TAKE 2 TABLETS BY MOUTH TWICE DAILY SWALLOW TABLET WHOLE WITH FULL GLASS OF WATER 400 tablet 3 5 Active Active Problems Problem [...] with elevated blood glucose. I ordered a hnfpe-so-vyxi hemoglobin A1c that was 5.7%. Acute left [...] Department of Internal Medicine & Nephrology [place] [address] [place] [address] Simon Butler MD [address] [facility] [address] [place] [address] Health Maintenance Due Date Last Done Comments [...] 12/29/2020, Additional history exists COVID-19 Vaccine ( - season) 2024 02/03/2021, 05/24/2020, 05/03/2020 Hepatitis B Vaccines Aged Out No long er eligible based on patient's age to complete this topic Medical Devices Explanted Type Area Ammunition And Explosives Handler Device Identifier Shelf Expiration Date Model / Serial / Lot Stent Ureteral 6fr 26cm Pgtl Crv Taper Tip Bldr Des Lopro - [id number] Implanted:Qty: 1 on 08/08/2017 by Abdifatah Mccormack MD at [facility] Stent [employer] 04/04/2020 [id number] / / [id number] Stent Ureteral 6fr 26cm Pgtl Crv Taper Tip Bldr Des Lopro - [id number] Implanted:Qty: 1 on 08/29/2017 by Abdifatah Mccormack MD at [facility] Stent Left: Ureter [employer] 03/21/2020 [id number] / / [id number] Stent Ureteral 6fr 26cm Pgtl Crv Taper Tip Bldr Des Lopro - [id number] Implanted:Qty: 1 on 04/08/2018 by Sabine Ruth MD at [facility] Stent [employer] 12/07/2020 [id number] / / [id number] Stent Ureteral 6fr 28cm Pgtl Crv Taper Tip Bldr Des Lopro - [id number] Implanted:Qty: 1 on 04/25/2018 by Abdifatah Mccormack MD at [facility] Stent [employer] [id number] / / [id number] Stent Ureteral 6fr 26cm Pgtl Crv Taper Tip Bldr Des Lopro - [id number] Implanted:Qty: 1 on 10/19/2019 by Abdifatah Mccormack MD at [facility] Explanted:Qty: 1 on 10/31/2019 at [facility] Stent Left: Ureter [employer] 07/18/2022 [id number] 0 / / [id number] Stent Ureteral 6fr 26cm Taper Tip Bldr Des Lopro Cntr Hdr+ - [id number] Implanted:Qty: 1 on 03/09/2020 by Roman García MD at [facility] Stent Left: Ureter [employer] 11/05/2022 [id number] 0 / / [id number] Stent Ureteral 6fr 26cm Pgtl Crv Taper Tip Bldr Des Lopro - [id number] Implanted:Qty: 1 on 10/31/2019 at [facility] Explanted:Qty: 1 on 03/18/2020 by Abdifatah Mccormack MD at [facility] Stent Left: Ureter [employer] 05/20/2022 [id number] / / [id number] Description:1 6x26 LEFT uret eral stent removed intact with string on by Dr. Abdifatah Mccormack [id number] Stent Ureteral 6fr 26cm Taper Tip Bldr Des Lopro Cntr Hdr+ - [id number] Implanted:Qty: 1 on 03/18/2020 by Abdifatah Mccormack MD at [facility] Explanted:03/28 by Abdifatah Mccormack MD (Quantity not on file) Stent Left: Ureter [employer] 11/27/2022 [id number] / / [id number] Left Ureteral Stent Explanted:Qty: 1 on 08/29/2017 by Abdifatah Mccormack MD at [facility] Left: Ureter [employer] [id number] / / Insurance INDIVIDUAL EXCHANGE PPO [facility] Advance Directives * Full Code (Latest Code [...] 12:54 AM 08/08/2017 12:58 PM Care Teams Housekeeper/Laundry Assistant Relationship Specialty Start Date End Date Betzaida Ramos MD PCP - General 03/18/20
--- OUTSIDE RECORDS SUMMARY | 2025-02-08 08:25 | XMS_ITS | Encounter Summary ---
Author Organization [facility] Address [address] [place] [address] Care Team Providers Care Supervisor Waterworks Name Role Phone Betzaida Ramos MD Primary Care Provider [phone] Encounter Details Date Type Department Care Team (Late st Contact Info) Description 08/28/2017 Prep for Surgery [facility] Urologic Surgery [place] [address] [facility] [address] [place] [address] Brent Peres, [place] [address] [facility] [address] [place] [address] Ureteral obstruction (Primary Dx) Social History Tobacco [...] Physicians Department of Internal Medicine & Nephrology [place] [address] [place] [address] Simon Butler MD [address] [facility] [address] [place] [address] documented as of this encounter Visit Diagnoses Diagnosis Ureteral obstruction- Primary Other ureteric obstruction documented in this encounter Care Teams Supervisor Waterworks Relationship Specialty Start Date End Date Betzaida Ramos MD PCP - General 03/18/20 documented as of this encounter
--- OUTSIDE RECORDS SUMMARY | 2025-02-08 08:25 | XMS_ITS | Encounter Summary ---
Author Organization [facility] Address [address] [place] [address] Care Team Providers Care Media Services Coordinator Name Role Phone Betzaida Ramos MD Primary Care Provider [phone] Simon Butler MD Unavailable Abdifatah Mccormack MD Unavailable Encounter Details Date Type Department Care Team (Late st Contact Info) Description 05/22/2019 E-Visit [facility] Department of Geriatrics [address] [place], [place] [address] Betzaida Ramos MD [address] [place] [address] E-Visit Submission: Symptoms consistent with coronavirus Social [...] documented as of this encounter Care Teams Media Services Coordinator Relationship Specialty Start Date End Date Betzaida Ramos MD [address] [place] [address] PCP - General 04/20/17 Simon Butler MD [address] [phone] Internal Medicine 03/24/18 Abdifatah Mccormack MD [address] [place] [phone] Urology 03/24/18 documented as of this encounter
--- OUTSIDE RECORDS SUMMARY | 2025-02-08 08:25 | XMS_ITS | Clinical Summary ---
Author Organization [facility] Address [address] [facility] [address] [place] [address] Phone Care Team Providers Care Any Commodity Buyer Name Role Phone Betzaida Ramos MD Primary Care Provider [phone] Allergies No known active allergies Medications sertraline [...] mouth 2 (two) times a day. Active iq-izz-LC-vit X-ahdsmm-qvjpst t (PRESERVISION AREDS 2 PLUS MV) 200 [...] Rod MD - 05/30/2024 1:14 PM EDT [facility] Patient Name: Mikey Goldstein Attending MD:: LEONARDO ROD MD, Procedure Date: 05/30/2024 1:14 PM Date of : 1960 Age: 64 Admit Type: Outpatient Gender: Male Room: [facility] 05 Referring MD: Betzaida Ramos Exam Type: [...] monitored continuously. The Olympus adult variable colonoscope [id number] #3 was introduced through the anus and [...] 1:14 PM Procedure Code(s): --- Professional --- 26016, Colonoscopy, flexible; diagnostic, including collection of specimen(s) by brushing or washing, when performed (separateprocedure) --- Technical --- 15794, Colonoscopy, flexible; diagnostic, including collection of specimen(s) by brushing or washing, when performed (separateprocedure) CPT copyright 2021 [employer]. All rights reserved. The codes documented in this report are preliminary and upon psychologist private practice reviewmay be revised to meet current compliance requirements. Procedure Date: 05/30/2024 1:14:[address] [place] [address] Betzaida Ramos MD GI PROCEDURE ORDERABLES F inal Result * (ABNORMAL) Comprehensive metabolic panel (04/24/2024 9:24 AM EST) SODIUM 143 133 - 146 mmol/L [facility] POTASSIUM 4.8 3.3 - 5.1 mmol/L [facility] CHLORIDE 107 96 - 108 mmol/L [facility] CO2 26 21 - 35 mmol/L [facility] BUN 18 6 - 19 mg/dL [facility] CREATININE 1.10 0.5 - 1.5 mg/dL [facility] GLUCOSE 108(H) 70 - 99 mg/dL [facility] ALBUMIN 3.9 3.9 - 4.8 g/dL [facility] TOTAL PROTEIN 7.0 6.5 - 8.0 g/dL [facility] CALCIUM 9.3 8.4 - 10.3 mg/dL [facility] ALKALINE PHOSPHATASE 54 39 - 117 U/L [facility] TOTAL BILIRUBIN 0.4 0.0 - 1.2 mg/dL [facility] AST 20 0 - 37 U/L [facility] ALT 18 0 - 40 U/L [facility] GLOBULIN 3.1 1 - 4.8 g/dL [facility] EGFR 74 >59 mL/min/1.7 3m2 [facility] Comment:Estimated glomerular filtration rate calculated using the CKD-EPI refit equation. ANION GAP 15 10 - 20 mmol/L [facility] Blood 04/24/2024 9:24 AM EST 04/24/2024 9:51 AM EST us Genet Ga NP LAB BLOOD BKR ORDERABLES Final Result [facility] [address] [place] [address] from Last 3 Months or Most Recently Relevant to Health Maintenance Insurance [facility] [place] [address] [place] [address] Dpivision [facility] ACCESS RISA Care Teams Any Commodity Buyer Relationship Specialty Start Date End Date Betzaida Ramos MD [address] [place] [address] PCP - General Internal Medicine 04/24/24 Additional Source Comments The information contained in this document represents components of the legal health record. It is not the complete legal health record.[facility]
--- OUTSIDE RECORDS SUMMARY | 2025-02-08 08:26 | XMS_ITS | Encounter Summary ---
Author Organization [facility] Address [address] [place] [phone] Care Team Providers Care Lamination Operator Name Role Phone Angelica Beasley MD Primary Care Provider [phone] Encounter Details Date Type Department Care Team (Latest Contact Info) Description 11/23/2012 Transcribed Orders [facility] [address] [place] [address] Darrius Steinberg MD [address] [place] [address] Unspecified essential hypertension (Primary Dx); [...] (11/23/2012 4:24 PM EDT) ASHWINI <1:40 <1:40 [facility] Blood specimen (specimen) 11/23/2012 4:24 PM EDT us Darrius Steinberg MD LAB BLOOD ORDERABLES Final R esult [facility] [address] [place] [phone] * Protein electrophoresis, serum ( GH L Y) (11/23/2012 4:24 PM EDT) Total Protein 6.6 6.0 - 8.3 g/dL [facility] Albumin 4.3 3.5 - 5.0 g/dL [facility] Albumin Electrophoresis 3.62 3.50 - 4.70 g/dL [facility] Ogfre-1-Tnttmtqi 0.21 0.10 - 0.30 g/dL [facility] Comment: Effective May 11, 2012, the reference range for this protein fraction has changed due to implementation of a new electrophoresis system. Eotgv-7-Kfzsuhip 0.84 0.60 - 1.00 g/dL [facility] Comment: Effective May 11, 2012, the reference range for this protein fraction has changed due to implementation of a new electrophoresis system. Beta Globulin 1.00 0.70 - 1.20 g/dL [facility] Comment: Effective May 11, 2012, the reference range for this protein fraction has changed due to implementation of a new electrophoresis system. Gamma Globulin 0.92 0.70 - 1.50 g/dL [facility] SPEP Interpretation See below See Interp. [facility] Comment: INTERPRETATION: No discrete abnormal bands. If monoclonal gammopathy remains a clinical consideration, recommend serum immunofixation electrophoresis (RUFUS). SIGNED BY:NIKITA RUDOLPH ON 11/27/2012 15:30:32 INTERPRETATION REVIEW : I have reviewed these results and agree with this interpretation. Blood specimen (specimen) 11/23/2012 4:24 PM EDT us Darrius Steinberg MD LAB BLOOD ORDERABLES Final R esult Performing Organization Address [facility]/ZIP Co de Phone Number [facility] [address] [place] [phone] * Lyme Abs C6 WESLEY w/ reflex to WB (Y) (11/23/2012 4:24 PM EDT) B. burgdorferi Abs w/ Confirmation by WB 0.15 <=0.9 LI [facility] Comment: This sample tested negative [...] ORDERABLES Final R esult Performing Organization Address [facility] Co de Phone Number [facility] [address] [place] [phone] * Rheumatoid factor (BH L Q YH) (11/23/2012 4:24 PM EDT) Pathologist [facility] Rheumatoid Factor <15.9 IU/mL [facility] Blood specimen (specimen) 11/23/2012 4:24 PM EDT Darrius Steinberg MD LAB BLOOD ORDERABLES Final R esult Performing Organization Address [facility] Co de Phone Number [facility] [address] [place] [phone] * VDRL, w/ reflex titer & TP-PA confirm. (Y) (11/23/2012 4:22 PM EDT) Pathologist [facility] VDRL Non-reacti ve Non-reacti ve [facility] Blood specimen (specimen) 11/23/2012 4:22 PM EDT Darrius Steinberg MD LAB BLOOD ORDERABLES Final R esult Performing Organization Address [facility] Co de Phone Number [facility] [address] [place] [phone] * Sedimentation rate (ESR) ( GH YH) (11/23/2012 4:22 PM EDT) Sed Rate 10 0 - 20 mm/hr [facility] Blood specimen (specimen) 11/23/2012 4:22 PM EDT Darrius Steinberg MD LAB BLOOD ORDERABLES Final R esult Performing Organization Address [facility] de Phone Number [facility] [address] [place] [phone] * Vitamin D, 1,25-dihydroxy (mineral metabolism) (YH) (11/23/2012 4:22 PM EDT) Vit D, 1,25-Dihydroxy 62 25 - 66 pg/mL [facility] Comment: 1,25 Dihydroxy vitamin D [...] ORDERABLES Final R esult Performing Organization Address [facility] Co de Phone Number [facility] [address] [place] [phone] * Vitamin D 25 hydroxy (BH L YH) (11/23/2012 4:22 PM EDT) Vit D, 25-Hydroxy 42 20 - 50 ng/mL [facility] Comment: A serum 25(OH) vitamin [...] ORDERABLES Final R esult Performing Organization Address [facility] Co de Phone Number [facility] [address] [place] [phone] * (ABNORMAL) Pyridoxine (YH) (11/23/2012 4:22 PM EDT) Pyridoxine 35.1(H) 2.1 - 21.7 ng/mL [facility] Comment: Conversion Factor: Nanograms/mL x 4.046 = nanomoles/L Blood specimen (specimen) 11/23/2012 4:22 PM EDT Darrius Steinberg MD LAB BLOOD ORDERABLES Final R esult Performing Organization Address [facility] de Phone Number [facility] [address] [place] [phone] documented in this encounter Visit Diagnoses Diagnosis Unspecified essential hypertension- Primary Irritable bowel syndrome Depressive disorder, not elsewhere classified documented in this encounter Care Teams Lamination Operator Relationship Specialty Start Date End Date Angelica Beasley MD [address] [place] [phone] PCP - General Internal Medicine 05/12/12 documented as of this encounter
--- OUTSIDE RECORDS SUMMARY | 2025-02-08 08:26 | XMS_ITS | Encounter Summary ---
Author Organization [facility] Address [address] [place] [address] Care Team Providers Care Offshore Wind Turbine Technician Name Role Phone Betzaida Ramos MD Primary Care Provider [phone] Encounter Details Date Type Department Care Team (Late st Contact Info) Description 04/10/2019 Scanned Document [facility] Urologic Surgery [address] [place] [address] Simon Butler MD [address] [place] [address] [address] [place] [address] Social History Tobacco Use Types Packs/Day Years [...] Physicians Department of Internal Medicine & Nephrology [place] [address] [place] [address] Simon Butler MD [address] [facility] [address] [place] [address] documented as of this encounter Visit Diagnoses Not on filedocumented in this encounter Care Teams Offshore Wind Turbine Technician Relationship Specialty Start Date End Date Betzaida Ramos MD PCP - General 03/18/20 documented as of this encounter
--- OUTSIDE RECORDS SUMMARY | 2025-02-08 08:26 | XMS_ITS | Clinical Summary ---
Author Organization [address] Address [address] [place] [phone] Phone Care Team Providers Care Mixing Picker Tender Name Role Phone Angelica Beasley MD Primary Care Provider [phone] Allergies No known active allergies Medications sertraline [...] EDT) Glucose 99 70 - 100 mg/dL [facility] BUN 25(H) 7 - 20 mg/dL [facility] Creatinine 1.4(H) 0.5 - 1.2 mg/dL [facility] BUN/Creatinine Ratio 17.9 10.0 - 20.0 [facility] Anion Gap 12 7 - 16 [facility] CO2 27.0 22.0 - 30.0 mmol/L [facility] Chloride 103 96 - 106 mmol/L [facility] Sodium 142 135 - 145 mmol/L [facility] Potassium 4.1 3.5 - 5.0 mmol/L [facility] Calcium 9.9 8.8 - 10.2 mg/dL [facility] Blood specimen (specimen) 11/23/2011 4:56 PM EDT us Darrius Steinberg MD LAB BLOOD ORDERABLES Final R esult Performing Organization Address City/State/[facility] Co de Phone Number [facility] [address] [place] [phone] from Last 3 Months or Most Recently Relevant to Health Maintenance Insurance T AET AETNA AETNA Care Teams Mixing Picker Tender Relationship Specialty Start Date End Date Angelica Beasley MD [address] [place] [phone] PCP - General Internal Medicine 05/12/12
--- OUTSIDE RECORDS SUMMARY | 2025-02-08 08:26 | XMS_ITS | Encounter Summary ---
Author Organization [facility] Address [address] [place] [address] Care Team Providers Care Instrument Repairer Name Role Phone Betzaida Ramos MD Primary Care Provider [phone] Encounter Details Date Type Department Care Team (Late st Contact Info) Description 04/14/2022 Scanned Document [facility] Urologic Surgery [address] [place] [address] Simon Butler MD [address] [place] [address] [address] [place] [address] Social History Tobacco Use Types Packs/Day Years [...] Physicians Department of Internal Medicine & Nephrology [place] [address] [place] [address] Simon Butler MD [address] [facility] [address] [place] [address] documented as of this encounter Visit Diagnoses Not on filedocumented in this encounter Care Teams Instrument Repairer Relationship Specialty Start Date End Date Betzaida Ramos MD PCP - General 03/18/20 documented as of this encounter
--- OUTSIDE RECORDS SUMMARY | 2025-02-08 08:26 | XMS_ITS | Encounter Summary ---
Author Organization [facility] Address [address] [place] [phone] Care Team Providers Care Public Bath Attendant Name Role Phone Angelica Beasley MD Primary Care Provider [phone] Encounter Details Date Type Department Care Team ([facility] st Contact Info) Description 01/19/2011 Scanned Document Neurology at [address] [address] External, Provider Social History Tobacco Use Types [...] on filedocumented in this encounter Care Teams Public Bath Attendant Relationship Specialty Start Date End Date Angelica Beasley MD [address] [place] [phone] PCP - General Internal Medicine 05/12/12 documented as of this encounter
--- OUTSIDE RECORDS SUMMARY | 2025-02-08 08:26 | XMS_ITS | Encounter Summary ---
Author Organization [facility] Address [address] [place] [address] Care Team Providers Care Tube And Rod Straightener Name Role Phone Betzaida Ramos MD Primary Care Provider [phone] Encounter Details Date Type Department Care Team (Late st Contact Info) Description 08/07/2017 [facility] Urologic Surgery [address] [place] [address] Abdifatah Mccormack MD [address] [place] [address] Social History Tobacco Use Types Packs/Day Years [...] Physicians Department of Internal Medicine & Nephrology [place] [address] [place] [address] Simon Butler MD [address] [facility] [address] [place] [address] documented as of this encounter Visit Diagnoses Not on filedocumented in this encounter Care Teams Tube And Rod Straightener Relationship Specialty Start Date End Date Betzaida Ramos MD PCP - General 03/18/20 documented as of this encounter
--- OUTSIDE RECORDS SUMMARY | 2025-02-08 08:26 | XMS_ITS | Encounter Summary ---
Author Organization [facility] Address [address] [facility] [address] [place] [phone] Phone Care Team Providers Care Customer Associate Name Role Phone Betzaida Ramos MD Primary Care Provider [phone] Encounter Details Date Type Department Care Team (Late st Contact Info) Description 05/30/2024 Procedure Pass [facility] Endoscopy Admitting Dept Virtual Department [address] [place] [address] Social History Tobacco Use Types Packs/Day Years [...] on filedocumented in this encounter Care Teams Customer Associate Relationship Specialty Start Date End Date Betzaida Ramos MD [address] [place] [address] PCP - General Internal Medicine 04/24/24 documented as of this encounter Additional Source Comments The information contained in this document represents components of the legal health record. It is not the complete legal health record.[facility]
--- OUTSIDE RECORDS SUMMARY | 2025-02-08 08:26 | XMS_ITS | Encounter Summary ---
Author Organization [facility] Address [address] [place] [address] Care Team Providers Care Oil Refinery Operator Name Role Phone Betzaida Ramos MD Primary Care Provider [phone] Encounter Details Date Type Department Care Team (Late st Contact Info) Description 01/26/2021 Scanned Document [facility] Urologic Surgery [address] [place] [address] Simon Butler MD [address] [place] [address] [address] [place] [address] Social History Tobacco Use Types Packs/Day Years [...] Physicians Department of Internal Medicine & Nephrology [place] [address] [place] [address] Simon Butler MD [address] [facility] [address] [place] [address] documented as of this encounter Visit Diagnoses Not on filedocumented in this encounter Care Teams Oil Refinery Operator Relationship Specialty Start Date End Date Betzaida Ramos MD PCP - General 03/18/20 documented as of this encounter
== END 2025-02-08 09:09 | disposition home or self-care (01) ==
LOC: HO.HUSH 08:20
PROVIDERS: Visit Provider Urology
DX: N20.0 Calculus of kidney (principal); N18.9 Chronic kidney disease, unspecified; Z12.5 Encounter for screening for malignant neoplasm of prostate
CPT/HCPCS: 99214